=== PATIENT | male | born 1950 | race Caucasian/White ===

== ENCOUNTER → 2018-03-22 | Outpatient (CLI) | payer MEDICARE ==
[2018-03-22 16:16] LABS: HCT 35.4 % (39.0-53.0); HGB 11.6 gm/dL (13.0-17.5); MCH 32.7 pg (25.0-35.0); MCHC 32.7 g/dL (31.0-37.0); Macrocytosis Slight; Platelet Count 175 k/uL (150-450); RBC 3.54 m/uL (4.30-5.90); RDW 15.4 % (11.5-15.5); WBC 3.6 k/uL (3.8-10.6)
[2018-03-22 16:23] LABS: Prothrombin Time 9.9 sec (9.0-12.0); T4, Free (Free Thyroxine) 0.73 ng/dL (0.78-2.19)
[2018-03-22 16:49] LABS: Band Neutrophils % 1 %; Eosinophils # (M) 0.07 k/uL (0-0.7); Monocytes # (M) 0.54 k/uL (0-1.0); Neutrophils % (M) 43 %; Nucleated Red Blood Cells 0 /100 WBC (0-0); Total Cells Counted 100
[2018-03-22 16:50] LABS: Poikilocytosis (M) Present
[2018-03-22 19:38] LABS: Vitamin D 25 Hydroxy 31.6 ng/mL (30.0-100.0)
== END | disposition home or self-care (01) ==
LOC: LABWHC1 14:38
PROVIDERS: ATTEND Psychiatry & Neurology Neurology
DX: R41.3 Other amnesia (principal); I67.9 Cerebrovascular disease, unspecified
CPT/HCPCS: 36415; 82306; 82607; 84207; 84439; 84443; 85025; 85610; 85730; 86618; 86780

== ENCOUNTER → 2018-04-09 | Outpatient (CLI) | payer MEDICARE ==
--- NOTE | 2018-04-09 12:34 | MR ---
EXAMINATION TYPE: MR brain wo con DATE OF EXAM: 04/09/2018 COMPARISON: NONE HISTORY: stroke T1-weighted sagittal, T2, FLAIR, and diffusion axial, and T2 coronal coronal views of the brain are s ubmitted. Exam limited by severe motion artifact. There is no evidence of acute ischemia. The ventricles, basal cisterns, and sulci overlying the conv exities are consistent with the patient's age. There is no mass effect. Craniocervical junction maintained. Sella turcica has a normal appearance. No cerebellopontine angle mass. Changes of chronic sinusitis are noted. There is mild to moderate generalized degenerative change wit h diffuse and focal areas of abnormal signal the white matter which are nonspecific. Remote microvasc ular ischemia favored. IMPRESSION: 1. Limited exam demonstrates no acute intracranial process. 2. Degenerative and nonspecific white matter changes most typical remote microvascular ischemia. 3. Changes of chronic sinusitis.
== END | disposition home or self-care (01) ==
LOC: RADMRIMAIN 11:37
PROVIDERS: ATTEND Psychiatry & Neurology Neurology
DX: R90.89 Other abnormal findings on diagnostic imaging of central nervous system (principal); Z86.73 Personal history of transient ischemic attack (TIA), and cerebral infarction without residual deficits; Z86.69 Personal history of other diseases of the nervous system and sense organs
CPT/HCPCS: 70551

== ENCOUNTER → 2018-06-16 | Outpatient (CLI) | payer MEDICARE ==
--- NOTE | 2018-06-16 14:39 | US ---
EXAMINATION TYPE: US carotid duplex BILAT DATE OF EXAM: 06/16/2018 COMPARISON: NONE CLINICAL HISTORY: Abnormal MRI R93.8. EXAM MEASUREMENTS: RIGHT: Peak Systolic Velocity (PSV) cm/sec ----- Right CCA: 66.7 ----- Right ICA: 82.9 ----- Right ECA: 108.1 ICA/CCA ratio: 1.2 RIGHT: End Diastole cm/sec ----- Right CCA: 20.5 ----- Right ICA: 23.5 ----- Right ECA: 22.2 LEFT: Peak Systolic Velocity (PSV) cm/sec ----- Left CCA: 87.6 ----- Left ICA: 79.8 ----- Left ECA: 113.3 ICA/CCA ratio: 0.9 LEFT: End Diastole cm/sec ----- Left CCA: 26.7 ----- Left ICA: 28.0 ----- Left ECA: 11.4 VERTEBRALS (direction of flow): Right Vertebral: Antegrade Left Vertebral: Antegrade Rhythm: Normal mid left cca plaque, wnl IMPRESSION: Mild degree of grayscale atheromatous plaquing with no sonographically evident hemodynam ically significant stenosis within either visualized carotid arterial system.
== END | disposition home or self-care (01) ==
LOC: RADUSWWP 13:34
PROVIDERS: ATTEND Psychiatry & Neurology Neurology
DX: I65.23 Occlusion and stenosis of bilateral carotid arteries (principal)
CPT/HCPCS: 93880

== ENCOUNTER → 2018-08-16 | Outpatient (CLI) | payer MEDICARE ==
--- NOTE | 2018-08-16 20:43 | MR ---
EXAMINATION TYPE: MR shoulder LT wo con DATE OF EXAM: 08/16/2018 COMPARISON: Plain film 08/02/2018 HISTORY: Left shoulder pain TECHNIQUE: Multiplanar, multisequence imaging of the left shoulder is performed without contrast. FINDINGS: Rotator Cuff: Supraspinatus tendon and infraspinatus tendon are torn and retracted to the level of th e acromion, there is marked attenuation of the rotator cuff tendon. Acromioclavicular Joint: Arthropathy is present. Glenohumeral Joint: Shoulder somewhat high riding. There is remodeling of the glenohumeral joint. Labrum: The labrum appears grossly intact given limitation of non-arthrogram study. Biceps Tendon: The long head of biceps tendon is markedly attenuated centrally but is present within the bicipital groove peripherally, centrally the transverse humeral ligament is not seen to be intact with certainty on the tendon is not well seen Bone marrow signal: Some reactive marrow signal change present at the level of the greater tuberosity , remodeling at this region could be due to Hill-Sachs deformity. There are some tracks of low signal within the humeral head likely due to prior rotator cuff repair. Other: Intermediate signal is present throughout much of the large shoulder joint effusion. There is likely debris present within the joint. IMPRESSION: Suspect a rotator cuff tear which may be recurrent, correlate with patient's history. Additional find ings above.
== END ==
LOC: RADMRIMAIN 14:58
PROVIDERS: ATTEND Orthopaedic Surgery
DX: M19.012 Primary osteoarthritis, left shoulder (principal)

== ENCOUNTER → 2018-08-24 | Outpatient (CLI) | payer MEDICARE ==
[2018-08-24 10:17] LABS: HCT 32.7 % (39.0-53.0); Hypochromasia Moderate; MCH 31.7 pg (25.0-35.0); MCHC 30.6 g/dL (31.0-37.0); MCV 103.7 fL (80.0-100.0); Macrocytosis Slight; Mean Platelet Volume 7.8; Platelet Count 256 k/uL (150-450); RBC 3.15 m/uL (4.30-5.90); RDW 15.2 % (11.5-15.5); WBC 4.9 k/uL (3.8-10.6)
[2018-08-24 10:54] LABS: Lymphocytes # (M) 0.78 k/uL (1.0-4.8); Monocytes # (M) 1.42 k/uL (0-1.0); Neutrophils % (M) 51 %; Nucleated Red Blood Cells 0 /100 WBC (0-0); Poikilocytosis (M) Present; Total Cells Counted 100
[2018-08-24 11:20] LABS: Potassium 4.7 mmol/L (3.5-5.1)
== END | disposition home or self-care (01) ==
LOC: LABPAT 09:06
PROVIDERS: ATTEND Orthopaedic Surgery
DX: Z01.812 Encounter for preprocedural laboratory examination (principal); M75.42 Impingement syndrome of left shoulder
CPT/HCPCS: 36415; 80051; 85025

== ENCOUNTER 2018-09-12 07:57 | Day surgery (SDC) | payer MEDICARE ==
[2018-09-09 11:06] VITALS: BMI 27.4
--- NOTE | 2018-09-11 18:47 | HP ---
HISTORY AND PHYSICAL REASON FOR ADMISSION: Surgery scheduled 09/12/2018 Wyatt Suarez is a 68-year-old patient seen with progressive left shoulder pain. After treatment options were discussed with him, he elected to proceed with arthroscopy. Consent was obtained. Medical clearance provided by Dr. Jani Arambula. PAST MEDICAL HISTORY: Hypertension, hyperlipidemia. PAST SURGICAL HISTORY: Left shoulder arthroscopy, herniorrhaphy. MEDICATIONS: Atenolol, Proscar, simvastatin, Aricept. ALLERGIES: NITROGLYCERIN. SOCIAL HISTORY: Patient denies current tobacco use. PHYSICAL EXAMINATION: Evaluation of the left shoulder flexion 30 degrees, abduction 30 degrees, external rotation is 20 degrees with pain and weakness. Tenderness on the anterolateral acromion rotator cuff insertion site. Impingement sign positive at 50 degrees. Drop- arm sign positive. Distal neurovascular exam intact. RADIOGRAPHS: Left shoulder radiographs revealed a type 2 anterior acromion acromioclavicular joint osteoarthritis and cystic changes of the greater tuberosity. An MRI left shoulder revealed a massive retracted rotator cuff tear along with acromioclavicular joint osteoarthritis. IMPRESSION: 1. Left shoulder impingement with rotator cuff tear. 2. Left shoulder acromioclavicular osteoarthritis. 3. Hypertension. 4. Hyperlipidemia. PLAN: Left shoulder arthroscopy with decompression, possible arthroscopic rotator cuff repair, probable Viktoriya procedure and debridement. Surgery scheduled for 09/12/2018. MMODL / IJN: [id number] /
[~2018-09-12 07:57] MED LIST: DEXAMETHASONE SOD PHOSPHATE 10 MG/ML 1 ML VIAL IV ONE; HYDROmorphone 0.5 MG/0.5 ML SYRINGE IVP PRN; LACTATED RINGERS 1,000 ML IV SCH; LIDOCAINE 1% 20 ML VIAL (10MG/ML) FOR IV START INTRADERMA PRN; ONDANSETRON 4 MG/2 ML VIAL IVP ONE; ceFAZolin 1,000 MG in DEXTROSE/WATER 1 50ML.BAG IV ONE
[2018-09-12] MEDS ORDERED: fentaNYL (PF) 50 MCG/ML 2 ML AMP IVP ONE ×2 (08:44→09:08)
[2018-09-12] MEDS ORDERED: MIDAZOLAM 2 MG/2 ML VIAL IV ONE ×2 (08:44→09:06)
--- NOTE | 2018-09-12 09:04 | P.ONQ ---
Anesthesiology Proc Note - PNB - Peripheral Nerve Block Performed Left Interscalene Single Time Out Performed: Yes Procedure Start Time: 08:45 Indication: Acute Post-Operative Pain, Analgesia Specifically requested for management of pain by DrBenedicto: Jonathan Arevalo Sedation Type: Sedate with meaningful contact maintained Preparation: Sterile Prep Position: Supine Catheter: None Needle Types: Other (see comment) (Pajunk) Needle Size: 50mm (2") Needle Gauge: 21 Technique: Ultrasound Injectate: 0.5% Ropivacaine (see comment for volume) (25 cc) Blood Aspirated: No Pain Paresthesia on Injection Noted: No Resistance on Injection: Normal Events: Uneventful and Well Tolerated
[2018-09-12] MEDS ORDERED: ROPIVACAINE 5 MG/ML 30 ML VIAL ONE (09:33)
[2018-09-12] MEDS ORDERED: fentaNYL (PF) 50 MCG/ML 2 ML AMP ONE (09:33)
[2018-09-12] MEDS ORDERED: LIDOCAINE 1% INJ 10MG/ML (20 ML MDV) ONE (09:33)
[2018-09-12] MEDS ORDERED: SUCCINYLCHOLINE CHLORIDE 100 MG/5 ML SYR IV ONE (09:33)
[2018-09-12] MEDS ORDERED: PROPOFOL 10 MG/ML 20 ML VIAL IV ONE (09:33)
[2018-09-12] MEDS ORDERED: LACTATED RINGERS 1,000 ML IV ONE (11:29)
[2018-09-12 12:00] VITALS: TEMP 96.9
[2018-09-12 12:36] VITALS: RESP 16
[2018-09-12 13:31] VITALS: BP 162/90; PULSE 71
--- NOTE | 2018-09-12 14:29 | P.OP ---
Date of Procedure: 09/12/18 Preoperative Diagnosis: Left shoulder rotator cuff tear Postoperative Diagnosis: 1. Massive retracted rotator cuff tear left shoulder 2. Superior labral tear left shoulder Procedure(s) Performed: 1. Arthroscopic rotator cuff repair left shoulder 2. Arthroscopic debridement labral tear left shoulder Implants: 3Arthrex swivel lock anchors Anesthesia: GETA, regional (Adductor canal together), local Surgeon: Jonathan Arevalo Commercial Roofing Estimator #1: Fransico Coe Estimated Blood Loss (ml): 5 Pathology: none sent Condition: stable Disposition: PACU Indications for Procedure: 68-year-old patient seen with progressive left shoulder pain. After having treatment options discussed, he elected to proceed with arthroscopy. Operative Findings: see description of procedure Description of Procedure: Patient underwent an interscalene block by department of anesthesia for postoperative pain control. The patient was then taken to the operative suite. The patient underwent a general anesthetic by the department of anesthesia. The patient was placed into a lateral position and secured. There was appropriate padding of the bony prominence. Left shoulder was then prepped and draped in normal sterile orthopedic fashion. We placed the extremity in 10 pounds of longitudinal traction. A posterior incision was now made for a posterior working portal site. The trocar and cannula were inserted into the glenohumeral joint. Arthroscopy was initiated. Spinal needle was now inserted anteriorly, to ascertain the anterior working portal site. An incision was now made in that area, a trocar was inserted followed by a probe. There was superficial tearing of the superior labrum present. There was no obvious massive retracted rotator cuff tear present. The biceps tendon was absent. There were grade 1/2 chondromalacia changes of the glenohumeral joint. I debrided the labral tear down to stable tissue. The residual labrum appeared stable. Instruments now removed from glenohumeral joint. Utilizing the posterior working portal site, the trocar and cannula were inserted into the subacromial space. Arthroscopy initiated. I made an incision 2 fingerbreadths lateral to the acromion. I introduced my trocar followed by my ArthroCare ablator. I now began ablating thick subacromial bursal tissue, which exposed the undersurface of the anterior acromion. There appeared to be adequate acromial space present. The before meals joint was visualized and noted to be moderately arthritic. I did not think enough toward a Viktoriya procedure. I turned my attention to the rotator cuff tear. There was a massive 3-4 cm tear retracted all the way to and beyond the glenoid. It was not mobile. I began meticulously freeing up the tendon. At this point it still would not reach the footprint. I began placing interrupted sutures centrally performing a [id number] repair mobilizing some of the anterior portion of the tendon which was somewhat more mobile. This was done with the assistance of Cb MUSE. After placing multiple sutures I was now just barely able to get the tendon over the footprint. The tissue was very weak but I felt stable enough to attempt a repair. We passed 8 horizontal mattress sutures through reasonable bites of tendon at least we had to work with. I passed 2 additional loop stitches. At this point the sutures were pulled and there appeared to be good stable tendon tissue although it did appear to be quite thin. I now introduced 3 anchors passing various sutures through them compressed and atenolol the footprint nicely. I held the anchors in place while Cb MUSE tensioned the sutures. The anchors were introduced into the bone with Cb MUSE's assistance. All residual suture limbs were now clipped. We had a reasonable repair done with a fair amount of tension. I injected 1 mL Renue intra-articular. Instruments now removed from the portal sites. All portal sites were approximated with nylon suture. Sterile dressings were applied followed by a shoulder immobilizer. Fransico MUSE assisted in this complex case. The patient was awakened, transferred to a bed, and taken to recovery in stable condition. Prognosis remains guarded given this complex tear.
== END 2018-09-12 13:46 | disposition home or self-care (01) ==
LOC: OR 07:57
PROVIDERS: ATTEND Orthopaedic Surgery
DX: M75.102 Unspecified rotator cuff tear or rupture of left shoulder, not specified as traumatic (principal); S43.432A Superior glenoid labrum lesion of left shoulder, initial encounter; X58.XXXA Exposure to other specified factors, initial encounter; M94.212 Chondromalacia, left shoulder; I10 Essential (primary) hypertension; E78.5 Hyperlipidemia, unspecified; Z87.891 Personal history of nicotine dependence; F03.90 Unspecified dementia, unspecified severity, without behavioral disturbance, psychotic disturbance, mood disturbance, and anxiety; Z79.82 Long term (current) use of aspirin; Z79.891 Long term (current) use of opiate analgesic; Z79.899 Other long term (current) drug therapy; Z88.8 Allergy status to other drugs, medicaments and biological substances
CPT/HCPCS: 64415; 29826; 29827; C1713 ×2; C1894; C1765; J2250; J1100; J2405; J2001; J3010; J0690; J2795; J0330; J2704

== ENCOUNTER 2019-09-16 14:56 | Observation (INO) | payer MEDICARE ==
[2019-09-16 15:38] LABS: ALT 26 U/L (21-72); AST 41 U/L (17-59); African American GFR (CKD) >90 (>60 ml/min/1.73 sqM); Albumin 4.3 g/dL (3.5-5.0); Alkaline Phosphatase 113 U/L (38-126); Anion Gap 11 mmol/L; Blood Urea Nitrogen 15 mg/dL (9-20); Calcium 9.3 mg/dL (8.4-10.2); Carbon Dioxide 24 mmol/L (22-30); Chloride 101 mmol/L (98-107); Creatine Kinase 81 U/L (55-170); Glucose 133 mg/dL (74-99); Magnesium 2.1 mg/dL (1.6-2.3); Potassium 4.4 mmol/L (3.5-5.1); Sodium 136 mmol/L (137-145); Total Bilirubin 0.4 mg/dL (0.2-1.3); Total Protein 7.6 g/dL (6.3-8.2)
--- NOTE | 2019-09-16 15:47 | XR ---
EXAMINATION TYPE: XR chest 2V DATE OF EXAM: 09/16/2019 COMPARISON: 10/26/2016 HISTORY: Chest pain TECHNIQUE: Frontal and lateral views of the chest are obtained. FINDINGS: Heart is normal. There is some linear density at the right lung base with blunting right c ostophrenic angle. Left lung is clear. There are chest leads. IMPRESSION: There is some pleural reaction and atelectasis lateral right lung base probably not abreu ged compared to old exam. Normal heart.
[2019-09-16 15:49] LABS: Anisocytosis Slight; HCT 33.6 % (39.0-53.0); HGB 10.3 gm/dL (13.0-17.5); Hypochromasia Slight; MCH 28.8 pg (25.0-35.0); MCHC 30.7 g/dL (31.0-37.0); MCV 93.9 fL (80.0-100.0); Platelet Count 160 k/uL (150-450); RBC 3.58 m/uL (4.30-5.90); WBC 4.3 k/uL (3.8-10.6)
[2019-09-16 15:50] LABS: INR 0.9 (<1.2); Partial Thromboplastin Time 25.4 sec (22.0-30.0); Prothrombin Time 10.2 sec (9.0-12.0)
[2019-09-16 16:02] LABS: D-Dimer 5.15 mg/L FEU (<0.60)
[2019-09-16 16:24] LABS: Lymphocytes # (M) 0.73 k/uL (1.0-4.8); Neutrophils % (M) 62 %; Nucleated Red Blood Cells 0 /100 WBC (0-0); Total Cells Counted 100
--- NOTE | 2019-09-16 16:49 | ED ---
Chest Pain HPI - General Chief Complaint: Chest Pain Stated Complaint: Chest pain Time Seen by Provider: 09/16/19 15:15 Source: patient, family, RN notes reviewed Mode of arrival: ambulatory Limitations: no limitations - History of Present Illness Initial Comments: This is a 69-year-old male who presents with complaints of chest pain is been going on over last several days he states it was starting yesterday and last night he states he will at times be sharp dull achy and pressure-like he points to the mid left chest does not seem to radiate. No fevers chills nausea vomiting sweats no cough or phlegm production no other associated probably does have a prior history of left shoulder surgery but a year ago. He states the pain feels somewhat similar MD Complaint: chest pain - Related Data Home Medications Medication Instructions Recorded Confirmed Atenolol 25 mg PO DAILY 11/04/15 09/16/19 Simvastatin [Zocor] 40 mg PO HS 11/04/15 09/16/19 Acetaminophen Tab [Tylenol Tab] 650 mg PO Q6H PRN 10/26/16 09/16/19 Aspirin EC [Ecotrin Low Dose] 81 mg PO HS 10/26/16 09/16/19 Donepezil [Aricept] 10 mg PO HS 09/16/19 09/16/19 Tamsulosin [Flomax] 0.4 mg PO DAILY 09/16/19 09/16/19 Allergies Allergy/AdvReac Type Severity Reaction Status Date / Time nitroglycerin Allergy pts heart Verified 09/16/19 16:16 stopped beating after given nitro Review of Systems ROS Statement: Those systems with pertinent positive or pertinent negative responses have been documented in the HPI. ROS Other: All systems not noted in ROS Statement are negative. EKG Findings - EKG Comments: EKG Findings:: Sinus rhythm of 68 MI interval 150 QRS 76 QT since QTC 408/433 Past Medical History Past Medical History: Dementia, Hyperlipidemia, Osteoarthritis (OA), Prostate Disorder Additional Past Medical History / Comment(s): Anemia., pain left shoulder History of Any Multi-Drug Resistant Organisms: None Reported Past Surgical History: Ear Surgery, Heart Catheterization, Hernia Repair, Orthopedic Surgery Additional Past Surgical History / Comment(s): Left shoulder rotator cuff, knee arthroscopy Additional Past Anesthesia/Blood Transfusion Reaction / Comment(s): PTS BLOOD PRESSURE HAS DROPPED IN THE PAST WHEN RECEIVING ANESTHESIA Past Psychological History: Anxiety Smoking Status: Former smoker Past Alcohol Use History: Daily Past Drug Use History: None Reported - Past Family History Sister(s) Family Medical History: Cancer Mother Family Medical History: No Reported History General Exam - General Exam Comments Initial Comments: Is a well-developed well-nourished awake alert oriented 3 male Limitations: no limitations General appearance: alert, in no apparent distress Head exam: Present: atraumatic, normocephalic, normal inspection Eye exam: Present: normal appearance, PERRL, EOMI. Absent: scleral icterus, conjunctival injection, periorbital swelling ENT exam: Present: normal exam, mucous membranes moist Neck exam: Present: normal inspection, full ROM, other (No stridor JVD or bruits). Absent: tenderness, meningismus, lymphadenopathy Respiratory exam: Present: normal lung sounds bilaterally. Absent: respiratory distress, wheezes, rales, rhonchi, stridor Cardiovascular Exam: Present: regular rate, normal rhythm, normal heart sounds. Absent: systolic murmur, diastolic murmur, rubs, gallop, clicks GI/Abdominal exam: Present: soft, normal bowel sounds. Absent: distended, tenderness, guarding, rebound, rigid Extremities exam: Present: normal inspection, full ROM, normal capillary refill. Absent: tenderness, pedal edema, joint swelling, calf tenderness Back exam: Present: normal inspection Neurological exam: Present: alert, oriented X3, CN II-XII intact Psychiatric exam: Present: normal affect, normal mood Skin exam: Present: warm, dry, intact, normal color. Absent: rash Course Vital Signs 09/16/19 09/16/19 15:01 16:57 Temperature 98.2 F Pulse Rate 77 66 Respiratory 16 18 Rate Blood Pressure 133/78 120/64 O2 Sat by Pulse 98 73 L Oximetry Chest Pain MDM - MDM The CAT scan the test was negative for PE there is some thickening noted. Please see complete report discuss [employer] the patient's the chest pain patient presents with his bothersome for being consistent with unstable angina. I did discuss the findings with the patient family and the patient will be admitted for rule out the case discussed Dr. Garcia. Disposition Clinical Impression: Chest pain Disposition: ADMITTED IP TO THIS HOSP Condition: Stable Referrals: Farnaz Webster MD [Primary Care Provider] - 1-2 days
--- NOTE | 2019-09-16 17:20 | CT ---
EXAMINATION TYPE: CT angio chest DATE OF EXAM: 09/16/2019 4:59 PM COMPARISON: 10/26/2016 HISTORY: Chest pain with elevated d-dimer. CT DLP: 397.5 mGycm Automated exposure control for dose reduction was used. CONTRAST: CTA scan of the thorax is performed with IV Contrast, patient injected with 72ml mL of Isovue 370, pu lmonary embolism protocol. There are 3-D post processed images.. FINDINGS: There is very low density 1 cm infiltrate in the anterior right upper lobe. There is some pleural nod ular density on the lateral chest wall on the right side that measures up to 1 cm. There is no pleura l effusion. There is no pneumothorax. There is no mediastinal adenopathy. There are a few paratrachea l and bronchial lymph nodes that measure up to 1 cm. Thoracic aorta shows no aneurysm or dissection. Heart size is normal. There is no pericardial effusion. There is normal contrast opacification of the pulmonary arteries. There are no filling defects. There is spurring in the thoracic spine. There is no compression fracture. IMPRESSION: NO EVIDENCE OF PULMONARY EMBOLISM. NONSPECIFIC MEDIASTINAL AND BRONCHIAL LYMPH NODES. COMPARED TO OLD EXAM THERE IS NEW MINIMAL NODULAR PLEURAL THICKENING ON THE LOWER RIGHT LATERAL CHEST WALL AND SOME DEGREE OF FOLLOW-UP IS RECOMMENDED TO SHOW STABILITY OR CLEARING.. THERE IS CLEARING OF THE MILD INFILTRATES AND ATELECTASIS AT THE LUNG BASES COMPARED TO OLD EXAM.
[2019-09-16] MEDS ORDERED: HEPARIN SODIUM,PORCINE 5,000 UNIT/ML 1 ML VIAL IV ONE (17:47)
[2019-09-16] MEDS ORDERED: NITROGLYCERIN SL TABS 0.4 MG TAB SUBLINGUAL PRN (17:47)
[2019-09-16] MEDS ORDERED: ACETAMINOPHEN TAB 325 MG TAB PO PRN (17:50)
[2019-09-16] MEDS: HEPARIN SOD,PORK IN 0.45% NACL 25,000 UNIT in 0.45% NACL 1 250ML.BAG IV SCH (19:25)
[2019-09-17 03:20] LABS: Cholesterol 157 mg/dL (<200); HDL Cholesterol 53 mg/dL (40-60); LDL Cholesterol,Calculated 74 mg/dL (0-99); Triglycerides 149 mg/dL (<150)
[2019-09-17] MEDS: ATORVASTATIN 20 MG TAB PO SCH ×2 (04:08→20:11)
[2019-09-17] MEDS: HEPARIN SODIUM,PORCINE 5,000 UNIT/ML 1 ML VIAL SQ STA ×2 (04:08→04:11)
[2019-09-17] MEDS: DONEPEZIL 10 MG TAB PO SCH ×2 (04:08→20:11)
[2019-09-17] MEDS ORDERED: HEPARIN SODIUM,PORCINE 5,000 UNIT/ML 1 ML VIAL IV PRN (04:09)
[2019-09-17] MEDS ORDERED: ASPIRIN 325 MG TAB PO SCH (09:00)
[2019-09-17] MEDS: ATENOLOL 25 MG TAB PO SCH (09:34)
[2019-09-17] MEDS: TAMSULOSIN 0.4 MG CAP.ER.24H PO SCH (09:34)
--- NOTE | 2019-09-17 10:24 | P.HPIM ---
History of Present Illness H&P Date: 09/17/19 Chief Complaint: chest pain This is a 69-year-old male one of with a previous medical history significant for mild CAD post-heart catheterization more than 6 years ago, history of vascular dementia, hyperlipidemia, patient presented to the emergency department at 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 Mojica in more than 3 years ago. Review of Systems Constitutional: Denies anorexia, Denies chronic headaches, Denies weakness, Denies weight gain Eyes: denies blurred vision, denies bulging eye, denies decreased vision, denies diplopia Ears: deny: decreased hearing Ears, nose, mouth and throat: Denies dysphagia, Denies neck lump, Denies swelli ng in throat, Denies sore throat Cardiovascular: Reports chest pain, Denies decreased exercise tolerance, Denies dyspnea on exertion, Denies edema, Denies lightheadedness, Denies rapid heart beat, Denies shortness of breath, Denies syncope Respiratory: Denies congestion, Denies cough with sputum, Denies home oxygen, Denies respiratory infections, Denies sleep apnea, Denies snoring, Denies wheezing Gastrointestinal: Denies abdominal pain, Denies BRBPR, Denies excessive gas, Denies heartburn, Denies melena, Denies nausea, Denies vomiting Genitourinary: Reports nocturia, Denies dysuria Musculoskeletal: Denies myalgias Musculoskeletal: absent: ankle pain, ankle stiffness, ankle swelling, elbow pain, elbow stiffness, elbow swelling, foot pain, foot stiffness, foot swelling, hand pain, hand stiffness, hand swelling, hip pain, hip stiffness, hip swelling, knee pain, knee stiffness, knee swelling, shoulder pain, shoulder stiffness, shoulder swelling, wrist pain, wrist stiffness, wrist swelling Integumentary: Denies pruritus, Denies rash Neurological: Reports memory loss, Denies numbness, Denies weakness Psychiatric: Denies anxiety, Denies depression Endocrine: Denies fatigue, Denies weight change Past Medical History Past Medical History: Coronary Artery Disease (CAD), Dementia, Hyperlipidemia, Osteoarthritis (OA), Prostate Disorder Additional Past Medical History / Comment(s): Anemia., pain left shoulder History of Any Multi-Drug Resistant Organisms: None Reported Past Surgical History: Ear Surgery, Heart Catheterization, Hernia Repair, Orthopedic Surgery Additional Past Surgical History / Comment(s): Left shoulder rotator cuff, knee arthroscopy Additional Past Anesthesia/Blood Transfusion Reaction / Comment(s): PTS BLOOD PRESSURE HAS DROPPED IN THE PAST WHEN RECEIVING ANESTHESIA Past Psychological History: Anxiety Smoking Status: Former smoker (Patient used to smoke about a pack every 3 days for 5 years and quit when he was 25-year-old.) Past Alcohol Use History: Daily (Patient drinks about 3 beers on a daily basis.) Past Drug Use History: None Reported - Past Family History Sister(s) Family Medical History: Cancer (Patient has 3 sisters one of them with breast cancer status post bilateral mastectomy.) Mother Family Medical History: No Reported History, Cancer (Mother at age of 86 from possible lung cancer ) Father Family Medical History: Coronary Artery Disease (CAD) (Father at age of 87 from CVA and he had a history of quadruple bypass surgery.), CVA/TIA Additional Family Medical History / Comment(s): cardiac history stated by the patient. Brother(s) Family Medical History: Blood Disorder (Patient had 4 brothers 2 of them one from alcoholism and the other one from AIDS ) Son(s) Family Medical History: No Reported History (Patient has one son no major medical problems.) Daughter(s) Family Medical History: No Reported History (Patient has 2 daughters no major medical problems.) Medications and Allergies Home Medications Medication Instructions Recorded Confirmed Type Atenolol 25 mg PO DAILY 11/04/15 09/16/19 History Simvastatin [Zocor] 40 mg PO HS 11/04/15 09/16/19 History Acetaminophen Tab [Tylenol Tab] 650 mg PO Q6H PRN 10/26/16 09/16/19 History Aspirin EC [Ecotrin Low Dose] 81 mg PO HS 10/26/16 09/16/19 History Donepezil [Aricept] 10 mg PO HS 09/16/19 09/16/19 History Tamsulosin [Flomax] 0.4 mg PO DAILY 09/16/19 09/16/19 History Allergies Allergy/AdvReac Type Severity Reaction Status Date / Time nitroglycerin Allergy pts heart Verified 09/16/19 16:16 stopped beating after given nitro Physical Exam Vitals: Vital Signs Temp Pulse Resp BP Pulse Ox 09/17/19 04:12 98 F 62 17 109/69 95 09/17/19 00:05 97.7 F 66 15 115/67 98 09/16/19 21:11 73 16 125/70 96 09/16/19 19:44 98.3 F 64 18 131/79 98 09/16/19 16:57 66 18 120/64 73 L 09/16/19 15:01 98.2 F 77 16 133/78 98 Intake and Output 09/16/19 09/17/19 09/17/19 22:59 06:59 14:59 Intake Total 70.763 Balance 70.763 Intake: Intake, IV Titration 70.763 Amount Heparin Sod,Pork in 0.45% 70.763 NaCl 25,000 unit In 0.45 % NaCl 1 250ml.bag @ 12 UNITS/KG/HR 8.165 mls/hr IV .Q24H [facility] Rx#: [id number] Other: Weight 68.039 kg - Constitutional General appearance: no acute distress - EENT Eyes: anicteric sclerae, EOMI, PERRLA, no ptosis, no scleral icterus, normal appearance ENT: hearing grossly normal, NA/AT, normal oropharynx, no thrush Ears: bilateral: normal - Neck Neck: no lymphadenopathy, normal ROM, no rigidity, no stridor, no thyromegaly Carotids: bilateral: upstroke normal Thyroid: bilateral: normal size - Respiratory Respiratory: bilateral: diminished, negative: dullness, rales, rhonchi, wheezing, prolonged expiration, prolonged inspiration - Cardiovascular Rhythm: regular Heart sounds: normal: S1, S2 Abnormal Heart Sounds: no systolic murmur, no rub, no S3 Gallop, no S4 Gallop - Gastrointestinal General gastrointestinal: normal bowel sounds, soft, no splenomegaly, no tenderness, no umbilical hernia, no ventral hernia - Genitourinary Male genitourinary: enlarged prostate - Integumentary Integumentary: normal, normal turgor - Neurologic Neurologic: CNII-XII intact - Musculoskeletal Musculoskeletal: gait normal, strength equal bilaterally - Psychiatric Psychiatric: A&O x's 3, appropriate affect, intact judgment & insight Results CBC & Chem 7: 09/16/19 15:14 09/16/19 15:14 Labs: Abnormal Lab Results - Last 24 Hours (Table) 09/16/19 09/16/19 09/16/19 Range/Units 15:14 15:14 15:14 RBC 3.58 L (4.30-5.90) m/uL Hgb 10.3 L (13.0-17.5) gm/dL Hct 33.6 L (39.0-53.0) % MCHC 30.7 L (31.0-37.0) g/dL RDW 17.0 H (11.5-15.5) % Lymphocytes # (Manual) 0.73 L (1.0-4.8) k/uL APTT (22.0-30.0) sec D-Dimer 5.15 H (<0.60) mg/L FEU Sodium 136 L (137-145) mmol/L Glucose 133 H (74-99) mg/dL 09/17/19 Range/Units 01:57 RBC (4.30-5.90) m/uL Hgb (13.0-17.5) gm/dL Hct (39.0-53.0) % MCHC (31.0-37.0) g/dL RDW (11.5-15.5) % Lymphocytes # (Manual) (1.0-4.8) k/uL APTT 42.9 H (22.0-30.0) sec D-Dimer (<0.60) mg/L FEU Sodium (137-145) mmol/L Glucose (74-99) mg/dL Thrombosis Risk Factor Assmnt - DVT/VTE Prophylaxis DVT/VTE Prophylaxis: Pharmacologic Prophylaxis ordered, Mechanical Prophylaxis ordered Assessment and Plan Assessment: Assessment and plan: 1. Sided chest pain appears to be noncardiac however the patient had a history of mild CAD in the past the last time he was investigated was about 6 years ago with a left heart catheterization, patient will be admitted to the hospital wo uld be started on heparin drip, he would be placed on Lipitor 40 mg orally once every day, continue atenolol 25 mg orally once every day, cardiology consultation for further evaluation may be we'll start with a stress test, if it's positive would pursue left heart catheterization. 2. Mild CAD. Continue treatment as in paragraph #1. 3. Hypertension. Continue atenolol 25 mg orally once every day. 4. Hyperlipidemia. Continue Lipitor 40 mg orally once every day. 5. Vascular dementia. Continue Aricept 5 mg orally once every day. 6. BPH. Continue Flomax 0.4 g orally once every day. 7. Chronic anemia thought to be due to his chronic alcohol use has been seen by hematology, monitor the patient CBC. 8. DVT prophylaxis. Currently on heparin drip. 9. GI prophylaxis. Continue PPI. 10. Full code. 11. Observation.
[2019-09-17] MEDS ORDERED: LORazepam 2 MG/ML INJ IV PRN ×3 (11:14)
--- NOTE | 2019-09-17 13:12 | P.CRDCN ---
<Oliva Simental - Last Filed: 09/17/19 13:04> History of Present Illness Consult date: 09/17/19 Consult reason: chest pain History of present illness: The patient is a 69-year-old male with past medical history of mild coronary artery disease, vascular dementia, and hyperlipidemia, who previously followed with Dr. Mojiac in the office. He presented to the emergency room after experiencing a pressure like sensation in his chest over the past several days. He states he notified his yesterday that he had felt a "ache" in his chest and upon further questioning he admitted that this had been going on for the past several days. He states he cannot quite correlated with activity or exertion, however he does have a history of dementia. EKG shows sinus mechanism without ST or T-wave changes. Computed tomography scan negative for pulmonary emboli. His d-dimer is notably elevated at 5.15. Cardiac enzymes are negative 3. LDL 74. On exam this morning he is sitting comfortably in bed with his at his bedside. He denies any shortness of breath, chest discomfort, or lower extremity pain. PAST MEDICAL HISTORY: Coronary artery disease, hypertension, dyslipidemia, vascular dementia, osteoarthritis, prostate disorder, anemia REVIEW OF SYSTEMS: No fever or chills. No cough or expectoration. No diaphoresis. Patient denies headache, dizziness, blurred vision, double vision. Patient denies any stomach discomfort. No nausea, vomiting. No hematochezia. No hematemesis. Denies any black stools or blood in his stools. Denies dysuria or hematuria. No muscle weakness or numbness. No chest discomfort. No shortness of breath. No dizziness or lightheadedness. No palpitations. PHYSICAL EXAMINATION: This is a 69-year-old male in no apparent distress at the time of my examination. HEENT: Head is atraumatic, normocephalic. Pupils are equal, round. Sclerae anicteric. Conjunctivae are clear. Mucous membranes of the mouth are moist. Neck is supple. There is no jugular venous distention. No carotid bruit is heard. CHEST EXAMINATION: Lungs are clear to auscultation. No chest wall tenderness is noted on palpation or with deep breathing. HEART EXAMINATION: Heart regular rate and rhythm. S1, S2 heard. No murmurs, gallops or rub. ABDOMEN: Soft, nontender. Bowel sounds are heard. No organomegaly noted. EXTREMITIES: 2+ peripheral pulses with no evidence of peripheral edema and no calf tenderness noted. NEUROLOGIC EXAMINATION: Patient is awake, alert and oriented x2. LABORATORY DATA: WBC 4.3, hemoglobin 10.3, hematocrit 33.6, platelet 160, d-dimer 5.15, sodium 136, potassium 4.4, BUN 15, creatinine 0.75, magnesium 2.1, AST 41, ALT 26, troponin negative 3, BNP 155, LDL 74, triglycerides 149. FINAL ASSESSMENT AND PLAN: #1 chest discomfort, ACS workup negative and ruled out for an acute CO #2 elevated d-dimer, chest CT negative for pulmonary emboli #3 history of mild coronary artery disease #4 hypertension, well controlled #5 dyslipidemia, recent LDL 74 #6 vascular dementia PLAN: We will schedule the patient for a 2-D echocardiogram to assess heart structure and function and dobutamine stress test to assess for ischemia. We will continue current medication regimen including heparin at this time. Consideration should be made for further testing regarding abnormal d-dimer. We will continue to monitor. Past Medical History Past Medical History: Coronary Artery Disease (CAD), Dementia, Hyperlipidemia, Osteoarthritis (OA), Prostate Disorder Additional Past Medical History / Comment(s): Anemia., pain left shoulder History of Any Multi-Drug Resistant Organisms: None Reported Past Surgical History: Ear Surgery, Heart Catheterization, Hernia Repair, Orthopedic Surgery Additional Past Surgical History / Comment(s): Left shoulder rotator cuff, knee arthroscopy Additional Past Anesthesia/Blood Transfusion Reaction / Comment(s): PTS BLOOD PRESSURE HAS DROPPED IN THE PAST WHEN RECEIVING ANESTHESIA Past Psychological History: Anxiety Smoking Status: Former smoker (Patient used to smoke about a pack every 3 days for 5 years and quit when he was 25-year-old.) Past Alcohol Use History: Daily (Patient drinks about 3 beers on a daily basis.) Past Drug Use History: None Reported - Past Family History Sister(s) Family Medical History: Cancer (Patient has 3 sisters one of them with breast cancer status post bilateral mastectomy.) Father Family Medical History: Coronary Artery Disease (CAD) (Father at age of 87 from CVA and he had a history of quadruple bypass surgery.), CVA/TIA Additional Family Medical History / Comment(s): cardiac history stated by the patient. Brother(s) Family Medical History: Blood Disorder (Patient had 4 brothers 2 of them one from alcoholism and the other one from AIDS ) Son(s) Family Medical History: No Reported History (Patient has one son no major medical problems.) Daughter(s) Family Medical History: No Reported History (Patient has 2 daughters no major medical problems.) Mother Family Medical History: No Reported History, Cancer (Mother at age of 86 from possible lung cancer ) Additional Family Medical History / Comment(s): , of old age Medications and Allergies Home Medications Medication Instructions Recorded Confirmed Type Atenolol 25 mg PO DAILY 11/04/15 09/16/19 History Simvastatin [Zocor] 40 mg PO HS 11/04/15 09/16/19 History Acetaminophen Tab [Tylenol Tab] 650 mg PO Q6H PRN 10/26/16 09/16/19 History Aspirin EC [Ecotrin Low Dose] 81 mg PO HS 10/26/16 09/16/19 History Donepezil [Aricept] 10 mg PO HS 09/16/19 09/16/19 History Tamsulosin [Flomax] 0.4 mg PO DAILY 09/16/19 09/16/19 History Allergies Allergy/AdvReac Type Severity Reaction Status Date / Time nitroglycerin Allergy pts heart Verified 09/16/19 16:16 stopped beating after given nitro Physical Exam Vitals: Vital Signs Temp Pulse Pulse Resp BP BP Pulse Ox 09/17/19 12:00 98.1 F 61 16 110/70 98 09/17/19 07:38 97.5 F L 60 18 131/74 99 09/17/19 07:23 97.8 F 58 L 18 110/65 96 09/17/19 04:12 98 F 62 17 109/69 95 09/17/19 00:05 97.7 F 66 15 115/67 98 09/16/19 21:11 73 16 125/70 96 09/16/19 19:44 98.3 F 64 18 131/79 98 09/16/19 16:57 66 18 120/64 73 L 09/16/19 15:01 98.2 F 77 16 133/78 98 Intake and Output 09/16/19 09/17/19 09/17/19 22:59 06:59 14:59 Intake Total 70.763 74.507 Balance 70.763 74.507 Intake: Intake, IV Titration 70.763 74.507 Amount Heparin Sod,Pork in 0.45% 70.763 74.507 NaCl 25,000 unit In 0.45 % NaCl 1 250ml.bag @ 12 UNITS/KG/HR 8.165 mls/hr IV .Q24H [facility] Rx#: [id number] Other: Weight 68.039 kg Results 09/16/19 15:14 09/16/19 15:14 Cardiac Enzymes 09/16/19 09/16/19 09/16/19 Range/Units 15:14 15:14 21:14 AST 41 (17-59) U/L Troponin I <0.012 <0.012 (0.000-0.034) ng/mL 09/17/19 Range/Units 01:57 AST (17-59) U/L Troponin I <0.012 (0.000-0.034) ng/mL Coagulation 09/16/19 09/17/19 09/17/19 Range/Units 15:14 01:57 10:36 PT 10.2 (9.0-12.0) sec APTT 25.4 42.9 H 41.2 H (22.0-30.0) sec Lipids 09/17/19 Range/Units 01:57 Triglycerides 149 (<150) mg/dL Cholesterol 157 (<200) mg/dL HDL Cholesterol 53 (40-60) mg/dL CBC 09/16/19 Range/Units 15:14 WBC 4.3 (3.8-10.6) k/uL RBC 3.58 L (4.30-5.90) m/uL Hgb 10.3 L (13.0-17.5) gm/dL Hct 33.6 L (39.0-53.0) % Plt Count 160 (150-450) k/uL Comprehensive Metabolic Panel 09/16/19 Range/Units 15:14 Sodium 136 L (137-145) mmol/L Potassium 4.4 (3.5-5.1) mmol/L Chloride 101 (98-107) mmol/L Carbon Dioxide 24 (22-30) mmol/L BUN 15 (9-20) mg/dL Creatinine 0.75 (0.66-1.25) mg/dL Glucose 133 H (74-99) mg/dL Calcium 9.3 (8.4-10.2) mg/dL AST 41 (17-59) U/L ALT 26 (21-72) U/L Alkaline Phosphatase 113 (38-126) U/L Total Protein 7.6 (6.3-8.2) g/dL Albumin 4.3 (3.5-5.0) g/dL Current Medications Generic Name Dose Route Start Last Admin Trade Name Freq PRN Reason Stop Dose Admin Acetaminophen 650 mg 09/16/19 17:50 Tylenol Tab PO Q6H PRN Fever and/ or Mild Pain Aspirin 325 mg 09/17/19 09:00 09/17/19 09:34 Aspirin PO 325 mg DAILY ANN Administration Atenolol 25 mg 09/17/19 09:00 09/17/19 09:34 Tenormin PO 25 mg DAILY ANN Administration Atorvastatin Calcium 20 mg 09/16/19 21:00 09/17/19 04:08 Lipitor PO Not Given HS ANN Donepezil HCl 10 mg 09/16/19 21:00 09/17/19 04:08 Aricept PO Not Given HS ANN Heparin Sodium (Porcine) 0 unit 09/17/19 04:09 09/17/19 04:12 Heparin IV 1,700 unit Q6HR PRN Administration Low PTT Protocol Heparin Sodium/Sodium Chloride 250 mls @ 8.165 mls/hr 09/16/19 18:00 09/17/19 11:25 25,000 unit/ Sodium Chloride IV 16.93 units/kg/hr .Q24H [facility] 11.519 mls/hr Titration Protocol 12 UNITS/KG/HR Lorazepam 1 mg 09/17/19 11:14 Ativan IV Q2HR PRN CIWA 8 or 9 Lorazepam 1 mg 09/17/19 11:14 Ativan IV Q1HR PRN CIWA 10 to 15 Lorazepam 2 mg 09/17/19 11:14 Ativan IV 09/19/19 11:14 Q10M PRN CIWA 16 or higher Nitroglycerin 0.4 mg 09/16/19 17:47 Nitrostat SUBLINGUAL Q5M PRN Chest Pain Tamsulosin HCl 0.4 mg 09/17/19 09:00 09/17/19 09:34 Flomax PO 0.4 mg DAILY ANN Administration Intake and Output 09/16/19 09/17/19 09/17/19 22:59 06:59 14:59 Intake Total 70.763 74.507 Balance 70.763 74.507 Intake: Intake, IV Titration 70.763 74.507 Amount Heparin Sod,Pork in 0.45% 70.763 74.507 NaCl 25,000 unit In 0.45 % NaCl 1 250ml.bag @ 12 UNITS/KG/HR 8.165 mls/hr IV .Q24H [facility] Rx#: [id number] Other: Weight 68.039 kg 09/16/19 15:14 09/16/19 15:14 <Dago Tafoya - Last Filed: 09/17/19 13:41> History of Present Illness History of present illness: Patient evaluated Procedures 2-D echo and Doppler study and a dobutamine stress echo tomorrow Physical Exam Vitals: Vital Signs Temp Pulse Pulse Resp BP BP Pulse Ox 09/17/19 12:00 98.1 F 61 16 110/70 98 09/17/19 07:38 97.5 F L 60 18 131/74 99 09/17/19 07:23 97.8 F 58 L 18 110/65 96 09/17/19 04:12 98 F 62 17 109/69 95 09/17/19 00:05 97.7 F 66 15 115/67 98 09/16/19 21:11 73 16 125/70 96 09/16/19 19:44 98.3 F 64 18 131/79 98 09/16/19 16:57 66 18 120/64 73 L 09/16/19 15:01 98.2 F 77 16 133/78 98 Intake and Output 09/16/19 09/17/19 09/17/19 22:59 06:59 14:59 Intake Total 70.763 74.507 Balance 70.763 74.507 Intake: Intake, IV Titration 70.763 74.507 Amount Heparin Sod,Pork in 0.45% 70.763 74.507 NaCl 25,000 unit In 0.45 % NaCl 1 250ml.bag @ 12 UNITS/KG/HR 8.165 mls/hr IV .Q24H [facility] Rx#: [id number] Other: Weight 68.039 kg Results 09/16/19 15:14 09/16/19 15:14 Cardiac Enzymes 09/16/19 09/16/19 09/16/19 Range/Units 15:14 15:14 21:14 AST 41 (17-59) U/L Troponin I <0.012 <0.012 (0.000-0.034) ng/mL 09/17/19 Range/Units 01:57 AST (17-59) U/L Troponin I <0.012 (0.000-0.034) ng/mL Coagulation 09/16/19 09/17/19 09/17/19 Range/Units 15:14 01:57 10:36 PT 10.2 (9.0-12.0) sec APTT 25.4 42.9 H 41.2 H (22.0-30.0) sec Lipids 09/17/19 Range/Units 01:57 Triglycerides 149 (<150) mg/dL Cholesterol 157 (<200) mg/dL HDL Cholesterol 53 (40-60) mg/dL CBC 09/16/19 Range/Units 15:14 WBC 4.3 (3.8-10.6) k/uL RBC 3.58 L (4.30-5.90) m/uL Hgb 10.3 L (13.0-17.5) gm/dL Hct 33.6 L (39.0-53.0) % Plt Count 160 (150-450) k/uL Comprehensive Metabolic Panel 09/16/19 Range/Units 15:14 Sodium 136 L (137-145) mmol/L Potassium 4.4 (3.5-5.1) mmol/L Chloride 101 (98-107) mmol/L Carbon Dioxide 24 (22-30) mmol/L BUN 15 (9-20) mg/dL Creatinine 0.75 (0.66-1.25) mg/dL Glucose 133 H (74-99) mg/dL Calcium 9.3 (8.4-10.2) mg/dL AST 41 (17-59) U/L ALT 26 (21-72) U/L Alkaline Phosphatase 113 (38-126) U/L Total Protein 7.6 (6.3-8.2) g/dL Albumin 4.3 (3.5-5.0) g/dL Current Medications Generic Name Dose Route Start Last Admin Trade Name Freq PRN Reason Stop Dose Admin Acetaminophen 650 mg 09/16/19 17:50 Tylenol Tab PO Q6H PRN Fever and/ or Mild Pain Aspirin 325 mg 09/17/19 09:00 09/17/19 09:34 Aspirin PO 325 mg DAILY ANN Administration Atenolol 25 mg 09/17/19 09:00 09/17/19 09:34 Tenormin PO 25 mg DAILY ANN Administration Atorvastatin Calcium 20 mg 09/16/19 21:00 09/17/19 04:08 Lipitor PO Not Given HS ANN Donepezil HCl 10 mg 09/16/19 21:00 09/17/19 04:08 Aricept PO Not Given HS ANN Heparin Sodium (Porcine) 0 unit 09/17/19 04:09 09/17/19 04:12 Heparin IV 1,700 unit Q6HR PRN Administration Low PTT Protocol Heparin Sodium/Sodium Chloride 250 mls @ 8.165 mls/hr 09/16/19 18:00 09/17/19 11:25 25,000 unit/ Sodium Chloride IV 16.93 units/kg/hr .Q24H [facility] 11.519 mls/hr Titration Protocol 12 UNITS/KG/HR Dobutamine HCl/Dextrose 500 mg 250 mls @ 20.412 mls/hr 09/18/19 07:00 / IV Solution IV 09/18/19 19:14 .[id number] ONE Protocol 10 MCG/KG/MIN Lorazepam 1 mg 09/17/19 11:14 Ativan IV Q2HR PRN CIWA 8 or 9 Lorazepam 1 mg 09/17/19 11:14 Ativan IV Q1HR PRN CIWA 10 to 15 Lorazepam 2 mg 09/17/19 11:14 Ativan IV 09/19/19 11:14 Q10M PRN CIWA 16 or higher Nitroglycerin 0.4 mg 09/16/19 17:47 Nitrostat SUBLINGUAL Q5M PRN Chest Pain Tamsulosin HCl 0.4 mg 09/17/19 09:00 09/17/19 09:34 Flomax PO 0.4 mg DAILY ANN Administration Intake and Output 09/16/19 09/17/19 09/17/19 22:59 06:59 14:59 Intake Total 70.763 74.507 Balance 70.763 74.507 Intake: Intake, IV Titration 70.763 74.507 Amount Heparin Sod,Pork in 0.45% 70.763 74.507 NaCl 25,000 unit In 0.45 % NaCl 1 250ml.bag @ 12 UNITS/KG/HR 8.165 mls/hr IV .Q24H [facility] Rx#: [id number] Other: Weight 68.039 kg 09/16/19 15:14 09/16/19 15:14
[2019-09-17] MEDS: HEPARIN SOD,PORK IN 0.45% NACL 25,000 UNIT in 0.45% NACL 1 250ML.BAG IV SCH (18:50)
[2019-09-18] MEDS ORDERED: DOBUTamine DRIP for NUC MED 500 MG in DEXTROSE/WATER 1 250ML.BAG IV ONE (07:00)
[2019-09-18 07:42] VITALS: RESP 18
[2019-09-18 11:18] VITALS: BP 109/66; PULSE 63; TEMP 97.9
--- NOTE | 2019-09-18 11:39 | ECHOF ---
Referral Reason:chest pain MEASUREMENTS -------- HEIGHT: 157.5 cm WEIGHT: 68.0 kg BP: 137/67 RVIDd: 3.1 cm (< 3.3) IVSd: 1.0 cm (0.6 - 1.1) LVIDd: 4.5 cm (3.9 - 5.3) LVPWd: 1.1 cm (0.6 - 1.1) IVSs: 1.5 cm LVIDs: 2.9 cm LVPWs: 1.8 cm LA Diam: 3.4 cm (2.7 - 3.8) LAESV Index (A-L): 25.35 ml/m Ao Diam: 3.2 cm (2.0 - 3.7) AV Cusp: 1.8 cm (1.5 - 2.6) MV EXCURSION: 11.844 mm (> 18.000) MV EF SLOPE: 54 mm/s (70 - 150) EPSS: 0.9 cm MV E Deondre: 0.77 m/s MV DecT: 203 ms MV A Deondre: 0.56 m/s MV E/A Ratio: 1.39 RAP: 5.00 mmHg RVSP: 32.85 mmHg TAPSE: 19.52 mm FINDINGS -------- Sinus rhythm. This was a technically adequate study. The left ventricular size is normal. There is borderline concentric left ventricular hypertrophy. Overall left ventricular systolic function is normal with, an EF between 55 - 60 %. The diastolic filling pattern is normal for the age of the patient 11.79. Basal inferior LV wall motion is hypoki netic. The right ventricle is normal in size. Normal LA size by volume 22+/-6 ml/m2. The right atrium is normal in size. Interatrial and interventricular septum intact. There is mild aortic valve sclerosis. There is trace to mild mitral regurgitation. Mild tricuspid regurgitation present. Right ventricular systolic pressure is normal at < 35 mmHg. Trace/mild (physiologic) pulmonic regurgitation. The aortic root size is normal. Normal inferior vena cava with normal inspiratory collapse consistent with estimated right atrial pre ssure of 5 mmHg. There is no pericardial effusion. CONCLUSIONS -------- 1. Sinus rhythm. 2. This was a technically adequate study. 3. The left ventricular size is normal. 4. There is borderline concentric left ventricular hypertrophy. 5. Overall left ventricular systolic function is normal with, an EF between 55 - 60 %. 6. The diastolic filling pattern is normal for the age of the patient 11.79 7. Basal inferior LV wall motion is hypokinetic. 8. The right ventricle is normal in size. 9. Normal LA size by volume 22+/-6 ml/m2. 10. The right atrium is normal in size. 11. Interatrial and interventricular septum intact. 12. There is mild aortic valve sclerosis. 13. There is trace to mild mitral regurgitation. 14. Mild tricuspid regurgitation present. 15. Right ventricular systolic pressure is normal at < 35 mmHg. 16. Trace/mild (physiologic) pulmonic regurgitation. 17. The aortic root size is normal. 18. Normal inferior vena cava with normal inspiratory collapse consistent with estimated right atrial pressure of 5 mmHg. 19. There is no pericardial effusion. CONCRETER: Vika Hopson RDCS
--- NOTE | 2019-09-18 12:11 | P.PN ---
Subjective This is a pleasant 69-year-old male past medical history significant for coronary artery disease, vascular dementia and dyslipidemia. He is scheduled to undergo dobutamine stress echocardiogram today. He is seen and examined in no acute distress. He denies any further symptoms of chest discomfort. An acute coronary event has been ruled out. Blood pressure 109/66 heart rate 63 afebrile and maintaining oxygen saturation on room air. He denies any further symptoms of chest discomfort. No shortness of breath, dizziness or palpitations. He has been up and walking without discomfort. Echocardiogram reveals preserved LV systolic function with ejection fraction 55-60%, basal inferior wall motion hypokinesia, trace to mild mitral regurgitation and mild tricuspid regurgitation. Currently maintained on aspirin 325 mg daily, atenolol 25 mg daily, atrovastatin 20 mg daily. GENERAL: Well-appearing, well-nourished and in no acute distress. NECK: Supple without JVD or thyromegaly. LUNGS: Breath sounds clear to auscultation bilaterally. Respiration equal and unlabored. No wheezes, rales or rhonchi. HEART: Regular rate and rhythm without murmurs, rubs or gallops. S1 and S2 heard. EXTREMITIES: Normal range of motion, no edema. No clubbing or cyanosis. Peripheral pulses intact. ASSESSMENT Chest pain, atypical. An acute coronary event has been ruled out History of coronary artery disease, moderate disease of ostial small caliber OM, max medical therapy Hypertension Dyslipidemia History of vascular dementia PLAN Decrease aspirin to 81 mg daily. Proceed with dobutamine stress echocardiogram as previously ordered. If normal he may be discharged home. Follow up with Dr. Tafoya in the office. Nurse Practitioner note has been reviewed, I agree with a documented findings and plan of care. Patient was seen and examined. Objective - Vital Signs Vital signs: Vital Signs Temp 97.9 F 09/18/19 11:16 Pulse 63 09/18/19 11:16 Resp 18 09/18/19 11:16 BP 109/66 09/18/19 11:16 Pulse Ox 97 09/18/19 11:16 Intake & Output 09/17/19 09/18/19 09/18/19 18:59 06:59 18:59 Intake Total 159.940 0 Balance 159.940 0 Intake: Intake, IV Titration 159.940 Amount Heparin Sod,Pork in 0.45% 159.940 NaCl 25,000 unit In 0.45 % NaCl 1 250ml.bag @ 12 UNITS/KG/HR 8.165 mls/hr IV .Q24H ANN Rx#: [id number] Oral 0 Other: # Voids 1 - Labs CBC & Chem 7: 09/16/19 15:14 09/16/19 15:14 Labs: Abnormal Lab Results - Last 24 Hours (Table) 09/17/19 09/18/19 Range/Units 18:11 06:10 APTT 50.3 H 85.9 H (22.0-30.0) sec
[2019-09-18] MEDS: TAMSULOSIN 0.4 MG CAP.ER.24H PO SCH (12:26)
[2019-09-18] MEDS: ATENOLOL 25 MG TAB PO SCH (12:27)
--- NOTE | 2019-09-18 12:34 | P.STRESS ---
- Stress Test Note Stress Test Results/Findings: Exam Performed: dobutamine stress echo with con Exam Date: 09/18/19 Reason for Exam: CP Height: 5 ft 2 in Weight: 68.039 kg Protocol: DSE WITH LUMASON Stage: IV Duration of Exercise: 9:45 Resting Heart Rate: 66 Resting Blood Pressure: 133/73 Maximum Achieved Heart Rate: 142 Maximum Achieved Blood Pressure: 178/74 85% PMHR: 95 100% PMHR: 149 METS: Technologist Comment: Stress Test Results/Findings: This is a 69-year-old gentleman with history of hypercholesteremia being evaluated for symptoms of chest pain. Stress data: Blood pressure at rest is 133/73 with pulse rate of 66. Baseline EKG showed sinus rhythm, all when necessary and QRS duration. A standard dose of dobutamine was initiated and was titrated to 40 mics, achieving a maximal heart rate of 142 with blood pressure 170/68. EKGs taken during and after x-ray did not reveal significant changes from baseline. Occasional PVCs were noted. Echo data: Baseline echo images showed suspicious hypokinesis of the inferobasal segment. Images taken at low dose and high dose dobutamine showed augmentation of wall motion and thickening in all the segments. Patient did not express any chest pain. Occasional PVCs are noted. Final impression #1. Questionable previous inferior wall MO with mild hypokinesis of the inferobasal segment. Could be technical. #2. Negative stress echo.
[2019-09-19] MEDS ORDERED: ASPIRIN 81 MG PO SCH (09:00)
--- NOTE | 2019-09-19 11:38 | ECHOS ---
Stress Test Results/Findings: Exam Performed: dobutamine stress echo with con Exam Date: 09/18/19 Reason for Exam: CP Height: 5 ft 2 in Weight: 68.039 kg Protocol: DSE WITH LUMASON Stage: IV Duration of Exercise: 9:45 Resting Heart Rate: 66 Resting Blood Pressure: 133/73 Maximum Achieved Heart Rate: 142 Maximum Achieved Blood Pressure: 178/74 85% PMHR: 95 100% PMHR: 149 METS: Technologist Comment: Stress Test Results/Findings: This is a 69-year-old gentleman with history of hypercholesteremia being evaluated for symptoms of chest pain. Stress data: Blood pressure at rest is 133/73 with pulse rate of 66. Baseline EKG showed sinus rhythm, all when necessary and QRS duration. A standard dose of dobutamine was initiated and was titrated to 40 mics, achieving a maximal heart rate of 142 with blood pressure 170/68. EKGs taken during and after x-ray did not reveal significant changes from baseline. Occasional PVCs were noted. Echo data: Baseline echo images showed suspicious hypokinesis of the inferobasal segment. Images taken at low dose and high dose dobutamine showed augmentation of wall motion and thickening in all the segments. Patient did not express any chest pain. Occasional PVCs are noted. Final impression #1. Questionable previous inferior wall MN with mild hypokinesis of the inferobasal segment. Could be technical. #2. Negative stress echo. [facility]
--- NOTE | 2019-09-20 17:10 | P.DS ---
Providers Date of admission: 09/16/19 17:48 Expected date of discharge: 09/18/19 Attending physician: Sanjay Garcia Consults: 09/16/19 17:48 Consult Physician Urgent Consulting Provider: Dago Tafoya Consult Reason/Comments: Chest pain Do you want consulting provider notified?: Yes Primary care physician: Farnaz Webster MD Hospital Course: This is a 69-year-old male one of with a previous medical history significant for mild CAD post-heart catheterization more than 6 years ago, history of vascular dementia, hyperlipidemia, patient presented to the emergency department at [facility] yesterday with increased left-sided chest pain that was started yesterday and he told his that he did have it again 2-3 times prior to that, the pain was described as a dull ache in the left side of the chest nontender exertion all not associated with any dyspnea not associated with any dizziness or lightheadedness no palpitation no cold sweats, however because of the presentation he ended up coming to the ER for evaluation EKG did not show any acute ST-T wave changes cardiac enzymes are negative, however because of the prior history of CAD and patient has not been following with 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 Mojica in more than 3 years ago. 09/18: Patient states that he is feeling great today. He denies any chest pain, shortness of breath, lightheadedness or dizziness. He underwent dobutamine stress echo which was negative and patient was cleared for discharge by cardiology. Echocardiogram reveals EF 55-60% with borderline concentric left ventricular hypertrophy, mild aortic valve sclerosis, trace to mild mitral regurgitation, mild tricuspid regurgitation. Patient will be discharged home today in stable condition. Discharge diagnoses: 1. Left-Sided chest pain appears to be noncardiac 2. Mild CAD. 3. Hypertension. 4. Hyperlipidemia. 5. Vascular dementia. 6. BPH. 7. Chronic anemia thought to be due to his chronic alcohol use has been seen by hematology, monitor the patient CBC. Discharge plan: Home Impression and plan of care have been directed as dictated by the signing physician. Nohemi Mcdonald nurse practitioner acting as scribe for signing physician. Patient Condition at Discharge: Good Plan - Discharge Summary New Discharge Prescriptions: Continue Simvastatin [Zocor] 40 mg PO HS Atenolol 25 mg PO DAILY Aspirin EC [Ecotrin Low Dose] 81 mg PO HS Acetaminophen Tab [Tylenol] 650 mg PO Q6H PRN PRN Reason: Fever And/ Or Pain Tamsulosin [Flomax] 0.4 mg PO DAILY Donepezil [Aricept] 10 mg PO HS Discharge Medication List Atenolol 25 mg PO DAILY 11/04/15 [History] Simvastatin [Zocor] 40 mg PO HS 11/04/15 [History] Acetaminophen Tab [Tylenol] 650 mg PO Q6H PRN 10/26/16 [History] Aspirin EC [Ecotrin Low Dose] 81 mg PO HS 10/26/16 [History] Donepezil [Aricept] 10 mg PO HS 09/16/19 [History] Tamsulosin [Flomax] 0.4 mg PO DAILY 09/16/19 [History] Follow up Appointment(s)/Referral(s): Farnaz Webster MD [Primary Care Provider] - 1 Week Dago Tafoya MD [STAFF PHYSICIAN] - 10/04/19 2:30 pm (Follow up in the office with Dr. Tafoya as scheduled for you) Patient Instructions/Handouts: Chest Pain (GEN) Discharge Disposition: HOME SELF-CARE
== END 2019-09-18 13:47 | disposition home or self-care (01) ==
LOC: EC 14:56 → 1SOBS 17:48
PROVIDERS: ADMIT Internal Medicine; ATTEND Internal Medicine
DX: R07.89 Other chest pain (principal); R79.89 Other specified abnormal findings of blood chemistry; I25.10 Atherosclerotic heart disease of native coronary artery without angina pectoris; F01.50 Vascular dementia, unspecified severity, without behavioral disturbance, psychotic disturbance, mood disturbance, and anxiety; E78.5 Hyperlipidemia, unspecified; I10 Essential (primary) hypertension; I08.3 Combined rheumatic disorders of mitral, aortic and tricuspid valves; M19.90 Unspecified osteoarthritis, unspecified site; D64.9 Anemia, unspecified; F41.9 Anxiety disorder, unspecified; N40.0 Benign prostatic hyperplasia without lower urinary tract symptoms; Z72.89 Other problems related to lifestyle; Z79.82 Long term (current) use of aspirin; Z79.899 Other long term (current) drug therapy; Z88.8 Allergy status to other drugs, medicaments and biological substances; Z87.891 Personal history of nicotine dependence; Z82.49 Family history of ischemic heart disease and other diseases of the circulatory system; Z82.3 Family history of stroke; Z80.3 Family history of malignant neoplasm of breast; Z83.0 Family history of human immunodeficiency virus [HIV] disease; Z81.1 Family history of alcohol abuse and dependence; Z83.2 Family history of diseases of the blood and blood-forming organs and certain disorders involving the immune mechanism
CPT/HCPCS: 96366 ×4; 96376 ×2; 96365; 99285; 36415; 93005; 93306; 85379; 83880; 80061; 80053; 82550; 83690; 83735; 84484 ×2; 85025; 85610; 85730 ×3; 71046; 71275; G0378 ×3; C8930; J1250; J1644 ×4; Q9950; Q9967; 93351

== ENCOUNTER → 2019-09-22 | Outpatient (CLI) | payer MEDICARE ==
[2019-09-22 10:14] LABS: Anisocytosis Slight; HCT 35.2 % (39.0-53.0); HGB 11.3 gm/dL (13.0-17.5); Hypochromasia Slight; MCH 30.4 pg (25.0-35.0); MCV 95.2 fL (80.0-100.0); Mean Platelet Volume 7.4; Platelet Count 208 k/uL (150-450); Prothrombin Time 10.8 sec (9.0-12.0); RDW 16.4 % (11.5-15.5)
[2019-09-22 11:16] LABS: Band Neutrophils % 1 %; Eosinophils # (M) 0.12 k/uL (0-0.7); Lymphocytes # (M) 0.76 k/uL (1.0-4.8); Metamyelocytes # (M) 0.04 k/uL (0); Metamyelocytes % 1 %; Myelocytes # (M) 0.04 k/uL (0); Myelocytes % 1 %; Neutrophils % (M) 52 %; Nucleated Red Blood Cells 0 /100 WBC (0-0); Total Cells Counted 200
[2019-09-22 11:17] LABS: Poikilocytosis (M) Present
[2019-09-22 11:21] LABS: Mixed Population RBC Present; Polychromasia Present; Spherocytes Present
== END | disposition home or self-care (01) ==
LOC: LABWHC1 09:10
PROVIDERS: ATTEND Internal Medicine
DX: D50.9 Iron deficiency anemia, unspecified (principal); R21 Rash and other nonspecific skin eruption
CPT/HCPCS: 36415; 85025; 85610

== ENCOUNTER → 2021-03-21 | Outpatient (CLI) | payer MEDICARE ==
[2021-03-22 01:33] LABS: Ferritin 236.8 ng/mL (22.0-322.0)
[2021-03-22 01:35] LABS: % Iron Saturation 7.99 (15.00-50.00)
== END | disposition home or self-care (01) ==
LOC: LABWHC1 07:13
PROVIDERS: ATTEND Internal Medicine
DX: R41.3 Other amnesia (principal)
CPT/HCPCS: 36415; 82390; 82525; 82728; 83540; 83550

== ENCOUNTER → 2021-04-03 | Outpatient (CLI) | payer MEDICARE ==
--- NOTE | 2021-04-03 09:55 | CT ---
EXAMINATION TYPE: CT brain wo con DATE OF EXAM: 04/03/2021 HISTORY: Headache, dementia CT DLP: 1121 mGycm. Automated Exposure Control for Dose Reduction was Utilized. TECHNIQUE: CT scan of the head is performed without contrast. COMPARISON: MRI brain April 09, 2018. FINDINGS: There is no acute intracranial hemorrhage or midline shift identified. There is mild to m oderate diffuse ventricular and sulcal prominence consistent with diffuse age-related cerebral atroph y. There is mild low-attenuation in the periventricular white matter consistent with chronic small v essel ischemic change. Right mastoid surgical change. The globes are intact and the visualized sinus es are clear. IMPRESSION: No acute intracranial hemorrhage or midline shift. There is mild to moderate diffuse ag e-related cerebral atrophy and mild chronic small vessel ischemic change noted. No significant nova e from 2018 MRI.
== END | disposition home or self-care (01) ==
LOC: RADCTMAIN 08:21
PROVIDERS: ATTEND Internal Medicine
DX: G31.9 Degenerative disease of nervous system, unspecified (principal); I67.82 Cerebral ischemia
CPT/HCPCS: 70450

== ENCOUNTER 2021-04-08 12:23 | Day surgery (SDC) | payer MEDICARE ==
[2021-04-04 15:26] VITALS: BMI 26.2
[~2021-04-08 12:23] MED LIST changes: -DEXAMETHASONE SOD PHOSPHATE 10 MG/ML 1 ML VIAL IV ONE; -HYDROmorphone 0.5 MG/0.5 ML SYRINGE IVP PRN; -LIDOCAINE 1% 20 ML VIAL (10MG/ML) FOR IV START INTRADERMA PRN; -ONDANSETRON 4 MG/2 ML VIAL IVP ONE; -ceFAZolin 1,000 MG in DEXTROSE/WATER 1 50ML.BAG IV ONE
[2021-04-08 12:49] VITALS: TEMP 97.7
[2021-04-08] MEDS ORDERED: PROPOFOL 10 MG/ML 20 ML VIAL IV ONE (13:15)
[2021-04-08] MEDS ORDERED: ePHEDrine SULFATE/0.9% NACL/PF 50 MG/5 ML SYRINGE IV ONE (13:15)
[2021-04-08 13:59] LABS: HGB 9.8 gm/dL (13.0-17.5); Hypochromasia Slight; MCH 31.2 pg (25.0-35.0); MCHC 32.5 g/dL (31.0-37.0); MCV 95.9 fL (80.0-100.0); Mean Platelet Volume 8.5; Platelet Count 213 k/uL (150-450); Poikilocytosis Slight; RBC 3.13 m/uL (4.30-5.90); RDW 15.1 % (11.5-15.5); Reticulocyte % 2.1 % (0.5-2.0); WBC 5.3 k/uL (3.8-10.6)
[2021-04-08 14:20] VITALS: BP 106/72; PULSE 66; RESP 20
[2021-04-08 14:24] LABS: Eosinophils # (M) 0.11 k/uL (0-0.7); Lymphocytes # (M) 0.37 k/uL (1.0-4.8); Monocytes # (M) 1.22 k/uL (0-1.0); Myelocytes # (M) 0.05 k/uL (0); Myelocytes % 1 %; Neutrophils % (M) 68 %; Nucleated Red Blood Cells 0 /100 WBC (0-0); Total Cells Counted 200
--- NOTE | 2021-04-08 21:34 | PCN ---
PROCEDURE NOTE DATE OF SERVICE: 04/08/2021. PROCEDURE PERFORMED: Bone marrow aspirate and biopsy. INDICATION: DESCRIPTION OF PROCEDURE: After obtaining consent from the patient, the procedure was performed in the endoscopy suite under general anesthesia, performed by the anesthesia team. The patient was put in left lateral decubitus position. The right posterior iliac crest was localized. Skin was cleansed with ChloraPrep. All sterile procedures were followed. 2 mL of 2% Xylocaine was used for local anesthetic. Monoject needle was inserted. 15 mL of aspirate was obtained. A 2 cm core biopsy was obtained without any difficulty. Pressure applied afterwards. There was negligible blood loss. Patient tolerated the procedure very well without any immediate complications. MMODL / IJN: [id number] /
== END 2021-04-08 14:23 | disposition home or self-care (01) ==
LOC: OR 12:23
PROVIDERS: ATTEND Internal Medicine Hematology & Oncology
DX: D64.89 Other specified anemias (principal); D72.810 Lymphocytopenia; D72.821 Monocytosis (symptomatic); E78.5 Hyperlipidemia, unspecified; I51.9 Heart disease, unspecified; N40.0 Benign prostatic hyperplasia without lower urinary tract symptoms; F32.9 Major depressive disorder, single episode, unspecified; F41.9 Anxiety disorder, unspecified; F03.90 Unspecified dementia, unspecified severity, without behavioral disturbance, psychotic disturbance, mood disturbance, and anxiety; Z79.82 Long term (current) use of aspirin; Z79.899 Other long term (current) drug therapy; Z88.8 Allergy status to other drugs, medicaments and biological substances
CPT/HCPCS: 85025; 85045; 38222; J2704

== ENCOUNTER → 2021-08-18 | Outpatient (CLI) | payer MEDICARE | END | disposition home or self-care (01) | LOC: LABPAT 08:18 | PROVIDERS: ATTEND Orthopaedic Surgery | DX: Z01.812 Encounter for preprocedural laboratory examination (principal) | CPT/HCPCS: 87070 ==

== ENCOUNTER 2021-08-31 11:43 | Inpatient (IN) | payer MEDICARE ==
[2021-08-31] MEDS ORDERED: MORPHINE SULFATE 2 MG/ML SYRINGE IVP STA (12:20)
[2021-08-31] MEDS ORDERED: SODIUM CHLORIDE 0.9% 1,000 ML IV STA (12:20)
--- NOTE | 2021-08-31 13:10 | ED ---
Weakness HPI - General Chief complaint: Weakness Stated complaint: weakness Time Seen by Provider: 08/31/21 12:11 Source: patient, RN notes reviewed Mode of arrival: wheelchair Limitations: no limitations - History of Present Illness Initial comments: Patient is a 71-year-old male that presents to emergency department complaining of generalized weakness the past several days. notes that patient has just been acting more lethargic not himself. Patient notes that he is fully vaccinated for Covid and tries to drink water. notes that he does not drink 8 glasses of water per day. Patient denies any significant past medical history except for a missed heart attack many years ago which she was placed on blood pressure medications. Patient denied any other symptoms or complaints at this time. He was a well-appearing 71-year-old male. noted the patient has had CT scans and MRIs and EEGs of the brain which all came back normal. He denied any chest pain shortness of breath headache nausea vomiting diarrhea constipation fever fatigue chills. - Related Data Home Medications Medication Instructions Recorded Confirmed Aspirin EC [Ecotrin Low Dose] 81 mg PO HS 10/26/16 08/31/21 Tamsulosin [Flomax] 0.4 mg PO BID 09/16/19 08/31/21 Atenolol [Tenormin] 25 mg PO DAILY 04/04/21 08/31/21 Atorvastatin [Lipitor] 40 mg PO HS 04/04/21 08/31/21 Cholecalciferol [Vitamin D3 (25 50 mcg PO DAILY 04/04/21 08/31/21 Mcg = 1000 Iu)] Omeprazole [PriLOSEC] 40 mg PO DAILY 04/04/21 08/31/21 Thiamine [Vitamin B-1] 100 mg PO DAILY 04/04/21 08/31/21 Vitamin B Complex 1 cap PO DAILY 04/04/21 08/31/21 Ginkgo Biloba 500 mg PO BID 08/31/21 08/31/21 Sertraline [Zoloft] 100 mg PO HS 08/31/21 08/31/21 Allergies Allergy/AdvReac Type Severity Reaction Status Date / Time nitroglycerin Allergy Severe pts heart Verified 08/31/21 14:59 stopped beating after given nitro Review of Systems ROS Statement: Those systems with pertinent positive or pertinent negative responses have been documented in the HPI. ROS Other: All systems not noted in ROS Statement are negative. Past Medical History Past Medical History: Coronary Artery Disease (CAD), Dementia, Hyperlipidemia, Osteoarthritis (OA), Prostate Disorder Additional Past Medical History / Comment(s): mild cog.impairment Last Myocardial Infarction Date:: unknown History of Any Multi-Drug Resistant Organisms: None Reported Past Surgical History: Ear Surgery, Heart Catheterization, Hernia Repair, Orthopedic Surgery Additional Past Surgical History / Comment(s): Left shoulder rotator cuff, knee arthroscopy Past Anesthesia/Blood Transfusion Reactions: Previous Problems w/ Anesthesia Additional Past Anesthesia/Blood Transfusion Reaction / Comment(s): PTS BLOOD PRESSURE HAS DROPPED IN THE PAST WHEN RECEIVING ANESTHESIA Past Psychological History: Anxiety Smoking Status: Former smoker Past Alcohol Use History: None Reported Past Drug Use History: None Reported - Past Family History Sister(s) Family Medical History: Cancer Father Family Medical History: Coronary Artery Disease (CAD), CVA/TIA Additional Family Medical History / Comment(s): cardiac history stated by the patient. Brother(s) Family Medical History: Blood Disorder Additional Family Medical History / Comment(s): kidney transplant Son(s) Family Medical History: No Reported History Daughter(s) Family Medical History: No Reported History Mother Family Medical History: No Reported History, Cancer Additional Family Medical History / Comment(s): , of old age General Exam Limitations: no limitations General appearance: alert, in no apparent distress Head exam: Present: atraumatic, normocephalic, normal inspection Eye exam: Present: normal appearance, PERRL, EOMI. Absent: scleral icterus, conjunctival injection, periorbital swelling Neck exam: Present: normal inspection. Absent: tenderness, meningismus, lymphadenopathy Respiratory exam: Present: normal lung sounds bilaterally. Absent: respiratory distress, wheezes, rales, rhonchi, stridor Cardiovascular Exam: Present: regular rate, normal rhythm, normal heart sounds. Absent: systolic murmur, diastolic murmur, rubs, gallop, clicks GI/Abdominal exam: Present: soft, normal bowel sounds. Absent: distended, tenderness, guarding, rebound, rigid Extremities exam: Present: normal inspection, full ROM, normal capillary refill. Absent: tenderness, pedal edema, joint swelling, calf tenderness Neurological exam: Present: alert, oriented X3 Psychiatric exam: Present: normal affect, normal mood Skin exam: Present: warm, dry, intact, normal color. Absent: rash Course Vital Signs 08/31/21 08/31/21 12:05 13:08 Temperature 98.5 F Pulse Rate 82 69 Respiratory 20 16 Rate Blood Pressure 96/53 138/65 O2 Sat by Pulse 90 L 98 Oximetry EKG Findings - EKG Comments: EKG Findings:: Ventricular rate 71 bpm, OR interval 138 ms, QRS duration 72 ms, QTC 425 ms, PRT axes 44/-10/33. Normal sinus rhythm, possible left atrial enlargement, inferior infarct age undetermined, abnormal ECG. Medical Decision Making - Medical Decision Making 71-year-old male complaining of generalized weakness for the past several days. EKG, media monitor, chest x-ray, labs, 2 mg of morphine, 1 L normal saline, oxygen via nasal cannula at 2 L/m ordered. Labs: CBC unremarkable CMP sodium 131 BU 123 rest unremarkable, urinalysis unremarkable. Hemoccult test ordered due to decrease in hemoglobin of 1 g since March. Prior to occult test nurse informing the patient's oxygen saturation dropped to mid 70s while getting up to go to the bathroom. 2 L of oxygen via nasal cannula was ordered. Patient did not appear to be dyspneic while in bed with oxygen on. States that he feels fine. Dr. Webster was consult THE admit and wanted to get a d-dimer and possible CT chest. Case discussed with Dr. Santiago, patient will be admitted to hospital. - Lab Data Result diagrams: 08/31/21 13:12 08/31/21 13:12 Lab Results 08/31/21 08/31/21 08/31/21 Range/Units 13:12 13:12 13:12 WBC 7.6 (3.8-10.6) k/uL RBC 2.95 L (4.30-5.90) m/uL Hgb 8.7 L (13.0-17.5) gm/dL Hct 25.9 L (39.0-53.0) % MCV 87.9 (80.0-100.0) fL MCH 29.6 (25.0-35.0) pg MCHC 33.7 (31.0-37.0) g/dL RDW 16.7 H (11.5-15.5) % Plt Count 220 (150-450) k/uL MPV 8.3 Neutrophils % Not Reportable Neutrophils % (Manual) 62 % Band Neuts % (Manual) 1 % Lymphocytes % Not Reportable Lymphocytes % (Manual) 4 % Monocytes % Not Reportable Monocytes % (Manual) 27 % Eosinophils % Not Reportable Eosinophils % (Manual) 7 % Basophils % Not Reportable Metamyelocytes % 1 % Neutrophils # Not Reportable Neutrophils # (Manual) 4.70 (1.3-7.7) k/uL Lymphocytes # Not Reportable Lymphocytes # (Manual) 0.30 L (1.0-4.8) k/uL Monocytes # Not Reportable Monocytes # (Manual) 2.05 H (0-1.0) k/uL Eosinophils # Not Reportable Eosinophils # (Manual) 0.53 (0-0.7) k/uL Basophils # Not Reportable Metamyelocytes # (Man) 0.08 H (0) k/uL Nucleated RBCs 0 (0-0) /100 WBC Manual Slide Review Performed Hypochromasia Slight Poikilocytosis Slight Anisocytosis Slight Tear Drop Cells Present PT 11.4 (9.0-12.0) sec INR 1.1 (<1.2) APTT 24.9 (22.0-30.0) sec Sodium (137-145) mmol/L Potassium (3.5-5.1) mmol/L Chloride (98-107) mmol/L Carbon Dioxide (22-30) mmol/L Anion Gap mmol/L BUN (9-20) mg/dL Creatinine (0.66-1.25) mg/dL Est GFR (CKD-EPI)AfAm (>60 ml/min/1.73 sqM) Est GFR (CKD-EPI)NonAf (>60 ml/min/1.73 sqM) Glucose (74-99) mg/dL Calcium (8.4-10.2) mg/dL Total Bilirubin (0.2-1.3) mg/dL AST (17-59) U/L ALT (4-49) U/L Alkaline Phosphatase (38-126) U/L Troponin I (0.000-0.034) ng/mL Total Protein (6.3-8.2) g/dL Albumin (3.5-5.0) g/dL Urine Color Yellow Urine Appearance Clear (Clear) Urine pH 6.5 (5.0-8.0) Ur Specific [place] 1.017 (1.001-1.035) Urine Protein 1+ H (Negative) Urine Glucose (UA) Negative (Negative) Urine Ketones Negative (Negative) Urine Blood Trace H (Negative) Urine Nitrite Negative (Negative) Urine Bilirubin Negative (Negative) Urine Urobilinogen <2.0 (<2.0) mg/dL Ur Leukocyte Esterase Negative (Negative) Urine RBC <1 (0-5) /hpf Urine WBC 3 (0-5) /hpf Urine Bacteria Occasional H (None) /hpf Hyaline Casts 4 H (0-2) /lpf Granular Casts 36 (0) /lpf Urine Mucus Rare H (None) /hpf Stool Occult Blood (Negative) Coronavirus (PCR) (Not Detectd) 08/31/21 08/31/21 08/31/21 Range/Units 13:12 13:12 13:12 WBC (3.8-10.6) k/uL RBC (4.30-5.90) m/uL Hgb (13.0-17.5) gm/dL Hct (39.0-53.0) % MCV (80.0-100.0) fL MCH (25.0-35.0) pg MCHC (31.0-37.0) g/dL RDW (11.5-15.5) % Plt Count (150-450) k/uL MPV Neutrophils % Neutrophils % (Manual) % Band Neuts % (Manual) % Lymphocytes % Lymphocytes % (Manual) % Monocytes % Monocytes % (Manual) % Eosinophils % Eosinophils % (Manual) % Basophils % Metamyelocytes % % Neutrophils # Neutrophils # (Manual) (1.3-7.7) k/uL Lymphocytes # Lymphocytes # (Manual) (1.0-4.8) k/uL Monocytes # Monocytes # (Manual) (0-1.0) k/uL Eosinophils # Eosinophils # (Manual) (0-0.7) k/uL Basophils # Metamyelocytes # (Man) (0) k/uL Nucleated RBCs (0-0) /100 WBC Manual Slide Review Hypochromasia Poikilocytosis Anisocytosis Tear Drop Cells PT (9.0-12.0) sec INR (<1.2) APTT (22.0-30.0) sec Sodium 131 L (137-145) mmol/L Potassium 4.8 (3.5-5.1) mmol/L Chloride 103 (98-107) mmol/L Carbon Dioxide 21 L (22-30) mmol/L Anion Gap 7 mmol/L BUN 23 H (9-20) mg/dL Creatinine 1.02 (0.66-1.25) mg/dL Est GFR (CKD-EPI)AfAm 84 (>60 ml/min/1.73 sqM) Est GFR (CKD-EPI)NonAf 73 (>60 ml/min/1.73 sqM) Glucose 109 H (74-99) mg/dL Calcium 8.7 (8.4-10.2) mg/dL Total Bilirubin 0.8 (0.2-1.3) mg/dL AST 89 H (17-59) U/L ALT 72 H (4-49) U/L Alkaline Phosphatase 102 (38-126) U/L Troponin I <0.012 (0.000-0.034) ng/mL Total Protein 5.6 L (6.3-8.2) g/dL Albumin 3.1 L (3.5-5.0) g/dL Urine Color Urine Appearance (Clear) Urine pH (5.0-8.0) Ur Specific [place] (1.001-1.035) Urine Protein (Negative) Urine Glucose (UA) (Negative) Urine Ketones (Negative) Urine Blood (Negative) Urine Nitrite (Negative) Urine Bilirubin (Negative) Urine Urobilinogen (<2.0) mg/dL Ur Leukocyte Esterase (Negative) Urine RBC (0-5) /hpf Urine WBC (0-5) /hpf Urine Bacteria (None) /hpf Hyaline Casts (0-2) /lpf Granular Casts (0) /lpf Urine Mucus (None) /hpf Stool Occult Blood (Negative) Coronavirus (PCR) Not Detected (Not Detectd) 08/31/21 Range/Units 15:00 WBC (3.8-10.6) k/uL RBC (4.30-5.90) m/uL Hgb (13.0-17.5) gm/dL Hct (39.0-53.0) % MCV (80.0-100.0) fL MCH (25.0-35.0) pg MCHC (31.0-37.0) g/dL RDW (11.5-15.5) % Plt Count (150-450) k/uL MPV Neutrophils % Neutrophils % (Manual) % Band Neuts % (Manual) % Lymphocytes % Lymphocytes % (Manual) % Monocytes % Monocytes % (Manual) % Eosinophils % Eosinophils % (Manual) % Basophils % Metamyelocytes % % Neutrophils # Neutrophils # (Manual) (1.3-7.7) k/uL Lymphocytes # Lymphocytes # (Manual) (1.0-4.8) k/uL Monocytes # Monocytes # (Manual) (0-1.0) k/uL Eosinophils # Eosinophils # (Manual) (0-0.7) k/uL Basophils # Metamyelocytes # (Man) (0) k/uL Nucleated RBCs (0-0) /100 WBC Manual Slide Review Hypochromasia Poikilocytosis Anisocytosis Tear Drop Cells PT (9.0-12.0) sec INR (<1.2) APTT (22.0-30.0) sec Sodium (137-145) mmol/L Potassium (3.5-5.1) mmol/L Chloride (98-107) mmol/L Carbon Dioxide (22-30) mmol/L Anion Gap mmol/L BUN (9-20) mg/dL Creatinine (0.66-1.25) mg/dL Est GFR (CKD-EPI)AfAm (>60 ml/min/1.73 sqM) Est GFR (CKD-EPI)NonAf (>60 ml/min/1.73 sqM) Glucose (74-99) mg/dL Calcium (8.4-10.2) mg/dL Total Bilirubin (0.2-1.3) mg/dL AST (17-59) U/L ALT (4-49) U/L Alkaline Phosphatase (38-126) U/L Troponin I (0.000-0.034) ng/mL Total Protein (6.3-8.2) g/dL Albumin (3.5-5.0) g/dL Urine Color Urine Appearance (Clear) Urine pH (5.0-8.0) Ur Specific [place] (1.001-1.035) Urine Protein (Negative) Urine Glucose (UA) (Negative) Urine Ketones (Negative) Urine Blood (Negative) Urine Nitrite (Negative) Urine Bilirubin (Negative) Urine Urobilinogen (<2.0) mg/dL Ur Leukocyte Esterase (Negative) Urine RBC (0-5) /hpf Urine WBC (0-5) /hpf Urine Bacteria (None) /hpf Hyaline Casts (0-2) /lpf Granular Casts (0) /lpf Urine Mucus (None) /hpf Stool Occult Blood Negative (Negative) Coronavirus (PCR) (Not Detectd) - EKG Data -: EKG Interpreted by Me EKG shows normal: sinus rhythm Rate: normal EKG Comments: Ventricular rate 71 bpm, OR interval 138 ms, QRS duration 72 ms, QTC 425 ms, PRT axes 44/-10/33. Normal sinus rhythm, possible left atrial enlargement, inferior infarct age undetermined, abnormal ECG. - Radiology Data Radiology results: report reviewed, image reviewed Chest x-ray: Mild cardiomegaly with bilateral confluent reticular and retaken either opacity strongly suggestive COVID-19 infection. Disposition Clinical Impression: Respiratory failure with hypoxia Disposition: ADMITTED IP TO THIS HOSP Condition: Stable Is patient prescribed a controlled substance at d/c from ED?: No Referrals: Farnaz Webster MD [Primary Care Provider] - 1-2 days Time of Disposition: 15:57
--- NOTE | 2021-08-31 13:31 | XR ---
EXAMINATION TYPE: XR chest 2V DATE OF EXAM: 08/31/2021 COMPARISON: Chest x-ray and CTA chest September 16, 2019 HISTORY: Weakness. TECHNIQUE: Frontal and lateral views of the chest are obtained. FINDINGS: There are bilateral confluent reticular and reticulonodular opacities greatest in the lowe r lungs. No pleural effusion or pneumothorax seen bilaterally The cardiac silhouette size is stable a nd mildly enlarged. Degenerative change bilateral glenohumeral joints incidentally redemonstrated. IMPRESSION: Mild cardiomegaly with bilateral confluent reticular and reticulonodular opacities strong ly suggestive of covid-19 infection, correlate clinically.
[2021-08-31 13:41] LABS: Albumin 3.1 g/dL (3.5-5.0); Calcium 8.7 mg/dL (8.4-10.2); Total Bilirubin 0.8 mg/dL (0.2-1.3); Total Protein 5.6 g/dL (6.3-8.2)
[2021-08-31 13:45] LABS: Anisocytosis Slight; HCT 25.9 % (39.0-53.0); HGB 8.7 gm/dL (13.0-17.5); Hypochromasia Slight; MCH 29.6 pg (25.0-35.0); MCHC 33.7 g/dL (31.0-37.0); MCV 87.9 fL (80.0-100.0); Mean Platelet Volume 8.3; Platelet Count 220 k/uL (150-450); Poikilocytosis Slight; RBC 2.95 m/uL (4.30-5.90); RDW 16.7 % (11.5-15.5); WBC 7.6 k/uL (3.8-10.6)
[2021-08-31 13:47] LABS: Appearance,Urine Clear (Clear); Bacteria,Urine Occasional /hpf; Bilirubin,Urine Negative (Negative); Blood,Urine Trace (Negative); Color,Urine Yellow; Glucose,Urine (UA) Negative (Negative); Granular Casts,Urine 36 /lpf (0); Hyaline Casts,Urine 4 /lpf (0-2); Ketones,Urine Negative (Negative); Leukocyte Esterase,Urine Negative (Negative); Mucus,Urine Rare /hpf; Nitrite,Urine Negative (Negative); PH, Urine 6.5 (5.0-8.0); Protein,Urine 1+ (Negative); RBC,Urine <1 /hpf (0-5); Specific Gravity,Urine 1.017 (1.001-1.035); Urobilinogen,Urine <2.0 mg/dL (<2.0); WBC,Urine 3 /hpf (0-5)
[2021-08-31 13:50] LABS: INR 1.1 (<1.2); Partial Thromboplastin Time 24.9 sec (22.0-30.0); Prothrombin Time 11.4 sec (9.0-12.0)
[2021-08-31 13:58] LABS: Potassium 4.8 mmol/L (3.5-5.1)
[2021-08-31] MEDS ORDERED: DEXAMETHASONE SOD PHOSPHATE 10 MG/ML 1 ML VIAL IV STA (15:05)
[2021-08-31 15:12] LABS: Metamyelocytes # (M) 0.08 k/uL (0); Metamyelocytes % 1 %; Nucleated Red Blood Cells 0 /100 WBC (0-0)
[2021-08-31 15:14] LABS: Band Neutrophils % 1 %; Eosinophils # (M) 0.53 k/uL (0-0.7); Monocytes # (M) 2.05 k/uL (0-1.0); Neutrophils % (M) 62 %; Total Cells Counted 200
[2021-08-31 15:15] LABS: Tear Drop Cells Present
[2021-08-31] MEDS ORDERED: NALOXONE 0.4 MG/ML 1 ML VIAL IV PRN (15:58)
--- NOTE | 2021-08-31 17:35 | CT ---
EXAMINATION TYPE: CT chest angio for PE DATE OF EXAM: 08/31/2021 COMPARISON: 09/16/2019 HISTORY: SOB and weakness, elevated d-dimer CT DLP: 281.7 mGycm Automated exposure control for dose reduction was used. CONTRAST: Performed with IV Contrast, patient injected with 80 mL of Isovue 370. Images obtained from the thoracic inlet to the diaphragm with IV contrast. There are 3-D post process ed images. There is extensive interstitial infiltrate throughout the lungs. There are bilateral pleural effusion s. There is fluid in the right major fissure. Heart is enlarged. There are enlarged bronchial lymph n odes measuring up to 1.5 cm. Thoracic aorta is intact. There is no aneurysm or dissection. The ascend ing aorta measures 3.4 cm. There is no evidence of filling defect in the pulmonary arteries. There is some spurring in the lower thoracic spine. There is no compression fracture. Sternum is intact. The ribs appear intact. Upper a bdominal soft tissues are intact. IMPRESSION: No evidence of pulmonary embolism. Extensive pulmonary interstitial pneumonia and edema. Bilateral pleural effusions. Abnormalities appe ar new compared to old exam.
[2021-08-31] MEDS: SODIUM CHLORIDE 0.9% 1,000 ML IV SCH (18:09)
[2021-09-01] MEDS: SODIUM CHLORIDE 0.9% 1,000 ML IV SCH ×4 (11:48→22:59)
[2021-09-01 13:20] LABS: Anisocytosis Slight; HCT 27.4 % (39.0-53.0); HGB 8.5 gm/dL (13.0-17.5); Hypochromasia Moderate; MCH 28.9 pg (25.0-35.0); Mean Platelet Volume 8.6; Platelet Count 209 k/uL (150-450); RBC 2.95 m/uL (4.30-5.90); RDW 16.2 % (11.5-15.5); WBC 6.8 k/uL (3.8-10.6)
[2021-09-01 13:28] LABS: ALT 59 U/L (4-49); AST 58 U/L (17-59); African American GFR (CKD) >90 (>60 ml/min/1.73 sqM); Albumin 2.9 g/dL (3.5-5.0); Albumin/Globulin Ratio 1.3; Alkaline Phosphatase 107 U/L (38-126); Anion Gap 10 mmol/L; Blood Urea Nitrogen 24 mg/dL (9-20); Calcium 8.6 mg/dL (8.4-10.2); Carbon Dioxide 20 mmol/L (22-30); Chloride 104 mmol/L (98-107); Globulin 2.2 g/dL; Glucose 189 mg/dL (74-99); LDH 625 U/L (313-618); Magnesium 2.2 mg/dL (1.6-2.3); Non-African American GFR(CKD) 81 (>60 ml/min/1.73 sqM); Potassium 4.1 mmol/L (3.5-5.1); Sodium 134 mmol/L (137-145); Total Bilirubin 0.4 mg/dL (0.2-1.3); Total Protein 5.1 g/dL (6.3-8.2)
--- NOTE | 2021-09-01 13:44 | P.HPIM ---
History of Present Illness H&P Date: 09/01/21 HISTORY OF PRESENT ILLNESS This is a 69-year-old male one of with a previous medical history significant for mild CAD post-heart catheterization more than 8 years ago, history of vascular dementia, hypertension, hyperlipidemia. Patient's last hospitalization was in 2019 for left-sided chest pain finding echocardiogram of 55-60% with borderline concentric left hypertrophy, mild aortic valve sclerosis, trace to mild mitral regurgitation and mild tricuspid regurgitation. Dobutamine stress test was negative. Patient is undergone bone marrow biopsy with Dr. Valladares 04/08/2021 and follows for myelodysplastic syndrome. Patient presented to the hospital for generalized weakness for s 3 weeks and new onset of shortness of breath started last week. His relates that he has been forgetting stuff patient is concerned. Patient was able to mow the lawn just last week. Patient has history of alcohol abuse and quit drinking 2 years ago. She presented to [facility] emergency center. Patient was found to be afebrile, heart rate 82, blood pressure 96/53 with repeat of 138/65. EKG was a normal sinus rhythm with no acute ST changes. Hemoglobin 8.7, WBC 7.6, platelet count 220. Sodium 131, potassium 3.8, chloride 103, CO2 21, BUN 23 creatinine 1.02. Blood sugar 109. INR 1.1. Urinalysis was clear with nitrate and leukoesterase negative. AST 89, ALT 72. Troponin negative. Stool for occult blood was negative. Rotavirus PCR not detected CAT chest angiogram revealed no evidence of pulmonary embolism. Extensive pulmonary interstitial pneumonia and edema. Bilateral pleural effusions. Abnormalities appear new compared to old exam. Chest x-ray reveals mild cardiomegaly with bilateral confluent reticular and reticular nodule opacities strongly suggestive of COVID 19 infection. Patient has remained afebrile, pulse ox 97% on 3 L nasal cannula. Patient is been placed on the MedSurg floor. Repeat Covid testing ordered and pro- calcitonin, echocardiogram. REVIEW OF SYSTEMS Constitutional: No fever, no chills, no night sweats. No weight change. Reported weakness, Reported fatigue Reported lethargy. No daytime sleepiness. EENT: No headache. No blurred vision or double vision, no loss of vision. No loss of Hearing, no ringing in the ears, no dizziness. No nasal drainage or con gestion. No epistaxis. No sore throat. Lungs: Reported shortness of breath, cough, no sputum production. No wheezing. Cardiovascular: No chest pain, no lower extremity edema. No palpitations. No paroxysmal nocturnal dyspnea. No orthopnea. No lightheadedness or dizziness. No syncopal episodes. Abdominal: No abdominal pain. No nausea, vomiting. No diarrhea. No constipation. No bloody or tarry stools.. No loss of appetite. Genitourinary: No dysuria, increased frequency, urgency. No urinary retention. Musculoskeletal: No myalgias. No muscle weakness, no gait dysfunction, no frequent falls. No back pain. No neck pain. Integumentary: No wounds, no lesions. No rash or pruritus. No unusual bruising. No change in hair or nails. Neurologic: No aphasia. No facial droop. No change in mentation. No head injury. No headache. No paralysis. No paresthesia. Psychiatric: No depression. No anxiety. No mood swings. Endocrine: No abnormal blood sugars. No weight change. No excessive sweating or thirst. No cold intolerance. SOCIAL HISTORY Patient used to smoke about a pack every 3 days for 5 years and quit when he was 25-year-old. Patient has history of alcohol abuse and quit drinking 2 years ago. He lives at home with his . FAMILY HISTORY Father at age of 87 from CVA and he had a history of quadruple bypass s urgery. Mother at age of 86 from possible lung cancer. Patient has 3 sisters one of them with breast cancer status post bilateral mastectomy. Patient had 4 brothers 2 of them one from alcoholism and the other one from AIDS. Patient has 1 son and 2 daughters with no major medical problems. PHYSICAL EXAMINATION Gen: This is a 71-year-old male. He is resting in bed and appears to be comfortable and in no acute distress HEENT: Head is atraumatic, normocephalic. Pupils equal, round. Sclerae is anicteric. NECK: Supple. No JVD. No lymphadenopathy. No thyromegaly. LUNGS: Clear to auscultation. No wheezes or rhonchi. No intercostal retractions. HEART: Regular rate and rhythm. No murmur. ABDOMEN: Soft. Bowel sounds are present. No masses. No tenderness. EXTREMITIES: No pedal edema. No calf tenderness. NEUROLOGICAL: Patient is awake, alert and oriented x3. Cranial nerves 2 through 12 are grossly intact. ASSESSMENT AND PLAN 1. Generalized weakness possibly secondary to hypotension, anemia. Consult with oncology. Repeat Covid testing 2. Anemia of chronic disease with hemoglobin of 8.7. Continue vitamin B com plex and vitamin. Patient had previous bone marrow biopsy with Dr. Valladares. 3. Mild CAD. Continue aspirin 81 mg daily, atenolol 25 mg daily, Lipitor 40 mg daily. 4. Hypertension. Continue atenolol 25 mg orally once every day. 5. Hyperlipidemia. Continue Lipitor 40 mg orally once every day. 6. Vascular dementia. Patient is off Aricept. 7. BPH. Continue Flomax 0.4 g orally twice every day. 8. Mild dysplastic syndrome. Consult with oncology.. 9. DVT prophylaxis. Currently on heparin drip. 10. Gastroesophageal reflux disease and GI prophylaxis. Continue omeprazole 40 mg daily or equivalent. 11. History of alcohol abuse. Patient quit 2 years ago. 12. COVID-19 testing negative. Patient has been hospitalized during a pandemic. Patient will be admitted to the hospital for a minimum of 2 night stay. DISCHARGE PLAN To be determined. PT and OT consults. Impression and plan of care have been directed as dictated by the signing physician. Nohemi Mcdonald nurse practitioner acting as scribe for signing physician. Past Medical History Past Medical History: Coronary Artery Disease (CAD), Dementia, Hyperlipidemia, Osteoarthritis (OA), Prostate Disorder Additional Past Medical History / Comment(s): mild cog.impairment Last Myocardial Infarction Date:: unknown History of Any Multi-Drug Resistant Organisms: None Reported Past Surgical History: Ear Surgery, Heart Catheterization, Hernia Repair, Orthopedic Surgery, Tonsillectomy Additional Past Surgical History / Comment(s): Left shoulder rotator cuff, knee arthroscopy Past Anesthesia/Blood Transfusion Reactions: Previous Problems w/ Anesthesia Additional Past Anesthesia/Blood Transfusion Reaction / Comment(s): PTS BLOOD PRESSURE HAS DROPPED IN THE PAST WHEN RECEIVING ANESTHESIA. Past Psychological History: Anxiety Smoking Status: Former smoker Past Alcohol Use History: None Reported Additional Past Alcohol Use History / Comment(s): smoked 1 pack weekly ,quit at 21 yrs old. used to be an excessive alcohol consumer. totally quit drinking 2 years ago. Past Drug Use History: None Reported - Past Family History Sister(s) Family Medical History: Cancer Father Family Medical History: Coronary Artery Disease (CAD), CVA/TIA Additional Family Medical History / Comment(s): cardiac history stated by the patient. Brother(s) Family Medical History: Blood Disorder Additional Family Medical History / Comment(s): kidney transplant Son(s) Family Medical History: No Reported History Daughter(s) Family Medical History: No Reported History Mother Family Medical History: No Reported History, Cancer Additional Family Medical History / Comment(s): , of old age Medications and Allergies Home Medications Medication Instructions Recorded Confirmed Type Aspirin EC [Ecotrin Low Dose] 81 mg PO HS 10/26/16 08/31/21 History Tamsulosin [Flomax] 0.4 mg PO BID 09/16/19 08/31/21 History Atenolol [Tenormin] 25 mg PO DAILY 04/04/21 08/31/21 History Atorvastatin [Lipitor] 40 mg PO HS 04/04/21 08/31/21 History Cholecalciferol [Vitamin D3 (25 50 mcg PO DAILY 04/04/21 08/31/21 History Mcg = 1000 Iu)] Omeprazole [PriLOSEC] 40 mg PO DAILY 04/04/21 08/31/21 History Thiamine [Vitamin B-1] 100 mg PO DAILY 04/04/21 08/31/21 History Vitamin B Complex 1 cap PO DAILY 04/04/21 08/31/21 History Ginkgo Biloba 500 mg PO BID 08/31/21 08/31/21 History Sertraline [Zoloft] 100 mg PO HS 08/31/21 08/31/21 History Allergies Allergy/AdvReac Type Severity Reaction Status Date / Time nitroglycerin Allergy Severe pts heart Verified 08/31/21 14:59 stopped beating after given nitro Physical Exam Vitals: Vital Signs Temp Pulse Pulse Resp BP BP Pulse Ox 09/01/21 08:00 97.6 F 71 17 128/69 97 09/01/21 06:36 77 17 104/63 94 L 08/31/21 22:06 83 17 117/68 94 L 08/31/21 18:00 83 16 138/79 97 08/31/21 17:00 77 16 99 08/31/21 16:00 77 16 138/80 99 08/31/21 15:00 72 16 99 10/03/21 14:00 69 16 98 08/31/21 13:08 69 16 138/65 98 08/31/21 12:05 98.5 F 82 20 96/53 90 L Intake and Output 08/31/21 09/01/21 09/01/21 22:59 06:59 14:59 Intake Total 118 Balance 118 Intake: Oral 118 Other: Weight 63.503 kg Results CBC & Chem 7: 08/31/21 13:12 09/01/21 10:54 Labs: Abnormal Lab Results - Last 24 Hours (Table) 08/31/21 08/31/21 08/31/21 Range/Units 13:12 13:12 13:12 RBC 2.95 L (4.30-5.90) m/uL Hgb 8.7 L (13.0-17.5) gm/dL Hct 25.9 L (39.0-53.0) % RDW 16.7 H (11.5-15.5) % Lymphocytes # (Manual) 0.30 L (1.0-4.8) k/uL Monocytes # (Manual) 2.05 H (0-1.0) k/uL Metamyelocytes # (Man) 0.08 H (0) k/uL Pathologist Review See comment A D-Dimer (<0.60) mg/L FEU Sodium 131 L (137-145) mmol/L Carbon Dioxide 21 L (22-30) mmol/L BUN 23 H (9-20) mg/dL Glucose 109 H (74-99) mg/dL AST 89 H (17-59) U/L ALT 72 H (4-49) U/L Total Protein 5.6 L (6.3-8.2) g/dL Albumin 3.1 L (3.5-5.0) g/dL Urine Protein 1+ H (Negative) Urine Blood Trace H (Negative) Urine Bacteria Occasional H (None) /hpf Hyaline Casts 4 H (0-2) /lpf Urine Mucus Rare H (None) /hpf 08/31/21 Range/Units 13:12 RBC (4.30-5.90) m/uL Hgb (13.0-17.5) gm/dL Hct (39.0-53.0) % RDW (11.5-15.5) % Lymphocytes # (Manual) (1.0-4.8) k/uL Monocytes # (Manual) (0-1.0) k/uL Metamyelocytes # (Man) (0) k/uL Pathologist Review D-Dimer 1.19 H (<0.60) mg/L FEU Sodium (137-145) mmol/L Carbon Dioxide (22-30) mmol/L BUN (9-20) mg/dL Glucose (74-99) mg/dL AST (17-59) U/L ALT (4-49) U/L Total Protein (6.3-8.2) g/dL Albumin (3.5-5.0) g/dL Urine Protein (Negative) Urine Blood (Negative) Urine Bacteria (None) /hpf Hyaline Casts (0-2) /lpf Urine Mucus (None) /hpf Thrombosis Risk Factor Assmnt - Choose All That Apply Any of the Below Risk Factors Present?: No Other Risk Factors: Yes Each Risk Factor Represents 2 Points: Age 61-74 years Other congenital or acquired thrombophilia - If yes, enter type in comment: No Thrombosis Risk Factor Assessment Total Risk Factor Score: 2 Thrombosis Risk Factor Assessment Level: Low Risk
[2021-09-01 13:48] LABS: MCV 93.2 fL (80.0-100.0)
[2021-09-01 15:34] LABS: Lymphocytes # (M) 0.27 k/uL (1.0-4.8); Metamyelocytes # (M) 0.07 k/uL (0); Metamyelocytes % 1 %; Monocytes # (M) 1.56 k/uL (0-1.0); Myelocytes # (M) 0.07 k/uL (0); Myelocytes % 1 %; Neutrophils # (M) 4.96 k/uL (1.3-7.7); Neutrophils % (M) 73 %; Nucleated Red Blood Cells 0 /100 WBC (0-0); Total Cells Counted 200
[2021-09-01 15:39] LABS: Poikilocytosis (M) Present; Tear Drop Cells Present
--- NOTE | 2021-09-01 15:52 | P.CONS ---
History of Present Illness - Reason for Consult Consult date: 09/01/21 mds Requesting physician: Nohemi Mcdonald - Chief Complaint Shortness of Breath - History of Present Illness Mr. Suarez is a pleasant male who follows with Dr. Valladares for MDS. His baseline CBC Hemoglobin is usually between 10-11. His states he has become more and more winded over the past few weeks and when they tested his oxygen at home and found him to be in the 70% they brought him to hospital. He states he is feeling better. He is still requiring oxygen. CTA reveal extensive pulmonary pneumonia and edema. Pulomonology has been consulted. COVID is negative, however possible prior infection and this being late effect. at bedside and concerned this is his "iron" and/or lack of Hemoglobin and needs blood. I explained that it is normal with infectious and inflammation for this to trend down and we will further evaluate for supplements. Review of Systems All systems: negative Constitutional: Reports as per HPI Past Medical History Past Medical History: Coronary Artery Disease (CAD), Dementia, Hyperlipidemia, Osteoarthritis (OA), Prostate Disorder Additional Past Medical History / Comment(s): mild cog.impairment Last Myocardial Infarction Date:: unknown History of Any Multi-Drug Resistant Organisms: None Reported Past Surgical History: Ear Surgery, Heart Catheterization, Hernia Repair, Orthopedic Surgery, Tonsillectomy Additional Past Surgical History / Comment(s): Left shoulder rotator cuff, knee arthroscopy Past Anesthesia/Blood Transfusion Reactions: Previous Problems w/ Anesthesia Additional Past Anesthesia/Blood Transfusion Reaction / Comm: PTS BLOOD PRESSURE HAS DROPPED IN THE PAST WHEN RECEIVING ANESTHESIA. Past Psychological History: Anxiety Smoking Status: Former smoker Past Alcohol Use History: None Reported Additional Past Alcohol Use History / Comment(s): smoked 1 pack weekly ,quit at 21 yrs old. used to be an excessive alcohol consumer. totally quit drinking 2 years ago. Past Drug Use History: None Reported - Past Family History Sister(s) Family Medical History: Cancer Father Family Medical History: Coronary Artery Disease (CAD), CVA/TIA Additional Family Medical History / Comment(s): cardiac history stated by the patient. Brother(s) Family Medical History: Blood Disorder Additional Family Medical History / Comment(s): kidney transplant Son(s) Family Medical History: No Reported History Daughter(s) Family Medical History: No Reported History Mother Family Medical History: No Reported History, Cancer Additional Family Medical History / Comment(s): , of old age Medications and Allergies Home Medications Medication Instructions Recorded Confirmed Type Aspirin EC [Ecotrin Low Dose] 81 mg PO HS 10/26/16 08/31/21 History Tamsulosin [Flomax] 0.4 mg PO BID 09/16/19 08/31/21 History Atenolol [Tenormin] 25 mg PO DAILY 04/04/21 08/31/21 History Atorvastatin [Lipitor] 40 mg PO HS 04/04/21 08/31/21 History Cholecalciferol [Vitamin D3 (25 50 mcg PO DAILY 04/04/21 08/31/21 History Mcg = 1000 Iu)] Omeprazole [PriLOSEC] 40 mg PO DAILY 04/04/21 08/31/21 History Thiamine [Vitamin B-1] 100 mg PO DAILY 04/04/21 08/31/21 History Vitamin B Complex 1 cap PO DAILY 04/04/21 08/31/21 History Ginkgo Biloba 500 mg PO BID 08/31/21 08/31/21 History Sertraline [Zoloft] 100 mg PO HS 08/31/21 08/31/21 History Allergies Allergy/AdvReac Type Severity Reaction Status Date / Time nitroglycerin Allergy Severe pts heart Verified 08/31/21 14:59 stopped beating after given nitro Physical Exam Vitals: Vital Signs Temp Pulse Pulse Resp BP BP Pulse Ox 09/01/21 08:00 97.6 F 71 17 128/69 97 09/01/21 06:36 77 17 104/63 94 L 08/31/21 22:06 83 17 117/68 94 L 08/31/21 18:00 83 16 138/79 97 08/31/21 17:00 77 16 99 08/31/21 16:00 77 16 138/80 99 08/31/21 15:00 72 16 99 08/31/21 14:00 69 16 98 08/31/21 13:08 69 16 138/65 98 Intake and Output 08/31/21 09/01/21 09/01/21 22:59 06:59 14:59 Intake Total 236 Balance 236 Intake: Oral 236 Other: Weight 63.503 kg Alert and Oriented Pale Oral phar - Dry Neck: Supple Heart tACHY Abdomen: Soft non distended Ext: no lam Lungs: Wheezes and diminished auscu;lation Results CBC & Chem 7: 09/01/21 10:54 09/01/21 10:54 Labs: Abnormal Lab Results - Last 24 Hours (Table) 08/31/21 08/31/21 08/31/21 Range/Units 13:12 13:12 13:12 RBC 2.95 L (4.30-5.90) m/uL Hgb 8.7 L (13.0-17.5) gm/dL Hct 25.9 L (39.0-53.0) % RDW 16.7 H (11.5-15.5) % Lymphocytes # (Manual) 0.30 L (1.0-4.8) k/uL Monocytes # (Manual) 2.05 H (0-1.0) k/uL Metamyelocytes # (Man) 0.08 H (0) k/uL Pathologist Review See comment A D-Dimer (<0.60) mg/L FEU Sodium 131 L (137-145) mmol/L Carbon Dioxide 21 L (22-30) mmol/L BUN 23 H (9-20) mg/dL Glucose 109 H (74-99) mg/dL AST 89 H (17-59) U/L ALT 72 H (4-49) U/L Total Protein 5.6 L (6.3-8.2) g/dL Albumin 3.1 L (3.5-5.0) g/dL Urine Protein 1+ H (Negative) Urine Blood Trace H (Negative) Urine Bacteria Occasional H (None) /hpf Hyaline Casts 4 H (0-2) /lpf Urine Mucus Rare H (None) /hpf 08/31/21 Range/Units 13:12 RBC (4.30-5.90) m/uL Hgb (13.0-17.5) gm/dL Hct (39.0-53.0) % RDW (11.5-15.5) % Lymphocytes # (Manual) (1.0-4.8) k/uL Monocytes # (Manual) (0-1.0) k/uL Metamyelocytes # (Man) (0) k/uL Pathologist Review D-Dimer 1.19 H (<0.60) mg/L FEU Sodium (137-145) mmol/L Carbon Dioxide (22-30) mmol/L BUN (9-20) mg/dL Glucose (74-99) mg/dL AST (17-59) U/L ALT (4-49) U/L Total Protein (6.3-8.2) g/dL Albumin (3.5-5.0) g/dL Urine Protein (Negative) Urine Blood (Negative) Urine Bacteria (None) /hpf Hyaline Casts (0-2) /lpf Urine Mucus (None) /hpf Abdominal x-ray: report reviewed CT scan - chest: report reviewed Assessment and Plan (1) Normocytic anemia Current Visit: Yes Status: Acute Code(s): D64.9 - ANEMIA, UNSPECIFIED SNOMED Code(s): 657720050 (2) Respiratory failure with hypoxia Current Visit: Yes Status: Acute Code(s): J96.91 - RESPIRATORY FAILURE, UNSPECIFIED WITH HYPOXIA SNOMED Code(s): 95225129419805141 Plan: Await pUlmonology to evaluate further Will assess for additional supportive medications/supplements to assist in [place] related to anemia Discussed in detail with patient and .
[2021-09-01 16:10] LABS: Reticulocyte % 2.7 % (0.5-2.0)
--- NOTE | 2021-09-01 16:34 | P.CNPUL ---
History of Present Illness Consult date: 09/01/21 Requesting physician: Anderson Rojas Reason for consult: pneumonia Chief complaint: Exertional shortness of breath History of present illness: This is a 71-year-old white male with history of myelodysplastic syndrome, patient was brought into the hospital with 1 week history of increased shortness of breath upon exertion. Patient had no cough, no wheezing, no fever, no chills, no hemoptysis, no chest pain. Patient never had any symptoms to suggest COVID-19 infection patient received COVID-19 vaccination few months ago. Patient was brought in mostly because of his shortness of breath on exertion, and a CT of the chest came back showing extensive bilateral interstitial pneumonia and edema, no evidence of pulmonary embolism and there was also bilateral pleural effusions. Considering the findings, this consult was initiated. Patient tested negative twice for COVID-19 infection. He had relatively unremarkable CBC hemoglobin is 8.5 which is basically his baseline. Basic metabolic profile is normal renal profile is normal liver profile is normal, urinalysis is normal. Considering the abnormality noted on the CT of the chest, this consult was initiated. 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 Denies any symptoms of GERD denies any symptoms of connective tissue disease denies any specific ALLERGIES or exposures. His BNP level was noted to be elevated at 2920 Procalci tonin level is pending hypersensitivity panel is pending DANA and sed rate is pending. In the meantime I went ahead and recommended a trial of antibiotics empirically diuretics, and steroids. Review of Systems Constitutional: Negative. EENT: Negative. Pulmonary: As noted in HPI, mostly symptoms of dyspnea on exertion Cardiovascular: Negative. Abdominal: Negative. Genitourinary: Negative. Musculoskeletal: No myalgias. Negative Integumentary: Negative Neurologic: Short-term memory loss otherwise negative Psychiatric: Negative Endocrine: Negative Past Medical History Past Medical History: Coronary Artery Disease (CAD), Dementia, Hyperlipidemia, Osteoarthritis (OA), Prostate Disorder Additional Past Medical History / Comment(s): mild cog.impairment Last Myocardial Infarction Date:: unknown History of Any Multi-Drug Resistant Organisms: None Reported Past Surgical History: Ear Surgery, Heart Catheterization, Hernia Repair, Orthopedic Surgery, Tonsillectomy Additional Past Surgical History / Comment(s): Left shoulder rotator cuff, knee arthroscopy Past Anesthesia/Blood Transfusion Reactions: Previous Problems w/ Anesthesia Additional Past Anesthesia/Blood Transfusion Reaction / Comment(s): PTS BLOOD PRESSURE HAS DROPPED IN THE PAST WHEN RECEIVING ANESTHESIA. Past Psychological History: Anxiety Smoking Status: Former smoker Past Alcohol Use History: None Reported Additional Past Alcohol Use History / Comment(s): smoked 1 pack weekly ,quit at 21 yrs old. used to be an excessive alcohol consumer. totally quit drinking 2 years ago. Past Drug Use History: None Reported - Past Family History Sister(s) Family Medical History: Cancer Father Family Medical History: Coronary Artery Disease (CAD), CVA/TIA Additional Family Medical History / Comment(s): cardiac history stated by the patient. Brother(s) Family Medical History: Blood Disorder Additional Family Medical History / Comment(s): kidney transplant Son(s) Family Medical History: No Reported History Daughter(s) Family Medical History: No Reported History Mother Family Medical History: No Reported History, Cancer Additional Family Medical History / Comment(s): , of old age Medications and Allergies Home Medications Medication Instructions Recorded Confirmed Type Aspirin EC [Ecotrin Low Dose] 81 mg PO HS 10/26/16 08/31/21 History Tamsulosin [Flomax] 0.4 mg PO BID 09/16/19 08/31/21 History Atenolol [Tenormin] 25 mg PO DAILY 04/04/21 08/31/21 History Atorvastatin [Lipitor] 40 mg PO HS 04/04/21 08/31/21 History Cholecalciferol [Vitamin D3 (25 50 mcg PO DAILY 04/04/21 08/31/21 History Mcg = 1000 Iu)] Omeprazole [PriLOSEC] 40 mg PO DAILY 04/04/21 08/31/21 History Thiamine [Vitamin B-1] 100 mg PO DAILY 04/04/21 08/31/21 History Vitamin B Complex 1 cap PO DAILY 04/04/21 08/31/21 History Ginkgo Biloba 500 mg PO BID 08/31/21 08/31/21 History Sertraline [Zoloft] 100 mg PO HS 08/31/21 08/31/21 History Allergies Allergy/AdvReac Type Severity Reaction Status Date / Time nitroglycerin Allergy Severe pts heart Verified 08/31/21 14:59 stopped beating after given nitro Physical Exam Vitals: Vital Signs Temp Pulse Pulse Resp BP BP Pulse Ox 09/01/21 16:20 97.8 F 71 16 120/63 96 09/01/21 08:00 97.6 F 71 17 128/69 97 09/01/21 06:36 77 17 104/63 94 L 08/31/21 22:06 83 17 117/68 94 L 08/31/21 18:00 83 16 138/79 97 08/31/21 17:00 77 16 99 Intake and Output 09/01/21 09/01/21 09/01/21 06:59 14:59 22:59 Intake Total 236 Balance 236 Intake: Oral 236 Other: Weight 63.503 kg Physical Exam: Revealed a 71-year-old white male in no distress on 2 L nasal cannula Head: Atraumatic, normocephalic. HEENT:[Neck is supple.] [No neck masses.] [No thyromegaly.] [No JVD.] Chest: [No colds at the bases bilaterally more so on the left base. Cardiac Exam: [Normal S1 and S2, no S3 gallop, no murmur.] Abdomen: [Soft, nontender, no megaly, no rebound, no guarding, normal bowel sounds.] Extremities: [No clubbing, no edema, no cyanosis.] Neurological Exam: [No focal neurologic deficit.] Alert oriented 3. Psychiatric: Normal mood affect and normal mental status examination. Skin: No rashes. Musculoskeletal: No deformities noted limitation in range of motion. Results - Laboratory Findings CBC and BMP: 09/01/21 10:54 09/01/21 10:54 PT/INR, D-dimer PT 11.4 sec (9.0-12.0) 08/31/21 13:12 INR 1.1 (<1.2) 08/31/21 13:12 D-Dimer 1.19 mg/L FEU (<0.60) H 08/31/21 13:12 Abnormal lab findings: Abnormal Labs 08/31/21 08/31/21 08/31/21 13:12 13:12 13:12 RBC 2.95 L Hgb 8.7 L Hct 25.9 L RDW 16.7 H Lymphocytes # (Manual) 0.30 L Monocytes # (Manual) 2.05 H Metamyelocytes # (Man) 0.08 H Myelocytes # (Manual) Pathologist Review See comment A Retic Count D-Dimer Sodium 131 L Carbon Dioxide 21 L BUN 23 H Glucose 109 H AST 89 H ALT 72 H Lactate Dehydrogenase Total Protein 5.6 L Albumin 3.1 L Urine Protein 1+ H Urine Blood Trace H Urine Bacteria Occasional H Hyaline Casts 4 H Urine Mucus Rare H 08/31/21 09/01/21 09/01/21 13:12 10:54 10:54 RBC 2.95 L Hgb 8.5 L Hct 27.4 L RDW 16.2 H Lymphocytes # (Manual) 0.27 L Monocytes # (Manual) 1.56 H Metamyelocytes # (Man) 0.07 H Myelocytes # (Manual) 0.07 H Pathologist Review Retic Count D-Dimer 1.19 H Sodium 134 L Carbon Dioxide 20 L BUN 24 H Glucose 189 H AST ALT 59 H Lactate Dehydrogenase 625 H Total Protein 5.1 L Albumin 2.9 L Urine Protein Urine Blood Urine Bacteria Hyaline Casts Urine Mucus 09/01/21 10:54 RBC Hgb Hct RDW Lymphocytes # (Manual) Monocytes # (Manual) Metamyelocytes # (Man) Myelocytes # (Manual) Pathologist Review Retic Count 2.7 H D-Dimer Sodium Carbon Dioxide BUN Glucose AST ALT Lactate Dehydrogenase Total Protein Albumin Urine Protein Urine Blood Urine Bacteria Hyaline Casts Urine Mucus - Diagnostic Findings CT scan - chest: image reviewed (As noted in HPI.) Assessment and Plan Assessment: Impression: Dyspnea on exertion Acute hypoxic respiratory failure secondary to acute interstitial pneumonitis Acute interstitial pneumonitis, possible interstitial lung disease, possible cardiogenic or noncardiogenic pulmonary edema, possible hypersensitivity pneumonitis history of myelodysplastic syndrome History of hypertension Vascular dementia History of GERD Recommendation: Continue oxygen and titrate accordingly. Trial of diuretics since his BNP level is elevated. And repeat chest x-ray in a.m. Patient will be given a trial of antibiotics, diuretics, steroids, Awaiting the results of his echocardiogram. Ordered hypersensitivity panel and other connective tissue disease workup is ordered and pending. Repeat chest x-ray in a.m. after a good course of diuresis. Resume home meds. May have to eventually consider bronchoscopy and transbronchial biopsy , depending on response to treatment and therapeutic trial of medications above. We will continue to follow., Time with Patient: Greater than 30
[2021-09-01 17:21] LABS: Erythrocyte Sedimentation Rate 58 mm/hr (0-15)
[2021-09-01] MEDS: methylPREDNISolone SOD SUCCI 40 MG/ML 1 ML VIAL IV SCH (17:35)
[2021-09-01] MEDS: AZITHROMYCIN 500 MG TAB PO SCH (17:35)
[2021-09-01] MEDS: HEPARIN SODIUM,PORCINE/PF 5,000 UNIT/0.5 ML SYRINGE SQ SCH (17:36)
[2021-09-01] MEDS: ASPIRIN 81 MG PO SCH (21:31)
[2021-09-01] MEDS: TAMSULOSIN 0.4 MG CAP.ER.24H PO SCH (21:31)
[2021-09-01] MEDS: ATORVASTATIN 40 MG TAB PO SCH (21:31)
[2021-09-01] MEDS: FUROSEMIDE 10 MG/ML 4 ML VIAL IV SCH (21:32)
[2021-09-01] MEDS: SERTRALINE 100 MG TAB PO SCH (21:34)
[2021-09-02] MEDS: HEPARIN SODIUM,PORCINE/PF 5,000 UNIT/0.5 ML SYRINGE SQ SCH ×4 (00:38→23:39)
[2021-09-02] MEDS: methylPREDNISolone SOD SUCCI 40 MG/ML 1 ML VIAL IV SCH ×5 (00:38→23:39)
[2021-09-02 06:33] LABS: ALT 76 U/L (4-49); AST 73 U/L (17-59); African American GFR (CKD) 86 (>60 ml/min/1.73 sqM); Albumin 3.4 g/dL (3.5-5.0); Albumin/Globulin Ratio 1.4; Alkaline Phosphatase 110 U/L (38-126); Anion Gap 10 mmol/L; Blood Urea Nitrogen 26 mg/dL (9-20); Calcium 9.1 mg/dL (8.4-10.2); Carbon Dioxide 24 mmol/L (22-30); Chloride 101 mmol/L (98-107); Globulin 2.5 g/dL; Glucose 141 mg/dL (74-99); LDH 697 U/L (313-618); Magnesium 2.2 mg/dL (1.6-2.3); Non-African American GFR(CKD) 74 (>60 ml/min/1.73 sqM); Sodium 135 mmol/L (137-145); Total Bilirubin 0.4 mg/dL (0.2-1.3); Total Protein 5.9 g/dL (6.3-8.2)
[2021-09-02 06:52] LABS: Potassium 4.8 mmol/L (3.5-5.1)
--- NOTE | 2021-09-02 07:46 | ECHOF ---
Referral Reason:LVF MEASUREMENTS -------- HEIGHT: 157.5 cm WEIGHT: 63.5 kg BP: 128/69 RVIDd: 3.2 cm (< 3.3) IVSd: 1.1 cm (0.6 - 1.1) LVIDd: 4.3 cm (3.9 - 5.3) LVPWd: 1.1 cm (0.6 - 1.1) IVSs: 1.6 cm LVIDs: 2.4 cm LVPWs: 1.3 cm LA Diam: 3.6 cm (2.7 - 3.8) LAESV Index (A-L): 34.29 ml/m Ao Diam: 2.9 cm (2.0 - 3.7) AV Cusp: 1.7 cm (1.5 - 2.6) MV EXCURSION: 21.714 mm (> 18.000) MV EF SLOPE: 71 mm/s (70 - 150) EPSS: 1.1 cm MV E Deondre: 0.97 m/s MV DecT: 169 ms MV A Deondre: 0.81 m/s MV E/A Ratio: 1.20 RAP: 5.00 mmHg RVSP: 38.78 mmHg FINDINGS -------- Sinus rhythm. This was a technically good study. The left ventricular size is normal. There is mild concentric left ventricular hypertrophy. Overa ll left ventricular systolic function is normal with, an EF between 60 - 65 %. The right ventricle is normal in size. LA is moderately dilated 34-39 ml/m2 The right atrium is normal in size. Interatrial and interventricular septum intact. The aortic valve is trileaflet, and appears structurally normal. No aortic stenosis or regurgitation. Mild mitral regurgitation is present. Mild tricuspid regurgitation present. There is mild pulmonary hypertension. The right ventricular systolic pressure, as measured by Doppler, is 38.78mmHg. Trace/mild (physiologic) pulmonic regurgitation. The aortic root size is normal. Normal inferior vena cava with normal inspiratory collapse consistent with estimated right atrial pre ssure of 5 mmHg. There is no pericardial effusion. CONCLUSIONS -------- 1. The left ventricular size is normal. 2. There is mild concentric left ventricular hypertrophy. 3. Overall left ventricular systolic function is normal with, an EF between 60 - 65 %. 4. LA is moderately dilated 34-39 ml/m2 5. The aortic valve is trileaflet, and appears structurally normal. No aortic stenosis or regurgitati on. 6. Mild mitral regurgitation is present. 7. Mild tricuspid regurgitation present. 8. There is mild pulmonary hypertension. 9. The right ventricular systolic pressure, as measured by Doppler, is 38.78mmHg. 10. Trace/mild (physiologic) pulmonic regurgitation. 11. There is no pericardial effusion. [employer]: Vika Hopson RDCS
[2021-09-02] MEDS ORDERED: NON FORMULARY DRUG (Vitamin B Complex [Vitamin B Complex] 1 EACH Capsule) PO SCH (09:00)
[2021-09-02 09:20] LABS: Basophils # (A) 0.01 X 10*3/uL (0.00-0.10); Basophils % (A) 0.1 %; Eosinophils # (A) 0 X 10*3/uL (0.04-0.35); Eosinophils % (A) 0 %; HCT 29.6 % (39.6-50.0); Lymphocytes # (A) 0.29 X 10*3/uL (0.90-5.00); Lymphocytes % (A) 3.6 %; MCH 28.2 pg (27.0-32.0); MCHC 30.4 g/dL (32.0-37.0); MCV 92.8 fL (80.0-97.0); Mean Platelet Volume 10.3 fL (9.5-12.2); Monocytes # (A) 0.27 X 10*3/uL (0.20-1.00); Monocytes % (A) 3.3 %; Neutrophils # (A) 7.23 X 10*3/uL (1.80-7.70); Neutrophils % (A) 88.6 %; Platelet Count 244 X 10*3/uL (140-440); RBC 3.19 X 10*6/uL (4.40-5.60); RDW 16.6 % (11.5-14.5); WBC 8.16 X 10*3/uL (4.50-10.00)
--- NOTE | 2021-09-02 09:51 | XR ---
EXAMINATION TYPE: XR chest 1V portable DATE OF EXAM: 09/02/2021 CLINICAL HISTORY: Difficulty breathing progress study. TECHNIQUE: Single AP portable upright view of the chest is obtained. COMPARISON: Chest x-ray and CTA chest from 2 days earlier FINDINGS: There are bilateral confluent reticular and reticulonodular opacities greatest in the lowe r lungs redemonstrated. No pleural effusion or pneumothorax seen bilaterally. The cardiac silhouette size is stable and mildly enlarged. Degenerative change bilateral glenohumeral joints incidentally re demonstrated. IMPRESSION: Mild cardiomegaly with bilateral confluent reticular and reticulonodular opacities strong ly suggestive of covid-19 infection. No significant change from most recent studies.
[2021-09-02] MEDS: CHOLECALCIFEROL 25 MCG (1000 IU) TABLET PO SCH (10:14)
[2021-09-02] MEDS: THIAMINE 100 MG TAB PO SCH (10:15)
[2021-09-02] MEDS: AZITHROMYCIN 500 MG TAB PO SCH (10:15)
[2021-09-02] MEDS: PANTOPRAZOLE 40 MG TABLET PO SCH (10:15)
[2021-09-02] MEDS: TAMSULOSIN 0.4 MG CAP.ER.24H PO SCH ×2 (10:15→20:55)
[2021-09-02] MEDS: atenoloL 25 MG TAB PO SCH (10:15)
[2021-09-02] MEDS: FUROSEMIDE 10 MG/ML 4 ML VIAL IV SCH ×2 (10:16→20:56)
--- NOTE | 2021-09-02 13:08 | P.PN ---
Subjective Progress Note Date: 09/02/21 Principal diagnosis: Exertional shortness of breath This is a 71-year-old white male with history of myelodysplastic syndrome, patient was brought into the hospital with 1 week history of increased shortness of breath upon exertion. Patient had no cough, no wheezing, no fever, no chills, no hemoptysis, no chest pain. Patient never had any symptoms to suggest COVID-19 infection patient received COVID-19 vaccination few months ago. Patient was brought in mostly because of his shortness of breath on exertion, and a CT of the chest came back showing extensive bilateral interstitial pneumonia and edema, no evidence of pulmonary embolism and there was also bilateral pleural effusions. Considering the findings, this consult was initiated. Patient tested negative twice for COVID-19 infection. He had relatively unremarkable CBC hemoglobin is 8.5 which is basically his baseline. Basic metabolic profile is normal renal profile is normal liver profile is normal, urinalysis is normal. Considering the abnormality noted on the CT of the chest, this consult was initiated. 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 Denies any symptoms of GERD denies any symptoms of connective tissue disease denies any specific ALLERGIES or exposures. His BNP level was noted to be elevated at 2920 Procalcitonin level is pending hypersensitivity panel is pending DANA and sed ra te is pending. In the meantime I went ahead and recommended a trial of antibiotics empirically diuretics, and steroids. On 09/02/2021 patient seen in follow-up on cardiac observation unit, he tested negative for occult blood 2, he is currently on 3 L of oxygen a pulse ox of 99%, his chest x-ray findings are improving on today's exam, showing mild cardiomegaly, with bilateral confluent reticulonodular reticular nodular opacities. Patient has been afebrile, vital signs have been stable. He remains on combination of azithromycin and Rocephin, he is on IV Lasix at 40 mg every 12 hours, he is in -1024 mL. He is currently on IV Solu-Medrol 40 mg every 6 hours. Today's labs have been noted, white blood cell count is 8.16, hemoglobin is 9.0, electrolytes and renal profile are fairly unremarkable, AST has trended up is up to 73 and today's labs, ALT is 76, LDH is 697, his proBNP was elevated on admission at 2920. His Legionella urine antigen was negative. It seems to be resting fairly comfortably in bed, appears to be in no acute distress. His echocardiogram revealed EF of 60-65%, aortic valve was trileaflet and structurally normal, mild MR, mild TR, and mildly elevated PA pressure of 38.7 mmHg. Objective - Vital Signs Vital signs: Vital Signs Temp 97.3 F L 09/02/21 08:00 Pulse 70 09/02/21 08:00 Resp 18 09/02/21 08:00 BP 136/69 09/02/21 08:00 Pulse Ox 99 09/02/21 08:00 Intake & Output 09/01/21 09/02/21 09/02/21 18:59 06:59 18:59 Intake Total 236 118 Output Total 1260 Balance 236 -1260 118 Weight 63.503 kg Intake: Oral 236 118 Output: Urine 1260 Other: Voiding Method Toilet Urinal # Voids 1 # Bowel Movements 1 - Exam GENERAL EXAM: Alert, very pleasant, 71-year-old white male, with a pulse ox of 99% comfortable in no apparent distress. HEAD: Normocephalic/atraumatic. EYES: Normal reaction of pupils, equal size. Conjunctiva pink, sclera white. NOSE: Clear with pink turbinates. THROAT: No erythema or exudates. NECK: No masses, no JVD, no thyroid enlargement, no adenopathy. CHEST: No chest wall deformity. Symmetrical expansion. LUNGS: Equal air entry with diminished breath sounds at bilateral bases CVS: Regular rate and rhythm, normal S1 and S2, no gallops, no murmurs, no rubs ABDOMEN: Soft, nontender. No hepatosplenomegaly, normal bowel sounds, no guarding or rigidity. EXTREMITIES: No clubbing, no edema, no cyanosis, 2+ pulses and upper and lower extremities. MUSCULOSKELETAL: Muscle strength and tone normal. SPINE: No scoliosis or deformity SKIN: No rashes CENTRAL NERVOUS SYSTEM: Alert and oriented -3. No focal deficits, tone is normal in all 4 extremities. PSYCHIATRIC: Alert and oriented -3. Appropriate affect. Intact judgment and insight. - Labs CBC & Chem 7: 09/02/21 05:04 09/02/21 05:04 Labs: Abnormal Lab Results - Last 24 Hours (Table) 09/01/21 09/01/21 09/01/21 Range/Units 10:54 10:54 10:54 RBC 2.95 L (4.30-5.90) m/uL Hgb 8.5 L (13.0-17.5) gm/dL Hct 27.4 L (39.0-53.0) % MCHC (32.0-37.0) g/dL RDW 16.2 H (11.5-15.5) % Immature Gran # (0.00-0.04) X 10*3/uL Lymphocytes # (0.90-5.00) X 10*3/uL Lymphocytes # (Manual) 0.27 L (1.0-4.8) k/uL Monocytes # (Manual) 1.56 H (0-1.0) k/uL Eosinophils # (0.04-0.35) X 10*3/uL Metamyelocytes # (Man) 0.07 H (0) k/uL Myelocytes # (Manual) 0.07 H (0) k/uL ESR 58 H (0-15) mm/hr Retic Count 2.7 H (0.5-2.0) % Sodium 134 L (137-145) mmol/L Carbon Dioxide 20 L (22-30) mmol/L BUN 24 H (9-20) mg/dL Glucose 189 H (74-99) mg/dL AST (17-59) U/L ALT 59 H (4-49) U/L Lactate Dehydrogenase 625 H (313-618) U/L Total Protein 5.1 L (6.3-8.2) g/dL Albumin 2.9 L (3.5-5.0) g/dL 09/02/21 09/02/21 Range/Units 05:04 05:04 RBC 3.19 L (4.30-5.90) m/uL Hgb 9.0 L (13.0-17.5) gm/dL Hct 29.6 L (39.0-53.0) % MCHC 30.4 L (32.0-37.0) g/dL RDW 16.6 H (11.5-15.5) % Immature Gran # 0.36 H (0.00-0.04) X 10*3/uL Lymphocytes # 0.29 L (0.90-5.00) X 10*3/uL Lymphocytes # (Manual) (1.0-4.8) k/uL Monocytes # (Manual) (0-1.0) k/uL Eosinophils # 0 L (0.04-0.35) X 10*3/uL Metamyelocytes # (Man) (0) k/uL Myelocytes # (Manual) (0) k/uL ESR (0-15) mm/hr Retic Count (0.5-2.0) % Sodium 135 L (137-145) mmol/L Carbon Dioxide (22-30) mmol/L BUN 26 H (9-20) mg/dL Glucose 141 H (74-99) mg/dL AST 73 H (17-59) U/L ALT 76 H (4-49) U/L Lactate Dehydrogenase 697 H (313-618) U/L Total Protein 5.9 L (6.3-8.2) g/dL Albumin 3.4 L (3.5-5.0) g/dL Assessment and Plan Plan: Assessment: #1. Exertional dyspnea #2. Acute hypoxic respiratory failure secondary to acute interstitial pneumonitis, COVID-19 PCR was negative 2, Legionella urine antigen was negative, proBNP was elevated at 2920 suggesting mild fluid overload. Mycoplasma IgM is pending, hypersensitivity pneumonia markers are pending, Procan acetone is pending, [place] level and ANCA pending #3. Acute interstitial pneumonitis, possible interstitial lung disease, possible noncardiogenic pulmonary edema. Echocardiogram showed EF of 60-65%, and no significant valvular abnormality, PA systolic was 38.7 mmHg #4. Previous history of coronary artery disease #5. Hypertension #6. Hyperlipidemia #7. History of vascular dementia #8. Former smoker #9. 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 BPH Plan: Today's chest x-ray has been noted, and is felt to be improved compared to previous chest x-ray Vital signs have been stable Repeat COVID 19 was again negative Legionella urine antigen is negative We'll continue the patient on IV steroids, antibiotics and diuretics We will wait for the rest of the workup including hypersensitivity pneumonitis workup, Procan calcitonin level, ANCA level, and [place] level We'll continue to follow his clinical course I performed a history & physical examination of the patient and discussed their management with my nurse practitioner, Thais Rome. I reviewed the nurse ryan estevez's note and agree with the documented findings and plan of care. Lung sounds are positive for diminished breath sounds throughout the lung ortiz. The findings and the impression was discussed with the patient. I attest to the documentation by the nurse practitioner. Time with Patient: Less than 30
[2021-09-02] MEDS ORDERED: LORazepam 2 MG/ML INJ IV PRN (15:04)
--- NOTE | 2021-09-02 15:06 | P.PN ---
Subjective Progress Note Date: 09/02/21 HISTORY OF PRESENT ILLNESS This is a 69-year-old male one of with a previous medical history significant for mild CAD post-heart catheterization more than 8 years ago, history of vascular dementia, hypertension, hyperlipidemia. Patient's last hospitalization was in 2019 for left-sided chest pain finding echocardiogram of 55-60% with borderline concentric left hypertrophy, mild aortic valve sclerosis, trace to mild mitral regurgitation and mild tricuspid regurgitation. Dobutamine stress test was negative. Patient is undergone bone marrow biopsy with Dr. Valladares 04/08/2021 and follows for myelodysplastic syndrome. Patient presented to the hospital for generalized weakness for s 3 weeks and new onset of shortness of breath started last week. His relates that he has been forgetting stuff patient is concerned. Patient was able to mow the lawn just last week. Patient has history of alcohol abuse and quit drinking 2 years ago. Patient presented to [facility] emergency center. Patient was found to be afebrile, heart rate 82, blood pressure 96/53 with repeat of 138/65. EKG was a normal sinus rhythm with no acute ST changes. Hemoglobin 8.7, WBC 7.6, platelet count 220. Sodium 131, potassium 3.8, chloride 103, CO2 21, BUN 23 creatinine 1.02. Blood sugar 109. INR 1.1. Urinalysis was clear with nitrate and leukoesterase negative. AST 89, ALT 72. Troponin negative. Stool for occult blood was negative. Rotavirus PCR not detected CAT chest angiogram revealed no evidence of pulmonary embolism. Extensive pulmonary interstitial pneumonia and edema. Bilateral pleural effusions. Abnormalities appear new compared to old exam. Chest x-ray reveals mild cardiomegaly with bilateral confluent reticular and reticular nodule opacities strongly suggestive of COVID 19 infection. Patient has remained afebrile, pulse ox 97% on 3 L nasal cannula. Patient is been placed on the MedSurg floor. Repeat Covid testing ordered and pro- calcitonin, echocardiogram. 09/02: She has been seen by pulmonary for pneumonia, Covid 19 ruled out. He is on azithromycin, ceftriaxone and IV steroids. Mycoplasma and Legionella testing is pending. Patient has been eating well. His pulse ox has been stable at 99% on 3 L, afebrile. Repeat blood work reveals WBC 8.1, hemoglobin 9, platelet count 244. Sodium 135 otherwise electrolytes are normal, BUN 26 creatinine 1. Blood sugar 141. AST 73, ALT 76, alkaline phosphatase 110. LDH 697. Discharge plan is return home.. REVIEW OF SYSTEMS Constitutional: No fever, no chills, no night sweats. No weight change. Reported weakness, Reported fatigue Reported lethargy. No daytime sleepiness. EENT: No headache. No blurred vision or double vision, no loss of vision. No loss of Hearing, no ringing in the ears, no dizziness. No nasal drainage or congestion. No epistaxis. No sore throat. Lungs: Reported shortness of breath, cough, no sputum production. No wheezing. Cardiovascular: No chest pain, no lower extremity edema. No palpitations. No p aroxysmal nocturnal dyspnea. No orthopnea. No lightheadedness or dizziness. No syncopal episodes. Abdominal: No abdominal pain. No nausea, vomiting. No diarrhea. No constipation. No bloody or tarry stools.. No loss of appetite. Genitourinary: No dysuria, increased frequency, urgency. No urinary retention. Musculoskeletal: No myalgias. No muscle weakness, no gait dysfunction, no frequent falls. No back pain. No neck pain. Integumentary: No wounds, no lesions. No rash or pruritus. No unusual bruising. No change in hair or nails. Neurologic: No aphasia. No facial droop. No change in mentation. No head injury. No headache. No paralysis. No paresthesia. Psychiatric: No depression. No anxiety. No mood swings. Endocrine: No abnormal blood sugars. No weight change. No excessive sweating or thirst. No cold intolerance. PHYSICAL EXAMINATION Gen: This is a 71-year-old male. He is resting in bed and appears to be comfortable and in no acute distress. Patient's is at bedside HEENT: Head is atraumatic, normocephalic. Pupils equal, round. Sclerae is anicteric. NECK: Supple. No JVD. No lymphadenopathy. No thyromegaly. LUNGS: Clear to auscultation. No wheezes or rhonchi. No intercostal retractions. HEART: Regular rate and rhythm. No murmur. ABDOMEN: Soft. Bowel sounds are present. No masses. No tenderness. EXTREMITIES: No pedal edema. No calf tenderness. NEUROLOGICAL: Patient is awake, alert and oriented x3. Cranial nerves 2 through 12 are grossly intact. ASSESSMENT AND PLAN 1. Generalized weakness possibly secondary to hypotension, anemia and pneumonia. Consult with pulmonary medicine appreciated. Patient is on azithromycin, ceftriaxone, IV Solu-Medrol. 2. Anemia of chronic disease with hemoglobin of 8.7. Continue vitamin B complex and vitamin. Patient had previous bone marrow biopsy with Dr. Valladares. 3. Mild CAD. Continue aspirin 81 mg daily, atenolol 25 mg daily, Lipitor 40 mg daily. 4. Hypertension. Continue atenolol 25 mg orally once every day. 5. Hyperlipidemia. Continue Lipitor 40 mg orally once every day. 6. Vascular dementia. Patient is off Aricept. 7. BPH. Continue Flomax 0.4 g orally twice every day. 8. Mild dysplastic syndrome. Consult with oncology.. 9. DVT prophylaxis. Currently on heparin drip. 10. Gastroesophageal reflux disease and GI prophylaxis. Continue omeprazole 40 mg daily or equivalent. 11. History of alcohol abuse. Patient quit 2 years ago. 12. COVID-19 testing negative. Patient has been hospitalized during a pandemic. DISCHARGE PLAN To be determined. PT and OT consults. Impression and plan of care have been directed as dictated by the signing physician. Nohemi Mcdonald nurse practitioner acting as scribe for signing physician. Objective - Vital Signs Vital signs: Vital Signs Temp 97.3 F L 09/02/21 08:00 Pulse 70 09/02/21 08:00 Resp 18 09/02/21 08:00 BP 136/69 09/02/21 08:00 Pulse Ox 99 09/02/21 08:00 Intake & Output 09/01/21 09/02/21 09/02/21 18:59 06:59 18:59 Intake Total 236 118 Output Total 1260 Balance 236 -1260 118 Weight 63.503 kg Intake: Oral 236 118 Output: Urine 1260 Other: Voiding Method Toilet Urinal # Voids 1 # Bowel Movements 1 - Labs CBC & Chem 7: 09/02/21 05:04 09/02/21 05:04 Labs: Abnormal Lab Results - Last 24 Hours (Table) 09/01/21 09/01/21 09/01/21 Range/Units 10:54 10:54 10:54 RBC 2.95 L (4.30-5.90) m/uL Hgb 8.5 L (13.0-17.5) gm/dL Hct 27.4 L (39.0-53.0) % MCHC (32.0-37.0) g/dL RDW 16.2 H (11.5-15.5) % Immature Gran # (0.00-0.04) X 10*3/uL Lymphocytes # (0.90-5.00) X 10*3/uL Lymphocytes # (Manual) 0.27 L (1.0-4.8) k/uL Monocytes # (Manual) 1.56 H (0-1.0) k/uL Eosinophils # (0.04-0.35) X 10*3/uL Metamyelocytes # (Man) 0.07 H (0) k/uL Myelocytes # (Manual) 0.07 H (0) k/uL ESR 58 H (0-15) mm/hr Retic Count 2.7 H (0.5-2.0) % Sodium 134 L (137-145) mmol/L Carbon Dioxide 20 L (22-30) mmol/L BUN 24 H (9-20) mg/dL Glucose 189 H (74-99) mg/dL AST (17-59) U/L ALT 59 H (4-49) U/L Lactate Dehydrogenase 625 H (313-618) U/L Total Protein 5.1 L (6.3-8.2) g/dL Albumin 2.9 L (3.5-5.0) g/dL 09/02/21 09/02/21 Range/Units 05:04 05:04 RBC 3.19 L (4.30-5.90) m/uL Hgb 9.0 L (13.0-17.5) gm/dL Hct 29.6 L (39.0-53.0) % MCHC 30.4 L (32.0-37.0) g/dL RDW 16.6 H (11.5-15.5) % Immature Gran # 0.36 H (0.00-0.04) X 10*3/uL Lymphocytes # 0.29 L (0.90-5.00) X 10*3/uL Lymphocytes # (Manual) (1.0-4.8) k/uL Monocytes # (Manual) (0-1.0) k/uL Eosinophils # 0 L (0.04-0.35) X 10*3/uL Metamyelocytes # (Man) (0) k/uL Myelocytes # (Manual) (0) k/uL ESR (0-15) mm/hr Retic Count (0.5-2.0) % Sodium 135 L (137-145) mmol/L Carbon Dioxide (22-30) mmol/L BUN 26 H (9-20) mg/dL Glucose 141 H (74-99) mg/dL AST 73 H (17-59) U/L ALT 76 H (4-49) U/L Lactate Dehydrogenase 697 H (313-618) U/L Total Protein 5.9 L (6.3-8.2) g/dL Albumin 3.4 L (3.5-5.0) g/dL
[2021-09-02 17:22] LABS: % Iron Saturation 16.82 (15.00-50.00); Iron 56 ug/dL (65-175); Total Iron Binding Capacity 332 ug/dL (228-460)
[2021-09-02] MEDS: ASPIRIN 81 MG PO SCH (20:55)
[2021-09-02] MEDS: ATORVASTATIN 40 MG TAB PO SCH (20:55)
[2021-09-02] MEDS: SODIUM CHLORIDE 0.9% 1,000 ML IV SCH (20:55)
[2021-09-02] MEDS: SERTRALINE 100 MG TAB PO SCH (20:56)
[2021-09-03 02:35] VITALS: PULSE 66
[2021-09-03] MEDS: methylPREDNISolone SOD SUCCI 40 MG/ML 1 ML VIAL IV SCH ×2 (05:32→11:35)
[2021-09-03 08:05] VITALS: BP 131/72; TEMP 97.7
[2021-09-03 08:07] VITALS: RESP 18
[2021-09-03] MEDS: PANTOPRAZOLE 40 MG TABLET PO SCH (08:39)
[2021-09-03] MEDS: TAMSULOSIN 0.4 MG CAP.ER.24H PO SCH (08:39)
[2021-09-03] MEDS: THIAMINE 100 MG TAB PO SCH (08:39)
[2021-09-03] MEDS: CHOLECALCIFEROL 25 MCG (1000 IU) TABLET PO SCH (08:39)
[2021-09-03] MEDS: FUROSEMIDE 10 MG/ML 4 ML VIAL IV SCH (08:39)
[2021-09-03] MEDS: atenoloL 25 MG TAB PO SCH (08:39)
[2021-09-03] MEDS: HEPARIN SODIUM,PORCINE/PF 5,000 UNIT/0.5 ML SYRINGE SQ SCH (08:40)
[2021-09-03] MEDS: AZITHROMYCIN 500 MG TAB PO SCH (08:40)
--- NOTE | 2021-09-03 09:14 | XR ---
EXAMINATION TYPE: XR chest 1V portable DATE OF EXAM: 09/03/2021 COMPARISON: 09/02/2021 INDICATION: Congestive heart failure TECHNIQUE: Single frontal view of the chest is obtained. FINDINGS: The heart size is probably prominent. The pulmonary vasculature is normal. Previous diffuse mild infiltrate has improved. Some residual remains on the left side. Advanced degenerative changes at the left shoulder. Some degenerative changes compatible with chronic rotator cuff tears present on the right. IMPRESSION: 1. Improving congestive heart failure. Residual pulmonary edema remains on the left. Continued follow -up is recommended.
[2021-09-03 10:00] LABS: Anisocytosis Slight; Basophils % (A) 0 %; Eosinophils % (A) 0 %; HCT 32.5 % (39.0-53.0); HGB 9.7 gm/dL (13.0-17.5); Hypochromasia Moderate; Lymphocytes # (A) 0.2 k/uL (1.0-4.8); Lymphocytes % (A) 2 %; MCH 27.7 pg (25.0-35.0); MCHC 29.9 g/dL (31.0-37.0); MCV 92.9 fL (80.0-100.0); Mean Platelet Volume 8.3; Monocytes # (A) 0.3 k/uL (0-1.0); Monocytes % (A) 3 %; Neutrophils # (A) 9.5 k/uL (1.3-7.7); Neutrophils % (A) 94 %; Platelet Count 275 k/uL (150-450); RDW 16.1 % (11.5-15.5); WBC 10.1 k/uL (3.8-10.6)
[2021-09-03 10:24] LABS: Angiotensin-1 Converting Enz. 94 U/L (8-52)
--- NOTE | 2021-09-03 10:24 | P.DS ---
Providers Date of admission: 08/31/21 16:00 Expected date of discharge: 09/03/21 Attending physician: Farnaz Webster MD Consults: 09/01/21 10:29 Consult Physician Routine Consulting Provider: Josué Mclaughlin Consult Reason/Comments: suspect COVID Do you want consulting provider notified?: Yes 09/01/21 10:30 Consult Physician Routine Consulting Provider: Earle Yepez Consult Reason/Comments: myelodysplastic syndrome Do you want consulting provider notified?: Yes Primary care physician: Farnaz Webster MD Hospital Course: HISTORY OF PRESENT ILLNESS This is a 69-year-old male one of with a previous medical history significant for mild CAD post-heart catheterization more than 8 years ago, history of vascular dementia, hypertension, hyperlipidemia. Patient's last hospitalization was in 2019 for left-sided chest pain finding echocardiogram of 55-60% with borderline concentric left hypertrophy, mild aortic valve sclerosis, trace to mild mitral regurgitation and mild tricuspid regurgitation. Dobutamine stress test was negative. Patient is undergone bone marrow biopsy with Dr. Valladares 04/08/2021 and follows for myelodysplastic syndrome. Patient presented to the hospital for generalized weakness for s 3 weeks and new onset of shortness of breath started last week. His relates that he has been forgetting stuff patient is concerned. Patient was able to mow the lawn just last week. Patient has history of alcohol abuse and quit drinking 2 years ago. Patient presented to [facility] emergency center. Patient was found to be afebrile, heart rate 82, blood pressure 96/53 with repeat of 138/65. EKG was a normal sinus rhythm with no acute ST changes. Hemoglobin 8.7, WBC 7.6, platelet count 220. Sodium 131, potassium 3.8, chloride 103, CO2 21, BUN 23 creatinine 1.02. Blood sugar 109. INR 1.1. Urinalysis was clear with nitrate and leukoesterase negative. AST 89, ALT 72. Troponin negative. Stool for occult blood was negative. Rotavirus PCR not detected CAT chest angiogram revealed no evidence of pulmonary embolism. Extensive pulmonary interstitial pneumonia and edema. Bilateral pleural effusions. Abnormalities appear new compared to old exam. Chest x-ray reveals mild cardiomegaly with bilateral confluent reticular and reticular nodule opacities strongly suggestive of COVID 19 infection. Patient has remained afebrile, pulse ox 97% on 3 L nasal cannula. Patient is been placed on the MedSurg floor. Repeat Covid testing ordered and pro- calcitonin, echocardiogram. 09/02: She has been seen by pulmonary for pneumonia, Covid 19 ruled out. He is on azithromycin, ceftriaxone and IV steroids. Mycoplasma and Legionella testing is pending. Patient has been eating well. His pulse ox has been stable at 99% on 3 L, afebrile. Repeat blood work reveals WBC 8.1, hemoglobin 9, platelet count 244. Sodium 135 otherwise electrolytes are normal, BUN 26 creatinine 1. Blood sugar 141. AST 73, ALT 76, alkaline phosphatase 110. LDH 697. Discharge plan is return home.. 09/03: Pulse ox is 95% on 2 L today and at rest he is 90% without oxygen. Patient was assessed for home oxygen and pulse ox 87% with activity. manager information is arranged for home oxygen therapy as patient requires oxygen to manage pneumonia, acute diastolic heart failure. Patient will be discharged home today in stable condition. ASSESSMENT AND PLAN 1. Acute diastolic heart failure, possible hypersensitivity pneumonitis and possible sarcoidosis 2. Anemia of chronic disease with hemoglobin of 8.7. 3. Mild CAD. 4. Hypertension. 5. Hyperlipidemia. 6. Vascular dementia. 7. BPH. 8. Mild dysplastic syndrome. 9. Gastroesophageal reflux disease 10. History of alcohol abuse. 11. COVID-19 testing negative. Patient has been hospitalized during a pandemic. DISCHARGE PLAN To be determined. PT and OT consults. Impression and plan of care have been directed as dictated by the signing physician. Nohemi Mcdonald nurse practitioner acting as scribe for signing physician. Patient Condition at Discharge: Good Plan - Discharge Summary Discharge Rx Participant: Yes New Discharge Prescriptions: New Azithromycin 250 mg PO DAILY 3 Days #3 tab Cephalexin [Keflex] 500 mg PO Q8HR 5 Days #15 cap Furosemide [Lasix] 20 mg PO DAILY #7 tab predniSONE 0 mg PO DIRECTED #30 tab Continue Aspirin EC [Ecotrin Low Dose] 81 mg PO HS Tamsulosin [Flomax] 0.4 mg PO BID Thiamine [Vitamin B-1] 100 mg PO DAILY Atenolol [Tenormin] 25 mg PO DAILY Ginkgo Biloba 500 mg PO BID Cholecalciferol [Vitamin D3 (25 Mcg = 1000 Iu)] 50 mcg PO DAILY Omeprazole [PriLOSEC] 40 mg PO DAILY Atorvastatin [Lipitor] 40 mg PO HS Vitamin B Complex 1 cap PO DAILY Sertraline [Zoloft] 100 mg PO HS Discharge Medication List Aspirin EC [Ecotrin Low Dose] 81 mg PO HS 10/26/16 [History] Tamsulosin [Flomax] 0.4 mg PO BID 09/16/19 [History] Atenolol [Tenormin] 25 mg PO DAILY 04/04/21 [History] Atorvastatin [Lipitor] 40 mg PO HS 04/04/21 [History] Cholecalciferol [Vitamin D3 (25 Mcg = 1000 Iu)] 50 mcg PO DAILY 04/04/21 [History] Omeprazole [PriLOSEC] 40 mg PO DAILY 04/04/21 [History] Thiamine [Vitamin B-1] 100 mg PO DAILY 04/04/21 [History] Vitamin B Complex 1 cap PO DAILY 04/04/21 [History] Ginkgo Biloba 500 mg PO BID 08/31/21 [History] Sertraline [Zoloft] 100 mg PO HS 08/31/21 [History] Azithromycin 250 mg PO DAILY 3 Days #3 tab 09/03/21 [Rx] Cephalexin [Keflex] 500 mg PO Q8HR 5 Days #15 cap 09/03/21 [Rx] Furosemide [Lasix] 20 mg PO DAILY #7 tab 09/03/21 [Rx] predniSONE 0 mg PO DIRECTED #30 tab 09/03/21 [Rx] Follow up Appointment(s)/Referral(s): Farnaz Webster MD [Primary Care Provider] - 1-2 days (Keep appointment for Sep.10 @ 2:45pm) Josué Mclaughlin MD [STAFF PHYSICIAN] - 09/17/21 3:15 pm Robert Cueto [NON-STAFF] - 1 Week Patient Instructions/Handouts: Pneumonitis (DC) Discharge Disposition: HOME SELF-CARE
--- NOTE | 2021-09-03 11:35 | P.PN ---
Subjective Progress Note Date: 09/03/21 Principal diagnosis: Exertional shortness of breath This is a 71-year-old white male with history of myelodysplastic syndrome, patient was brought into the hospital with 1 week history of increased shortness of breath upon exertion. Patient had no cough, no wheezing, no fever, no chills, no hemoptysis, no chest pain. Patient never had any symptoms to suggest COVID-19 infection patient received COVID-19 vaccination few months ago. Patient was brought in mostly because of his shortness of breath on exertion, and a CT of the chest came back showing extensive bilateral interstitial pneumonia and edema, no evidence of pulmonary embolism and there was also bilateral pleural effusions. Considering the findings, this consult was initiated. Patient tested negative twice for COVID-19 infection. He had relatively unremarkable CBC hemoglobin is 8.5 which is basically his baseline. Basic metabolic profile is normal renal profile is normal liver profile is normal, urinalysis is normal. Considering the abnormality noted on the CT of the chest, this consult was initiated. 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 Denies any symptoms of GERD denies any symptoms of connective tissue disease denies any specific ALLERGIES or exposures. His BNP level was noted to be elevated at 2920 Procalcitonin level is pending hypersensitivity panel is pending DANA and sed ra te is pending. In the meantime I went ahead and recommended a trial of antibiotics empirically diuretics, and steroids. On 09/02/2021 patient seen in follow-up on cardiac observation unit, he tested negative for occult blood 2, he is currently on 3 L of oxygen a pulse ox of 99%, his chest x-ray findings are improving on today's exam, showing mild cardiomegaly, with bilateral confluent reticulonodular reticular nodular opacities. Patient has been afebrile, vital signs have been stable. He remains on combination of azithromycin and Rocephin, he is on IV Lasix at 40 mg every 12 hours, he is in -1024 mL. He is currently on IV Solu-Medrol 40 mg every 6 hours. Today's labs have been noted, white blood cell count is 8.16, hemoglobin is 9.0, electrolytes and renal profile are fairly unremarkable, AST has trended up is up to 73 and today's labs, ALT is 76, LDH is 697, his proBNP was elevated on admission at 2920. His Legionella urine antigen was negative. It seems to be resting fairly comfortably in bed, appears to be in no acute distress. His echocardiogram revealed EF of 60-65%, aortic valve was trileaflet and structurally normal, mild MR, mild TR, and mildly elevated PA pressure of 38.7 mmHg. On 09/03/2021 patient seen in follow-up on medical surgical floor. He states he is breathing much easier, he is on room air, pulse ox is 94%, he is afebrile, hemodynamically has been stable, patient has been on a combination of IV steroids, diuretics and antibiotics, has been receiving Lasix 40 mg twice daily, and he is in -747 mL net fluid balance over last 24 hours, and today's chest x- ray showing improving congestive heart failure, with residual pulmonary edema on the left. Denies any cough, wheezing or phlegm production, no hemoptysis no chest pain. Patient continues on azithromycin and Rocephin, he Solu-Medrol 40 mg every 6 hours. His pro calcitonin level came back negative at 0.07 suggesting absence of bacterial infection including pneumonia, his white blood cell count is 10.1, hemoglobin is 9.7, his BMP is pending for today, he tested negative for COVID-19 twice, it is a slow came back at 94 proBNP was 2920 suggesting acute exacerbation of diastolic CHF. IgE level was normal at 14, Legionella urine antigen was negative, mycoplasma IgM was low at 0.16 Objective - Vital Signs Vital signs: Vital Signs Temp 97.7 F 09/03/21 08:00 Pulse 66 09/03/21 08:00 Resp 18 09/03/21 08:00 BP 131/72 09/03/21 08:00 Pulse Ox 87 L 09/03/21 11:16 Intake & Output 09/02/21 09/03/21 09/03/21 18:59 06:59 18:59 Intake Total 778 Output Total 250 1275 Balance 528 -1275 Intake: Oral 778 Output: Urine 250 1275 Other: Voiding Method Toilet Urinal # Voids 1 - Exam GENERAL EXAM: Alert, very pleasant, 71-year-old white male, with a pulse ox of 99% comfortable in no apparent distress. HEAD: Normocephalic/atraumatic. EYES: Normal reaction of pupils, equal size. Conjunctiva pink, sclera white. NOSE: Clear with pink turbinates. THROAT: No erythema or exudates. NECK: No masses, no JVD, no thyroid enlargement, no adenopathy. CHEST: No chest wall deformity. Symmetrical expansion. LUNGS: Equal air entry with diminished breath sounds at bilateral bases CVS: Regular rate and rhythm, normal S1 and S2, no gallops, no murmurs, no rubs ABDOMEN: Soft, nontender. No hepatosplenomegaly, normal bowel sounds, no guarding or rigidity. EXTREMITIES: No clubbing, no edema, no cyanosis, 2+ pulses and upper and lower extremities. MUSCULOSKELETAL: Muscle strength and tone normal. SPINE: No scoliosis or deformity SKIN: No rashes CENTRAL NERVOUS SYSTEM: Alert and oriented -3. No focal deficits, tone is normal in all 4 extremities. PSYCHIATRIC: Alert and oriented -3. Appropriate affect. Intact judgment and insight. - Labs CBC & Chem 7: 09/03/21 09:11 09/02/21 05:04 Labs: Abnormal Lab Results - Last 24 Hours (Table) 09/02/21 09/02/21 09/02/21 Range/Units 05:04 05:04 05:04 RBC (4.30-5.90) m/uL Hgb (13.0-17.5) gm/dL Hct (39.0-53.0) % MCHC (31.0-37.0) g/dL RDW (11.5-15.5) % Neutrophils # (1.3-7.7) k/uL Lymphocytes # (1.0-4.8) k/uL Haptoglobin 330.0 H (31.2-198.0) mg/dL Iron 56 L (65-175) ug/dL Angiotensin Convert Enz 94 H (8-52) U/L Vitamin B12 1140.0 H (200.0-944.0) pg/mL 09/03/21 Range/Units 09:11 RBC 3.50 L (4.30-5.90) m/uL Hgb 9.7 L (13.0-17.5) gm/dL Hct 32.5 L (39.0-53.0) % MCHC 29.9 L (31.0-37.0) g/dL RDW 16.1 H (11.5-15.5) % Neutrophils # 9.5 H (1.3-7.7) k/uL Lymphocytes # 0.2 L (1.0-4.8) k/uL Haptoglobin (31.2-198.0) mg/dL Iron (65-175) ug/dL Angiotensin Convert Enz (8-52) U/L Vitamin B12 (200.0-944.0) pg/mL Assessment and Plan Plan: Assessment: #1. Exertional dyspnea #2. Acute hypoxic respiratory failure secondary to what appears to be acute exacerbation of diastolic CHF. Differential diagnosis included cute interstitial pneumonitis, COVID-19 pneumonia, community acquired pneumonia, hypersensitivity pneumonitis, and sarcoidosis. COVID-19 PCR was negative 2, Legionella urine antigen was negative, proBNP was elevated at 2920 suggesting mild fluid overload. Mycoplasma IgM is negative, hypersensitivity pneumonia markers are negative, Procalcitonin is negative at 0.07, PAT level is 94 and ANC A pending. Sarcoidosis is felt to be less likely related to absence of pulmonary lymphadenopathy #3. Previous history of coronary artery disease #4. Hypertension #5. Hyperlipidemia #6. History of vascular dementia #7. Former smoker #8. Former history of alcohol abuse, in remission for last 2 years #9. BPH Plan: Today's chest x-ray has been noted, showing improving congestive heart failure with residual pulmonary edema on the left Pro-calcitonin level was negative, we can stop the antibiotics Hypersensitivity pneumonitis was felt to be less likely, IgE level was within normal limits Sarcoidosis felt to be less likely in the absence of pulmonary lymphadenopathy Legionella urine antigen was negative COVID-19 PCR was negative 2 ANCA level is still pending However based on rapid improvement in the respiratory symptoms and chest x-ray findings, it is likely that patient responded to the diuretics And this presentation is more consistent with acute exacerbation of diastolic CHF Recommend patient is maintained on 20 mg of Lasix in the daily basis No need for antibiotics Complete short-taper of steroids Follow-up with Dr. Mclaughlin any office in 2 weeks I performed a history & physical examination of the patient and discussed their management with my nurse practitioner, Thais Rome. I reviewed the nurse practitioner's note and agree with the documented findings and plan of care. Lung sounds are positive for diminished breath sounds throughout the lung ortiz. The findings and the impression was discussed with the patient. I attest to the documentation by the nurse practitioner. Time with Patient: Less than 30
[2021-09-03] MEDS: SODIUM CHLORIDE 0.9% 1,000 ML IV SCH (13:27)
[2021-09-03 14:00] LABS: C-ANCA <1:20 Titer (<1:20)
== END 2021-09-03 14:50 | disposition home or self-care (01) | DRG 196 ==
LOC: EC 11:43 → 4SSUR 16:00 → 6NMEDSUR 09-01 05:53
PROVIDERS: ADMIT Internal Medicine; ATTEND Internal Medicine
DX: J67.9 Hypersensitivity pneumonitis due to unspecified organic dust (principal); I50.31 Acute diastolic (congestive) heart failure; J96.01 Acute respiratory failure with hypoxia; Z87.891 Personal history of nicotine dependence; I08.3 Combined rheumatic disorders of mitral, aortic and tricuspid valves; I11.0 Hypertensive heart disease with heart failure; F10.11 Alcohol abuse, in remission; D86.9 Sarcoidosis, unspecified; F01.50 Vascular dementia, unspecified severity, without behavioral disturbance, psychotic disturbance, mood disturbance, and anxiety; E78.5 Hyperlipidemia, unspecified; D63.8 Anemia in other chronic diseases classified elsewhere; D46.9 Myelodysplastic syndrome, unspecified; M19.90 Unspecified osteoarthritis, unspecified site; F41.9 Anxiety disorder, unspecified; I25.10 Atherosclerotic heart disease of native coronary artery without angina pectoris; I25.2 Old myocardial infarction; K21.9 Gastro-esophageal reflux disease without esophagitis; N40.0 Benign prostatic hyperplasia without lower urinary tract symptoms; Z20.822 Contact with and (suspected) exposure to COVID-19; Z79.82 Long term (current) use of aspirin; Z79.899 Other long term (current) drug therapy; Z82.3 Family history of stroke; Z82.49 Family history of ischemic heart disease and other diseases of the circulatory system; Z84.1 Family history of disorders of kidney and ureter; Z90.89 Acquired absence of other organs
CPT/HCPCS: 36415; 71045; 71046; 71275; 80053; 81001; 82164; 82272; 82607; 82728; 82746; 82785; 83010; 83540; 83550; 83615; 83735; 83880; 84145; 84484; 85025; 85045; 85379; 85610; 85652; 85730; 86001; 86255; 86606; 86609; 86738; 87449; 87635; 93005; 93306; 94760; 96361; 96374; 99285

== ENCOUNTER → 2021-09-10 | Outpatient (CLI) | payer MEDICARE ==
--- NOTE | 2021-09-10 19:33 | XR ---
EXAMINATION TYPE: XR chest 2V DATE OF EXAM: 09/10/2021 COMPARISON: Chest x-ray [address] chest 10 days ago. HISTORY: Congestion. TECHNIQUE: Frontal and lateral views of the chest are obtained. FINDINGS: Persistent elevated and eventrated anterior aspect right hemidiaphragm. There are persiste nt bilateral reticulonodular increased markings. The cardiac silhouette size is stable and mildly en larged. The osseous structures are intact. IMPRESSION: Mild cardiomegaly with bilateral reticulonodular increased opacities remaining present. No significant change from most recent studies.
== END | disposition home or self-care (01) ==
LOC: RADXRMAIN 16:16
PROVIDERS: ATTEND Internal Medicine
DX: I51.7 Cardiomegaly (principal); J90 Pleural effusion, not elsewhere classified
CPT/HCPCS: 71046

== ENCOUNTER → 2021-12-04 | Outpatient (CLI) | payer MEDICARE ==
[2021-12-04 14:32] LABS: HCT 30.3 % (39.6-50.0); HGB 9.2 g/dL (13.0-17.0); MCH 29.1 pg (27.0-32.0); MCHC 30.4 g/dL (32.0-37.0); MCV 95.9 fL (80.0-97.0); Mean Platelet Volume 11.1 fL (9.5-12.2); Platelet Count 145 X 10*3/uL (140-440); RBC 3.16 X 10*6/uL (4.40-5.60); RDW 16.1 % (11.5-14.5); WBC 5.51 X 10*3/uL (4.50-10.00)
[2021-12-04 17:27] LABS: Chol/HDL Ratio 2.79 Ratio; LDL Cholesterol,Calculated 68.2 mg/dL (0.0-131.0); VLDL Calculation 17.84 mg/dL (5.00-40.00)
[2021-12-04 17:28] LABS: ALT 20 U/L (10-49); AST 30 U/L (14-35); African American GFR (CKD) 76.8 (60.0-200.0); Albumin 4.4 g/dL (3.8-4.9); Albumin/Globulin Ratio 2.75 (1.60-3.17); Alkaline Phosphatase 117 U/L (41-126); BUN/Creat Ratio 22.55 Ratio (12.00-20.00); Blood Urea Nitrogen 24.8 mg/dL (9.0-27.0); Calcium 9.3 mg/dL (8.7-10.3); Carbon Dioxide 24.7 mmol/L (20.0-27.5); Chloride 105 mmol/L (96-109); Globulin 1.6 g/dL (1.6-3.3); Glucose 93 mg/dL (70-110); Non-African American GFR(CKD) 66.2 (60.0-200.0); Potassium 4.5 mmol/L (3.5-5.5); Sodium 141 mmol/L (135-145)
== END | disposition home or self-care (01) ==
LOC: LABWHC1 08:04
PROVIDERS: ATTEND Internal Medicine
DX: Z00.00 Encounter for general adult medical examination without abnormal findings (principal); D64.9 Anemia, unspecified; I25.119 Atherosclerotic heart disease of native coronary artery with unspecified angina pectoris; E78.2 Mixed hyperlipidemia; N40.1 Benign prostatic hyperplasia with lower urinary tract symptoms; R79.9 Abnormal finding of blood chemistry, unspecified; E55.9 Vitamin D deficiency, unspecified
CPT/HCPCS: 36415; 80053; 80061; 82306; 84153; 84443; 85027

== ENCOUNTER → 2022-05-21 | Outpatient (CLI) | payer MEDICARE ==
[2022-05-21 14:09] LABS: Basophils # (A) 0.01 X 10*3/uL (0.00-0.10); Basophils % (A) 0.2 %; Eosinophils # (A) 0.15 X 10*3/uL (0.04-0.35); Eosinophils % (A) 3.3 %; HCT 34.2 % (39.6-50.0); HGB 10.3 g/dL (13.0-17.0); Immature Grans, Automated 1.3 %; Lymphocytes # (A) 0.62 X 10*3/uL (0.90-5.00); Lymphocytes % (A) 13.6 %; MCH 29.8 pg (27.0-32.0); MCHC 30.1 g/dL (32.0-37.0); MCV 98.8 fL (80.0-97.0); Mean Platelet Volume 11.6 fL (9.5-12.2); Monocytes # (A) 1.49 X 10*3/uL (0.20-1.00); Monocytes % (A) 32.6 %; NRBC Per 100 WBC 0 /100 WBCS (0.0-0.0); Neutrophils # (A) 2.24 X 10*3/uL (1.80-7.70); Platelet Count 140 X 10*3/uL (140-440); RBC 3.46 X 10*6/uL (4.40-5.60); RDW 16.1 % (11.5-14.5); WBC 4.57 X 10*3/uL (4.50-10.00)
[2022-05-21 14:31] LABS: Anion Gap 11.3 mmol/L (10.00-18.00); BUN/Creat Ratio 14.15 Ratio (12.00-20.00); Blood Urea Nitrogen 16.7 mg/dL (9.0-27.0); Calcium 9.3 mg/dL (8.7-10.3); Carbon Dioxide 26.7 mmol/L (20.0-27.5); Non-African American GFR(CKD) 60.4 (60.0-200.0); Potassium 4.4 mmol/L (3.5-5.5)
[2022-05-21 15:27] LABS: INR 0.96 (0.90-1.11); Prothrombin Time 10.9 sec (9.9-11.9)
== END | disposition home or self-care (01) ==
LOC: LABPAT 08:08
PROVIDERS: ATTEND Orthopaedic Surgery
DX: Z01.812 Encounter for preprocedural laboratory examination (principal); M12.812 Other specific arthropathies, not elsewhere classified, left shoulder
CPT/HCPCS: 36415; 80048; 85025; 85610; 87070

== ENCOUNTER 2022-06-02 05:39 | Inpatient (IN) | payer MEDICARE ==
[2022-05-27 13:32] VITALS: BMI 25.0
--- NOTE | 2022-06-01 09:50 | HP ---
HISTORY AND PHYSICAL CHIEF COMPLAINT: Left shoulder pain. HISTORY OF PRESENT ILLNESS: The patient is a 72-year-old [id number] retired gentleman who presents with progressive left shoulder pain for the past several years, worsening recently. He is having a difficult time with any overhead use and at night. He has tried medications in addition to injections, without much relief. He has a history of left shoulder arthroscopy in 2018. PAST MEDICAL HISTORY: Significant for myelodysplasia, hypertension, hyperlipidemia, anemia and prostate disease. PAST SURGICAL HISTORY: Significant for previous for left rotator cuff repair. CURRENT MEDICATIONS: Atenolol, aspirin, Proscar, simvastatin, Aricept and Tylenol. ALLERGIES: He has SENSITIVITY TO NITROGLYCERIN. NO DON DRUG ALLERGIES. FAMILY HISTORY: Significant for cancer. SOCIAL HISTORY: Significant for social alcohol use. REVIEW OF SYSTEMS: Sixteen-point review of systems otherwise reviewed and is noncontributory. PHYSICAL EXAMINATION: On examination, patient is approximately 5 feet 1 inch, 140 pounds of mesomorphic habitus. HEENT exam is nonfocal. Neck is supple. He is tender about the anterior subacromial space. He has moderate subacromial crepitus. Active range of motion: Forward elevation 40 degrees, external rotation with the arm at side 20 degrees, internal rotation to L5. Passively I am able to forward-elevate him to 90 degrees. Motor strength 4/5 for abduction and external rotation. Impingement test, Neer test and Speed test are positive. His distal neurovascular exam appears intact in the right upper extremity. X-rays of the left shoulder obtained in the office show severe glenohumeral joint space narrowing with diminished humeral head to acromial distance. IMPRESSION: Chronic left rotator cuff arthropathy. RECOMMENDATIONS: I /talked to the patient at length regarding his condition along with treatment options. At this point he is quite limited because of pain despite attempted conservative measures. After thorough discussion, he opts to proceed with surgery. We will plan to proceed with left reverse total shoulder arthroplasty. Risks and benefits were discussed at length in layman's terms. MMODL / IJN: [id number] /
[~2022-06-02 05:39] MED LIST changes: -LACTATED RINGERS 1,000 ML IV SCH; +TRANEXAMIC ACID IN NACL,ISO-OS 1,000 MG in SALINE 1 100ML.BAG IVPB PRN
[2022-06-02] MEDS ORDERED: DEXAMETHASONE SOD PHOSPHATE 4 MG/ML 1 ML VIAL IV ONE (05:40)
[2022-06-02] MEDS ORDERED: ONDANSETRON 4 MG/2 ML VIAL IVP ONE (05:40)
[2022-06-02] MEDS ORDERED: HYDROmorphone 0.5 MG/0.5 ML SYRINGE IVP PRN ×2 (05:40→09:11)
[2022-06-02] MEDS ORDERED: LIDOCAINE 1% (10MG/ML) FOR IV START INTRADERMA PRN (05:40)
[2022-06-02] MEDS ORDERED: MIDAZOLAM 2 MG/2 ML VIAL IV PRN (05:40)
[2022-06-02] MEDS: LACTATED RINGERS 1,000 ML IV SCH (06:48)
[2022-06-02] MEDS ORDERED: MIDAZOLAM 2 MG/2 ML VIAL IVP ONE (06:52)
[2022-06-02] MEDS ORDERED: ROPIVACAINE 5 MG/ML 30 ML VIAL ONE (06:57)
[2022-06-02] MEDS ORDERED: SUCCINYLCHOLINE CHLORIDE 100 MG/5 ML SYR IV ONE (06:57)
[2022-06-02] MEDS ORDERED: NEOSTIGMINE 1 MG/ML 10 ML VIAL ONE (06:57)
[2022-06-02] MEDS ORDERED: DEXAMETHASONE SOD PHOSPHATE 4 MG/ML 1 ML VIAL ONE (06:57)
[2022-06-02] MEDS ORDERED: PHENYLEPHRINE-0.9% NACL SYG 1,000 MCG/10 ML SYRINGE ONE (06:57)
[2022-06-02] MEDS ORDERED: WATER FOR INJECTION, STERILE 10 ML VIAL IV ONE (06:57)
[2022-06-02] MEDS ORDERED: ePHEDrine 50 MG/ML 1 ML VIAL ONE (06:57)
[2022-06-02] MEDS ORDERED: PROPOFOL 10 MG/ML 20 ML VIAL IV ONE (06:57)
[2022-06-02] MEDS ORDERED: GLYCOPYRROLATE 0.2 MG/ML 2 ML VIAL ONE (06:57)
[2022-06-02] MEDS ORDERED: TRANEXAMIC ACID IN NACL,ISO-OS 1,000 MG/100 ML BAG ONE (06:57)
[2022-06-02] MEDS ORDERED: LIDOCAINE 2% INJ 20 MG/ML (2 ML VIAL) ONE (06:57)
[2022-06-02] MEDS ORDERED: ROCURONIUM 10 MG/ML (5 ML VIAL) IV ONE (06:57)
[2022-06-02] MEDS ORDERED: ceFAZolin 3,000 MG in SODIUM CHLORIDE 0.9% IRRIGATIO 3,000 ML IRRIGATION ONE (07:43)
[2022-06-02] MEDS ORDERED: LACTATED RINGERS 1,000 ML IV ONE (09:07)
[2022-06-02] MEDS ORDERED: SENNOSIDES-DOCUSATE SODIUM 1 EACH TAB PO PRN (09:11)
--- NOTE | 2022-06-02 09:57 | XR ---
EXAMINATION TYPE: XR shoulder limited LT DATE OF EXAM: 06/02/2022 COMPARISON: NONE HISTORY: 72-year-old male status post reverse left total shoulder arthroplasty TECHNIQUE: Single AP portable view FINDINGS: Image shows placement of reverse left total shoulder arthroplasty. The glenosphere and humeral stem c omponents appear well seated with adequate alignment. Soft tissue air related to recent operation. No periprosthetic fracture seen. IMPRESSION: Uncomplicated postoperative appearance left reverse total shoulder arthroplasty.
[2022-06-02] MEDS: HYDROcodone/APAP 5-325MG 1 EACH TAB PO PRN ×3 (12:57→23:31)
[2022-06-02] MEDS: SERTRALINE 100 MG TAB PO SCH (20:20)
[2022-06-02] MEDS: TAMSULOSIN 0.4 MG CAP.ER.24H PO SCH (20:20)
[2022-06-02] MEDS: busPIRone HCl 5 MG TAB PO SCH (20:20)
[2022-06-02] MEDS: ATORVASTATIN 40 MG TAB PO SCH (20:21)
[2022-06-02] MEDS: ASPIRIN 81 MG PO SCH (21:29)
[2022-06-02] MEDS: HYDROmorphone 0.5 MG/0.5 ML SYRINGE IVP PRN (21:29)
--- NOTE | 2022-06-02 21:47 | P.CONS ---
History of Present Illness - Reason for Consult Consult date: 06/02/22 Medical management Requesting physician: Danny Oliver - Chief Complaint Post left shoulder rotator cuff tear repair - History of Present Illness HISTORY OF PRESENT ILLNESS 72-year-old male one of our office patient who is known to have history of CAD, hypertension, hyperlipidemia, vascular dementia was also known to have history of chronic anemia hyperlipidemia and BPH. Patient has been suffering from severe left shoulder pain and discomfort and restriction to motion was diagnosed torn rotator cuff for the last few years with failure to conservative management he seen orthopedic after failure of conservative management was scheduled for elective reverse shoulder arthroplasty which was done today successfully with no major complication. Patient was admitted to the floor continue pain management continue to watch patient hemodynamic status and hopefully will be discharged home tomorrow. REVIEW OF SYSTEMS Constitutional: No fever, no chills, no night sweats. No weight change. Reported weakness, Reported fatigue Reported lethargy. No daytime sleepiness. EENT: No headache. No blurred vision or double vision, no loss of vision. No loss of Hearing, no ringing in the ears, no dizziness. No nasal drainage or congestion. No epistaxis. No sore throat. Lungs: Reported shortness of breath, cough, no sputum production. No wheezing. Cardiovascular: No chest pain, no lower extremity edema. No palpitations. No paroxysmal nocturnal dyspnea. No orthopnea. No lightheadedness or dizziness. No syncopal episodes. Abdominal: No abdominal pain. No nausea, vomiting. No diarrhea. No constipation. No bloody or tarry stools.. No loss of appetite. Genitourinary: No dysuria, increased frequency, urgency. No urinary retention. Musculoskeletal: No myalgias. No muscle weakness, no gait dysfunction, no frequent falls. No back pain. No neck pain. Integumentary: No wounds, no lesions. No rash or pruritus. No unusual bruising. No change in hair or nails. Neurologic: No aphasia. No facial droop. No change in mentation. No head injury. No headache. No paralysis. No paresthesia. Psychiatric: No depression. No anxiety. No mood swings. Endocrine: No abnormal blood sugars. No weight change. No excessive sweating or thirst. No cold intolerance. SOCIAL HISTORY Patient used to smoke about a pack every 3 days for 5 years and quit when he was 25-year-old. Patient has history of alcohol abuse and quit drinking 2 years ago. He lives at home with his . FAMILY HISTORY Father at age of 87 from CVA and he had a history of quadruple bypass surgery. Mother at age of 86 from possible lung cancer. Patient has 3 sisters one of them with breast cancer status post bilateral mastectomy. Patient had 4 brothers 2 of them one from alcoholism and the other one from AIDS. Patient has 1 son and 2 daughters with no major medical problems. PHYSICAL EXAMINATION Gen: This is a 71-year-old male. He is resting in bed and appears to be comfortable and in no acute distress HEENT: Head is atraumatic, normocephalic. Pupils equal, round. Sclerae is anicteric. NECK: Supple. No JVD. No lymphadenopathy. No thyromegaly. LUNGS: Clear to auscultation. No wheezes or rhonchi. No intercostal retractions. HEART: Regular rate and rhythm. No murmur. ABDOMEN: Soft. Bowel sounds are present. No masses. No tenderness. EXTREMITIES: No pedal edema. No calf tenderness. NEUROLOGICAL: Patient is awake, alert and oriented x3. Cranial nerves 2 through 12 are grossly intact. ASSESSMENT AND PLAN - Post left shoulder reverse arthroplasty: Continue home meds, continue pain management watch patient hemodynamic status carefully. - Mild CAD. Continue aspirin 81 mg daily, atenolol 25 mg daily, Lipitor 40 mg daily. - Hypertension. Continue atenolol 25 mg orally once every day. - Hyperlipidemia. Continue Lipitor 40 mg orally once every day. - Vascular dementia. Patient is off Aricept. - BPH. Continue Flomax 0.4 g orally twice every day. - Chronic anemia: Most likely from myelodysplasia still seen oncology on regular basis. - Mild dysplastic syndrome. Still seen oncology. - Chronic depression: Has been on BuSpar and Zoloft. - Gastroesophageal reflux disease and GI prophylaxis. Continue omeprazole 40 mg daily or equivalent. - DVT prophylaxis, early mobilization and knee-high ANDREA hose. Past Medical History Past Medical History: Coronary Artery Disease (CAD), Dementia, GERD/Reflux, Hyperlipidemia, Osteoarthritis (OA), Prostate Disorder Additional Past Medical History / Comment(s): mild cog.impairment, mild dysplagia Last Myocardial Infarction Date:: unknown History of Any Multi-Drug Resistant Organisms: None Reported Past Surgical History: Ear Surgery, Heart Catheterization, Hernia Repair, Orthopedic Surgery, Tonsillectomy Additional Past Surgical History / Comment(s): Left shoulder rotator cuff, knee arthroscopy Past Anesthesia/Blood Transfusion Reactions: Previous Problems w/ Anesthesia Additional Past Anesthesia/Blood Transfusion Reaction / Comm: PTS BLOOD PRESSURE HAS DROPPED IN THE PAST WHEN RECEIVING ANESTHESIA. Past Psychological History: Anxiety Smoking Status: Former smoker Past Alcohol Use History: None Reported Additional Past Alcohol Use History / Comment(s): smoked 1 pack weekly ,quit at 21 yrs old. used to be an excessive alcohol consumer. totally quit drinking 2 years ago. Past Drug Use History: None Reported - Past Family History Sister(s) Family Medical History: Cancer Father Family Medical History: Coronary Artery Disease (CAD), CVA/TIA Additional Family Medical History / Comment(s): cardiac history stated by the patient. Brother(s) Family Medical History: Blood Disorder Additional Family Medical History / Comment(s): kidney transplant Son(s) Family Medical History: No Reported History Daughter(s) Family Medical History: No Reported History Mother Family Medical History: No Reported History, Cancer Additional Family Medical History / Comment(s): , of old age Medications and Allergies Home Medications Medication Instructions Recorded Confirmed Type Aspirin EC [Ecotrin Low Dose] 81 mg PO HS 10/26/16 05/27/22 History Tamsulosin [Flomax] 0.4 mg PO BID 09/16/19 05/27/22 History Atorvastatin [Lipitor] 40 mg PO HS 04/04/21 05/27/22 History Cholecalciferol [Vitamin D3 (25 50 mcg PO DAILY 04/04/21 05/27/22 History Mcg = 1000 Iu)] Omeprazole [PriLOSEC] 40 mg PO DAILY 04/04/21 05/27/22 History Thiamine [Vitamin B-1] 100 mg PO DAILY 04/04/21 05/27/22 History Vitamin B Complex 1 cap PO DAILY 04/04/21 05/27/22 History atenoloL [Tenormin] 50 mg PO DAILY 04/04/21 05/27/22 History Ginkgo Biloba 500 mg PO BID 08/31/21 05/27/22 History Sertraline [Zoloft] 100 mg PO HS 08/31/21 05/27/22 History Furosemide [Lasix] 20 mg PO DAILY #7 tab 09/03/21 05/27/22 Rx busPIRone HCl [Buspar] 5 mg PO BID 03/06/22 05/27/22 History Naproxen Sodium [Aleve] 220 mg PO DAILY PRN 06/02/22 06/02/22 History Allergies Allergy/AdvReac Type Severity Reaction Status Date / Time nitroglycerin Allergy Severe pts heart Verified 06/02/22 06:01 stopped beating after given nitro Physical Exam Vitals: Vital Signs Temp Pulse Pulse Resp BP Pulse Ox 06/02/22 14:00 97.6 F 73 18 105/64 98 06/02/22 12:05 70 103/66 98 06/02/22 11:45 70 99/58 98 06/02/22 11:30 69 116/67 06/02/22 11:15 67 106/66 96 06/02/22 11:00 97.4 F L 64 18 107/63 95 06/02/22 10:27 61 16 108/58 99 06/02/22 10:12 58 L 16 110/58 99 06/02/22 09:57 59 L 16 110/57 100 06/02/22 09:42 57 L 16 101/56 100 06/02/22 09:27 97.3 F L 64 16 102/54 99 06/02/22 06:59 57 L 16 136/65 99 06/02/22 06:08 97.5 F L 57 L 16 131/60 99 Intake and Output 06/02/22 06/02/22 06/02/22 06:59 14:59 22:59 Intake Total 200 1251 Output Total 300 Balance 200 951 Intake: IV 200 1251 Output: Estimated Blood Loss 300 Other: Voiding Method Toilet # Voids 3 Weight 64.2 kg 64.2 kg
[2022-06-03] MEDS: LACTATED RINGERS 1,000 ML IV SCH ×2 (00:59→19:40)
[2022-06-03] MEDS: HYDROcodone/APAP 5-325MG 1 EACH TAB PO PRN ×3 (04:33→16:58)
--- NOTE | 2022-06-03 07:47 | P.ANPRN ---
Procedure Note - Anesthesia - Nerve Block Performed Left Interscalene Single Time Out Performed: Yes Date of Procedure: 06/02/22 Procedure Start Time: 06:51 Procedure Stop Time: 06:57 Location of Patient: PreOp Indication: Acute Post-Operative Pain, Requested by Surgeon Sedation Type: Sedate with meaningful contact maintained Preparation: Sterile Prep Position: Supine Needle Types: Pajunk Needle Gauge: 21 Ultrasound used to visualize needle placement: Yes Ultrasound used to observe medication spread: Yes Blood Aspirated: No Pain Paresthesia on Injection Noted: No Resistance on Injection: Normal Image Stored and Saved: Yes Events: Uneventful and Well Tolerated (ropi .5% 20cc plus dexamethasone 4mg)
--- NOTE | 2022-06-03 08:08 | P.PN ---
Subjective Progress Note Date: 06/03/22 Principal diagnosis: Status post reverse left total shoulder arthroplasty Patient was evaluated today at bedside, he is resting in his hospital chair, his daughter is present at bedside. Patient states shoulder does have some generalized discomfort. He is utilizing the arm sling at this time. He states that he has been up and ambulating. Per nursing, patient was straight cath due to difficulty with urination. Currently denies any headaches, lightheadedness or chest pain. Objective - Vital Signs Vital signs: Vital Signs Temp 98.9 F 06/03/22 07:36 Pulse 76 06/03/22 07:36 Resp 16 06/03/22 07:36 BP 121/70 06/03/22 07:36 Pulse Ox 99 06/03/22 07:36 FiO2 Intake & Output 06/02/22 06/03/22 06/03/22 18:59 06:59 18:59 Intake Total 1251 Output Total 300 1350 Balance 951 -1350 Weight 64.2 kg Intake: IV 1251 Output: Urine 1350 Straight 1350 Estimated Blood Loss 300 Other: Voiding Method Toilet Toilet # Voids 3 - Exam Left upper extremity: Postop bandage was removed today, clean, dry and intact. Minimal soft tissue swelling present in the arm. Flexion and extension are intact at the elbow and wrist. Patient is able to move all fingers and make a fist with no difficulty. His sensory exam to light touch throughout the extremity is intact. Radial/ulnar pulses are 2+ Assessment and Plan Assessment: Postoperative day #1 status post left reverse total shoulder arthroplasty Plan: Pain control, continue to utilize [place], plan for discharge on the medication DVT prophylaxis, aspirin 325 mg daily at discharge for 2 weeks Wound care instructions were discussed, this including showering Activity over sections were discussed, this including basic range of motion exercises at the elbow and wrist along with use of the arm sling Encourage incentive spirometer Medical recommendations Discharge planning: Pending patient is able to urinate with no difficulty, hopeful discharge today Time with Patient: Less than 30
[2022-06-03] MEDS: ASPIRIN 325 MG TAB PO SCH (08:35)
[2022-06-03] MEDS: CHOLECALCIFEROL 25 MCG (1000 IU) TABLET PO SCH (08:35)
[2022-06-03] MEDS: PANTOPRAZOLE 40 MG TABLET PO SCH (08:35)
[2022-06-03] MEDS: TAMSULOSIN 0.4 MG CAP.ER.24H PO SCH ×2 (08:36→19:37)
[2022-06-03] MEDS: busPIRone HCl 5 MG TAB PO SCH ×2 (08:36→19:37)
[2022-06-03] MEDS: atenoloL 50 MG TAB PO SCH (08:36)
[2022-06-03] MEDS: FUROSEMIDE 20 MG TAB PO SCH (08:36)
--- NOTE | 2022-06-03 10:24 | P.PN ---
Subjective Progress Note Date: 06/03/22 HISTORY OF PRESENT ILLNESS 72-year-old male one of our office patient who is known to have history of CAD, hypertension, hyperlipidemia, vascular dementia was also known to have history of chronic anemia hyperlipidemia and BPH. Patient has been suffering from severe left shoulder pain and discomfort and restriction to motion was diagnosed torn rotator cuff for the last few years with failure to conservative management he seen orthopedic after failure of conservative management was scheduled for elective reverse shoulder arthroplasty which was done today successfully with no major complication. Patient was admitted to the floor continue pain management continue to watch patient hemodynamic status and hopefully will be discharged home tomorrow. 06/03: Patient states pain in the left shoulder is much better today but still there. Patient required straight cath 2 and has been maintained on Flomax or 0.4 mg twice daily. The patient was up to the bathroom at the time of evaluation avoided us small amount only. Patient has been afebrile, heart rate 76, blood pressure 121/70, pulse ox 99% on room air. Patient is cleared for discharge from medicine if he is able to void. If he is not able to void, patient can have a Carnes catheter placed maintained for 2 weeks, follow-up with urology outpatient. REVIEW OF SYSTEMS Constitutional: No fever, no chills, no night sweats. No weight change. Reported weakness, Reported fatigue Reported lethargy. No daytime sleepiness. EENT: No headache. No blurred vision or double vision, no loss of vision. No loss of Hearing, no ringing in the ears, no dizziness. No nasal drainage or congestion. No epistaxis. No sore throat. Lungs: Reported shortness of breath, cough, no sputum production. No wheezing. Cardiovascular: No chest pain, no lower extremity edema. No palpitations. No paroxysmal nocturnal dyspnea. No orthopnea. No lightheadedness or dizziness. No syncopal episodes. Abdominal: No abdominal pain. No nausea, vomiting. No diarrhea. No constipation. No bloody or tarry stools.. No loss of appetite. Genitourinary: No dysuria, increased frequency, urgency. Reports urinary retention. Musculoskeletal: No myalgias. No muscle weakness, no gait dysfunction, no frequent falls. No back pain. No neck pain. Integumentary: No wounds, no lesions. No rash or pruritus. No unusual bruising. No change in hair or nails. Neurologic: No aphasia. No facial droop. No change in mentation. No head injury. No headache. No paralysis. No paresthesia. Psychiatric: No depression. No anxiety. No mood swings. Endocrine: No abnormal blood sugars. No weight change. No excessive sweating or thirst. No cold intolerance. PHYSICAL EXAMINATION Gen: This is a 71-year-old male. He is resting in chair and ambulating in his room, stepdaughter at bedside. HEENT: Head is atraumatic, normocephalic. Pupils equal, round. Sclerae is anicteric. NECK: Supple. No JVD. No lymphadenopathy. No thyromegaly. LUNGS: Clear to auscultation. No wheezes or rhonchi. No intercostal retractions. HEART: Regular rate and rhythm. No murmur. ABDOMEN: Soft. Bowel sounds are present. No masses. No tenderness. EXTREMITIES: No pedal edema. No calf tenderness. Arm sling in place on the left shoulder. NEUROLOGICAL: Patient is awake, alert and oriented x3. Cranial nerves 2 through 12 are grossly intact. ASSESSMENT AND PLAN - Post left shoulder reverse arthroplasty: Continue home meds, continue pain management watch patient hemodynamic status carefully. Continue arm sling. - Mild CAD. Continue aspirin 81 mg daily, atenolol 25 mg daily, Lipitor 40 mg daily. - Hypertension. Continue atenolol 25 mg orally once every day. - Hyperlipidemia. Continue Lipitor 40 mg orally once every day. - Vascular dementia. Patient is off Aricept. - BPH with urinary retention. Continue Flomax 0.4 g orally twice every day. Monitor closely. Patient may require Carnes catheter placement prior to dischar ge. - Chronic anemia: Most likely from myelodysplasia still seen oncology on regular basis. - Mild dysplastic syndrome. Still seen oncology. - Chronic depression: Has been on BuSpar and Zoloft. - Gastroesophageal reflux disease and GI prophylaxis. Continue omeprazole 40 mg daily or equivalent. - DVT prophylaxis, early mobilization and knee-high ANDREA hose. DISCHARGE PLAN Return home Impression and plan of care have been directed as dictated by the signing physician. Nohemi Mcdonald nurse practitioner acting as scribe for signing physic svetlana. Objective - Vital Signs Vital signs: Vital Signs Temp 98.9 F 06/03/22 07:36 Pulse 76 06/03/22 07:36 Resp 16 06/03/22 07:36 BP 121/70 06/03/22 07:36 Pulse Ox 99 06/03/22 07:36 FiO2 Intake & Output 06/02/22 06/03/22 06/03/22 18:59 06:59 18:59 Intake Total 1251 Output Total 300 1350 Balance 951 -1350 Weight 64.2 kg Intake: IV 1251 Output: Urine 1350 Straight 1350 Estimated Blood Loss 300 Other: Voiding Method Toilet Toilet # Voids 3
[2022-06-03 10:31] LABS: HCT 28.2 % (39.6-50.0); HGB 8.8 g/dL (13.0-17.0); MCH 30.2 pg (27.0-32.0); MCHC 31.2 g/dL (32.0-37.0); MCV 96.9 fL (80.0-97.0); Mean Platelet Volume 11.9 fL (9.5-12.2); NRBC Per 100 WBC 0 /100 WBCS (0.0-0.0); Platelet Count 113 X 10*3/uL (140-440); RBC 2.91 X 10*6/uL (4.40-5.60); RDW 15.7 % (11.5-14.5); WBC 15.09 X 10*3/uL (4.50-10.00)
[2022-06-03 11:58] LABS: Basophils # (M) 0 X 10*3/uL (0.00-0.10); Eosinophils # (M) 0 X 10*3/uL (0.04-0.35); Lymphocytes # (M) 0.15 X 10*3/uL (0.90-5.00); Monocytes # (M) 3.17 X 10*3/uL (0.20-1.00); Neutrophils # (M) 11.77 X 10*3/uL (2.00-8.90); Neutrophils % (M) 78 %; RBC Morphology NORMAL
[2022-06-03] MEDS: ATORVASTATIN 40 MG TAB PO SCH (19:37)
[2022-06-03] MEDS: SERTRALINE 100 MG TAB PO SCH (19:37)
[2022-06-03] MEDS: ASPIRIN 81 MG PO SCH (19:37)
[2022-06-03] MEDS: HYDROmorphone 0.5 MG/0.5 ML SYRINGE IVP PRN (19:43)
[2022-06-04] MEDS: HYDROcodone/APAP 5-325MG 1 EACH TAB PO PRN ×2 (00:47→07:15)
[2022-06-04 07:45] VITALS: BP 90/53; PULSE 77; RESP 18; TEMP 98.3
[2022-06-04] MEDS: FUROSEMIDE 20 MG TAB PO SCH (07:54)
[2022-06-04] MEDS: TAMSULOSIN 0.4 MG CAP.ER.24H PO SCH (07:54)
[2022-06-04] MEDS: busPIRone HCl 5 MG TAB PO SCH (07:54)
[2022-06-04] MEDS: ASPIRIN 325 MG TAB PO SCH (07:54)
[2022-06-04] MEDS: CHOLECALCIFEROL 25 MCG (1000 IU) TABLET PO SCH (07:54)
[2022-06-04] MEDS: PANTOPRAZOLE 40 MG TABLET PO SCH (07:54)
[2022-06-04] MEDS: atenoloL 50 MG TAB PO SCH (07:56)
--- NOTE | 2022-06-04 08:13 | P.GSCN ---
History of Present Illness Consult date: 06/04/22 Reason for Consult: Urinary retention History of present illness: This is a 72-year-old male that underwent shoulder replacement by Dr. Oliver on June 02. Postoperatively patient developed urinary retention and required straight cath 1 and subsequently a Carnes catheter was placed for post void residual of 400 mL's. Patient does have history of BPH and is on Flomax 0.8 mg daily. He indicated that he does feel like he voids to completion but does have intermittency and weak stream. No previous history of urinary retention. No history of gross hematuria, recurrent UTIs or kidney stones. No previous urological surgeries. No known family history of prostate cancer. Carnes catheter is currently in place draining clear yellow urine Review of Systems - Constitutional Denies fever, Denies weight loss - Cardiovascular Denies chest pain, Denies shortness of breath - Respiratory Denies cough, Denies 7 - Gastrointestinal Reports as per HPI - Genitourinary Denies dysuria, Denies flank pain, Denies hematuria - Neurological Denies headaches, Denies syncope Past Medical History Past Medical History: Coronary Artery Disease (CAD), Dementia, GERD/Reflux, Hyperlipidemia, Osteoarthritis (OA), Prostate Disorder Additional Past Medical History / Comment(s): mild cog.impairment, mild dysplagi a Last Myocardial Infarction Date:: unknown History of Any Multi-Drug Resistant Organisms: None Reported Past Surgical History: Ear Surgery, Heart Catheterization, Hernia Repair, Orthopedic Surgery, Tonsillectomy Additional Past Surgical History / Comment(s): Left shoulder rotator cuff, knee arthroscopy Past Anesthesia/Blood Transfusion Reactions: Previous Problems w/ Anesthesia Additional Past Anesthesia/Blood Transfusion Reaction / Comm: PTS BLOOD PRESSURE HAS DROPPED IN THE PAST WHEN RECEIVING ANESTHESIA. Past Psychological History: Anxiety Smoking Status: Former smoker Past Alcohol Use History: None Reported Additional Past Alcohol Use History / Comment(s): smoked 1 pack weekly ,quit at 21 yrs old. used to be an excessive alcohol consumer. totally quit drinking 2 years ago. Past Drug Use History: None Reported - Past Family History Sister(s) Family Medical History: Cancer Father Family Medical History: Coronary Artery Disease (CAD), CVA/TIA Additional Family Medical History / Comment(s): cardiac history stated by the patient. Brother(s) Family Medical History: Blood Disorder Additional Family Medical History / Comment(s): kidney transplant Son(s) Family Medical History: No Reported History Daughter(s) Family Medical History: No Reported History Mother Family Medical History: No Reported History, Cancer Additional Family Medical History / Comment(s): , of old age Medications and Allergies Home Medications Medication Instructions Recorded Confirmed Type Tamsulosin [Flomax] 0.4 mg PO BID 09/16/19 05/27/22 History Atorvastatin [Lipitor] 40 mg PO HS 04/04/21 05/27/22 History Cholecalciferol [Vitamin D3 (25 50 mcg PO DAILY 04/04/21 05/27/22 History Mcg = 1000 Iu)] Omeprazole [PriLOSEC] 40 mg PO DAILY 04/04/21 05/27/22 History Thiamine [Vitamin B-1] 100 mg PO DAILY 04/04/21 05/27/22 History Vitamin B Complex 1 cap PO DAILY 04/04/21 05/27/22 History atenoloL [Tenormin] 50 mg PO DAILY 04/04/21 05/27/22 History Ginkgo Biloba 500 mg PO BID 08/31/21 05/27/22 History Sertraline [Zoloft] 100 mg PO HS 08/31/21 05/27/22 History Furosemide [Lasix] 20 mg PO DAILY #7 tab 09/03/21 05/27/22 Rx busPIRone HCl [Buspar] 5 mg PO BID 03/06/22 05/27/22 History Naproxen Sodium [Aleve] 220 mg PO DAILY PRN 06/02/22 06/02/22 History Aspirin 325 mg PO DAILY #15 tab 06/03/22 Rx Docusate [Colace] 100 mg PO DAILY #30 capsule 06/03/22 Rx HYDROcodone/APAP 5-325MG [[place] 1 tab PO Q6HR PRN #28 tab 06/03/22 Rx 5-325] Allergies Allergy/AdvReac Type Severity Reaction Status Date / Time nitroglycerin Allergy Severe pts heart Verified 06/02/22 06:01 stopped beating after given nitro Surgical - Exam Vital Signs Temp Pulse Resp BP Pulse Ox 97.5 F L 57 L 16 131/60 99 06/02/22 06:08 06/02/22 06:08 06/02/22 06:08 06/02/22 06:08 06/02/22 06:08 - General no distress, no pain - Eyes normal ocular movement, no pale - ENT normal nares, normal mucosa - Respiratory normal expansion, normal respiratory effort - Genitourinary Carnes in place draining clear yellow urine Results - Labs 06/03/22 06:47 Abnormal Lab Results - Last 24 Hours (Table) 06/03/22 Range/Units 06:47 WBC 15.09 H (4.50-10.00) X 10*3/uL RBC 2.91 L (4.40-5.60) X 10*6/uL Hgb 8.8 L (13.0-17.0) g/dL Hct 28.2 L (39.6-50.0) % MCHC 31.2 L (32.0-37.0) g/dL RDW 15.7 H (11.5-14.5) % Plt Count 113 L (140-440) X 10*3/uL Plt Count Comment DECREASED A Neutrophils # (Manual) 11.77 H (2.00-8.90) X 10*3/uL Lymphocytes # (Manual) 0.15 L (0.90-5.00) X 10*3/uL Monocytes # (Manual) 3.17 H (0.20-1.00) X 10*3/uL Eosinophils # (Manual) 0 L (0.04-0.35) X 10*3/uL Assessment and Plan Assessment: This is a 72-year-old male status post shoulder replacement developed retention postoperatively. Patient has a long-standing history of BPH on Flomax at baseline. Retention is most likely related to patient's underlying BPH, recent surgery and pain medications. At this time recommending discharging patient home with the Carnes catheter, he will follow up in 5-7 days for PVR in our office. The family will be taught how to remove the catheter prior to his follow-up appointment. -Continue Flomax -Discharge home with the Carnes catheter, will start on low-dose antibiotic given his catheter -Follow up in 5-7 days
--- NOTE | 2022-06-04 08:20 | P.DS ---
Providers Date of admission: 06/02/22 05:39 Expected date of discharge: 06/04/22 Attending physician: Danny Oliver Consults: 06/02/22 09:15 Consult Physician Routine Consulting Provider: Anderson Rojas Reason/Comments: Medical Management s/p reverse left total shoulder arthroplasty Do you want consulting provider notified?: Yes Primary care physician: Anderson Rojas Hospital Course: Date of admission: 06/02/2022 Date of discharge: 06/04/2022 Admission diagnosis: Status post reverse left total shoulder arthroplasty Discharge diagnosis: Same Attending physician: Dr. Oliver Surgical procedures: Reverse left total shoulder arthroplasty Brief history: Patient is a 72-year-old with a history of left shoulder rotator cuff arthropathy. At this point patient has failed conservative treatment measures and has opted to proceed with a elective reverse left total shoulder arthroplasty. Hospital course: Details of patient's surgery can be found in operative report. Patient tolerated the procedure well and was subsequently transported to orthopedic floor. Patient's orthopeidc and medical care was provided daily. Patient had daily laboratory tests performed for evaluation of overall blood counts. Patient had daily physical therapy to include strengthening range of motion as well as education with walker ambulation. Patient was treated with aspirin for their postoperative DVT prophylaxis during their inpatient stay. Patient was noted to have a relatively uneventful postoperative course. Patient did have urinary retention after surgery. Patient was straight cathed twice prior to initiation of urinary catheter, urology was consulted for recommendations. Patient reported satisfactory pain control with oral pain medications by postoperative day 0. Patient showed satisfactory progress with physical therapy. Patient moved steadily through the program and had no difficulty meeting the goals by postoperative day 2. Given patient's otherwise satisfactory course and having met physical therapy goals, plan is to discharge patient [home] on postoperative day 2. Discharge condition/disposition: Patient will be discharged [home] in stable condition. Discharge medications: Instructions are given on resumption of patient's normal daily medications per primary care recommendation, in addition patient will be prescribed [place] 5 mg/325 mg, Colace 100mg, aspirin 81 mg, keflex 250mg Discharge instructions: 1. Wound care and infection precautions, keep incision dry and covered while showering, no lotions, creams, moisturizers. No soaking, tubs, pools, hottubs. Do not scrub over the incision. 2. Utilize arm sling 3. Ice and elevate when necessary. Do not exceed 20 minutes per hour with ice pack. 4. Utilize compression sleeve until seen at first follow up appointment. 5. Visiting nursing care. 7. Pain meds and anticoagulants per prescription. 8. Pain medication has potential to cause constipation. Increase oral fluid and fiber intake. Contact primary care provider if you have not had a bowel movement within 48 hours after discharge 9. No anti-inflammatory medication until discussed at first post operative visit, this including Motrin, Aleve, Mobic, Diclofenac. 10. Follow up in office at 2 weeks postop with Cb Coe PA-C/Rick Peña 11. Follow up with your primary care doctor 7-10 days after discharge. 12. Contact [facility] with any questions, . Procedures: Reverse left total shoulder arthroplasty Patient Condition at Discharge: Good Plan - Discharge Summary Discharge Rx Participant: Yes New Discharge Prescriptions: New Aspirin 325 mg PO DAILY #15 tab Docusate [Colace] 100 mg PO DAILY #30 capsule HYDROcodone/APAP 5-325MG [[place] 5-325] 1 tab PO Q6HR PRN #28 tab PRN Reason: Pain Cephalexin [Keflex] 250 mg PO Q12HR #14 capsule Discontinued Aspirin EC [Ecotrin Low Dose] 81 mg PO HS No Action Tamsulosin [Flomax] 0.4 mg PO BID Thiamine [Vitamin B-1] 100 mg PO DAILY atenoloL [Tenormin] 50 mg PO DAILY Ginkgo Biloba 500 mg PO BID busPIRone HCl [Buspar] 5 mg PO BID Cholecalciferol [Vitamin D3 (25 Mcg = 1000 Iu)] 50 mcg PO DAILY Omeprazole [PriLOSEC] 40 mg PO DAILY Atorvastatin [Lipitor] 40 mg PO HS Vitamin B Complex 1 cap PO DAILY Sertraline [Zoloft] 100 mg PO HS Furosemide [Lasix] 20 mg PO DAILY #7 tab Naproxen Sodium [Aleve] 220 mg PO DAILY PRN PRN Reason: Pain Discharge Medication List Tamsulosin [Flomax] 0.4 mg PO BID 09/16/19 [History] Atorvastatin [Lipitor] 40 mg PO HS 04/04/21 [History] Cholecalciferol [Vitamin D3 (25 Mcg = 1000 Iu)] 50 mcg PO DAILY 04/04/21 [History] Omeprazole [PriLOSEC] 40 mg PO DAILY 04/04/21 [History] Thiamine [Vitamin B-1] 100 mg PO DAILY 04/04/21 [History] Vitamin B Complex 1 cap PO DAILY 04/04/21 [History] atenoloL [Tenormin] 50 mg PO DAILY 04/04/21 [History] Ginkgo Biloba 500 mg PO BID 08/31/21 [History] Sertraline [Zoloft] 100 mg PO HS 08/31/21 [History] Furosemide [Lasix] 20 mg PO DAILY #7 tab 09/03/21 [Rx] busPIRone HCl [Buspar] 5 mg PO BID 03/06/22 [History] Naproxen Sodium [Aleve] 220 mg PO DAILY PRN 06/02/22 [History] Aspirin 325 mg PO DAILY #15 tab 06/03/22 [Rx] Docusate [Colace] 100 mg PO DAILY #30 capsule 06/03/22 [Rx] HYDROcodone/APAP 5-325MG [[place] 5-325] 1 tab PO Q6HR PRN #28 tab 06/03/22 [Rx] Cephalexin [Keflex] 250 mg PO Q12HR #14 capsule 06/04/22 [Rx] Follow up Appointment(s)/Referral(s): Rick Bernstein PAC [PHYSICIAN YARDAGE CONTROL OPERATOR] - 06/18/22 Anderson Rojas MD [Primary Care Provider] - 1 Week Care,Gagan Sheets [NON-STAFF] - 1-2 Days Patient Instructions/Handouts: Shoulder Arthroplasty (DC) Activity/Diet/Wound Care/Special Instructions: Orthopedic discharge instructions: 1. Pain medication as needed 2. Aspirin 325 mg daily for 2 weeks for DVT prophylaxis, and then to resume 81 mg aspirin daily 3. Utilize arm sling 4. Keep incision covered and dry while showering 5. Very limited activity with left upper extremity, this will include basic range of motion exercises of the hand/wrist/elbow 6. Ice the shoulder also 7. Follow-up with primary care doctor within 10 days 8. Follow-up with urology for urinary catheter recommendations 9. Contact [facility] with any questions, Discharge/Stand Alone Forms: Who Do I Call?, Personal Rug Washer Discharge Disposition: HOME WITH HOME HEALTH SERVICES
--- NOTE | 2022-06-04 08:21 | P.PN ---
Subjective Progress Note Date: 06/04/22 Principal diagnosis: Status post reverse left total shoulder arthroplasty Patient was evaluated today at bedside, he is resting in his hospital bed. His is present at bedside. Urology did evaluate the patient today has been recommendations follow-up. Urinary catheter remains in place starting. He is feeling a lot better with the pain control today. Currently denies any headaches, lightheadedness or chest pain. Objective - Vital Signs Vital signs: Vital Signs Temp 98.3 F 06/04/22 07:43 Pulse 77 06/04/22 07:43 Resp 18 06/04/22 07:43 BP 90/53 06/04/22 07:43 Pulse Ox 94 L 06/04/22 07:43 FiO2 Intake & Output 06/03/22 06/04/22 06/04/22 18:59 06:59 18:59 Intake Total 450 Output Total 600 800 Balance -600 -350 Intake: Oral 450 Output: Urine 600 800 Straight 400 Uretheral (Carnes) 800 Other: Voiding Method Indwelling Catheter # Bowel Movements 2 - Exam Left upper extremity: Postop bandage was removed today, clean, dry and intact. Minimal soft tissue swelling present in the arm. Flexion and extension are intact at the elbow and wrist. Patient is able to move all fingers and make a fist with no difficulty. His sensory exam to light touch throughout the extremity is intact. Radial/ulnar pulses are 2+ - Labs CBC & Chem 7: 06/03/22 06:47 Labs: Abnormal Lab Results - Last 24 Hours (Table) 06/03/22 Range/Units 06:47 WBC 15.09 H (4.50-10.00) X 10*3/uL RBC 2.91 L (4.40-5.60) X 10*6/uL Hgb 8.8 L (13.0-17.0) g/dL Hct 28.2 L (39.6-50.0) % MCHC 31.2 L (32.0-37.0) g/dL RDW 15.7 H (11.5-14.5) % Plt Count 113 L (140-440) X 10*3/uL Plt Count Comment DECREASED A Neutrophils # (Manual) 11.77 H (2.00-8.90) X 10*3/uL Lymphocytes # (Manual) 0.15 L (0.90-5.00) X 10*3/uL Monocytes # (Manual) 3.17 H (0.20-1.00) X 10*3/uL Eosinophils # (Manual) 0 L (0.04-0.35) X 10*3/uL Assessment and Plan Assessment: Postoperative day #2 status post left reverse total shoulder arthroplasty Plan: Pain control, continue to utilize [place], plan for discharge on the medication DVT prophylaxis, aspirin 325 mg daily at discharge for 2 weeks Wound care instructions were discussed, this including showering Activity over sections were discussed, this including basic range of motion exercises at the elbow and wrist along with use of the arm sling Encourage incentive spirometer Urology recommendations Medical recommendations Discharge planning: Stable for discharge home today
--- NOTE | 2022-06-04 10:36 | P.PN ---
Subjective Progress Note Date: 06/04/22 HISTORY OF PRESENT ILLNESS 72-year-old male one of our office patient who is known to have history of CAD, hypertension, hyperlipidemia, vascular dementia was also known to have history of chronic anemia hyperlipidemia and BPH. Patient has been suffering from severe left shoulder pain and discomfort and restriction to motion was diagnosed torn rotator cuff for the last few years with failure to conservative management he seen orthopedic after failure of conservative management was scheduled for elective reverse shoulder arthroplasty which was done today successfully with no major complication. Patient was admitted to the floor continue pain management continue to watch patient hemodynamic status and hopefully will be discharged home tomorrow. 06/03: Patient states pain in the left shoulder is much better today but still there. Patient required straight cath 2 and has been maintained on Flomax or 0.4 mg twice daily. The patient was up to the bathroom at the time of evaluation avoided us small amount only. Patient has been afebrile, heart rate 76, blood pressure 121/70, pulse ox 99% on room air. Patient is cleared for discharge from medicine if he is able to void. If he is not able to void, patient can have a Carnes catheter placed maintained for 2 weeks, follow-up with urology outpatient. 06/04: Patient unfortunately suffered from urinary retention a Carnes catheter was placed and consult added for urology. Dr. Katz recommended Carnes catheter for 2 weeks, follow up in the office and have Carnes cath removed 6 hours prior to appointment. Patient is continued on Flomax 0.4 mg twice daily. Patient denies any pain in his right shoulder and has been controlled with [place]. He remains afebrile, heart rate in the 70s, blood pressure 90/53, pulse ox 94% on room air. CBC from yesterday revealed WBC 15, hemoglobin 8.8 and platelet count of 113. Medication reconciliation has been completed in anticipation of discharge today. REVIEW OF SYSTEMS Constitutional: No fever, no chills, no night sweats. No weight change. Reported weakness, Reported fatigue Reported lethargy. No daytime sleepiness. EENT: No headache. No blurred vision or double vision, no loss of vision. No loss of Hearing, no ringing in the ears, no dizziness. No nasal drainage or congestion. No epistaxis. No sore throat. Lungs: Reported shortness of breath, cough, no sputum production. No wheezing. Cardiovascular: No chest pain, no lower extremity edema. No palpitations. No paroxysmal nocturnal dyspnea. No orthopnea. No lightheadedness or dizziness. No syncopal episodes. Abdominal: No abdominal pain. No nausea, vomiting. No diarrhea. No constipation. No bloody or tarry stools.. No loss of appetite. Genitourinary: No dysuria, increased frequency, urgency. Reports urinary retention-Carnes in place. Musculoskeletal: No myalgias. No muscle weakness, no gait dysfunction, no frequent falls. No back pain. No neck pain. Integumentary: No wounds, no lesions. No rash or pruritus. No unusual bruising. No change in hair or nails. Neurologic: No aphasia. No facial droop. No change in mentation. No head injury. No headache. No paralysis. No paresthesia. Psychiatric: No depression. No anxiety. No mood swings. Endocrine: No abnormal blood sugars. No weight change. No excessive sweating or thirst. No cold intolerance. PHYSICAL EXAMINATION Gen: This is a 71-year-old male. He is resting in chair and ambulating in his room, stepdaughter at bedside. HEENT: Head is atraumatic, normocephalic. Pupils equal, round. Sclerae is anicteric. NECK: Supple. No JVD. No lymphadenopathy. No thyromegaly. LUNGS: Clear to auscultation. No wheezes or rhonchi. No intercostal retractions. HEART: Regular rate and rhythm. No murmur. ABDOMEN: Soft. Bowel sounds are present. No masses. No tenderness. EXTREMITIES: No pedal edema. No calf tenderness. Arm sling in place on the left shoulder. NEUROLOGICAL: Patient is awake, alert and oriented x3. Cranial nerves 2 through 12 are grossly intact. ASSESSMENT AND PLAN - Post left shoulder reverse arthroplasty: Continue home meds, continue pain management watch patient hemodynamic status carefully. Continue arm sling. - Mild CAD. Continue aspirin 81 mg daily, atenolol 25 mg daily, Lipitor 40 mg daily. - Hypertension. Continue atenolol 25 mg orally once every day. - Hyperlipidemia. Continue Lipitor 40 mg orally once every day. - Vascular dementia. Patient is off Aricept. - BPH with urinary retention. Continue Flomax 0.4 g orally twice every day. Monitor closely. 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 - Mild dysplastic syndrome. Still seen oncology. - Chronic depression: Has been on BuSpar and Zoloft. - Gastroesophageal reflux disease and GI prophylaxis. Continue omeprazole 40 mg daily or equivalent. - DVT prophylaxis, early mobilization and knee-high ANDREA hose. DISCHARGE PLAN Return home Impression and plan of care have been directed as dictated by the signing physician. Nohmei Mcdonald nurse practitioner acting as scribe for signing physician. Objective - Vital Signs Vital signs: Vital Signs Temp 98.3 F 06/04/22 07:43 Pulse 77 06/04/22 07:43 Resp 18 06/04/22 07:43 BP 90/53 06/04/22 07:43 Pulse Ox 94 L 06/04/22 07:43 FiO2 Intake & Output 06/03/22 06/04/22 06/04/22 18:59 06:59 18:59 Intake Total 450 Output Total 600 800 Balance -600 -350 Intake: Oral 450 Output: Urine 600 800 Straight 400 Uretheral (Carnes) 800 Other: Voiding Method Indwelling Catheter # Bowel Movements 2 - Labs CBC & Chem 7: 06/03/22 06:47 Labs: Abnormal Lab Results - Last 24 Hours (Table) 06/03/22 Range/Units 06:47 WBC 15.09 H (4.50-10.00) X 10*3/uL RBC 2.91 L (4.40-5.60) X 10*6/uL Hgb 8.8 L (13.0-17.0) g/dL Hct 28.2 L (39.6-50.0) % MCHC 31.2 L (32.0-37.0) g/dL RDW 15.7 H (11.5-14.5) % Plt Count 113 L (140-440) X 10*3/uL Plt Count Comment DECREASED A Neutrophils # (Manual) 11.77 H (2.00-8.90) X 10*3/uL Lymphocytes # (Manual) 0.15 L (0.90-5.00) X 10*3/uL Monocytes # (Manual) 3.17 H (0.20-1.00) X 10*3/uL Eosinophils # (Manual) 0 L (0.04-0.35) X 10*3/uL
--- NOTE | 2022-06-04 18:52 | P.OP ---
Date of Procedure: 06/02/22 Preoperative Diagnosis: Left rotator cuff arthropathy/severe glenohumeral joint osteoarthrosis Postoperative Diagnosis: Same Procedure(s) Performed: Left reverse total shoulder arthroplasty Implants: Arthrex size 7 press-fit humeral stem, small metaphyseal component, 36+9 retentive articular surface, 36 mm glenosphere with 28 base plate with a 20 mm post. Anesthesia: [facility], [facility] Surgeon: Danny Oliver Heel Stiffener #1: Rick Bernstein Heel Stiffener #2: Fransico Coe Estimated Blood Loss (ml): 300 Pathology: other (Humeral head) Condition: stable Disposition: PACU Indications for Procedure: The patient is a 72-year-old male presents with progressive left shoulder pain and weakness secondary to rotator cuff arthropathy despite conservative measures. He did undergone 2 previous rotator cuff repairs. A discussion of the risks and benefits of operative intervention versus continued conservative measures was made with patient and his family. He opted to proceed with surgery. Operative risks to include infection, neurovascular injury, development of blood clots, possible fracture, possible component loosening/instability need for subsequent procedures was discussed. Informed consent was obtained. Operative Findings: As below Description of Procedure: The patient was brought to the operating room, and after induction of general anesthesia was placed in a beachchair position. The bony prominences were appropriately padded. I examined the left shoulder. There was moderate lack of passive forward elevation and external rotation. The left upper extremity was prepped and draped in normal fashion. The bony outlines the coracoid process, distal clavicle, and acromion were outlined with a skin marker. A pulse centimeter deltopectoral incision was made lateral to the coracoid process. Skin was incised sharply. Subcutaneous tissues were divided bluntly. Electrocautery was used for hemostasis. The cephalic vein was identified and gently retracted laterally with the deltoid. The deltopectoral was bluntly developed. Subdeltoid adhesions were then released. The self-retaining retractor was placed. The conjoined tendon was retracted medially and the deltoid laterally. The biceps was identified. Its sheath was opened. A biceps tenotomy was performed along the remaining tendon did retract distally. Pseudocapsule was excised. The head was then exposed. The shoulder was dislocated. A starting hole was made in line with the humeral shaft. The canal was reamed by hand up to size 7. There was good distal chatter. The cutting guide was then placed. I planned on 20 of retroversion. The humeral head cut was then made. The bone was removed in one fragment. Residual inferomedial osteophytes were removed flush with the venetie ira cortical bone. Attention was then paid towards preparing the glenoid. An anterior and posterior retractors placed. The labrum was released from the 6-12 o'clock position. Remaining biceps was removed as well. A guidepin was placed in the inferior aspect of the glenoid with the guide slightly tilting inferior. The reamer was used down to a bleeding bony surface. The central peg hole was drilled. The 28 mm baseplate with a 20 mm post was inserted with good purchase. Inferior, superior, and posterior locking screws the appropriate length were placed. Good purchase was obtained. The 36 mm glenosphere was inserted over a guidewire. This was fully seated. Care was taken to avoid any soft tissue interposition. Attention was then paid towards preparing the proximal humerus. The appropriate broach was placed and 20 of retroversion and was fully seated. An eccentric small epiphyseal reamer was utilized. A size 7 stem with a size small epiphysis was placed and 20 of retroversion. Trial reduction was obtained with a 36 mm + 9 articular surface. The shoulder was taken through range of motion. It was felt to be stable in flexion and extension with internal and external rotation. I felt there was adequate advent of soft tissue tension judging off the conjoined tendon. The shoulder was gently dislocated. The trial components were then removed. The final size 7 press-fit stem along with a size small epiphysis was fully seated. There was good rotational stability. The 36 mm + 9 articular surface was impacted. The shoulder again was gently reduced and taken through range of motion. Again it was felt to be stable in all planes. Pulsatile lavage was utilized. The subscapularis was a attached to the lesser tuberosity with #2 Ethibond suture. The deltopectoral interval was closed with interrupted 2-0 Vicryl sutures. The skin was reapproximated with 3-0 subcuticular Prolene suture. Steri-Strips were applied. A sterile dressing was applied. A sling was placed. The patient was awoken from general anesthesia and transferred to recovery room in good condition. Blood loss was estimated at 300 mL. No complications were incurred. Sponge and needle counts were correct at the end the case. Rick MUSE and Cb MUSE assisted during the major components of the case to include exposure, glenoid and humeral preparation, implantation, and closure.
== END 2022-06-04 12:37 | disposition home health service (06) | DRG 483 ==
LOC: 2ORMAIN 05:39 → 4SSUR 09:51
PROVIDERS: ADMIT Orthopaedic Surgery; ATTEND Orthopaedic Surgery
PROC: 0RRK00Z Replacement of Left Shoulder Joint with Reverse Ball and Socket Synthetic Substitute, Open Approach (ICD-10-PCS; principal; 2022-06-02 07:00)
DX: M19.012 Primary osteoarthritis, left shoulder (principal); D46.9 Myelodysplastic syndrome, unspecified; E78.5 Hyperlipidemia, unspecified; I25.10 Atherosclerotic heart disease of native coronary artery without angina pectoris; F01.50 Vascular dementia, unspecified severity, without behavioral disturbance, psychotic disturbance, mood disturbance, and anxiety; N40.1 Benign prostatic hyperplasia with lower urinary tract symptoms; R33.8 Other retention of urine; F32.A Depression, unspecified; M75.102 Unspecified rotator cuff tear or rupture of left shoulder, not specified as traumatic; Z79.899 Other long term (current) drug therapy; Z79.82 Long term (current) use of aspirin; Z87.891 Personal history of nicotine dependence; Z88.8 Allergy status to other drugs, medicaments and biological substances
CPT/HCPCS: 64415; 76942; 85025; 88300

== ENCOUNTER 2022-08-22 09:51 | Emergency (ER) | payer MEDICARE ==
[2022-08-22 10:10] VITALS: BP 114/59; PULSE 70; RESP 16; TEMP 97.8
--- NOTE | 2022-08-22 10:33 | ED ---
General Adult HPI - General Chief complaint: ENT Stated complaint: COVID+,ear ache &sore throat Time Seen by Provider: 08/22/22 10:10 Source: patient, RN notes reviewed, old records reviewed Mode of arrival: ambulatory Limitations: no limitations - History of Present Illness Initial comments: This is a 72-year-old male who was diagnosed COVID A day ago and started symptoms of a sore throat and a little bit of a cough. Patient comes in today because last night he started complaining of ear pain which she has chronically but this morning there was a little blood on a Q-tip and so the wanted him to come in and make sure it wasn't infected. Patient states the pain is typical of some of the pain he has had. Patient has a prescription for Paxlovid from his doctor. Patient denies any shortness of breath or difficulty breathing when he states he has an occasional dry cough and has complained of some sore throat. - Related Data Home Medications Medication Instructions Recorded Confirmed Tamsulosin [Flomax] 0.4 mg PO BID 09/16/19 05/27/22 Atorvastatin [Lipitor] 40 mg PO HS 04/04/21 05/27/22 Cholecalciferol [Vitamin D3 (25 50 mcg PO DAILY 04/04/21 05/27/22 Mcg = 1000 Iu)] Omeprazole [PriLOSEC] 40 mg PO DAILY 04/04/21 05/27/22 Thiamine [Vitamin B-1] 100 mg PO DAILY 04/04/21 05/27/22 Vitamin B Complex 1 cap PO DAILY 04/04/21 05/27/22 atenoloL [Tenormin] 50 mg PO DAILY 04/04/21 05/27/22 Ginkgo Biloba 500 mg PO BID 08/31/21 05/27/22 Sertraline [Zoloft] 100 mg PO HS 08/31/21 05/27/22 busPIRone HCl [Buspar] 5 mg PO BID 03/06/22 05/27/22 Naproxen Sodium [Aleve] 220 mg PO DAILY PRN 06/02/22 06/02/22 Previous Rx's Medication Instructions Recorded Furosemide [Lasix] 20 mg PO DAILY #7 tab 09/03/21 Aspirin 325 mg PO DAILY #15 tab 06/03/22 Docusate [Colace] 100 mg PO DAILY #30 capsule 06/03/22 HYDROcodone/APAP 5-325MG [[place] 1 tab PO Q6HR PRN #28 tab 06/03/22 5-325] Cephalexin [Keflex] 250 mg PO Q12HR #14 capsule 06/04/22 Allergies Allergy/AdvReac Type Severity Reaction Status Date / Time nitroglycerin Allergy Severe pts heart Verified 08/22/22 10:10 stopped beating after given nitro Review of Systems ROS Statement: Those systems with pertinent positive or pertinent negative responses have been documented in the HPI. ROS Other: All systems not noted in ROS Statement are negative. Past Medical History Past Medical History: Coronary Artery Disease (CAD), Dementia, GERD/Reflux, Hyperlipidemia, Osteoarthritis (OA), Prostate Disorder Additional Past Medical History / Comment(s): mild cog.impairment, mild dysplagia Last Myocardial Infarction Date:: unknown History of Any Multi-Drug Resistant Organisms: None Reported Past Surgical History: Ear Surgery, Heart Catheterization, Hernia Repair, Orthopedic Surgery, Tonsillectomy Additional Past Surgical History / Comment(s): Left shoulder rotator cuff, knee arthroscopy Past Anesthesia/Blood Transfusion Reactions: Previous Problems w/ Anesthesia Additional Past Anesthesia/Blood Transfusion Reaction / Comment(s): PTS BLOOD PRESSURE HAS DROPPED IN THE PAST WHEN RECEIVING ANESTHESIA. Past Psychological History: Anxiety Smoking Status: Former smoker Past Alcohol Use History: None Reported Past Drug Use History: None Reported - Past Family History Sister(s) Family Medical History: Cancer Father Family Medical History: Coronary Artery Disease (CAD), CVA/TIA Additional Family Medical History / Comment(s): cardiac history stated by the patient. Brother(s) Family Medical History: Blood Disorder Additional Family Medical History / Comment(s): kidney transplant Son(s) Family Medical History: No Reported History Daughter(s) Family Medical History: No Reported History Mother Family Medical History: No Reported History, Cancer Additional Family Medical History / Comment(s): , of old age General Exam - General Exam Comments Initial Comments: GENERAL Patient is well-developed and well-nourished. Patient is in mild distress. EYES Patient's pupils are equal and round. Extraocular motion is intact ENT Looking in the right ear does look as though the ear had some surgery on it and the patient confirms this. There is some bleeding from an area of abrasion though difficult to make out because there is blood covering the whole area and patient can't tolerate it being cleaned up with a Q-tip because of the pain. But there does not appear to be any signs of infection at the tympanic membrane or the ear canal SKIN Unremarkable NEURO The patient is alert and oriented 3 PYSCH Patient has normal interpersonal interactions. MUSCULOSKELETAL All 4 fomites and full range of motion. Limitations: no limitations Course Vital Signs 08/22/22 10:07 Temperature 97.8 F Pulse Rate 70 Respiratory 16 Rate Blood Pressure 114/59 O2 Sat by Pulse 99 Oximetry Disposition Clinical Impression: Abrasion of ear canal Disposition: HOME SELF-CARE Instructions (If sedation given, give patient instructions): Earache (ED) Is patient prescribed a controlled substance at d/c from ED?: No Referrals: Shaquille Taylor DO [Doctor of Osteopathic Medicine] - 1-2 days Time of Disposition: 10:33
== END 2022-08-22 10:55 | disposition home or self-care (01) ==
LOC: EC 09:51
DX: S00.411A Abrasion of right ear, initial encounter (principal); I25.10 Atherosclerotic heart disease of native coronary artery without angina pectoris; K21.9 Gastro-esophageal reflux disease without esophagitis; E78.5 Hyperlipidemia, unspecified; Z79.899 Other long term (current) drug therapy; Z88.8 Allergy status to other drugs, medicaments and biological substances; Z87.891 Personal history of nicotine dependence; X58.XXXA Exposure to other specified factors, initial encounter
CPT/HCPCS: 99282

== ENCOUNTER 2023-03-01 17:08 | Observation (INO) | payer MEDICARE ==
[2023-03-01 17:53] LABS: Anisocytosis Slight; Hypochromasia Moderate; MCHC 31.3 g/dL (31.0-37.0); MCV 95.6 fL (80.0-100.0); Macrocytosis Slight; Mean Platelet Volume 10.1; Platelet Count 150 k/uL (150-450); Poikilocytosis Slight; RBC 2.02 m/uL (4.30-5.90); RDW 19.2 % (11.5-15.5); WBC 7.3 k/uL (3.8-10.6)
[2023-03-01 17:56] LABS: HCT 19.3 % (39.0-53.0)
[2023-03-01 18:02] LABS: INR 1.1 (<1.2); Prothrombin Time 11.7 sec (9.0-12.0)
[2023-03-01 18:11] LABS: Albumin 3.4 g/dL (3.5-5.0); Calcium 8.4 mg/dL (8.4-10.2); Potassium 3.5 mmol/L (3.5-5.1); Total Bilirubin 0.7 mg/dL (0.2-1.3); Total Protein 5.7 g/dL (6.3-8.2)
[2023-03-01 19:03] LABS: Eosinophils # (M) 0.07 k/uL (0-0.7); Lymphocytes # (M) 0.15 k/uL (1.0-4.8); Monocytes # (M) 1.02 k/uL (0-1.0); Neutrophils # (M) 6.06 k/uL (1.3-7.7); Neutrophils % (M) 83 %; Nucleated Red Blood Cells 0 /100 WBC (0-0); Total Cells Counted 100
--- NOTE | 2023-03-01 19:22 | XR ---
EXAMINATION TYPE: XR chest 2V DATE OF EXAM: 03/01/2023 COMPARISON: 09/10/2021 HISTORY: Shortness of breath TECHNIQUE: Frontal and lateral views of the chest are obtained. FINDINGS: Scattered senescent parenchymal changes noted. Hyperinflation compatible with COPD. Prominent reticulonodular markings increased density right lower lobe which in part appears to be chr onic in nature however superimposed atypical pneumonia difficult to exclude. Correlate clinically. Heart size is stable. Mediastinal structures are stable and grossly unremarkable. No evidence for hilar prominence. Degenerative changes dorsal spine. IMPRESSION: 1. Prominent reticulonodular markings increased density right lower lobe which in part appears to be chronic in nature however superimposed atypical pneumonia difficult to exclude. Correlate clinically.
[2023-03-01] MEDS ORDERED: NALOXONE 0.4 MG/ML 1 ML VIAL IV PRN (19:43)
--- NOTE | 2023-03-01 19:44 | ED ---
General Adult HPI - General Chief complaint: Shortness of Breath Stated complaint: SOB Time Seen by Provider: 03/01/23 18:31 Source: patient, family, RN notes reviewed, old records reviewed Mode of arrival: ambulatory Limitations: no limitations - History of Present Illness Initial comments: Patient is a 73-year-old male with past medical history remarkable for myelodysplastic syndrome, dementia, chronic anemia, last known hemoglobin early December of 7.2 per patient's presents emergency Department complaining of shortness of breath, generalized weakness and fatigue for the last few weeks. Seems to have become progressively worse. Has never required transfusions in the past. Denies any chest pain, shortness breath, abdominal pain, nausea, vomiting. No obvious source of bleeding including denying hematochezia, melena, hematuria, hematemesis. Is not on blood thinners. Presents for further evaluation of this time over concern for fatigue. - Related Data Home Medications Medication Instructions Recorded Confirmed Tamsulosin [Flomax] 0.4 mg PO BID 09/16/19 03/01/23 Cholecalciferol [Vitamin D3 (25 50 mcg PO DAILY 04/04/21 03/01/23 Mcg = 1000 Iu)] Omeprazole [PriLOSEC] 40 mg PO DAILY 04/04/21 03/01/23 Vitamin B Complex 1 cap PO DAILY 04/04/21 03/01/23 atenoloL [Tenormin] 50 mg PO DAILY 04/04/21 03/01/23 Sertraline [Zoloft] 100 mg PO HS 08/31/21 03/01/23 busPIRone HCl [Buspar] 5 mg PO BID 03/06/22 03/01/23 Atorvastatin [Lipitor] 20 mg PO HS 03/01/23 03/01/23 Donepezil [Aricept] 10 mg PO HS 03/01/23 03/01/23 Multivitamins, Thera [Multivitamin 1 tab PO DAILY 03/01/23 03/01/23 (formulary)] Zinc Gluconate [Zinc] 50 mg PO DAILY 03/01/23 03/01/23 Allergies Allergy/AdvReac Type Severity Reaction Status Date / Time nitroglycerin Allergy Severe pts heart Verified 03/01/23 19:29 stopped beating after given nitro Review of Systems ROS Statement: Those systems with pertinent positive or pertinent negative responses have been documented in the HPI. Review of Systems: CONST: Denies fever EYES: Denies blurry vision ENT: Denies nasal congestion C/V: Denies Chest pain RESP: Endorses shortness of breath GI: Denies abdominal pain : Denies dysuria SKIN: Denies rash. MSK: Denies joint pain. NEURO: Endorses fatigue ROS Other: All systems not noted in ROS Statement are negative. Past Medical History Past Medical History: Coronary Artery Disease (CAD), Dementia, GERD/Reflux, Hyperlipidemia, Osteoarthritis (OA), Prostate Disorder Additional Past Medical History / Comment(s): mild cog.impairment, mild dysplagia Last Myocardial Infarction Date:: unknown History of Any Multi-Drug Resistant Organisms: None Reported Past Surgical History: Ear Surgery, Heart Catheterization, Hernia Repair, Orthopedic Surgery, Tonsillectomy Additional Past Surgical History / Comment(s): Left shoulder rotator cuff, knee arthroscopy Past Anesthesia/Blood Transfusion Reactions: Previous Problems w/ Anesthesia Additional Past Anesthesia/Blood Transfusion Reaction / Comment(s): PTS BLOOD PRESSURE HAS DROPPED IN THE PAST WHEN RECEIVING ANESTHESIA. Past Psychological History: Anxiety Smoking Status: Former smoker Past Alcohol Use History: None Reported Past Drug Use History: None Reported - Past Family History Sister(s) Family Medical History: Cancer Father Family Medical History: Coronary Artery Disease (CAD), CVA/TIA Additional Family Medical History / Comment(s): cardiac history stated by the patient. Brother(s) Family Medical History: Blood Disorder Additional Family Medical History / Comment(s): kidney transplant Son(s) Family Medical History: No Reported History Daughter(s) Family Medical History: No Reported History Mother Family Medical History: No Reported History, Cancer Additional Family Medical History / Comment(s): , of old age General Exam - General Exam Comments Initial Comments: General: Appears in no acute distress. HEAD: Normal with no signs of head trauma. EYES: PERRLA, EOMI, conjunctiva normal, no discharge. ENT: Hearing grossly intact, normal oropharynx. RESPIRATORY: Clear breath sounds bilaterally. No wheezes, rales, or rhonchi. C/V: Regular rate and rhythm. S1 and S2 auscultated, no edema, peripheral pulses 2+ and intact throughout ABD: Abd is soft, nontender, nondistended. Rectal exam is within acceptable limits. No gross bleeding. EXT: Normal range of motion, no obvious deformity SKIN: No rashes or lesions observed on exposed skin. NEURO: Alert and oriented 2-3 which appears to be at baseline. No focal deficits. Limitations: no limitations Course Vital Signs 03/01/23 03/01/23 03/01/23 17:10 19:09 19:10 Temperature 97.7 F Pulse Rate 79 74 74 Respiratory 20 23 24 Rate Blood Pressure 130/77 O2 Sat by Pulse 97 Oximetry 03/01/23 03/01/23 03/01/23 19:20 19:30 19:40 Temperature Pulse Rate 70 73 76 Respiratory 24 23 20 Rate Blood Pressure O2 Sat by Pulse Oximetry 03/01/23 03/01/23 03/01/23 19:50 20:00 20:30 Temperature Pulse Rate 72 80 73 Respiratory 18 30 H 27 H Rate Blood Pressure 97/54 95/55 O2 Sat by Pulse Oximetry 03/01/23 03/01/23 03/01/23 21:00 21:19 21:30 Temperature Pulse Rate 73 76 79 Respiratory 28 H 28 H 24 Rate Blood Pressure 99/59 96/47 96/47 O2 Sat by Pulse Oximetry 03/01/23 03/01/23 03/01/23 21:34 21:47 22:00 Temperature 98.3 F 97.5 F L Pulse Rate 75 75 74 Respiratory 16 16 21 Rate Blood Pressure 90/46 89/51 89/51 O2 Sat by Pulse 95 95 Oximetry 03/01/23 03/01/23 03/01/23 22:07 22:30 23:00 Temperature 98.4 F 97.9 F Pulse Rate 73 75 73 Respiratory 16 20 15 Rate Blood Pressure 104/54 104/54 92/56 O2 Sat by Pulse 96 Oximetry 03/01/23 03/02/23 23:30 00:00 Temperature 98.0 F Pulse Rate 73 75 Respiratory 26 H 26 H Rate Blood Pressure 99/67 107/71 O2 Sat by Pulse Oximetry Medical Decision Making - Medical Decision Making Was pt. sent in by a medical professional or institution (, PA, GLASS CUTTER HELPER, urgent care, hospital, or correction...) When possible be specific @ -No Did you speak to anyone other than the patient for history (EMS, parent, family, police, friend...)? What history was obtained from this source @ -Patient's is the primary historian. Did you review nursing and triage notes (agree or disagree)? Why? @ -I reviewed and agree with nursing and triage notes Were old charts reviewed (outside hosp., previous admission, EMS record, old EKG, old radiological studies, urgent care reports/EKG's, correction records)? Report findings @ -Old charts reviewed from July 2022. Differential Diagnosis (chest pain, altered mental status, abdominal pain women, abdominal pain men, vaginal bleeding, weakness, fever, dyspnea, syncope, headache, dizziness, GI bleed, back pain, seizure, CVA, palpatations, mental health, musculoskeletal)? @ -Differential Weakness: Hypoglycemia, shock, sepsis, hyponatremia, anemia, infection, WA, ETOH, adverse medicine reaction, overdose, stroke, this is not meant to be an all-inclusive list. EKG interpreted by me (3pts min.). @ -As above X-rays interpreted by me (1pt min.). @ -Chest x-ray shows no obvious acute cardiopulmonary process. There are chronic markings. Patient has no cough to suggest acute infectious process. CT interpreted by me (1pt min.). @ -None done U/S interpreted by me (1pt. min.). @ -None done What testing was considered but not performed or refused? (CT, X-rays, U/S, labs)? Why? @ -None What meds were considered but not given or refused? Why? @ -None Did you discuss the management of the patient with other professionals (professionals i.e. , PA, GLASS CUTTER HELPER, lab, RT, psych nurse, social worker clinical, net lead architect, teacher, executive vice president and chief operating officer, case resource manager)? Give summary @ -No Was smoking cessation discussed for >3mins.? @ -No Was critical care preformed (if so, how long)? @ -No Were there social determinants of health that impacted care today? How? (Homelessness, low income, unemployed, alcoholism, drug addiction, transportation, low edu. Level, literacy, decrease access to med. care, m[facility], rehab)? @ -No Was there de-escalation of care discussed even if they declined (Discuss DNR or withdrawal of care, Hospice)? DNR status @ -No What co-morbidities impacted this encounter? (DM, HTN, Smoking, COPD, CAD, Ca ncer, CVA, ARF, Chemo, Hep., AIDS, mental health diagnosis, sleep apnea, morbid obesity)? @ -myelodysplastic syndrome, anemia Was patient admitted / discharged? Hospital course, mention meds given and route, prescriptions, significant lab abnormalities, going to OR and other pertinent info. @ -Based on patient's presentation and physical exam, I'm concerned for suspected anemia. Workup was started in triage and already returned showing the patient is anemic. Exam otherwise is unremarkable. Patient's last known hemoglobin was 7 approximately and it is currently 6. Patient has mild increased creatinine likely an [place] eye from the anemia. Remainder of labs within acceptable limits. Occult blood negative. EKG within normal limits. I updated the patient as well as the . I believe it is best to admit him to the hospital for monitoring and we will transfuse him 1 unit packed red blood cells. They were in agreement with this plan. I spoke with the admitting team, BRYAN Cunha of [facility] who accepted the admission. Undiagnosed new problem with uncertain prognosis? @ -No Drug Therapy requiring intensive monitoring for toxicity (Heparin, Nitro, Insulin, Cardizem)? @ -No Were any procedures done? @ -No Diagnosis/symptom? @ -Acute on chronic anemia Acute, or Chronic, or Acute on Chronic? @ -Acute on chronic Uncomplicated (without systemic symptoms) or Complicated (systemic symptoms)? @ -Complicated Side effects of treatment? @ -No Exacerbation, Progression, or Severe Exacerbation? @ -No Poses a threat to life or bodily function? How? (Chest pain, [place], WA, pneumonia, PE, COPD, DKA, ARF, appy, cholecystitis, CVA, Diverticulitis, Homicidal, Suicidal, threat to staff... and all critical care pts) @ -If worsens can result in significant morbidity and mortality. - Lab Data Result diagrams: 03/01/23 17:38 03/01/23 17:38 Lab Results 03/01/23 03/01/23 03/01/23 Range/Units 17:38 17:38 17:38 WBC 7.3 (3.8-10.6) k/uL RBC 2.02 L (4.30-5.90) m/uL Hgb 6.0 L* (13.0-17.5) gm/dL Hct 19.3 L* (39.0-53.0) % MCV 95.6 (80.0-100.0) fL MCH 30.0 (25.0-35.0) pg MCHC 31.3 (31.0-37.0) g/dL RDW 19.2 H (11.5-15.5) % Plt Count 150 (150-450) k/uL MPV 10.1 Neutrophils % (Manual) 83 % Lymphocytes % (Manual) 2 % Monocytes % (Manual) 14 % Eosinophils % (Manual) 1 % Neutrophils # (Manual) 6.06 (1.3-7.7) k/uL Lymphocytes # (Manual) 0.15 L (1.0-4.8) k/uL Monocytes # (Manual) 1.02 H (0-1.0) k/uL Eosinophils # (Manual) 0.07 (0-0.7) k/uL Nucleated RBCs 0 (0-0) /100 WBC Manual Slide Review Performed Hypochromasia Moderate Poikilocytosis Slight Anisocytosis Slight Macrocytosis Slight PT 11.7 (9.0-12.0) sec INR 1.1 (<1.2) APTT 25.0 (22.0-30.0) sec Sodium 133 L (137-145) mmol/L Potassium 3.5 (3.5-5.1) mmol/L Chloride 99 (98-107) mmol/L Carbon Dioxide 22 (22-30) mmol/L Anion Gap 12 mmol/L BUN 33 H (9-20) mg/dL Creatinine 1.58 H (0.66-1.25) mg/dL Est GFR (CKD-EPI)AfAm 49 (>60 ml/min/1.73 sqM) Est GFR (CKD-EPI)NonAf 42 (>60 ml/min/1.73 sqM) Glucose 125 H (74-99) mg/dL Calcium 8.4 (8.4-10.2) mg/dL Total Bilirubin 0.7 (0.2-1.3) mg/dL AST 50 (17-59) U/L ALT 50 H (4-49) U/L Alkaline Phosphatase 84 (38-126) U/L Troponin I (0.000-0.034) ng/mL NT-Pro-B Natriuret Pep pg/mL Total Protein 5.7 L (6.3-8.2) g/dL Albumin 3.4 L (3.5-5.0) g/dL Stool Occult Blood (Negative) Influenza Type A (PCR) (Not Detectd) Influenza Type B (PCR) (Not Detectd) RSV (PCR) (Not Detectd) SARS-CoV-2 (PCR) (Not Detectd) Blood Type Blood Type Confirm Blood Type Recheck Bld Type Recheck Status Antibody Screen Crossmatch Spec Expiration Date 03/01/23 03/01/23 03/01/23 Range/Units 17:38 17:38 18:50 WBC (3.8-10.6) k/uL RBC (4.30-5.90) m/uL Hgb (13.0-17.5) gm/dL Hct (39.0-53.0) % MCV (80.0-100.0) fL MCH (25.0-35.0) pg MCHC (31.0-37.0) g/dL RDW (11.5-15.5) % Plt Count (150-450) k/uL MPV Neutrophils % (Manual) % Lymphocytes % (Manual) % Monocytes % (Manual) % Eosinophils % (Manual) % Neutrophils # (Manual) (1.3-7.7) k/uL Lymphocytes # (Manual) (1.0-4.8) k/uL Monocytes # (Manual) (0-1.0) k/uL Eosinophils # (Manual) (0-0.7) k/uL Nucleated RBCs (0-0) /100 WBC Manual Slide Review Hypochromasia Poikilocytosis Anisocytosis Macrocytosis PT (9.0-12.0) sec INR (<1.2) APTT (22.0-30.0) sec Sodium (137-145) mmol/L Potassium (3.5-5.1) mmol/L Chloride (98-107) mmol/L Carbon Dioxide (22-30) mmol/L Anion Gap mmol/L BUN (9-20) mg/dL Creatinine (0.66-1.25) mg/dL Est GFR (CKD-EPI)AfAm (>60 ml/min/1.73 sqM) Est GFR (CKD-EPI)NonAf (>60 ml/min/1.73 sqM) Glucose (74-99) mg/dL Calcium (8.4-10.2) mg/dL Total Bilirubin (0.2-1.3) mg/dL AST (17-59) U/L ALT (4-49) U/L Alkaline Phosphatase (38-126) U/L Troponin I <0.012 (0.000-0.034) ng/mL NT-Pro-B Natriuret Pep 5960 pg/mL Total Protein (6.3-8.2) g/dL Albumin (3.5-5.0) g/dL Stool Occult Blood (Negative) Influenza Type A (PCR) (Not Detectd) Influenza Type B (PCR) (Not Detectd) RSV (PCR) (Not Detectd) SARS-CoV-2 (PCR) (Not Detectd) Blood Type Blood Type Confirm O Positive Blood Type Recheck Bld Type Recheck Status Antibody Screen Crossmatch Spec Expiration Date 03/01/23 03/01/23 03/01/23 Range/Units 19:00 19:00 19:00 WBC (3.8-10.6) k/uL RBC (4.30-5.90) m/uL Hgb (13.0-17.5) gm/dL Hct (39.0-53.0) % MCV (80.0-100.0) fL MCH (25.0-35.0) pg MCHC (31.0-37.0) g/dL RDW (11.5-15.5) % Plt Count (150-450) k/uL MPV Neutrophils % (Manual) % Lymphocytes % (Manual) % Monocytes % (Manual) % Eosinophils % (Manual) % Neutrophils # (Manual) (1.3-7.7) k/uL Lymphocytes # (Manual) (1.0-4.8) k/uL Monocytes # (Manual) (0-1.0) k/uL Eosinophils # (Manual) (0-0.7) k/uL Nucleated RBCs (0-0) /100 WBC Manual Slide Review Hypochromasia Poikilocytosis Anisocytosis Macrocytosis PT (9.0-12.0) sec INR (<1.2) APTT (22.0-30.0) sec Sodium (137-145) mmol/L Potassium (3.5-5.1) mmol/L Chloride (98-107) mmol/L Carbon Dioxide (22-30) mmol/L Anion Gap mmol/L BUN (9-20) mg/dL Creatinine (0.66-1.25) mg/dL Est GFR (CKD-EPI)AfAm (>60 ml/min/1.73 sqM) Est GFR (CKD-EPI)NonAf (>60 ml/min/1.73 sqM) Glucose (74-99) mg/dL Calcium (8.4-10.2) mg/dL Total Bilirubin (0.2-1.3) mg/dL AST (17-59) U/L ALT (4-49) U/L Alkaline Phosphatase (38-126) U/L Troponin I (0.000-0.034) ng/mL NT-Pro-B Natriuret Pep pg/mL Total Protein (6.3-8.2) g/dL Albumin (3.5-5.0) g/dL Stool Occult Blood Negative (Negative) Influenza Type A (PCR) Not Detected (Not Detectd) Influenza Type B (PCR) Not Detected (Not Detectd) RSV (PCR) Not Detected (Not Detectd) SARS-CoV-2 (PCR) Not Detected (Not Detectd) Blood Type O Positive Blood Type Confirm Blood Type Recheck No Previous Record Bld Type Recheck Status CABO Indicated Antibody Screen NEGATIVE Crossmatch See Detail Spec Expiration Date 03/04/20232299 - EKG Data -: EKG Interpreted by Me EKG Comments: 12-lead Electrocardiogram Interpretation Note EKG was reviewed and interpreted by myself. 12-lead ECG performed at 1726 is interpreted by me as revealing normal sinus rhythm at a rate of 70 beats per minute. [place] is normal. SC interval is 148 ms, QRS duration 74 ms, QTc is 407 ms.. There were no ST or T wave abnormalities to suggest myocardial ischemia or injury. R wave progression across the precordium was satisfactory. By my interpretation this EKG is non-diagnostic for acute ischemia. Disposition Clinical Impression: Anemia, Weakness Disposition: ADMITTED IP TO THIS HOSP Condition: Stable Time of Disposition: 19:25
[2023-03-02 08:21] LABS: Anisocytosis Slight; HGB 7.2 gm/dL (13.0-17.5); Hypochromasia Slight; MCH 30.1 pg (25.0-35.0); MCHC 32.9 g/dL (31.0-37.0); MCV 91.3 fL (80.0-100.0); Macrocytosis Slight; Mean Platelet Volume 9.6; Platelet Count 143 k/uL (150-450); Poikilocytosis Slight; RBC 2.41 m/uL (4.30-5.90); RDW 19.5 % (11.5-15.5); WBC 6.4 k/uL (3.8-10.6)
[2023-03-02 08:32] LABS: Calcium 8.2 mg/dL (8.4-10.2); Potassium 3.5 mmol/L (3.5-5.1)
[2023-03-02] MEDS ORDERED: atenoloL 50 MG TAB PO SCH (09:00)
[2023-03-02] MEDS: TAMSULOSIN 0.4 MG CAP.ER.24H PO SCH ×2 (09:28→20:26)
[2023-03-02] MEDS: busPIRone HCl 5 MG TAB PO SCH ×2 (09:28→20:26)
[2023-03-02] MEDS: PANTOPRAZOLE 40 MG TABLET PO SCH (09:28)
[2023-03-02 12:54] LABS: Band Neutrophils % 2 %; Eosinophils # (M) 0.06 k/uL (0-0.7); Lymphocytes # (M) 0.19 k/uL (1.0-4.8); Monocytes # (M) 1.22 k/uL (0-1.0); Myelocytes # (M) 0.06 k/uL (0); Myelocytes % 1 %; Neutrophils % (M) 74 %; Nucleated Red Blood Cells 0 /100 WBC (0-0); Total Cells Counted 100
[2023-03-02 13:37] VITALS: BMI 25.9
--- NOTE | 2023-03-02 15:34 | P.HPIM ---
History of Present Illness H&P Date: 03/02/23 This is a 73 year old male who follows with Dr. Rojas in the primary care office, medical history of coronary artery disease, gerd, dementia, former smoker. Patient also has history of myelodysplastic disorder and chronic anemia. Patient follows with Dr Valladares outpatient and was last seen in September of last year and cleared to see in the office in 6 months. His hemoglobin than was around 10. He was recommended to undergo colonoscopy and ended up at [facility] to undergo robotic assisted colonoscopy which was done in December. There was concern for possible stricture and there was been discussion with his surgeon about pursuing exploratory laporatomy. His hemoglobin in December was around 7. He presents with complaints of shortness of breath and fatigue states this has been ongoing and progressive over the last few months. Denies any source of bleeding, no bloody stool, hematemesis. Denies chest pain, no fever or chills. He was unable to ambulate from the kitchen to the doorway and his brought him to the for further evaluation. He has no prior history of heart failure, states he sees a manager civil and was seen in the office 1 year ago. He also reports issues with urinary frequency, hesitancy and nocturia. Chest xray on admission shows prominent reticulonodular markings increased density right lower lobe possibly chronic vs. atypical pneumonia. EKG showing sinus rhythm/sinus arrhythmia. Patient does have elevated proBNP of 5960, sodium of 133. BUN of 33 and creatinine of 1.58. Patient has negative troponin. Hemoglobin 6.0 on admission patient received 1 unit of PRBC and repeat hemoglobin of 7.2. Occult negative. COVID, RSV and Influenza negative by PCR. REVIEW OF SYSTEMS: CONSTITUTIONAL: No fever, no malaise, Reports fatigue. HEENT: No recent visual problems or hearing problems. Denied any sore throat. CARDIOVASCULAR: No chest pain, orthopnea, PND, no palpitations, no syncope. PULMONARY: Reports shortness of breath, no cough, no hemoptysis. GASTROINTESTINAL: No diarrhea, no nausea, no vomiting, no abdominal pain. NEUROLOGICAL: No headaches, no weakness, no numbness. HEMATOLOGICAL: Denies any bleeding or petechiae. GENITOURINARY: Denies any burning micturition, frequency, or urgency. MUSCULOSKELETAL/RHEUMATOLOGICAL: Denies any joint pain, swelling, or any muscle pain. ENDOCRINE: Denies any polyuria or polydipsia. The rest of the 14-point review of systems is negative. PHYSICAL EXAMINATION: GENERAL: The patient is alert and oriented x3, not in any acute distress. Well developed, well nourished. HEENT: Pupils are round and equally reacting to light. EOMI. No scleral icterus. No conjunctival pallor. Normocephalic, atraumatic. No pharyngeal erythema. No thyromegaly. CARDIOVASCULAR: S1 and S2 present. No murmurs, rubs, or gallops. PULMONARY: Chest is clear to auscultation, no wheezing or crackles. ABDOMEN: Soft, nontender, nondistended, normoactive bowel sounds. No palpable organomegaly. MUSCULOSKELETAL: No joint swelling or deformity. EXTREMITIES: No cyanosis, clubbing, or pedal edema. NEUROLOGICAL: Gross neurological examination did not reveal any focal deficits. SKIN: No rashes. Assessment and plan Assessment Exertional dyspnea Acute on chronic anemia with hemoglobin 6.0 on admission s/p 1 unit PRBC and h emoglobin now 7.2 Chronic anemia from myelodysplastic disorder Acute kidney injury Elevated proBNP History of coronary artery disease History of hypertension History of hyperlipidemia Vascular dementia History of BPH maintained on flomax Gastroesophageal reflux disease History of depression GI prophylaxis DVT prophylaxis Mechanical Full Code Plan Hematology consultation Resume appropriate home medications Repeat CBC stable Echocardiogram ordered IV fluids normal saline at 75 mls per hour PT/OT consultation AM labs The impression and plan of care has been dictated by Jennifer Edouard Nurse Practitioner as directed. Dr. Bobbi MD I have performed a history and physical examination and medical decision making of this patient, discussed the same with the dictator, and agree with the dictators assessment and plan as written, documented as a scribe. Based on total visit time, I have performed more than 50% of this visit. Past Medical History Past Medical History: Coronary Artery Disease (CAD), Dementia, GERD/Reflux, Hyperlipidemia, Osteoarthritis (OA), Prostate Disorder Additional Past Medical History / Comment(s): mild cog.impairment, mild dysplagia Last Myocardial Infarction Date:: unknown History of Any Multi-Drug Resistant Organisms: None Reported Past Surgical History: Ear Surgery, Heart Catheterization, Hernia Repair, Orthopedic Surgery, Tonsillectomy Additional Past Surgical History / Comment(s): Left shoulder rotator cuff, knee arthroscopy Past Anesthesia/Blood Transfusion Reactions: Previous Problems w/ Anesthesia Additional Past Anesthesia/Blood Transfusion Reaction / Comment(s): PTS BLOOD PRESSURE HAS DROPPED IN THE PAST WHEN RECEIVING ANESTHESIA. Past Psychological History: Anxiety Smoking Status: Former smoker Past Alcohol Use History: None Reported Past Drug Use History: None Reported - Past Family History Sister(s) Family Medical History: Cancer Father Family Medical History: Coronary Artery Disease (CAD), CVA/TIA Additional Family Medical History / Comment(s): cardiac history stated by the patient. Brother(s) Family Medical History: Blood Disorder Additional Family Medical History / Comment(s): kidney transplant Son(s) Family Medical History: No Reported History Daughter(s) Family Medical History: No Reported History Mother Family Medical History: No Reported History, Cancer Additional Family Medical History / Comment(s): , of old age Medications and Allergies Home Medications Medication Instructions Recorded Confirmed Type Tamsulosin [Flomax] 0.4 mg PO BID 09/16/19 03/01/23 History Cholecalciferol [Vitamin D3 (25 50 mcg PO DAILY 04/04/21 03/01/23 History Mcg = 1000 Iu)] Omeprazole [PriLOSEC] 40 mg PO DAILY 04/04/21 03/01/23 History Vitamin B Complex 1 cap PO DAILY 04/04/21 03/01/23 History atenoloL [Tenormin] 50 mg PO DAILY 04/04/21 03/01/23 History Sertraline [Zoloft] 100 mg PO HS 08/31/21 03/01/23 History busPIRone HCl [Buspar] 5 mg PO BID 03/06/22 03/01/23 History Atorvastatin [Lipitor] 20 mg PO HS 03/01/23 03/01/23 History Donepezil [Aricept] 10 mg PO HS 03/01/23 03/01/23 History Multivitamins, Thera [Multivitamin 1 tab PO DAILY 03/01/23 03/01/23 History (formulary)] Zinc Gluconate [Zinc] 50 mg PO DAILY 03/01/23 03/01/23 History Allergies Allergy/AdvReac Type Severity Reaction Status Date / Time nitroglycerin Allergy Severe pts heart Verified 03/01/23 19:29 stopped beating after given nitro Physical Exam Vitals: Vital Signs Temp Pulse Pulse Resp BP BP Pulse Ox 03/02/23 09:01 97.8 F 71 16 103/53 96 03/02/23 06:00 72 20 96/57 03/02/23 05:30 72 20 101/47 03/02/23 05:00 77 22 93/53 03/02/23 04:30 79 21 96/48 03/02/23 04:00 77 32 H 92/48 03/02/23 03:30 80 29 H 93/53 03/02/23 03:00 76 33 H 106/56 03/02/23 02:30 74 20 03/02/23 02:00 79 22 113/66 03/02/23 01:30 73 11 L 110/65 03/02/23 01:00 75 21 107/79 03/02/23 00:30 73 26 H 102/56 03/02/23 00:03 73 29 H 104/55 03/02/23 00:02 98.7 F 55 L 16 104/55 95 03/02/23 00:00 98.0 F 75 26 H 107/71 03/01/23 23:30 73 26 H 99/67 03/01/23 23:00 97.9 F 73 15 92/56 03/01/23 22:30 75 20 104/54 03/01/23 22:07 98.4 F 73 16 104/54 96 03/01/23 22:00 74 21 89/51 03/01/23 21:47 97.5 F L 75 16 89/51 95 03/01/23 21:34 98.3 F 75 16 90/46 95 03/01/23 21:30 79 24 96/47 03/01/23 21:19 76 28 H 96/47 03/01/23 21:00 73 28 H 99/59 03/01/23 20:30 73 27 H 95/55 03/01/23 20:00 80 30 H 97/54 03/01/23 19:50 72 18 03/01/23 19:40 76 20 03/01/23 19:30 73 23 03/01/23 19:20 70 24 03/01/23 19:10 74 24 03/01/23 19:09 74 23 03/01/23 17:10 97.7 F 79 20 130/77 97 Intake and Output 04/03/23 04/04/23 04/04/23 22:59 06:59 14:59 Intake Total 0 0 Balance 0 0 Intake: Blood Product 0 0 Rc As-1 Unit 0 0 [id number] Other: Weight 64.41 kg Results CBC & Chem 7: 03/02/23 06:32 03/02/23 06:32 Labs: Abnormal Lab Results - Last 24 Hours (Table) 03/01/23 03/01/23 03/01/23 Range/Units 17:38 17:38 19:00 RBC 2.02 L (4.30-5.90) m/uL Hgb 6.0 L* (13.0-17.5) gm/dL Hct 19.3 L* (39.0-53.0) % RDW 19.2 H (11.5-15.5) % Plt Count (150-450) k/uL Lymphocytes # (Manual) 0.15 L (1.0-4.8) k/uL Monocytes # (Manual) 1.02 H (0-1.0) k/uL Sodium 133 L (137-145) mmol/L BUN 33 H (9-20) mg/dL Creatinine 1.58 H (0.66-1.25) mg/dL Glucose 125 H (74-99) mg/dL Calcium (8.4-10.2) mg/dL ALT 50 H (4-49) U/L Total Protein 5.7 L (6.3-8.2) g/dL Albumin 3.4 L (3.5-5.0) g/dL Crossmatch See Detail 03/02/23 03/02/23 Range/Units 06:32 06:32 RBC 2.41 L (4.30-5.90) m/uL Hgb 7.2 L (13.0-17.5) gm/dL Hct 22.0 L (39.0-53.0) % RDW 19.5 H (11.5-15.5) % Plt Count 143 L (150-450) k/uL Lymphocytes # (Manual) (1.0-4.8) k/uL Monocytes # (Manual) (0-1.0) k/uL Sodium 133 L (137-145) mmol/L BUN 30 H (9-20) mg/dL Creatinine 1.36 H (0.66-1.25) mg/dL Glucose (74-99) mg/dL Calcium 8.2 L (8.4-10.2) mg/dL ALT (4-49) U/L Total Protein (6.3-8.2) g/dL Albumin (3.5-5.0) g/dL Crossmatch Assessment and Plan Time with Patient: Greater than 30
[2023-03-02] MEDS: SODIUM CHLORIDE 0.9% 1,000 ML IV SCH (17:42)
[2023-03-02] MEDS ORDERED: DONEPEZIL 10 MG TAB PO SCH (21:00)
[2023-03-02] MEDS ORDERED: ATORVASTATIN 20 MG TAB PO SCH (21:00)
[2023-03-02] MEDS ORDERED: SERTRALINE 100 MG TAB PO SCH (21:00)
[2023-03-03] MEDS: PANTOPRAZOLE 40 MG TABLET PO SCH (06:15)
[2023-03-03] MEDS: SODIUM CHLORIDE 0.9% 1,000 ML IV SCH (06:15)
[2023-03-03] MEDS: busPIRone HCl 5 MG TAB PO SCH (08:26)
[2023-03-03] MEDS: TAMSULOSIN 0.4 MG CAP.ER.24H PO SCH (08:26)
--- NOTE | 2023-03-03 09:46 | CA ---
Transthoracic Echo Report Name: Wyatt Suarez Age: 73 Gender: M : 1950 Exam Date: 03/02/2023 13:46 Exam Location: [place] Echo Ht (in): 62 Wt (lb): 142 Ordering Physician: Jennifer Edouard Attending/Referring Phys: Javan EMANUEL [employer] Disposal Attendant Suzy Hopkins RDCS Procedure CPT: Indications: chf Cardiac Hx: Technical Quality: Fair Contrast 1: Total Dose (mL): Contrast 2: Total Dose (mL): MEASUREMENTS (Male / Female) Normal Values 2D ECHO LV Diastolic Diameter PLAX 4.6 cm 4.2 - 5.9 / 3.9 - 5.3 cm LV Systolic Diameter PLAX 3.3 cm IVS Diastolic Thickness 1.1 cm 0.6 - 1.0 / 0.6 - 0.9 cm LVPW Diastolic Thickness 1.1 cm 0.6 - 1.0 / 0.6 - 0.9 cm LV Relative Wall Thickness 0.5 RV Internal Dim ED PLAX 3.7 cm LA Volume 73.7 cm??? 18 - 58 / 22 - 52 cm??? M-MODE Aortic Root Diameter MM 2.9 cm LA Systolic Diameter MM 4.2 cm LA Ao Ratio MM 1.4 AV Cusp Separation MM 1.7 cm DOPPLER AV Peak Velocity 159.2 cm/s AV Peak Gradient 10.1 mmHg AV Mean Velocity 123.4 cm/s AV Mean Gradient 6.4 mmHg AV Velocity Time Integral 35.7 cm LVOT Peak Velocity 103.5 cm/s LVOT Peak Gradient 4.3 mmHg LVOT Velocity Time Integral 23.2 cm MV Area PHT 4.1 cm??? Mitral E Point Velocity 108.5 cm/s Mitral A Point Velocity 56.7 cm/s Mitral E to A Ratio 1.9 MV Deceleration Time 186.2 ms MV E' Velocity 11.3 cm/s Mitral E to MV E' Ratio 9.6 TR Peak Velocity 336.8 cm/s TR Peak Gradient 45.4 mmHg Right Ventricular Systolic Press 49.3 mmHg FINDINGS Left Ventricle Normal Left ventricular size, wall thickness, systolic function with no obvious regional wall motion abnormalities. Normal Left ventricular diastolic filling pattern. Left ventricular ejection fraction is estimated at 55-60 %. Right Ventricle Mild right ventricular dilatation. Mild pulmonary hypertension. Right ventricular systolic pressure estimated at 49 mm hg. Right Atrium Normal right atrial size. Left Atrium Moderately increased left atrial volume. Mildly increased left atrial area. Mildly increased left atrial area. Mitral Valve Structurally normal mitral valve. Mild mitral regurgitation. Aortic Valve Trileaflet aortic valve. No aortic valve stenosis or regurgitation. Tricuspid Valve Structurally normal tricuspid valve. Mild tricuspid regurgitation. Pulmonic Valve Structurally normal pulmonic valve. Pericardium No pericardial effusion. Aorta Normal size aortic root and proximal ascending aorta. CONCLUSIONS Normal LV size and systolic function. Mild to moderate pulmonary hypertension mild mitral and mild to moderate tricuspid regurgitation. No pericardial effusion Previewed by: Dr. Humble Bhatt MD (Electronically Signed) Final Date: 03 March 2023 09:45
[2023-03-03 09:59] LABS: African American GFR (CKD) 65 (>60 ml/min/1.73 sqM); Anion Gap 9 mmol/L; Blood Urea Nitrogen 23 mg/dL (9-20); Calcium 8.2 mg/dL (8.4-10.2); Carbon Dioxide 24 mmol/L (22-30); Chloride 100 mmol/L (98-107); Glucose 131 mg/dL (74-99); Non-African American GFR(CKD) 56 (>60 ml/min/1.73 sqM); Potassium 3.3 mmol/L (3.5-5.1); Sodium 133 mmol/L (137-145)
[2023-03-03 10:06] LABS: Anisocytosis Slight; HCT 23.9 % (39.0-53.0); HGB 7.6 gm/dL (13.0-17.5); Hypochromasia Slight; MCH 29.4 pg (25.0-35.0); MCHC 31.7 g/dL (31.0-37.0); MCV 92.6 fL (80.0-100.0); Macrocytosis Slight; Mean Platelet Volume 9.7; Platelet Count 141 k/uL (150-450); Poikilocytosis Slight; RBC 2.58 m/uL (4.30-5.90); RDW 19.4 % (11.5-15.5); WBC 6.3 k/uL (3.8-10.6)
[2023-03-03] MEDS ORDERED: POTASSIUM CHLORIDE ER 20 MEQ TAB.ER PO STA (10:22)
[2023-03-03] MEDS ORDERED: FUROSEMIDE 10 MG/ML 2 ML VIAL IV ONE (11:30)
--- NOTE | 2023-03-03 11:33 | XR ---
EXAMINATION TYPE: XR chest 2V DATE OF EXAM: 03/03/2023 COMPARISON: Chest x-ray 2 days ago and older studies HISTORY: Dyspnea. TECHNIQUE: Frontal and lateral views of the chest are obtained. FINDINGS: Metallic hardware from left shoulder surgery is redemonstrated. High positioned right tim ral head suggests chronic rotator cuff tear. Cardiac silhouette size is upper limits of normal. Retic ular increased markings bilaterally remain present greatest in the lower lungs. There is new small to tiny right pleural effusion. IMPRESSION: There is new small to tiny right pleural effusion. Stable reticular increased opacities bilaterally could reflect edema and/or atypical infiltrates greatest in the lower lungs.
[2023-03-03 11:52] VITALS: BP 101/51; PULSE 66; RESP 20; TEMP 98.1
[2023-03-03 12:43] LABS: Reticulocyte % 1.6 % (0.5-2.0)
--- NOTE | 2023-03-03 14:25 | P.DS ---
Providers Date of admission: 03/01/23 19:43 Attending physician: Aldo Beckham Consults: 03/02/23 11:10 Consult Physician Stat Consulting Provider: Frankie Valladares Consult Reason/Comments: acute on chronic anemia Do you want consulting provider notified?: Yes Primary care physician: Anderson Rojas [facility] Hospital Course: Final Diagnosis Exertional dyspnea improved likely from low hemoglobin and mild CHF Acute on chronic anemia with hemoglobin 6.0 on admission s/p 1 unit PRBC and hemoglobin now 7.6 Chronic anemia from myelodysplastic disorder Acute kidney injury improved with fluids Acute heart failure diastolic dysfunction, mild exacerbation and treated with IV lasix x 1. History of coronary artery disease History of hypertension History of hyperlipidemia Vascular dementia History of BPH maintained on flomax Gastroesophageal reflux disease History of depression GI prophylaxis DVT prophylaxis Mechanical Full Code Discharge Disposition Patient is cleared for discharge. Recommend close follow up with his PCP Dr. Rojas. Patient has been taken off the atenolol and started on low dose metoprolol. Patients blood pressure is low/normal recommend close monitoring of BP on discharge. Repeat CBC and BMP in 2 to 3 days. Hospital Course This is a 73 year old male who follows with Dr. Rojas in the primary care office, medical history of coronary artery disease, gerd, dementia, former smoker. Patient also has history of myelodysplastic disorder and chronic anemia. Patient follows with Dr Valladares outpatient. He has had issues recently with low hemoglobin. He is pursuing exploratory laboratory at [facility]. He presents with complaints of shortness of breath and fatigue states this has been ongoing and progressive over the last few months. Denies any source of bleeding, no bloody stool, hematemesis. Denies chest pain, no fever or chills. He was unable to ambulate from the kitchen to the doorway and his brought him to the for further evaluation. He has no prior history of heart failure. Patient was found to have hemoglobin of 6.0 on admission and was given 1 unit of blood and hemoglobin has improved now stable at 7.6. He does have an appointment Wednesday at [place] for initial consultation for the exploratory laporatomy. He was evaluated by hematology. He was hydrated and blood pressure improved. However he had evidence of mild vascular congestion on chest xray. Noted that on admission his BNP was found to be 5960. Echocardiogram done showing normal LV size and systolic function with mild to moderate pulmonary hypertension. Mild mitral and mild to moderate tricuspid regurgitation. No pericardial effusion. He was given a small dose of IV lasix and fluids stopped. He has maintained saturation on room air. Overall feeling better. Patient recommended to see his PCP in the office closely on discharge. 03/02/2023 Patient is evaluated today sitting up in bed with at bedside. No acute events overnight. He reports feeling better, more energy. His color looks better. He denies chest pain, denies shortness of breath. He was able to ambulate with PT and safe for DC home. He has some faint basilar crackles on exam earlier in the day, and IV fluids stopped. He has an appointment at [facility] on wednesday. He will be discharged home with above recommendations. Hemoglobin 7.6 today. Creatinine has improved to 1.25. Afebrile, heart rate 66, blood pressure 101/51, 95% on room air. Please see medication reconciliation for a list of current medication. Thank you for allowing us to participate in the care of this patient. The impression and plan of care has been dictated by Jennifer Edouard, Nurse Practitioner as directed. Dr. Bobbi MD I have performed a history and physical examination and medical decision making of this patient, discussed the same with the dictator, and agree with the dictators assessment and plan as written, documented as a scribe. Based on total visit time, I have performed more than 50% of this visit. Patient Condition at Discharge: Stable Plan - Discharge Summary New Discharge Prescriptions: New Metoprolol Tartrate [Lopressor] 12.5 mg PO DAILY #30 tab Continue Tamsulosin [Flomax] 0.4 mg PO BID busPIRone HCl [Buspar] 5 mg PO BID Multivitamins, Thera [Multivitamin (formulary)] 1 tab PO DAILY Cholecalciferol [Vitamin D3 (25 Mcg = 1000 Iu)] 50 mcg PO DAILY Omeprazole [PriLOSEC] 40 mg PO DAILY Vitamin B Complex 1 cap PO DAILY Sertraline [Zoloft] 100 mg PO HS Atorvastatin [Lipitor] 20 mg PO HS Donepezil [Aricept] 10 mg PO HS Zinc Gluconate [Zinc] 50 mg PO DAILY Discontinued atenoloL [Tenormin] 50 mg PO DAILY Discharge Medication List Tamsulosin [Flomax] 0.4 mg PO BID 10/19/19 [History] Cholecalciferol [Vitamin D3 (25 Mcg = 1000 Iu)] 50 mcg PO DAILY 04/04/21 [History] Omeprazole [PriLOSEC] 40 mg PO DAILY 04/04/21 [History] Vitamin B Complex 1 cap PO DAILY 04/04/21 [History] Sertraline [Zoloft] 100 mg PO HS 08/31/21 [History] busPIRone HCl [Buspar] 5 mg PO BID 03/06/22 [History] Atorvastatin [Lipitor] 20 mg PO HS 03/01/23 [History] Donepezil [Aricept] 10 mg PO HS 03/01/23 [History] Multivitamins, Thera [Multivitamin (formulary)] 1 tab PO DAILY 03/01/23 [History] Zinc Gluconate [Zinc] 50 mg PO DAILY 03/01/23 [History] Metoprolol Tartrate [Lopressor] 12.5 mg PO DAILY #30 tab 03/03/23 [Rx] Follow up Appointment(s)/Referral(s): Anderson Rojas MD [Primary Care Provider] - 1-2 days Frankie Valladares MD [Family Provider] - 1 Week Activity/Diet/Wound Care/Special Instructions: Make follow up with Dr. Rojas Recommend to follow up closely with Dr. Valladares Repeat labs in 2 to 3 days Discharge Disposition: HOME SELF-CARE
[2023-03-03 14:30] LABS: Band Neutrophils % 1 %; Eosinophils # (M) 0.38 k/uL (0-0.7); Lymphocytes # (M) 0.44 k/uL (1.0-4.8); Monocytes # (M) 0.69 k/uL (0-1.0); Myelocytes # (M) 0.13 k/uL (0); Myelocytes % 2 %; Neutrophils % (M) 74 %; Nucleated Red Blood Cells 0 /100 WBC (0-0); Total Cells Counted 200
[2023-03-03 17:03] LABS: % Iron Saturation 7.83 (15.00-50.00); Iron 22 ug/dL (65-175); Total Iron Binding Capacity 277 ug/dL (228-460)
--- NOTE | 2023-03-03 18:32 | P.CONS ---
History of Present Illness - Reason for Consult Consult date: 03/03/23 anemia Requesting physician: Jennifer Edouard - Chief Complaint fatigue - History of Present Illness Mister Suarez is a very pleasant 73-year-old male patient of Dr. Valladares who was initially seen for mild leukopenia and thrombocytopenia, persistent for several year. Initial workup on the patient was nondiagnostic, the findings were very mild and felt to be related to long history of EtOH use. In August 2018 he was referred back for anemia prior to surgery. His hemoglobin at that time was 10, MCV of 103 otherwise normal CBC. He had a colonoscopy revealed diverticulosis. He had no evidence of deficiency on workup. He tolerated his surgery fine. Patient continued to drink. Patient declined bone marrow biopsy and opted for observation. Documented that he stopped drinking about July 2020. 04/08/21 he had a bone marrow biopsy, this revealed trilineage dyspoiesis, 5% blasts, normal MDS FISH study. Patient was asymptomatic. He has continued on observa tion. Last seen in office September 2022, hemoglobin was 9.8 at that time, his hemoglobin typically ranges between 9.5-10.5. Anemia has more recently progressed. Had a colonoscopy in December, scope unable to be passed, biopsies were negative. Patient was unable to do barium due to rectal pain, virtual colonoscopy was negative. He had a CT CAP which his reports was negative. CEA was 2. Occult is negative. Patient has a small amount of stool every couple of hours so, he is still able to pass stool. He is due for an exploratory laparotomy this Wednesday. Patient is presenting to the hospital, c/o generalized fatigue, progressive over last few weeks, s/p 1 unit PRBCs on admit 03/01 with appropriate response. Review of Systems 10 point ROS is neg except as stated in HPI Past Medical History Past Medical History: Coronary Artery Disease (CAD), Cancer, Dementia, GERD/Reflux, Hyperlipidemia, Osteoarthritis (OA), Prostate Disorder Additional Past Medical History / Comment(s): mild cog.impairment, mild dysplagia Last Myocardial Infarction Date:: unknown History of Any Multi-Drug Resistant Organisms: None Reported Past Surgical History: Ear Surgery, Heart Catheterization, Hernia Repair, Orthopedic Surgery, Tonsillectomy Additional Past Surgical History / Comment(s): Left shoulder rotator cuff, knee arthroscopy Past Anesthesia/Blood Transfusion Reactions: Previous Problems w/ Anesthesia Additional Past Anesthesia/Blood Transfusion Reaction / Comm: PTS BLOOD PRESSURE HAS DROPPED IN THE PAST WHEN RECEIVING ANESTHESIA. Past Psychological History: Anxiety Smoking Status: Former smoker Past Alcohol Use History: None Reported Past Drug Use History: None Reported - Past Family History Sister(s) Family Medical History: Cancer Father Family Medical History: Coronary Artery Disease (CAD), CVA/TIA Additional Family Medical History / Comment(s): cardiac history stated by the patient. Brother(s) Family Medical History: Blood Disorder Additional Family Medical History / Comment(s): kidney transplant Son(s) Family Medical History: No Reported History Daughter(s) Family Medical History: No Reported History Mother Family Medical History: No Reported History, Cancer Additional Family Medical History / Comment(s): , of old age Medications and Allergies Home Medications Medication Instructions Recorded Confirmed Type Tamsulosin [Flomax] 0.4 mg PO BID 09/16/19 03/01/23 History Cholecalciferol [Vitamin D3 (25 50 mcg PO DAILY 04/04/21 03/01/23 History Mcg = 1000 Iu)] Omeprazole [PriLOSEC] 40 mg PO DAILY 04/04/21 03/01/23 History Vitamin B Complex 1 cap PO DAILY 04/04/21 03/01/23 History Sertraline [Zoloft] 100 mg PO HS 08/31/21 03/01/23 History busPIRone HCl [Buspar] 5 mg PO BID 03/06/22 03/01/23 History Atorvastatin [Lipitor] 20 mg PO HS 03/01/23 03/01/23 History Donepezil [Aricept] 10 mg PO HS 03/01/23 03/01/23 History Multivitamins, Thera [Multivitamin 1 tab PO DAILY 03/01/23 03/01/23 History (formulary)] Zinc Gluconate [Zinc] 50 mg PO DAILY 03/01/23 03/01/23 History Metoprolol Tartrate [Lopressor] 12.5 mg PO DAILY #30 tab 03/03/23 Rx Allergies Allergy/AdvReac Type Severity Reaction Status Date / Time nitroglycerin Allergy Severe pts heart Verified 03/01/23 19:29 stopped beating after given nitro Physical Exam Vitals: Vital Signs Temp Pulse Pulse Resp BP BP BP 03/03/23 08:00 97.6 F 63 18 109/64 03/03/23 04:00 98 F 72 16 03/03/23 01:25 74 16 03/03/23 00:00 74 16 102/78 03/02/23 20:00 98.4 F 71 70 16 124/70 03/02/23 15:55 98.2 F 78 19 120/58 03/02/23 13:02 21 03/02/23 11:58 98.1 F 71 24 100/50 03/02/23 11:35 24 03/02/23 10:08 92/51 103/53 03/02/23 09:02 97.8 F 71 16 103/53 03/02/23 09:01 97.8 F 71 16 103/53 Pulse Ox 03/03/23 08:00 94 L 03/03/23 04:00 95 03/03/23 01:25 03/03/23 00:00 94 L 03/02/23 20:00 95 03/02/23 15:55 93 L 03/02/23 13:02 03/02/23 11:58 93 L 03/02/23 11:35 03/02/23 10:08 03/02/23 09:02 96 03/02/23 09:01 96 Intake and Output 03/02/23 03/03/23 03/03/23 22:59 06:59 14:59 Intake Total 420 Output Total 40 Balance -40 420 Intake: Intake, IV Titration 300 Amount Sodium Chloride 0.9% 1, 300 000 ml @ 75 mls/hr IV . [id number] [facility] Rx#:[id number] Oral 120 Output: Urine 40 Other: Voiding Method Bedside Commode Bedside Commode Bedside Commode Urinal Urinal Urinal # Voids 1 3 # Bowel Movements 2 - Constitutional General appearance: average body habitus, cooperative, no acute distress - EENT Eyes: anicteric sclerae, EOMI ENT: hearing grossly normal, normal oropharynx - Neck Neck: no lymphadenopathy - Respiratory Respiratory: bilateral: CTA - Cardiovascular Rhythm: regular Heart sounds: normal: S1, S2 Abnormal Heart Sounds: no systolic murmur, no diastolic murmur, no rub, no S3 Gallop, no S4 Gallop, no click, no other leg Peripheral Edema: bilateral: None - Gastrointestinal General gastrointestinal: no absent bowel sounds, no decreased bowel sounds, no distended, no hepatomegaly, no hyperactive bowel sounds, normal bowel sounds, no organomegaly, no rigid, no scaphoid, soft, no splenomegaly, no tenderness, no umbilical hernia, no ventral hernia - Integumentary Integumentary: pale - Neurologic Neurologic: CNII-XII intact (grossly) - Musculoskeletal Musculoskeletal: strength equal bilaterally - Psychiatric Psychiatric: A&O x's 3, appropriate affect Results CBC & Chem 7: 03/03/23 08:37 03/03/23 08:37 Labs: Abnormal Lab Results - Last 24 Hours (Table) 03/02/23 03/02/23 Range/Units 06:32 06:32 Lymphocytes # (Manual) 0.19 L (1.0-4.8) k/uL Monocytes # (Manual) 1.22 H (0-1.0) k/uL Myelocytes # (Manual) 0.06 H (0) k/uL Procalcitonin 0.18 H (0.02-0.09) ng/mL Chest x-ray: report reviewed Assessment and Plan (1) Anemia Status: Chronic Priority: High Code(s): D64.9 - ANEMIA, UNSPECIFIED SNOMED Code(s): 831313395 Plan: Hx of MDS -no treatment has been required so far as patient is been mostly asymptomatic with only mild cytopenias (mostly anemia, occasionally has platelets will drop below normal level) Anemia -Anemia workup ordered. If iron deficient, we'll schedule patient for some parenteral iron in the office. We will contact him about this -He is sched for an exploratory laparotomy this Wednesday to further assess the colon mass. -From a Hem standpoint pt history of MDS does not supersede him having exp lap to get diagnosis from colon mass. -Surgeon performing exp laparotomy should transfuse patient to a hemoglobin that is satisfactory for them to do procedure. -Follow-up with Dr. Valladares is already scheduled. Patient may have to be referred back to Dr. Valladares sooner based on the findings of the exploratory laparotomy.
[2023-03-05 07:41] LABS: Methylmalonic Acid 0.34 umol/L (<0.40)
== END 2023-03-03 14:38 | disposition home or self-care (01) ==
LOC: EC 17:08 → 3SCARD 19:43
PROVIDERS: ADMIT Hospitalist; ATTEND Hospitalist
DX: D46.9 Myelodysplastic syndrome, unspecified (principal); N17.9 Acute kidney failure, unspecified; N40.0 Benign prostatic hyperplasia without lower urinary tract symptoms; F32.A Depression, unspecified; F01.50 Vascular dementia, unspecified severity, without behavioral disturbance, psychotic disturbance, mood disturbance, and anxiety; I11.0 Hypertensive heart disease with heart failure; I50.31 Acute diastolic (congestive) heart failure; I25.10 Atherosclerotic heart disease of native coronary artery without angina pectoris; K21.9 Gastro-esophageal reflux disease without esophagitis; E78.5 Hyperlipidemia, unspecified; F41.9 Anxiety disorder, unspecified; Z20.822 Contact with and (suspected) exposure to COVID-19; Z87.891 Personal history of nicotine dependence; Z79.899 Other long term (current) drug therapy
CPT/HCPCS: 96361; 96374; 99285; 36415; 94760; 93005; 93306; 97166; 86900; 86901; 83921; 82747; 83880; 80053; 80048 ×2; 84443; 82607; 82728; 82525; 83540; 83550; 84484; 85025 ×3; 85610; 85045; 85730; 86850; 86920; 82272; 82668; 84145; 87636; 71046 ×2; 36430; G0378 ×3; P9016; J1940

== ENCOUNTER 2023-03-08 12:12 | Inpatient (IN) | payer MEDICARE ==
[2023-03-08] MEDS ORDERED: ACETAMINOPHEN TAB 325 MG TAB PO STA (13:41)
[2023-03-08] MEDS ORDERED: SODIUM CHLORIDE 0.9% 1,000 ML IV STA (13:41)
[2023-03-08 14:12] LABS: Appearance,Urine Clear (Clear); Bilirubin,Urine Negative (Negative); Blood,Urine Negative (Negative); Color,Urine Yellow; Glucose,Urine (UA) Negative (Negative); Granular Casts,Urine 4 /lpf (0); Hyaline Casts,Urine 12 /lpf (0-2); Ketones,Urine Negative (Negative); Leukocyte Esterase,Urine Negative (Negative); Mucus,Urine Rare /hpf; Nitrite,Urine Negative (Negative); Protein,Urine 2+ (Negative); RBC,Urine 1 /hpf (0-5); Specific Gravity,Urine 1.017 (1.001-1.035); Squamous Epithelial Cell,Urine <1 /hpf (0-4); WBC,Urine 3 /hpf (0-5)
[2023-03-08 14:17] LABS: Anisocytosis Slight; Hypochromasia Slight; MCH 30.1 pg (25.0-35.0); MCHC 32.4 g/dL (31.0-37.0); MCV 92.8 fL (80.0-100.0); Macrocytosis Slight; Mean Platelet Volume 8.9; Platelet Count 133 k/uL (150-450); Poikilocytosis Slight; RBC 2.07 m/uL (4.30-5.90); RDW 18.9 % (11.5-15.5); WBC 6.2 k/uL (3.8-10.6)
[2023-03-08 14:19] LABS: HCT 19.2 % (39.0-53.0); HGB 6.2 gm/dL (13.0-17.5)
[2023-03-08 14:29] LABS: Albumin 2.9 g/dL (3.5-5.0); Calcium 7.8 mg/dL (8.4-10.2); Magnesium 1.9 mg/dL (1.6-2.3); Potassium 3.9 mmol/L (3.5-5.1); Total Bilirubin 0.5 mg/dL (0.2-1.3); Total Protein 5.1 g/dL (6.3-8.2)
[2023-03-08 14:30] LABS: INR 1.1 (<1.2); Partial Thromboplastin Time 27.4 sec (22.0-30.0); Prothrombin Time 11.8 sec (9.0-12.0)
--- NOTE | 2023-03-08 14:54 | XR ---
EXAMINATION TYPE: XR chest 2V DATE OF EXAM: 03/08/2023 COMPARISON: 03/03/2023 HISTORY: Shortness of breath TECHNIQUE: Frontal and lateral views of the chest are obtained. FINDINGS: Scattered senescent parenchymal changes noted. Hyperinflation compatible with COPD. Reticulonodular infiltrates persist particularly at the lung bases. Mild improvement noted at the rig ht midlung zone. There is also pulmonary venous congestion and interstitial prominence. Correlate cli nically Heart size is stable. Mediastinal structures are stable and grossly unremarkable. No evidence for hilar prominence. Degenerative changes dorsal spine. IMPRESSION: 1. Reticulonodular infiltrates persist particularly at the lung bases. Mild improvement noted at the right midlung zone. There is also pulmonary venous congestion and interstitial prominence. Correlate clinically
[2023-03-08 15:22] LABS: Band Neutrophils % 2 %; Eosinophils # (M) 0.06 k/uL (0-0.7); Monocytes # (M) 1.12 k/uL (0-1.0); Neutrophils % (M) 79 %; Nucleated Red Blood Cells 0 /100 WBC (0-0); Total Cells Counted 100
--- NOTE | 2023-03-08 16:19 | CT ---
EXAMINATION TYPE: CT angio abdomen pelvis DATE OF EXAM: 03/08/2023 COMPARISON: None INDICATION: rectal bleeding, GI bleed protocol DLP: 1507.1 mGycm, Automated exposure control for dose reduction was used. CONTRAST: 100 mL of Isovue 370. Study performed without Oral Contrast TECHNIQUE: Axial images were obtained from above the diaphragm to the pubic rami in the axial plane a t 5 mm thick sections. Reconstructed images are reviewed on the computer in the coronal plane. FINDINGS: Limited CT sections are obtained the lung bases. There is a 1.2 cm nodule along the periphery of the right lung. Series 501 image 16. Follow-up is recommended. Neoplasm is not excluded. Increased lung markings are diffusely present through the lung bases can be on the basis of pulmonar y fibrosis CT ABDOMEN: Liver: Normal Spleen: Enlarged. Measures 16.6 cm craniocaudal dimension. Normal less than 12.5 cm. Pancreas: Normal Adrenal glands: The adrenal glands are normal. Gallbladder: Normal Kidneys: No masses are evident. No hydronephrosis is present. No cysts are present. No renal stone s are evident. Aorta: Vascular calcification is within the aorta. Inferior vena cava: Normal. CT PELVIS: There is diffuse thickening through the sigmoid colon. Underlying neoplasm should be considered. Diff use thickening is within the rectum. Correlate for colitis. The study is lateral contrast limiting william wel evaluation. No suspicious dilated small bowel loops are evident. Appendix: Normal as visualized. Urinary bladder: Partially decompressed. Urinary bladder have mild wall thickening is related to the degree of distention. Genitourinary structures: Prostate is normal Osseous structures: No suspicious lytic or sclerotic lesions. IMPRESSIONS: 1. Diffusely thickened sigmoid colon. Underlying neoplasm should be considered. Additional workup is recommended. 2. Milder rectal wall thickening may be present. Correlate for colitis. 3. Pulmonary fibrosis at the lung bases. 4. Suspicious nodule right lung base. Neoplasm should be considered. Additional workup is recommended . 5. Splenomegaly
[2023-03-08] MEDS ORDERED: PANTOPRAZOLE 40 MG/10 ML VIAL IVP STA (16:26)
[2023-03-08] MEDS ORDERED: NALOXONE 0.4 MG/ML 1 ML VIAL IV PRN (16:26)
--- NOTE | 2023-03-08 17:46 | ED ---
General Adult HPI - General Chief complaint: Recheck/Abnormal Lab/Rx Stated complaint: Abn Labs, Sent by Time Seen by Provider: 03/08/23 13:31 Source: patient, family, RN notes reviewed, old records reviewed Mode of arrival: EMS Limitations: no limitations - History of Present Illness Initial comments: Patient is a 73-year-old male who presents emergency Department over concern for weakness. I evaluated the patient last week. Has a history of myelodysplastic syndrome, known mass in the sigmoid colon, dementia, as well as chronic anemia presents emergency Department with continued weakness. After receiving a 1 unit of blood transfer vision last week he was improving but over the last few days his worsening weakness. No obvious dark stools or bright red blood per rectum. No hematemesis. Denies chest pain or shortness of breath. Endorses low-grade fevers in the 99.5-100F range. Endorses suprapubic abdominal discomfort as well. No other acute complaints at this time. Presents for further evaluation at this time. Denies any nausea, vomiting, diarrhea. Is at his current baseline. Patient's is at bedside who assist with the history. - Related Data Home Medications Medication Instructions Recorded Confirmed Tamsulosin [Flomax] 0.4 mg PO BID 09/16/19 03/08/23 Cholecalciferol [Vitamin D3 (25 50 mcg PO DAILY 04/04/21 03/08/23 Mcg = 1000 Iu)] Omeprazole [PriLOSEC] 40 mg PO DAILY 04/04/21 03/08/23 Vitamin B Complex 1 cap PO DAILY 04/04/21 03/08/23 Sertraline [Zoloft] 100 mg PO HS 08/31/21 03/08/23 busPIRone HCl [Buspar] 5 mg PO BID 03/06/22 03/08/23 Atorvastatin [Lipitor] 20 mg PO HS 03/01/23 03/08/23 Donepezil [Aricept] 10 mg PO HS 03/01/23 03/08/23 Multivitamins, Thera [Multivitamin 1 tab PO DAILY 03/01/23 03/08/23 (formulary)] Zinc Gluconate [Zinc] 50 mg PO DAILY 03/01/23 03/08/23 Metoprolol Tartrate [Lopressor] 12.5 mg PO DAILY 03/08/23 03/08/23 Allergies Allergy/AdvReac Type Severity Reaction Status Date / Time nitroglycerin Allergy Severe pts heart Verified 03/08/23 14:04 stopped beating after given nitro Review of Systems ROS Statement: Those systems with pertinent positive or pertinent negative responses have been documented in the HPI. Review of Systems: CONST: Denies fever EYES: Denies blurry vision ENT: Denies nasal congestion C/V: Denies Chest pain RESP: Denies shortness of breath GI: Endorses abdominal pain : Denies dysuria SKIN: Denies rash. MSK: Denies joint pain. NEURO: Endorses weakness ROS Other: All systems not noted in ROS Statement are negative. Past Medical History Past Medical History: Coronary Artery Disease (CAD), Cancer, Dementia, GERD/Reflux, Hyperlipidemia, Osteoarthritis (OA), Prostate Disorder Additional Past Medical History / Comment(s): mild cog.impairment, mild dysplagia Last Myocardial Infarction Date:: unknown History of Any Multi-Drug Resistant Organisms: None Reported Past Surgical History: Ear Surgery, Heart Catheterization, Hernia Repair, Orthopedic Surgery, Tonsillectomy Additional Past Surgical History / Comment(s): Left shoulder rotator cuff, knee arthroscopy Past Anesthesia/Blood Transfusion Reactions: Previous Problems w/ Anesthesia Additional Past Anesthesia/Blood Transfusion Reaction / Comment(s): PTS BLOOD PRESSURE HAS DROPPED IN THE PAST WHEN RECEIVING ANESTHESIA. Past Psychological History: Anxiety Smoking Status: Former smoker Past Alcohol Use History: None Reported Past Drug Use History: None Reported - Past Family History Sister(s) Family Medical History: Cancer Father Family Medical History: Coronary Artery Disease (CAD), CVA/TIA Additional Family Medical History / Comment(s): cardiac history stated by the patient. Brother(s) Family Medical History: Blood Disorder Additional Family Medical History / Comment(s): kidney transplant Son(s) Family Medical History: No Reported History Daughter(s) Family Medical History: No Reported History Mother Family Medical History: No Reported History, Cancer Additional Family Medical History / Comment(s): , of old age General Exam - General Exam Comments Initial Comments: General: Appears in no acute distress. HEAD: Normal with no signs of head trauma. EYES: PERRLA, EOMI, conjunctiva normal, no discharge.. Conjunctiva pale bilaterally ENT: Hearing grossly intact, normal oropharynx. RESPIRATORY: Clear breath sounds bilaterally. No wheezes, rales, or rhonchi. C/V: Regular rate and rhythm. S1 and S2 auscultated, no edema, peripheral pulses 2+ and intact throughout ABD: Abdomen is soft, nondistended. Mild tenderness to palpation in the suprapubic region. No guarding. No peritoneal signs. No rebound tenderness. Rectal exam negative for any gross blood. Good rectal tone. Occult sent. EXT: Normal range of motion, no obvious deformity SKIN: No rashes or lesions observed on exposed skin. NEURO: Alert and oriented x 2-3 which is his baseline. No focal deficits. Limitations: no limitations Course Vital Signs 03/08/23 03/08/23 03/08/23 12:49 13:15 15:14 Temperature 99.6 F 98.7 F Pulse Rate 88 84 85 Respiratory 18 18 17 Rate Blood Pressure 104/65 108/60 O2 Sat by Pulse 98 95 95 Oximetry 03/08/23 03/08/23 03/08/23 16:23 16:35 16:55 Temperature 98.3 F 98 F 97.8 F Pulse Rate 90 91 86 Respiratory 18 17 17 Rate Blood Pressure 95/60 99/61 109/67 O2 Sat by Pulse 94 L 94 L Oximetry Medical Decision Making - Medical Decision Making Was pt. sent in by a medical professional or institution (, PA, CARDIO CLINICIAN, urgent care, hospital, or [place] health care facility...) When possible be specific @ -No Did you speak to anyone other than the patient for history (EMS, parent, family, police, friend...)? What history was obtained from this source @ -Patient's was at bedside and assists in the history. Did you review nursing and triage notes (agree or disagree)? Why? @ -I reviewed and agree with nursing and triage notes Were old charts reviewed (outside hosp., previous admission, EMS record, old EKG, old radiological studies, urgent care reports/EKG's, [place] health care facility records)? Report findings @ -Charts reviewed from February 2023 Differential Diagnosis (chest pain, altered mental status, abdominal pain women, abdominal pain men, vaginal bleeding, weakness, fever, dyspnea, syncope, headache, dizziness, GI bleed, back pain, seizure, CVA, palpatations, mental health, musculoskeletal)? @ -Symptomatic anemia, UTI, intra-abdominal process, metastatic disease, infection, this list is not all-inclusive. EKG interpreted by me (3pts min.). @ -As above X-rays interpreted by me (1pt min.). @ -Chest x-ray reveals no obvious acute cardiopulmonary process. CT interpreted by me (1pt min.). @ -CT abdomen and pelvis reveals no evidence of GI bleed. Patient does have the thickened sigmoid colon with concerning for neoplasm which is known. There is also fibrosis of the lung bases as well as nodules in the right lung which could be neoplasm as well. U/S interpreted by me (1pt. min.). @ -None done What testing was considered but not performed or refused? (CT, X-rays, U/S, labs)? Why? @ -None What meds were considered but not given or refused? Why? @ -None Did you discuss the management of the patient with other professionals (professionals i.e. , PA, CARDIO CLINICIAN, lab, RT, psych nurse, social media campaign manager, women's lacrosse coach, teacher, consular officer, case monitor)? Give summary @ -Discussed with the admitting physician Dr. Anna who accepted the patient Was smoking cessation discussed for >3mins.? @ -No Was critical care preformed (if so, how long)? @ -No Were there social determinants of health that impacted care today? How? (Homelessness, low income, unemployed, alcoholism, drug addiction, transportation, low edu. Level, literacy, decrease access to med. care, shelter, rehab)? @ -No Was there de-escalation of care discussed even if they declined (Discuss DNR or withdrawal of care, Hospice)? DNR status @ -No What co-morbidities impacted this encounter? (DM, HTN, Smoking, COPD, CAD, Cancer, CVA, ARF, Chemo, Hep., AIDS, mental health diagnosis, sleep apnea, morbid obesity)? @ -mDS, malignancy, chronic anemia Was patient admitted / discharged? Hospital course, mention meds given and route, prescriptions, significant lab abnormalities, going to OR and other pertinent info. @ -Based on the patient's presentation and physical exam, there is concern for was likely acute on chronic symptomatic anemia in the setting of malignancy and myelodysplastic syndrome. We will obtain CT imaging of the abdomen and pelvis as well as chest x-ray and basic labs. Family was in agreement with this plan. Patient is anemic once again at 6.2. Occult blood is negative. Rectal exam otherwise unremarkable. His chronic thrombocytopenia with attempted with 133. Remainder of the labs are within acceptable limits. Imaging unremarkable for acute processes. CT does show signs concerning for malignancy in the sigmoid colon as well as lung. EKG showed no signs of acute ischemia. Patient has the known mass in the sigmoid colon and is following up for it on an outpatient setting. Reevaluation come patient is transfused a 1 unit of packed red blood cells. He is feeling improved. However we did discuss his results and I would like to admit him once again for observation. He was in agreement this plan. We will repeat CBC tomorrow. Vital signs remained within acceptable limits. Patient's oncologist will be consulted, Dr. Valladares. I spoke with the admitting physician, Dr. nAna who accepted the patient. He was in agreement with the above plan. Undiagnosed new problem with uncertain prognosis? @ -No Drug Therapy requiring intensive monitoring for toxicity (Heparin, Nitro, Insulin, Cardizem)? @ -No Were any procedures done? @ -No Diagnosis/symptom? @ -Symptomatic anemia setting of myelodysplastic syndrome and suspected malignancy Acute, or Chronic, or Acute on Chronic? @ -Acute on chronic Uncomplicated (without systemic symptoms) or Complicated (systemic symptoms)? @ -Complicated Side effects of treatment? @ -No Exacerbation, Progression, or Severe Exacerbation? @ -No Poses a threat to life or bodily function? How? (Chest pain, [place], [place], pneumonia, PE, COPD, DKA, ARF, appy, cholecystitis, CVA, Diverticulitis, Homicidal, Suicidal, threat to staff... and all critical care pts) @ -Yes - Lab Data Result diagrams: 03/08/23 14:09 03/08/23 14:09 Lab Results 03/08/23 03/08/23 03/08/23 Range/Units 13:53 14:09 14:09 WBC 6.2 (3.8-10.6) k/uL RBC 2.07 L (4.30-5.90) m/uL Hgb 6.2 L* (13.0-17.5) gm/dL Hct 19.2 L* (39.0-53.0) % MCV 92.8 (80.0-100.0) fL MCH 30.1 (25.0-35.0) pg MCHC 32.4 (31.0-37.0) g/dL RDW 18.9 H (11.5-15.5) % Plt Count 133 L (150-450) k/uL MPV 8.9 Neutrophils % CARDIO CLINICIAN Neutrophils % (Manual) 79 % Band Neuts % (Manual) 2 % Lymphocytes % CARDIO CLINICIAN Monocytes % CARDIO CLINICIAN Monocytes % (Manual) 18 % Eosinophils % CARDIO CLINICIAN Eosinophils % (Manual) 1 % Basophils % CARDIO CLINICIAN Neutrophils # CARDIO CLINICIAN Neutrophils # (Manual) 5.00 (1.3-7.7) k/uL Lymphocytes # CARDIO CLINICIAN Monocytes # CARDIO CLINICIAN Monocytes # (Manual) 1.12 H (0-1.0) k/uL Eosinophils # CARDIO CLINICIAN Eosinophils # (Manual) 0.06 (0-0.7) k/uL Basophils # CARDIO CLINICIAN Nucleated RBCs 0 (0-0) /100 WBC Manual Slide Review Performed Hypochromasia Slight Poikilocytosis Slight Anisocytosis Slight Macrocytosis Slight PT 11.8 (9.0-12.0) sec INR 1.1 (<1.2) APTT 27.4 (22.0-30.0) sec Sodium (137-145) mmol/L Potassium (3.5-5.1) mmol/L Chloride (98-107) mmol/L Carbon Dioxide (22-30) mmol/L Anion Gap mmol/L BUN (9-20) mg/dL Creatinine (0.66-1.25) mg/dL Est GFR (CKD-EPI)AfAm (>60 ml/min/1.73 sqM) Est GFR (CKD-EPI)NonAf (>60 ml/min/1.73 sqM) Glucose (74-99) mg/dL Plasma Lactic Acid Yuri (0.7-2.0) mmol/L Calcium (8.4-10.2) mg/dL Magnesium (1.6-2.3) mg/dL Total Bilirubin (0.2-1.3) mg/dL AST (17-59) U/L ALT (4-49) U/L Alkaline Phosphatase (38-126) U/L Troponin I (0.000-0.034) ng/mL Total Protein (6.3-8.2) g/dL Albumin (3.5-5.0) g/dL Urine Color Yellow Urine Appearance Clear (Clear) Urine pH 7.0 (5.0-8.0) Ur Specific [place] 1.017 (1.001-1.035) Urine Protein 2+ H (Negative) Urine Glucose (UA) Negative (Negative) Urine Ketones Negative (Negative) Urine Blood Negative (Negative) Urine Nitrite Negative (Negative) Urine Bilirubin Negative (Negative) Urine Urobilinogen 2.0 (<2.0) mg/dL Ur Leukocyte Esterase Negative (Negative) Urine RBC 1 (0-5) /hpf Urine WBC 3 (0-5) /hpf Ur Squamous Epith Cells <1 (0-4) /hpf Hyaline Casts 12 H (0-2) /lpf Granular Casts 4 (0) /lpf Urine Mucus Rare H (None) /hpf Stool Occult Blood (Negative) Influenza Type A (PCR) (Not Detectd) Influenza Type B (PCR) (Not Detectd) RSV (PCR) (Not Detectd) SARS-CoV-2 (PCR) (Not Detectd) Blood Type Blood Type Recheck Bld Type Recheck Status Antibody Screen Crossmatch Spec Expiration Date 03/08/23 03/08/23 03/08/23 Range/Units 14:09 14:09 14:09 WBC (3.8-10.6) k/uL RBC (4.30-5.90) m/uL Hgb (13.0-17.5) gm/dL Hct (39.0-53.0) % MCV (80.0-100.0) fL MCH (25.0-35.0) pg MCHC (31.0-37.0) g/dL RDW (11.5-15.5) % Plt Count (150-450) k/uL MPV Neutrophils % Neutrophils % (Manual) % Band Neuts % (Manual) % Lymphocytes % Monocytes % Monocytes % (Manual) % Eosinophils % Eosinophils % (Manual) % Basophils % Neutrophils # Neutrophils # (Manual) (1.3-7.7) k/uL Lymphocytes # Monocytes # Monocytes # (Manual) (0-1.0) k/uL Eosinophils # Eosinophils # (Manual) (0-0.7) k/uL Basophils # Nucleated RBCs (0-0) /100 WBC Manual Slide Review Hypochromasia Poikilocytosis Anisocytosis Macrocytosis PT (9.0-12.0) sec INR (<1.2) APTT (22.0-30.0) sec Sodium 131 L (137-145) mmol/L Potassium 3.9 (3.5-5.1) mmol/L Chloride 100 (98-107) mmol/L Carbon Dioxide 25 (22-30) mmol/L Anion Gap 6 mmol/L BUN 21 H (9-20) mg/dL Creatinine 1.06 (0.66-1.25) mg/dL Est GFR (CKD-EPI)AfAm 80 (>60 ml/min/1.73 sqM) Est GFR (CKD-EPI)NonAf 69 (>60 ml/min/1.73 sqM) Glucose 93 (74-99) mg/dL Plasma Lactic Acid Yuri 1.0 (0.7-2.0) mmol/L Calcium 7.8 L (8.4-10.2) mg/dL Magnesium 1.9 (1.6-2.3) mg/dL Total Bilirubin 0.5 (0.2-1.3) mg/dL AST 44 (17-59) U/L ALT 69 H (4-49) U/L Alkaline Phosphatase 90 (38-126) U/L Troponin I <0.012 (0.000-0.034) ng/mL Total Protein 5.1 L (6.3-8.2) g/dL Albumin 2.9 L (3.5-5.0) g/dL Urine Color Urine Appearance (Clear) Urine pH (5.0-8.0) Ur Specific [place] (1.001-1.035) Urine Protein (Negative) Urine Glucose (UA) (Negative) Urine Ketones (Negative) Urine Blood (Negative) Urine Nitrite (Negative) Urine Bilirubin (Negative) Urine Urobilinogen (<2.0) mg/dL Ur Leukocyte Esterase (Negative) Urine RBC (0-5) /hpf Urine WBC (0-5) /hpf Ur Squamous Epith Cells (0-4) /hpf Hyaline Casts (0-2) /lpf Granular Casts (0) /lpf Urine Mucus (None) /hpf Stool Occult Blood (Negative) Influenza Type A (PCR) (Not Detectd) Influenza Type B (PCR) (Not Detectd) RSV (PCR) (Not Detectd) SARS-CoV-2 (PCR) (Not Detectd) Blood Type Blood Type Recheck Bld Type Recheck Status Antibody Screen Crossmatch Spec Expiration Date 03/08/23 03/08/23 03/08/23 Range/Units 14:09 14:13 14:15 WBC (3.8-10.6) k/uL RBC (4.30-5.90) m/uL Hgb (13.0-17.5) gm/dL Hct (39.0-53.0) % MCV (80.0-100.0) fL MCH (25.0-35.0) pg MCHC (31.0-37.0) g/dL RDW (11.5-15.5) % Plt Count (150-450) k/uL MPV Neutrophils % Neutrophils % (Manual) % Band Neuts % (Manual) % Lymphocytes % Monocytes % Monocytes % (Manual) % Eosinophils % Eosinophils % (Manual) % Basophils % Neutrophils # Neutrophils # (Manual) (1.3-7.7) k/uL Lymphocytes # Monocytes # Monocytes # (Manual) (0-1.0) k/uL Eosinophils # Eosinophils # (Manual) (0-0.7) k/uL Basophils # Nucleated RBCs (0-0) /100 WBC Manual Slide Review Hypochromasia Poikilocytosis Anisocytosis Macrocytosis PT (9.0-12.0) sec INR (<1.2) APTT (22.0-30.0) sec Sodium (137-145) mmol/L Potassium (3.5-5.1) mmol/L Chloride (98-107) mmol/L Carbon Dioxide (22-30) mmol/L Anion Gap mmol/L BUN (9-20) mg/dL Creatinine (0.66-1.25) mg/dL Est GFR (CKD-EPI)AfAm (>60 ml/min/1.73 sqM) Est GFR (CKD-EPI)NonAf (>60 ml/min/1.73 sqM) Glucose (74-99) mg/dL Plasma Lactic Acid Yuri (0.7-2.0) mmol/L Calcium (8.4-10.2) mg/dL Magnesium (1.6-2.3) mg/dL Total Bilirubin (0.2-1.3) mg/dL AST (17-59) U/L ALT (4-49) U/L Alkaline Phosphatase (38-126) U/L Troponin I (0.000-0.034) ng/mL Total Protein (6.3-8.2) g/dL Albumin (3.5-5.0) g/dL Urine Color Urine Appearance (Clear) Urine pH (5.0-8.0) Ur Specific [place] (1.001-1.035) Urine Protein (Negative) Urine Glucose (UA) (Negative) Urine Ketones (Negative) Urine Blood (Negative) Urine Nitrite (Negative) Urine Bilirubin (Negative) Urine Urobilinogen (<2.0) mg/dL Ur Leukocyte Esterase (Negative) Urine RBC (0-5) /hpf Urine WBC (0-5) /hpf Ur Squamous Epith Cells (0-4) /hpf Hyaline Casts (0-2) /lpf Granular Casts (0) /lpf Urine Mucus (None) /hpf Stool Occult Blood Negative (Negative) Influenza Type A (PCR) Not Detected (Not Detectd) Influenza Type B (PCR) Not Detected (Not Detectd) RSV (PCR) Not Detected (Not Detectd) SARS-CoV-2 (PCR) Not Detected (Not Detectd) Blood Type O Positive Blood Type Recheck O Pos Bld Type Recheck Status No Antibody Screen NEGATIVE Crossmatch See Detail Spec Expiration Date 03/11/20232308 - EKG Data -: EKG Interpreted by Me EKG Comments: 12-lead Electrocardiogram Interpretation Note EKG was reviewed and interpreted by myself. 12-lead ECG performed at 1424 is interpreted by me as revealing normal sinus rhythm at a rate of 90 beats per minute. [place] is normal. ID interval is 141 ms, QRS duration 74 ms, QTc is 419 ms.. There were no ST or T wave abnormalities to suggest myocardial ischemia or injury. R wave progression across the precordium was satisfactory. By my interpretation this EKG is non-diagnostic for acute ischemia. Disposition Clinical Impression: Symptomatic anemia, Myelodysplastic disease, Malignancy, Dementia, Chronic anemia Disposition: ADMITTED IP TO THIS [facility] Condition: Serious Referrals: Anderson Rojas MD [Primary Care Provider] - 1-2 days Time of Disposition: 16:15
[2023-03-08] MEDS: busPIRone HCl 5 MG TAB PO SCH (20:17)
[2023-03-08] MEDS: TAMSULOSIN 0.4 MG CAP.ER.24H PO SCH (20:17)
[2023-03-08] MEDS ORDERED: ATORVASTATIN 20 MG TAB PO SCH (21:00)
[2023-03-08] MEDS ORDERED: SERTRALINE 100 MG TAB PO SCH (21:00)
[2023-03-08] MEDS ORDERED: DONEPEZIL 10 MG TAB PO SCH (21:00)
[2023-03-09] MEDS ORDERED: PANTOPRAZOLE 40 MG TABLET PO SCH (07:30)
[2023-03-09] MEDS ORDERED: METOPROLOL TARTRATE 12.5 MG TAB PO SCH (09:00)
[2023-03-09] MEDS: busPIRone HCl 5 MG TAB PO SCH (09:03)
[2023-03-09] MEDS: TAMSULOSIN 0.4 MG CAP.ER.24H PO SCH (09:03)
[2023-03-09] MEDS ORDERED: DARBEPOETIN ALFA 40 MCG/0.4 ML SYRINGE SQ SCH (11:00)
[2023-03-09] MEDS ORDERED: SODIUM FERRIC GLUCONAT-SUCROSE 125 MG in SODIUM CHLORIDE 0.9% 100 ML IVPB SCH (11:00)
--- NOTE | 2023-03-09 11:04 | P.CONS ---
History of Present Illness - Reason for Consult Consult date: 03/09/23 MDS Requesting physician: Yoni Haile - Chief Complaint weak - History of Present Illness Mr Suarez is a very pleasant 73-year-old male patient of Dr. Valladares with a past medical history of dementia, MDS, colon mass, chronic, progressive anemia, BPH, GERD, hypertension, hyperlipidemia. Was initially seen for mild leukopenia and thrombocytopenia, persistent for several years. Initial workup on the patient was nondiagnostic, the findings were very mild and felt to be related to long history of EtOH use. In August 2018 he was referred back for anemia prior to surgery. His hemoglobin at that time was 10, MCV of 103 otherwise normal CBC. He had a colonoscopy revealed diverticulosis. He had no evidence of deficiency on workup. Patient continued to drink. Patient declined bone marrow biopsy and opted for observation. Documented that he stopped drinking about July 2020. 04/08/21 he had a bone marrow biopsy, this revealed trilineage dyspoiesis, 5% blasts, normal MDS FISH study. Patient was asymptomatic. He has continued on observation. Last seen in office September 2022, hemoglobin was 9.8 at that time, his hemoglobin typically ranges between 9.5-10.5. Anemia has more recently progressed. Had a colonoscopy in December, scope unable to be passed, biopsies were negative. Patient was unable to do barium due to rectal pain, virtual colonoscopy was negative. He had a CT CAP which his reports was negative. CEA was 2. Occult was negative. Patient has a small amount of stool every couple of hours so, he was still able to pass stool. He had exploratory laparotomy, and is now scheduled for surgery at [facility] at the end of the month. He was admitted about 2 weeks ago for fatigue and progressive weakness, he received a unit of blood with an appropriate response was discharged. Patient is again admitted for progressive weakness, hemoglobin 6.2 on admit, status post 1 unit of PRBCs, pending CBC today. Patient's reports that he couldn't even walk. When asked, patient states is feeling pretty good. Stool is negative for occult, flu and coated were negative. Patient is having some suprapubic abdominal discomfort, no nausea, vomiting, chest pain, difficulty breathing, he is still passing small amounts of stool, no black or bloody stool. Review of Systems 10 point review of systems is negative except as stated in HPI. his appetite bedside assisting with the history. Past Medical History Past Medical History: Coronary Artery Disease (CAD), Cancer, Dementia, GERD/Reflux, Hyperlipidemia, Osteoarthritis (OA), Prostate Disorder Additional Past Medical History / Comment(s): mild cog.impairment-short term memory loss, mild dysphagia, anemia, MDS Last Myocardial Infarction Date:: unknown History of Any Multi-Drug Resistant Organisms: None Reported Past Surgical History: Ear Surgery, Heart Catheterization, Hernia Repair, Orthopedic Surgery, Tonsillectomy Additional Past Surgical History / Comment(s): Left shoulder rotator cuff, knee arthroscopy Past Anesthesia/Blood Transfusion Reactions: Previous Problems w/ Anesthesia Additional Past Anesthesia/Blood Transfusion Reaction / Comm: PTS BLOOD PRESSURE HAS DROPPED IN THE PAST WHEN RECEIVING ANESTHESIA. Past Psychological History: Anxiety Smoking Status: Former smoker Past Alcohol Use History: None Reported Additional Past Alcohol Use History / Comment(s): smoked 1 pack weekly ,quit at 21 yrs old. used to be an excessive alcohol consumer. totally quit drinking 2 years ago. Past Drug Use History: None Reported - Past Family History Sister(s) Family Medical History: Cancer Father Family Medical History: Coronary Artery Disease (CAD), CVA/TIA Additional Family Medical History / Comment(s): cardiac history stated by the patient. Brother(s) Family Medical History: Blood Disorder Additional Family Medical History / Comment(s): kidney transplant Son(s) Family Medical History: No Reported History Daughter(s) Family Medical History: No Reported History Mother Family Medical History: No Reported History, Cancer Additional Family Medical History / Comment(s): , of old age Medications and Allergies Home Medications Medication Instructions Recorded Confirmed Type Tamsulosin [Flomax] 0.4 mg PO BID 09/16/19 03/08/23 History Cholecalciferol [Vitamin D3 (25 50 mcg PO DAILY 04/04/21 03/08/23 History Mcg = 1000 Iu)] Omeprazole [PriLOSEC] 40 mg PO DAILY 04/04/21 03/08/23 History Vitamin B Complex 1 cap PO DAILY 04/04/21 03/08/23 History Sertraline [Zoloft] 100 mg PO HS 08/31/21 03/08/23 History busPIRone HCl [Buspar] 5 mg PO BID 03/06/22 03/08/23 History Atorvastatin [Lipitor] 20 mg PO HS 03/01/23 03/08/23 History Donepezil [Aricept] 10 mg PO HS 03/01/23 03/08/23 History Multivitamins, Thera [Multivitamin 1 tab PO DAILY 03/01/23 03/08/23 History (formulary)] Zinc Gluconate [Zinc] 50 mg PO DAILY 03/01/23 03/08/23 History Metoprolol Tartrate [Lopressor] 12.5 mg PO DAILY 03/08/23 03/08/23 History Allergies Allergy/AdvReac Type Severity Reaction Status Date / Time nitroglycerin Allergy Severe pts heart Verified 03/08/23 14:04 stopped beating after given nitro Physical Exam Vitals: Vital Signs Temp Pulse Pulse Resp BP BP Pulse Ox 03/09/23 08:00 97.6 F 79 16 114/66 98 03/09/23 02:00 97.8 F 71 16 126/71 97 03/08/23 20:07 98.7 F 82 16 110/88 96 03/08/23 20:00 98.9 F 75 16 122/68 97 03/08/23 18:02 97.9 F 84 17 110/56 96 03/08/23 16:55 97.8 F 86 17 109/67 94 L 03/08/23 16:35 98 F 91 17 99/61 94 L 03/08/23 16:23 98.3 F 90 18 95/60 03/08/23 15:14 98.7 F 85 17 95 03/08/23 13:15 84 18 108/60 95 03/08/23 12:49 99.6 F 88 18 104/65 98 Intake and Output 03/08/23 03/09/23 03/09/23 22:59 06:59 14:59 Intake Total 1140 590 Balance 1140 590 Intake: Oral 830 590 Blood Product 310 Rc As-1 Unit 310 [id number] Other: # Voids 2 Weight 55.792 kg - Constitutional General appearance: average body habitus, cooperative, no acute distress - EENT Eyes: anicteric sclerae, EOMI ENT: hearing grossly normal - Respiratory Respiratory: bilateral: CTA - Cardiovascular Rhythm: regular Heart sounds: normal: S1, S2 Abnormal Heart Sounds: no systolic murmur, no diastolic murmur, no rub, no S3 Gallop, no S4 Gallop, no click, no other leg Peripheral Edema: bilateral: None - Gastrointestinal General gastrointestinal: no absent bowel sounds, no decreased bowel sounds, no distended, no hepatomegaly, no hyperactive bowel sounds, normal bowel sounds, no organomegaly, no rigid, no scaphoid, soft, no splenomegaly, no tenderness, no umbilical hernia, no ventral hernia - Integumentary Integumentary: pale - Neurologic Neurologic: CNII-XII intact - Musculoskeletal Musculoskeletal: strength equal bilaterally - Psychiatric Psychiatric: A&O x's 3, appropriate affect Results CBC & Chem 7: 03/08/23 14:09 03/08/23 14:09 Labs: Abnormal Lab Results - Last 24 Hours (Table) 03/08/23 03/08/23 03/08/23 Range/Units 13:53 14:09 14:09 RBC 2.07 L (4.30-5.90) m/uL Hgb 6.2 L* (13.0-17.5) gm/dL Hct 19.2 L* (39.0-53.0) % RDW 18.9 H (11.5-15.5) % Plt Count 133 L (150-450) k/uL Monocytes # (Manual) 1.12 H (0-1.0) k/uL Sodium 131 L (137-145) mmol/L BUN 21 H (9-20) mg/dL Calcium 7.8 L (8.4-10.2) mg/dL ALT 69 H (4-49) U/L Total Protein 5.1 L (6.3-8.2) g/dL Albumin 2.9 L (3.5-5.0) g/dL Urine Protein 2+ H (Negative) Hyaline Casts 12 H (0-2) /lpf Urine Mucus Rare H (None) /hpf Crossmatch 03/08/23 Range/Units 14:09 RBC (4.30-5.90) m/uL Hgb (13.0-17.5) gm/dL Hct (39.0-53.0) % RDW (11.5-15.5) % Plt Count (150-450) k/uL Monocytes # (Manual) (0-1.0) k/uL Sodium (137-145) mmol/L BUN (9-20) mg/dL Calcium (8.4-10.2) mg/dL ALT (4-49) U/L Total Protein (6.3-8.2) g/dL Albumin (3.5-5.0) g/dL Urine Protein (Negative) Hyaline Casts (0-2) /lpf Urine Mucus (None) /hpf Crossmatch See Detail Chest x-ray: report reviewed CT scan - abdomen: report reviewed CT scan - pelvis: report reviewed Assessment and Plan (1) Symptomatic anemia Current Visit: Yes Status: Acute Priority: High Code(s): D64.9 - ANEMIA, UNSPECIFIED SNOMED Code(s): 558604550 (2) Myelodysplastic disease Current Visit: Yes Status: Chronic Priority: Medium Code(s): C94.6 - MYELODYSPLASTIC DISEASE, NOT ELSEWHERE CLASSIFIED SNOMED Code(s): 074948495 (3) Colonic mass Current Visit: Yes Status: Acute Priority: High Code(s): K63.89 - OTHER SPECIFIED DISEASES OF INTESTINE SNOMED Code(s): 594593974 Plan: Symptomatic anemia -Dr. Yepez discussed with the patient and his that his anemia at baseline from MDS-hemoglobin running 9-10 range-likely exacerbated by blood loss is from colon mass. With chronic, small amounts of blood loss and MDS, bone marrow is not able to make up for the additional loss of blood. -Iron studies reviewed. Parenteral iron ordered. -Aranesp ordered for MDS anemia. Will check with insurance to see if patient can receive EPO in the outpatient setting weekly until surgery and after his scheduled colon surgery at the end of the month. Hope to prevent need for transfusions. MDS -Cannot be absolutely certain if patient's additional drop in hemoglobin is from progression of MDS or from colon mass. More likely, additional drop in hemoglobin is due to blood loss from the colon mass as patient's other blood counts have remained at their baseline. Will treat patient with parenteral iron and epo. Patient will follow-up after surgery and see if hemoglobin is remaining stable. If not, we'll consider bone marrow biopsy and aspirate at that time. Colon mass -Known. Scheduled for surgery at the end of the month. Patient is still able to pass stool. No gross bleeding per the . Nothing additional at this time. Doctor attests: I performed a history and physical examination of this patient, developed impression and plan of care. Discussed with dictator. I agree with dictators note, documented as a scribe.
[2023-03-09 11:17] LABS: HGB 7.7 g/dL (13.0-17.0); MCH 28.8 pg (27.0-32.0); MCHC 30.8 g/dL (32.0-37.0); MCV 93.6 fL (80.0-97.0); Mean Platelet Volume 10.5 fL (9.5-12.2); NRBC Per 100 WBC 0 /100 WBCS (0.0-0.0); Platelet Count 126 X 10*3/uL (140-440); RBC 2.67 X 10*6/uL (4.40-5.60); RDW 20.2 % (11.5-14.5); WBC 7.23 X 10*3/uL (4.50-10.00)
[2023-03-09 11:25] LABS: African American GFR (CKD) 68.1 (60.0-200.0); Anion Gap 10.3 mmol/L (10.00-18.00); BUN/Creat Ratio 14.42 Ratio (12.00-20.00); Blood Urea Nitrogen 17.3 mg/dL (9.0-27.0); Calcium 8.5 mg/dL (8.7-10.3); Carbon Dioxide 22.7 mmol/L (20.0-27.5); Non-African American GFR(CKD) 58.8 (60.0-200.0); Potassium 4.1 mmol/L (3.5-5.5)
[2023-03-09 12:44] LABS: Anisocytosis (M) 2+; Basophils # (A) 0.01 X 10*3/uL (0.00-0.10); Basophils % (A) 0.1 %; Eosinophils # (A) 0.07 X 10*3/uL (0.04-0.35); Immature Grans, Automated 4.4 %; Lymphocytes # (A) 0.28 X 10*3/uL (0.90-5.00); Lymphocytes % (A) 3.9 %; Monocytes # (A) 1.76 X 10*3/uL (0.20-1.00); Monocytes % (A) 24.3 %; Neutrophils # (A) 4.79 X 10*3/uL (1.80-7.70); Neutrophils % (A) 66.3 %
[2023-03-09 13:07] VITALS: RESP 18
[2023-03-09 13:26] VITALS: BP 96/54; PULSE 58; TEMP 96.4
== END 2023-03-09 18:45 | disposition home or self-care (01) | DRG 379 ==
LOC: EC 12:12 → 5NMEDONC 16:26
PROVIDERS: ADMIT Internal Medicine; ATTEND Internal Medicine
PROC: 30233N1 Transfusion of Nonautologous Red Blood Cells into Peripheral Vein, Percutaneous Approach (ICD-10-PCS; principal; 2023-03-08)
DX: K57.31 Diverticulosis of large intestine without perforation or abscess with bleeding (principal); D46.9 Myelodysplastic syndrome, unspecified; K57.30 Diverticulosis of large intestine without perforation or abscess without bleeding; D69.6 Thrombocytopenia, unspecified; N40.0 Benign prostatic hyperplasia without lower urinary tract symptoms; I25.10 Atherosclerotic heart disease of native coronary artery without angina pectoris; J84.10 Pulmonary fibrosis, unspecified; F03.90 Unspecified dementia, unspecified severity, without behavioral disturbance, psychotic disturbance, mood disturbance, and anxiety; M19.90 Unspecified osteoarthritis, unspecified site; K21.9 Gastro-esophageal reflux disease without esophagitis; I10 Essential (primary) hypertension; R16.1 Splenomegaly, not elsewhere classified; D50.0 Iron deficiency anemia secondary to blood loss (chronic); E78.5 Hyperlipidemia, unspecified; D72.819 Decreased white blood cell count, unspecified; Z79.899 Other long term (current) drug therapy; Z20.822 Contact with and (suspected) exposure to COVID-19; Z87.19 Personal history of other diseases of the digestive system
CPT/HCPCS: 36415; 36430; 71046; 74174; 80048; 80053; 81001; 82272; 83605; 83735; 84484; 85025; 85610; 85730; 86850; 86900; 86901; 86920; 87636; 93005; 96361; 96374; 99285

== ENCOUNTER 2023-06-09 05:59 | Day surgery (SDC) | payer MEDICARE ==
[~2023-06-09 05:59] MED LIST changes: +LIDOCAINE 1% (10MG/ML) FOR IV START INTRADERMA PRN; -TRANEXAMIC ACID IN NACL,ISO-OS 1,000 MG in SALINE 1 100ML.BAG IVPB PRN
[2023-06-09] MEDS: LACTATED RINGERS 1,000 ML IV SCH ×2 (06:56→07:13)
[2023-06-09 07:08] VITALS: TEMP 97.2
[2023-06-09] MEDS ORDERED: LIDOCAINE 2% INJ 20 MG/ML (2 ML VIAL) ONE (07:15)
[2023-06-09] MEDS ORDERED: PROPOFOL 10 MG/ML 20 ML VIAL IV ONE (07:15)
[2023-06-09] MEDS ORDERED: IV FLUID CONTINUATION 1,000 ML IV ONE (07:34)
[2023-06-09 07:54] LABS: Anisocytosis Moderate; HCT 29.6 % (39.0-53.0); HGB 10.3 gm/dL (13.0-17.5); MCH 35.5 pg (25.0-35.0); MCHC 34.8 g/dL (31.0-37.0); Macrocytosis Marked; Mean Platelet Volume 10.9; Poikilocytosis Slight; RDW 21.1 % (11.5-15.5); Reticulocyte % 1.2 % (0.5-2.0); WBC 3.4 k/uL (3.8-10.6)
--- NOTE | 2023-06-09 07:57 | OP ---
OPERATIVE REPORT DATE OF SERVICE : 06/09/2023 PROCEDURE: Bone marrow aspirate and biopsy. INDICATION: Known MDS, possible progression due to worsening anemia. DESCRIPTION OF PROCEDURE: Procedure was performed in the endoscopy suite under general anesthesia performed by the anesthesia team and general sedation performed by anesthesia team. The patient was placed on the left lateral decubitus position. The right posterior superior iliac crest was localized, skin was cleansed with ChloraPrep, all sterile procedures were followed, 2 mL of 2% lidocaine was used for local anesthetic. Monoject needle was inserted, 15 mL of aspirate and 1 cm core biopsy was obtained without any difficulties. Pressure applied afterwards. There was negligible blood loss. Patient tolerated the procedure very well without any immediate complications. MMODL / IJN: [id number] /
[2023-06-09 08:21] VITALS: BP 117/64; PULSE 67; RESP 16
[2023-06-09 08:22] LABS: Platelet Count 97 k/uL (150-450)
[2023-06-09 08:28] LABS: Band Neutrophils % 1 %; Basophils # (M) 0.03 k/uL (0-0.2); Lymphocytes # (M) 0.44 k/uL (1.0-4.8); Monocytes # (M) 0.85 k/uL (0-1.0); Myelocytes # (M) 0.03 k/uL (0); Myelocytes % 1 %; Neutrophils % (M) 59 %; Nucleated Red Blood Cells 0 /100 WBC (0-0); Total Cells Counted 200
== END 2023-06-09 08:56 | disposition home or self-care (01) ==
LOC: OR 05:59
PROVIDERS: ATTEND Internal Medicine Hematology & Oncology
DX: D64.9 Anemia, unspecified (principal); I25.10 Atherosclerotic heart disease of native coronary artery without angina pectoris; F32.A Depression, unspecified; K21.9 Gastro-esophageal reflux disease without esophagitis; Z79.899 Other long term (current) drug therapy; Z88.8 Allergy status to other drugs, medicaments and biological substances; Z86.59 Personal history of other mental and behavioral disorders; Z98.890 Other specified postprocedural states
CPT/HCPCS: 85025; 85045; 81455; 88237; 88264; 88184; 88185; 88271; 88275; 38222; J2704; J2001

== ENCOUNTER 2024-03-01 16:08 | Emergency (ER) | payer MEDICARE ==
--- NOTE | 2024-03-01 16:39 | ED ---
Extremity Problem HPI - General Chief complaint: Extremity Problem,Nontraumatic Stated complaint: back of R leg swelling Time Seen by Provider: 03/01/24 16:22 Source: patient, family, RN notes reviewed Mode of arrival: ambulatory Limitations: no limitations - History of Present Illness Initial comments: This 74-year-old male presents emergency department with chief complaint of right calf pain. Patient states that it is swollen, tender with palpation. Patient states he recently drove back from [place]. Denies chest pain or shortness of breath no trauma. Patient states there is a small red maude on his calf. No history of clots. - Related Data Home Medications Medication Instructions Recorded Confirmed Tamsulosin [Flomax] 0.4 mg PO BID 09/16/19 02/15/24 Cholecalciferol [Vitamin D3 (25 50 mcg PO DAILY 04/04/21 02/15/24 Mcg = 1000 Iu)] Omeprazole [PriLOSEC] 40 mg PO DAILY 04/04/21 02/15/24 Vitamin B Complex 1 cap PO DAILY 04/04/21 02/15/24 Sertraline [Zoloft] 100 mg PO HS 08/31/21 02/15/24 Atorvastatin [Lipitor] 40 mg PO HS 03/01/23 02/15/24 Multivitamins, Thera [Multivitamin 1 tab PO DAILY 03/01/23 02/15/24 (formulary)] Zinc Gluconate [Zinc] 50 mg PO DAILY 03/01/23 02/15/24 Aspirin [Adult Low Dose Aspirin EC] 81 mg PO DAILY 05/31/23 02/15/24 busPIRone HCl [Buspar] 10 mg PO BID 09/16/23 02/15/24 Rivastigmine Tartrate [Exelon] 3 mg PO BID 02/15/24 02/15/24 Previous Rx's Medication Instructions Recorded Cephalexin [Keflex] 500 mg PO Q6HR #28 cap 03/01/24 Allergies Allergy/AdvReac Type Severity Reaction Status Date / Time nitroglycerin Allergy Severe pts heart Verified 02/15/24 11:25 stopped beating after given nitro Review of Systems ROS Statement: Those systems with pertinent positive or pertinent negative responses have been documented in the HPI. ROS Other: All systems not noted in ROS Statement are negative. Past Medical History Past Medical History: Coronary Artery Disease (CAD), Cancer, Chest Pain / Angina, Dementia, GERD/Reflux, Hyperlipidemia, Osteoarthritis (OA), Prostate Disorder Additional Past Medical History / Comment(s): mild cog.impairment-short term memory loss,, anemia, MDS, Last Myocardial Infarction Date:: unknown History of Any Multi-Drug Resistant Organisms: None Reported Past Surgical History: Bowel Resection, Ear Surgery, Heart Catheterization, Hernia Repair, Joint Replacement, Orthopedic Surgery, Tonsillectomy Additional Past Surgical History / Comment(s): Left shoulder rotator cuff, total revers lft shoulder, knee arthroscopy, Past Anesthesia/Blood Transfusion Reactions: Previous Problems w/ Anesthesia Additional Past Anesthesia/Blood Transfusion Reaction / Comment(s): PTS BLOOD PRESSURE HAS DROPPED IN THE PAST WHEN RECEIVING ANESTHESIA. Past Psychological History: Anxiety Smoking Status: Former smoker - Past Family History Sister(s) Family Medical History: Cancer Father Family Medical History: Coronary Artery Disease (CAD), CVA/TIA Additional Family Medical History / Comment(s): cardiac history stated by the patient. Brother(s) Family Medical History: Blood Disorder Additional Family Medical History / Comment(s): kidney transplant Son(s) Family Medical History: No Reported History Daughter(s) Family Medical History: No Reported History Mother Family Medical History: No Reported History, Cancer Additional Family Medical History / Comment(s): , of old age General Exam Limitations: no limitations General appearance: alert, in no apparent distress Head exam: Present: atraumatic, normocephalic, normal inspection Eye exam: Present: normal appearance, PERRL, EOMI. Absent: scleral icterus, conjunctival injection, periorbital swelling ENT exam: Present: normal exam, mucous membranes moist Neck exam: Present: normal inspection, full ROM. Absent: tenderness, meningismus, lymphadenopathy Respiratory exam: Present: normal lung sounds bilaterally. Absent: respiratory distress, wheezes, rales, rhonchi, stridor Cardiovascular Exam: Present: regular rate, normal rhythm, normal heart sounds. Absent: systolic murmur, diastolic murmur, rubs, gallop, clicks Extremities exam: Present: other (Right calf tenderness, swelling there is 1 cm circular erythematous spot with the greatest tenderness neurovascular intact with pulses equal bilaterally) Course Vital Signs 03/01/24 03/01/24 16:13 17:46 Temperature 97.6 F 98.1 F Pulse Rate 92 86 Respiratory 16 18 Rate Blood Pressure 100/63 110/76 O2 Sat by Pulse 99 99 Oximetry Medical Decision Making - Medical Decision Making Was pt. sent in by a medical professional or institution (ALMAZ Astorga, COLLECTION ADMINISTRATOR, urgent care, hospital, or [facility]...) When possible be specific @ -No Did you speak to anyone other than the patient for history (EMS, parent, family, police, friend...)? What history was obtained from this source @ -No Did you review nursing and triage notes (agree or disagree)? Why? @ -I reviewed and agree with nursing and triage notes Were old charts reviewed (outside hosp., previous admission, EMS record, old EKG, old radiological studies, urgent care reports/EKG's, [facility] records)? Report findings @ -No old charts were reviewed Differential Diagnosis (chest pain, altered mental status, abdominal pain women, abdominal pain men, vaginal bleeding, weakness, fever, dyspnea, syncope, headache, dizziness, GI bleed, back pain, seizure, CVA, palpatations, mental health, musculoskeletal)? @ -DVT, superficial thrombophlebitis, cellulitis EKG interpreted by me (3pts min.). @ -None X-rays interpreted by me (1pt min.). @ -None done CT interpreted by me (1pt min.). @ -None done U/S interpreted by me (1pt. min.). @ -Ultrasound right leg venous Doppler negative for acute DVT What testing was considered but not performed or refused? (CT, X-rays, U/S, labs)? Why? @ -None What meds were considered but not given or refused? Why? @ -None Did you discuss the management of the patient with other professionals (professionals i.e. ALMAZ Astorga, COLLECTION ADMINISTRATOR, lab, RT, psych nurse, social scientist, morning show producer, teacher, logistics supply officer, caser up)? Give summary @ -No Was smoking cessation discussed for >3mins.? @ -No Was critical care preformed (if so, how long)? @ -No Were there social determinants of health that impacted care today? How? (Homelessness, low income, unemployed, alcoholism, drug addiction, transportation, low edu. Level, literacy, decrease access to med. care, care home, rehab)? @ -No Was there de-escalation of care discussed even if they declined (Discuss DNR or withdrawal of care, Hospice)? DNR status @ -No What co-morbidities impacted this encounter? (DM, HTN, Smoking, COPD, CAD, Cancer, CVA, ARF, Chemo, Hep., AIDS, mental health diagnosis, sleep apnea, m orbid obesity)? @ -None Was patient admitted / discharged? Hospital course, mention meds given and route, prescriptions, significant lab abnormalities, going to OR and other pertinent info. @ -Discharge patient has superficial thrombophlebitis possible cellulitis so started on Keflex prophylactically will take anti-inflammatories and warm compresses. Undiagnosed new problem with uncertain prognosis? @ -No Drug Therapy requiring intensive monitoring for toxicity (Heparin, Nitro, Insulin, Cardizem)? @ -No Were any procedures done? @ -No Diagnosis/symptom? @ -Superficial thrombophlebitis, cellulitis Acute, or Chronic, or Acute on Chronic? @ -Acute Uncomplicated (without systemic symptoms) or Complicated (systemic symptoms)? @ -Uncomplicated Side effects of treatment? @ -No Exacerbation, Progression, or Severe Exacerbation? @ -No Poses a threat to life or bodily function? How? (Chest pain, [place], CA, pneumonia, PE, COPD, DKA, ARF, appy, cholecystitis, CVA, Diverticulitis, Homicidal, Suicidal, threat to staff... and all critical care pts) @ -No Disposition Clinical Impression: Superficial thrombophlebitis, Cellulitis Disposition: HOME SELF-CARE Condition: Stable Instructions (If sedation given, give patient instructions): Superficial Thrombophlebitis (ED) Additional Instructions: Please return to the Emergency Department if symptoms worsen or any other concerns. Prescriptions: Cephalexin [Keflex] 500 mg PO Q6HR #28 cap Is patient prescribed a controlled substance at d/c from ED?: No Referrals: Anderson Rojas MD [Primary Care Provider] - 1-2 days Time of Disposition: 17:32
--- NOTE | 2024-03-01 16:55 | US ---
EXAMINATION TYPE: US venous doppler duplex LE RT DATE OF EXAM: 03/01/2024 4:39 PM COMPARISON: NONE CLINICAL INDICATION: Male, 74 years old with history of pain; pain SIDE PERFORMED: Right TECHNIQUE: The lower extremity deep venous system is examined utilizing real time linear array sonog channing with graded compression, doppler sonography and color-flow sonography. VESSELS IMAGED: Common Femoral Vein Deep Femoral Vein Greater Saphenous Vein * Femoral Vein Popliteal Vein Small Saphenous Vein * Proximal Calf Veins (* superficial vessels) Right Leg: Negative for DVT IMPRESSION: Grayscale, color doppler, spectral doppler imaging performed of the deep veins of the lo wer extremities. There is normal flow, compressibility, vascular waveforms.
[2024-03-01 18:18] VITALS: BP 110/76; PULSE 86; RESP 18; TEMP 98.1
== END 2024-03-01 17:58 | disposition home or self-care (01) ==
LOC: EC 16:08
DX: I80.01 Phlebitis and thrombophlebitis of superficial vessels of right lower extremity (principal); L03.115 Cellulitis of right lower limb; Z88.8 Allergy status to other drugs, medicaments and biological substances; Z87.891 Personal history of nicotine dependence
CPT/HCPCS: 99283

== ENCOUNTER 2024-04-06 14:05 | Emergency (ER) | payer MEDICARE ==
--- NOTE | 2024-04-06 14:27 | ED ---
General Adult HPI - General Source: patient Mode of arrival: ambulatory Limitations: no limitations <Jeffrey Santiago - Last Filed: 04/06/24 15:03> <Yoni Haile - Last Filed: 04/06/24 23:05> - General Chief complaint: Neuro Symptoms/Deficit Stated complaint: Facial droop - History of Present Illness Initial comments: Dictation was produced using [employer] dictation software. please excuse any grammatical, word or spelling errors. Chief Complaint: 74-year-old male presents to the emergency department for facial droop History of Present Illness: Patient is a 74-year-old male he has past medical history of myelodysplastic syndrome. He has very low hemoglobin. He was at physical therapy today at around 1130 when he was last seen normal. After his physical therapy physical therapist noted that his right lower face seemed a lit tle droopy. This was around 2 to 3 hours prior to arrival. Patient denies any symptoms. Patient has no complaints in his face arms legs. states that he does not appear to be confused. They were told to come to the emergency department. states that baby's face does look a little droopy on the right side. Patient does not have any complaints whatsoever. states that patient has been behaving normally otherwise. The ROS documented in this emergency department record has been reviewed and confirmed by me. Those systems with pertinent positive or negative responses have been documented in the HPI. All other systems are other negative and/or noncontributory. (Jeffrey Santiago) - Related Data Home Medications Medication Instructions Recorded Confirmed Tamsulosin [Flomax] 0.4 mg PO BID 09/16/19 04/06/24 Cholecalciferol [Vitamin D3 (25 50 mcg PO DAILY 04/04/21 04/06/24 Mcg = 1000 Iu)] Omeprazole [PriLOSEC] 40 mg PO DAILY 04/04/21 04/06/24 Vitamin B Complex 1 cap PO DAILY 04/04/21 04/06/24 Sertraline [Zoloft] 100 mg PO HS 08/31/21 04/06/24 Multivitamins, Thera [Multivitamin 1 tab PO DAILY 03/01/23 04/06/24 (formulary)] Zinc Gluconate [Zinc] 50 mg PO DAILY 03/01/23 04/06/24 Aspirin [Adult Low Dose Aspirin EC] 81 mg PO DAILY 05/31/23 04/06/24 Rivastigmine Tartrate [Exelon] 3 mg PO BID 02/15/24 04/06/24 Acetaminophen Tab [Tylenol Tab] 1,000 mg PO Q6HR PRN 04/06/24 04/06/24 Atorvastatin [Lipitor] 40 mg PO HS 04/06/24 04/06/24 Naproxen Sodium [Aleve] 220 mg PO Q8H PRN 04/06/24 04/06/24 Reblozyl 75mg 60 mg SQ Q21D 04/06/24 04/06/24 busPIRone HCL 15 mg PO BID 04/06/24 04/06/24 Allergies Allergy/AdvReac Type Severity Reaction Status Date / Time nitroglycerin Allergy Severe heart Verified 04/06/24 18:38 stopped beating after given nitro/Respitory Distress Review of Systems ROS Other: All systems not noted in ROS Statement are negative. <Jeffrey Santiago - Last Filed: 04/06/24 15:03> ROS Other: All systems not noted in ROS Statement are negative. <Yoni Haile - Last Filed: 04/06/24 23:05> ROS Statement: Those systems with pertinent positive or pertinent negative responses have been documented in the HPI. Past Medical History Past Medical History: Coronary Artery Disease (CAD), Cancer, Chest Pain / Angina, Dementia, GERD/Reflux, Hyperlipidemia, Osteoarthritis (OA), Prostate Disorder Additional Past Medical History / Comment(s): mild cog.impairment-short term memory loss,, anemia, MDS, Last Myocardial Infarction Date:: unknown History of Any Multi-Drug Resistant Organisms: None Reported Past Surgical History: Bowel Resection, Ear Surgery, Heart Catheterization, Hernia Repair, Joint Replacement, Orthopedic Surgery, Tonsillectomy Additional Past Surgical History / Comment(s): Left shoulder rotator cuff, total revers lft shoulder, knee arthroscopy, Past Anesthesia/Blood Transfusion Reactions: Previous Problems w/ Anesthesia Additional Past Anesthesia/Blood Transfusion Reaction / Comment(s): PTS BLOOD PRESSURE HAS DROPPED IN THE PAST WHEN RECEIVING ANESTHESIA. Past Psychological History: Anxiety Smoking Status: Former smoker Past Alcohol Use History: None Reported Past Drug Use History: None Reported - Past Family History Sister(s) Family Medical History: Cancer Father Family Medical History: Coronary Artery Disease (CAD), CVA/TIA Additional Family Medical History / Comment(s): cardiac history stated by the patient. Brother(s) Family Medical History: Blood Disorder Additional Family Medical History / Comment(s): kidney transplant Son(s) Family Medical History: No Reported History Daughter(s) Family Medical History: No Reported History Mother Family Medical History: No Reported History, Cancer Additional Family Medical History / Comment(s): , of old age <Jeffrey Santiago - Last Filed: 04/06/24 15:03> General Exam Limitations: no limitations <Jeffrey Santiago - Last Filed: 04/06/24 15:03> - General Exam Comments Initial Comments: PHYSICAL EXAM: General Impression: Alert and oriented x3, not in acute distress HEENT: Normocephalic atraumatic, extra-ocular movements intact, pupils equal and reactive to light bilaterally, mucous membranes moist. Cardiovascular: Heart regular rate and rhythm Chest: Able to complete full sentences, no retractions, no tachypnea Abdomen: abdomen soft, non-tender, non-distended, no organomegaly Musculoskeletal: Pulses present and equal in all extremities, no peripheral edema Motor: no focal deficits noted Neurological: Slight flattening of the right nasolabial fold however with smile his face appears to be functioning normally and symmetrical, CN II-XII grossly intact, no focal motor or sensory deficits noted Skin: Intact with no visualized rashes Psych: Normal affect and mood (Jeffrey Santiago) Course <Jeffrey Santiago - Last Filed: 04/06/24 15:03> Vital Signs 04/06/24 04/06/24 04/06/24 14:11 20:05 20:27 Temperature 98.1 F 97.0 F L Pulse Rate 86 82 70 Respiratory 16 18 18 Rate Blood Pressure 120/74 120/78 133/67 O2 Sat by Pulse 100 97 98 Oximetry - Reevaluation(s) Reevaluation #1: 04/06/24 14:26 Patient seen and evaluated in triage tolentino. Patient does have some n barely not iceable facial nasolabial flattening. He does however have a symmetrical smile. Patient not a candidate for alteplase or thrombectomy given that he has low NIH score. He would have an NIH score of 1 at maximum. Rest of physical exam and neurologic exam is unremarkable. Risk outweigh the benefits for alteplase or thrombectomy. (Jeffrey Santiago) EKG Findings - EKG Comments: EKG Findings:: My EKG interpretation: Ventricular rate 67, sinus rhythm,. 140, cures 70, QTc 394. No MD prolongation, no QTC prolongation, no ST or T-wave changes noted. Overall, this EKG is unremarkable <Jeffrey Santiago - Last Filed: 04/06/24 15:03> Medical Decision Making - Lab Data Result diagrams: 04/06/24 15:06 04/06/24 15:06 <Yoni Haile - Last Filed: 04/06/24 23:05> - Medical Decision Making Was pt. sent in by a medical professional or institution (Dr. PA, ASSEMBLER, urgent care, hospital, or group home...) When possible be specific @ -Presents for stroke evaluation. Did you speak to anyone other than the patient for history (EMS, parent, family, police, friend...)? What history was obtained from this source @ -Patient's is primary historian for the patient. Did you review nursing and triage notes (agree or disagree)? Why? @ -I reviewed and agree with nursing and triage notes Were old charts reviewed (outside hosp., previous admission, EMS record, old EKG, old radiological studies, urgent care reports/EKG's, group home records)? Report findings @ -No old charts were reviewed Differential Diagnosis (chest pain, altered mental status, abdominal pain women, abdominal pain men, vaginal bleeding, weakness, fever, dyspnea, syncope, headache, dizziness, GI bleed, back pain, seizure, CVA, palpatations, mental health, musculoskeletal)? @ -Differential CVA Ischemic stroke, hemorrhagic stroke, brain tumor, atypical migraine, Wernicke's encephalopathy, seizure, multiple sclerosis, meningitis, encephalitis, hypoglycemia, Guillain-Santacruz, electrolytes disturbance, myasthenia gravis.... This is not meant to be an all-inclusive list EKG interpreted by me (3pts min.). @ -Interpreted by previous provider X-rays interpreted by me (1pt min.). @ -None done CT interpreted by me (1pt min.). @ -Brain CT shows small lacunar infarct in the posterior limb of the right internal capsule of indeterminate age but otherwise no obvious acute process. CT angiogram shows possible left vertebral artery occlusion versus anomaly on the left. U/S interpreted by me (1pt. min.). @ -None done What testing was considered but not performed or refused? (CT, X-rays, U/S, labs)? Why? @ -None What meds were considered but not given or refused? Why? @ -None Did you discuss the management of the patient with other professionals (professionals i.e. DrBenedicto, PA, ASSEMBLER, lab, RT, psych nurse, social work specialist, gas load dispatcher, teacher, senior credit officer, special education case manager)? Give summary @ -Discussed the case at length with Dr. Ga of neurocritical care. He reviewed the imaging as well. After discussion with Dr. Ga as well as patient's , as the patient is a DNR if he were to have a significant stroke and they do not want any any extraneous procedures performed, family was wondering if they could go home. Dr. Ga recommended CT angiogram if this is the case. If the patient would like to stay, then he recommends MRI and echo. However understands that the patient would like to go home. He is in agreement that patient is not a tenecteplase candidate as risks for outweigh the benefits. As patient as well as his who is the power of tank car inspector for the patient states that they would not like a thrombectomy if it were offered, he believes admission offers minimal benefit for the patient with his minimal symptoms. I believe this is reasonable. We both agreed with this plan. I discussed the findings of the CTA with Dr. Ga who reviewed them as well. He is not concerned regarding the left vertebral artery findings/anomaly and states as long as patient is given aspirin as well as Lipitor patient can follow-up with PCP this week closely and obtain an echo. Was smoking cessation discussed for >3mins.? @ -No Was critical care preformed (if so, how long)? @ -Yes, 42 minutes. Were there social determinants of health that impacted care today? How? (Homelessness, low income, unemployed, alcoholism, drug addiction, transportation, low edu. Level, literacy, decrease access to med. care, long-term, rehab)? @ -No Was there de-escalation of care discussed even if they declined (Discuss DNR or withdrawal of care, Hospice)? DNR status @ -Yes, see below for details. What co-morbidities impacted this encounter? (DM, HTN, Smoking, COPD, CAD, C ancer, CVA, ARF, Chemo, Hep., AIDS, mental health diagnosis, sleep apnea, morbid obesity)? @ -Dementia, myelodysplastic syndrome Was patient admitted / discharged? Hospital course, mention meds given and route, prescriptions, significant lab abnormalities, going to OR and other pertinent info. @ -Patient originally seen by previous provider. Is a 74-year-old male who is being evaluated for possible strokelike symptoms. Has what is believed to be new right nasolabial fold flattening. It is only present at rest. Extinguished with smiling. No other acute complaints at this time. Has a history of myelodysplastic syndrome, dementia and is currently otherwise acting his baseline. Presents with for further evaluation. Last known complete well is unknown. Physical therapy saw the patient today and noticed the findings, and they last saw him on Wednesday. It is currently . Patient's is uncertain when this may have started as she did not notice until physical therapy pointed out but is not confident that it was not there before as she did not really look at him this morning. Patient is uncertain and is unaware of any finding. Patient was not activated as a code stroke. Patient signed out to me from previous provider for further evaluation. Pending entire workup. I do agree that risks for outweigh benefits for tenecteplase, and we are uncertain what the last known well is for the patient either way. At worst, NIH is 1. Very mild symptoms. Was not activated as a code stroke by previous provider. CT brain shows a remote infarct of the right internal capsule which would not explain his current symptoms. Labs remarkable for CBC within acceptable limits for patient's chronic myelodysplastic syndrome. Remainder of labs unremarkable. CT results discussed with patient as well as . I also discussed them with on-call neurocritical care physician Dr. Ga.Discussed the case at length with Dr. Ga of neurocritical care. He reviewed the imaging as well. After discussion with Dr. Ga as well as patient's , as the patient is a DNR if he were to have a significant stroke and they do not want any any extraneous procedures performed, family was wondering if they could go home. Dr. Ga recommended CT angiogram if this is the case. If the patient would like to stay, then he recommends MRI and echo. However understands that the patient would like to go home. He is in agreement that patient is not a tenecteplase candidate as risks for outweigh the benefits. As patient as well as his who is the power of tank car inspector for the patient states that they would not like a thrombectomy if it were offered, he believes admission offers minimal benefit for the patient with his minimal symptoms. I believe this is reasonable. We b [facility] agreed with this plan. Discussed both of these options with patient's who is the power of tank car inspector. Discussed CODE STATUS for the patient as well. She states that patient would not like any invasive procedures performed and if thrombectomy were recommended they would turn it down. They would make him DNR at that point. Patient is currently full code but depending on the circumstances CODE STATUS would be changed. I did discuss with the patient's that we cannot guarantee that patient will have a more devastating stroke at home but ultimately she would like to take the patient home as he does require 24/7 monitoring and he would be uncomfortable here and not listen to staff. She would prefer if he goes home. Therefore we will obtain CT angiogram and move on from there. She was in agreement this plan. CT angiogram shows possible left vertebral artery occlusion versus anomaly. I discussed the findings of the CTA with Dr. Ga who reviewed them as well. He is not concerned regarding the left vertebral artery findings/anomaly and states as long as patient is given aspirin as well as Lipitor patient can follow-up with PCP this week closely and obtain an echo. I discussed results with the patient's and patient. They would still like to go home at this time and not be admitted. Per discussion with Dr. Ga, I believe this is reasonable. Patient given 324 mg of aspirin as well as Lipitor which she is already on. Recommended increasing dose of aspirin for at least a week. Recommended close follow-up with PCP and obtaining an echo this week. They were in agreement this plan. Symptoms are unchanged. Possibly improved nasolabial fold flattening at this time. Ultimately indeterminate if the patient had a stroke or not due to the very mild symptoms. I instructed the patient to follow up with their PCP in the next 1-3 days. I explained that the patient should return to the emergency department if they experience any worsening symptoms. Strict return precautions were discussed with the patient. The patient expressed understanding of these instructions. I answered all questions that the patient had. The patient was discharged home in good condition with their prescriptions and follow up information. Undiagnosed new problem with uncertain prognosis? @ -No Drug Therapy requiring intensive monitoring for toxicity (Heparin, Nitro, Insu radha, Cardizem)? @ -No Were any procedures done? @ -No Diagnosis/symptom? @ -Facial droop Acute, or Chronic, or Acute on Chronic? @ -Acute Uncomplicated (without systemic symptoms) or Complicated (systemic symptoms)? @ -Uncomplicated Side effects of treatment? @ -No Exacerbation, Progression, or Severe Exacerbation? @ -No Poses a threat to life or bodily function? How? (Chest pain, [place], CO, pneumonia, PE, COPD, DKA, ARF, appy, cholecystitis, CVA, Diverticulitis, Homicidal, Suicidal, threat to staff... and all critical care pts) @ -Unlikely (Yoni Haile) - Lab Data Lab Results 04/06/24 04/06/24 04/06/24 Range/Units 15:06 15:06 15:06 WBC 3.7 L (3.8-10.6) k/uL RBC 2.49 L (4.30-5.90) m/uL Hgb 9.4 L (13.0-17.5) gm/dL Hct 29.4 L (39.0-53.0) % MCV 117.9 H (80.0-100.0) fL MCH 37.9 H (25.0-35.0) pg MCHC 32.1 (31.0-37.0) g/dL RDW 21.6 H (11.5-15.5) % Plt Count 133 L (150-450) k/uL MPV 10.8 Neutrophils % (Manual) 51 % Band Neuts % (Manual) 2 % Lymphocytes % (Manual) 29 % Monocytes % (Manual) 18 % Neutrophils # ASSEMBLER Neutrophils # (Manual) 1.90 (1.3-7.7) k/uL Lymphocytes # (Manual) 1.07 (1.0-4.8) k/uL Monocytes # (Manual) 0.67 (0-1.0) k/uL Nucleated RBCs 0 (0-0) /100 WBC Manual Slide Review Performed Large Platelets Present Polychromasia Present Hypochromasia Moderate Poikilocytosis Moderate Anisocytosis Moderate Macrocytosis Marked A Stomatocytes Present PT 10.7 (10.0-12.5) sec INR 1.0 (<1.2) APTT 25.0 (22.0-30.0) sec Sodium 136 L (137-145) mmol/L Potassium 5.1 (3.5-5.1) mmol/L Chloride 105 (98-107) mmol/L Carbon Dioxide 22 (22-30) mmol/L Anion Gap 9 mmol/L BUN 24 H (9-20) mg/dL Creatinine 1.14 (0.66-1.25) mg/dL Est GFR (CKD-EPI)AfAm 72 (>60 ml/min/1.73 sqM) Est GFR (CKD-EPI)NonAf 63 (>60 ml/min/1.73 sqM) Glucose 90 (74-99) mg/dL POC Glucose (mg/dL) (70-110) mg/dL POC Glu Mechanical Technician ID Calcium 9.2 (8.4-10.2) mg/dL 04/06/24 Range/Units 16:11 WBC (3.8-10.6) k/uL RBC (4.30-5.90) m/uL Hgb (13.0-17.5) gm/dL Hct (39.0-53.0) % MCV (80.0-100.0) fL MCH (25.0-35.0) pg MCHC (31.0-37.0) g/dL RDW (11.5-15.5) % Plt Count (150-450) k/uL MPV Neutrophils % (Manual) % Band Neuts % (Manual) % Lymphocytes % (Manual) % Monocytes % (Manual) % Neutrophils # Neutrophils # (Manual) (1.3-7.7) k/uL Lymphocytes # (Manual) (1.0-4.8) k/uL Monocytes # (Manual) (0-1.0) k/uL Nucleated RBCs (0-0) /100 WBC Manual Slide Review Large Platelets Polychromasia Hypochromasia Poikilocytosis Anisocytosis Macrocytosis Stomatocytes PT (10.0-12.5) sec INR (<1.2) APTT (22.0-30.0) sec Sodium (137-145) mmol/L Potassium (3.5-5.1) mmol/L Chloride (98-107) mmol/L Carbon Dioxide (22-30) mmol/L Anion Gap mmol/L BUN (9-20) mg/dL Creatinine (0.66-1.25) mg/dL Est GFR (CKD-EPI)AfAm (>60 ml/min/1.73 sqM) Est GFR (CKD-EPI)NonAf (>60 ml/min/1.73 sqM) Glucose (74-99) mg/dL POC Glucose (mg/dL) 91 (70-110) mg/dL POC Glu Mechanical Technician ID February Calcium (8.4-10.2) mg/dL Critical Care Time Critical Care Time: Yes Total Critical Care Time: 42 <Yoni Haile - Last Filed: 04/06/24 23:05> Disposition <Jeffrey Santiago - Last Filed: 04/06/24 15:03> Is patient prescribed a controlled substance at d/c from ED?: No Time of Disposition: 20:00 <Yoni Haile - Last Filed: 04/06/24 23:05> Clinical Impression: Facial droop Disposition: HOME SELF-CARE Condition: Good Additional Instructions: obtain outpatient echocardiogram as soon as possible per Dr. Arias our neuro critical care physician. Referrals: Anderson Rojas MD [Primary Care Provider] - 1-2 days
[2024-04-06 15:31] LABS: Anisocytosis Moderate; HCT 29.4 % (39.0-53.0); HGB 9.4 gm/dL (13.0-17.5); Hypochromasia Moderate; MCH 37.9 pg (25.0-35.0); MCHC 32.1 g/dL (31.0-37.0); MCV 117.9 fL (80.0-100.0); Macrocytosis Marked; Mean Platelet Volume 10.8; Platelet Count 133 k/uL (150-450); Poikilocytosis Moderate; RBC 2.49 m/uL (4.30-5.90); RDW 21.6 % (11.5-15.5); WBC 3.7 k/uL (3.8-10.6)
[2024-04-06 15:47] LABS: Prothrombin Time 10.7 sec (10.0-12.5)
--- NOTE | 2024-04-06 15:55 | CT ---
EXAMINATION TYPE: CT brain wo con DATE OF EXAM: 04/06/2024 COMPARISON: 04/03/2021 HISTORY: Facial droop CT DLP: 1154.4 mGycm Automated exposure control for dose reduction was used. Findings: The ventricles, basal cisterns and sulci over convexities are moderately enlarged. There is mild diffuse decreased density in the periventricular white matter consistent with mild title department manager daron ischemic white matter demyelination. There is a small lacunar infarct in the posterior limb of the right internal capsule of indeterminate age.. It was not present on the prior study dated 04/03/2021 There is no mass effect or shift of midline structures. There is no acute intra or extra-axial hemorrhage. The posterior fossa including the brainstem, fourth ventricle and cerebellar pontine angles appear no rmal. Intraorbital contents appear normal and symmetric. Visualized paranasal sinuses and mastoid air cells are well aerated. The calvarium is intact. IMPRESSION: 1. No acute bleed or mass effect. 2. Moderate generalized atrophy. 3. Small lacunar infarct in the posterior limb of the right internal capsule of indeterminate age.
[2024-04-06 16:08] LABS: African American GFR (CKD) 72 (>60 ml/min/1.73 sqM); Anion Gap 9 mmol/L; Blood Urea Nitrogen 24 mg/dL (9-20); Calcium 9.2 mg/dL (8.4-10.2); Carbon Dioxide 22 mmol/L (22-30); Chloride 105 mmol/L (98-107); Glucose 90 mg/dL (74-99); Non-African American GFR(CKD) 63 (>60 ml/min/1.73 sqM); Sodium 136 mmol/L (137-145)
[2024-04-06 16:11] LABS: Potassium 5.1 mmol/L (3.5-5.1)
[2024-04-06 16:12] LABS: Glucose,Whole Blood 91 mg/dL (70-110)
[2024-04-06 16:47] LABS: Band Neutrophils % 2 %; Large Platelets Present; Lymphocytes # (M) 1.07 k/uL (1.0-4.8); Monocytes # (M) 0.67 k/uL (0-1.0); Neutrophils % (M) 51 %; Nucleated Red Blood Cells 0 /100 WBC (0-0); Polychromasia Present; Total Cells Counted 100
[2024-04-06 16:48] LABS: Stomatocytes Present
--- NOTE | 2024-04-06 19:14 | CT ---
EXAMINATION TYPE: CT angio head neck CT DLP: 391.5 mGycm, Automated exposure control for dose reduction was used. DATE OF EXAM: 04/06/2024 5:53 PM COMPARISON: CT brain same day.. CLINICAL INDICATION:Male, 74 years old with history of neuro deficit, neuro deficit. TECHNIQUE: Axially acquired helical CT angiogram of the head and neck was obtained with contrast. Axi al images are supplemented with 3D reconstructions and MIP images which were post-processed at an in dependent workstation. NASCET criteria used. Contrast used:65ml mL of Isovue 370 with IV Contrast, Oral contrast used: None. FINDINGS: CTA HEAD: No evidence of acute intracranial hemorrhage, mass effect, or midline shift. The ventricles, sulci, a nd cisterns are unremarkable. The visualized portions of the internal carotid arteries, middle cerebral arteries, anterior cerebral arteries, and posterior cerebral arteries are patent. The basilar and vertebral right vertebral artery are patent.. The left vertebral artery appears to te rminate as a posterior inferior cerebellar artery. There is a blind-ending structure series 411 image 118 that connects to the basilar artery confluence that represent the intracranial portion left vert ebral artery which appears occluded. CTA NECK: Right Carotid System: The common carotid and external carotid arteries are patent. There is less than 25-50 % stenosis at t he carotid bifurcation secondary to calcified plaque. The rest of the internal carotid artery is piedra nt. Left Carotid System: The common carotid and external carotid arteries are patent. There is less than 25% stenosis at the c arotid bifurcation secondary to calcified plaque. The rest of the internal carotid artery is patent. Vertebral arteries are patent without evidence hemodynamically significant stenosis. There is a three-vessel aortic arch. The origins of the great vessels are patent. No evidence of hemo dynamically significant stenosis. IMPRESSION: 1. No evidence of dissection of the cervical internal carotid arteries or vertebral arteries. 2. No evidence of intracranial high-grade stenosis or intracranial aneurysm. 3. 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 4. Calcified atherosclerosis of the carotid bifurcations with 25% stenosis on the left and 25-50% lawrence nosis on the right.
[2024-04-06 20:07] VITALS: RESP 18; TEMP 97
[2024-04-06] MEDS: ATORVASTATIN 40 MG TAB PO STA (20:16)
[2024-04-06] MEDS: ASPIRIN 325 MG TAB PO STA (20:16)
[2024-04-06 20:45] VITALS: BP 133/67; PULSE 70
== END 2024-04-06 20:27 | disposition home or self-care (01) ==
LOC: EC 14:05
DX: R29.810 Facial weakness (principal); F03.90 Unspecified dementia, unspecified severity, without behavioral disturbance, psychotic disturbance, mood disturbance, and anxiety; D46.9 Myelodysplastic syndrome, unspecified; Z87.891 Personal history of nicotine dependence; Z88.8 Allergy status to other drugs, medicaments and biological substances
CPT/HCPCS: 36415; 93005; 80048; 85025; 85610; 85730; 70496; 70450; 70498; 99291; Q9967

== ENCOUNTER 2024-05-25 16:58 | Emergency (ER) | payer MEDICARE ==
[2024-05-25 18:59] LABS: ALT 20 U/L (4-49); AST 33 U/L (17-59); African American GFR (CKD) 58 (>60 ml/min/1.73 sqM); Albumin 4.1 g/dL (3.5-5.0); Alkaline Phosphatase 114 U/L (38-126); Anion Gap 7 mmol/L; Blood Urea Nitrogen 22 mg/dL (9-20); Calcium 9.1 mg/dL (8.4-10.2); Carbon Dioxide 26 mmol/L (22-30); Chloride 104 mmol/L (98-107); Glucose 95 mg/dL (74-99); Magnesium 2.2 mg/dL (1.6-2.3); Non-African American GFR(CKD) 50 (>60 ml/min/1.73 sqM); Phosphorus 3.2 mg/dL (2.5-4.5); Potassium 4.7 mmol/L (3.5-5.1); Sodium 137 mmol/L (137-145); Total Protein 6.5 g/dL (6.3-8.2)
[2024-05-25 19:00] LABS: Anisocytosis Moderate; HCT 22.4 % (39.0-53.0); HGB 7.3 gm/dL (13.0-17.5); Hypochromasia Marked; INR 1.1 (<1.2); MCHC 32.5 g/dL (31.0-37.0); MCV 120.3 fL (80.0-100.0); Macrocytosis Marked; Mean Platelet Volume 11.1; Partial Thromboplastin Time 27.8 sec (22.0-30.0); Platelet Count 161 k/uL (150-450); Poikilocytosis Marked; Prothrombin Time 11.5 sec (10.0-12.5); RBC 1.86 m/uL (4.30-5.90); RDW 20.2 % (11.5-15.5); WBC 4.4 k/uL (3.8-10.6)
[2024-05-25 19:21] LABS: Band Neutrophils % 1 %; Eosinophils # (M) 0.09 k/uL (0-0.7); Lymphocytes # (M) 1.01 k/uL (1.0-4.8); Monocytes # (M) 1.14 k/uL (0-1.0); Neutrophils % (M) 48 %; Nucleated Red Blood Cells 0 /100 WBC (0-0); Total Cells Counted 100
[2024-05-25 19:22] LABS: Large Platelets Present; Polychromasia Present; Stomatocytes Present
--- NOTE | 2024-05-25 19:43 | ED ---
Recheck HPI - General Time Seen by Provider: 05/25/24 19:33 - History of Present Illness Initial Comments: This patient is 74-year-old man with history of myelodysplastic syndrome. The patient had gone for routine visit to the [employer] [employer] office today. He had been given erythropoietin shot and they checked his blood counts. They received a call informing them that the hemoglobin was 6.5 and that they should have transfusion. The earliest date for outpatient transfusion was in a week and hematology felt he should be transfused sooner than that so he presents here. Patient currently denying any complaints. MD Complaint: abnormal lab Onset/Timin -: days(s) Returns Today for: Called Because of Abnormal Lab/Test Symptoms Since Prior Visit: no new symptoms Context: planned re-check, called for abnormal lab result Associated Symptoms: none - Related Data Home Medications Medication Instructions Recorded Confirmed Tamsulosin [Flomax] 0.4 mg PO BID 09/16/19 04/06/24 Cholecalciferol [Vitamin D3 (25 50 mcg PO DAILY 04/04/21 04/06/24 Mcg = 1000 Iu)] Omeprazole [PriLOSEC] 40 mg PO DAILY 04/04/21 04/06/24 Vitamin B Complex 1 cap PO DAILY 04/04/21 04/06/24 Sertraline [Zoloft] 100 mg PO HS 08/31/21 04/06/24 Multivitamins, Thera [Multivitamin 1 tab PO DAILY 03/01/23 04/06/24 (formulary)] Zinc Gluconate [Zinc] 50 mg PO DAILY 03/01/23 04/06/24 Aspirin [Adult Low Dose Aspirin EC] 81 mg PO DAILY 05/31/23 04/06/24 Rivastigmine Tartrate [Exelon] 3 mg PO BID 02/15/24 04/06/24 Acetaminophen Tab [Tylenol Tab] 1,000 mg PO Q6HR PRN 04/06/24 04/06/24 Atorvastatin [Lipitor] 40 mg PO HS 04/06/24 04/06/24 Naproxen Sodium [Aleve] 220 mg PO Q8H PRN 04/06/24 04/06/24 Reblozyl 75mg 60 mg SQ Q21D 04/06/24 04/06/24 busPIRone HCL 15 mg PO BID 04/06/24 04/06/24 Allergies Allergy/AdvReac Type Severity Reaction Status Date / Time nitroglycerin Allergy Severe heart Verified 04/06/24 18:38 stopped beating after given nitro/Respitory Distress Review of Systems ROS Statement: Those systems with pertinent positive or pertinent negative responses have been documented in the HPI. ROS Other: All systems not noted in ROS Statement are negative. Constitutional: Denies: fever, chills, weakness ENT: Denies: epistaxis Respiratory: Denies: cough, dyspnea, hemoptysis Cardiovascular: Denies: chest pain, syncope Gastrointestinal: Denies: abdominal pain, vomiting, diarrhea Genitourinary: Denies: hematuria Musculoskeletal: Denies: back pain Neurological: Denies: headache Past Medical History Past Medical History: Coronary Artery Disease (CAD), Cancer, Chest Pain / Angina, Dementia, GERD/Reflux, Hyperlipidemia, Osteoarthritis (OA), Prostate Disorder Additional Past Medical History / Comment(s): mild cog.impairment-short term memory loss,, anemia, MDS, Last Myocardial Infarction Date:: unknown History of Any Multi-Drug Resistant Organisms: None Reported Past Surgical History: Bowel Resection, Ear Surgery, Heart Catheterization, Hernia Repair, Joint Replacement, Orthopedic Surgery, Tonsillectomy Additional Past Surgical History / Comment(s): Left shoulder rotator cuff, total revers lft shoulder, knee arthroscopy, Past Anesthesia/Blood Transfusion Reactions: Previous Problems w/ Anesthesia Additional Past Anesthesia/Blood Transfusion Reaction / Comment(s): PTS BLOOD PRESSURE HAS DROPPED IN THE PAST WHEN RECEIVING ANESTHESIA. Past Psychological History: Anxiety Smoking Status: Former smoker Past Alcohol Use History: None Reported Past Drug Use History: None Reported - Past Family History Sister(s) Family Medical History: Cancer Father Family Medical History: Coronary Artery Disease (CAD), CVA/TIA Additional Family Medical History / Comment(s): cardiac history stated by the patient. Brother(s) Family Medical History: Blood Disorder Additional Family Medical History / Comment(s): kidney transplant Son(s) Family Medical History: No Reported History Daughter(s) Family Medical History: No Reported History Mother Family Medical History: No Reported History, Cancer Additional Family Medical History / Comment(s): , of old age General Exam General appearance: alert, in no apparent distress Head exam: Present: atraumatic, normocephalic Eye exam: Present: normal appearance. Absent: scleral icterus, conjunctival injection Neck exam: Present: normal inspection Respiratory exam: Present: normal lung sounds bilaterally. Absent: respiratory distress, wheezes, rales, rhonchi, stridor, accessory muscle use Cardiovascular Exam: Present: regular rate, normal rhythm, normal heart sounds. Absent: systolic murmur, diastolic murmur, rubs, gallop GI/Abdominal exam: Present: soft. Absent: distended, tenderness, guarding, rebound, rigid, mass Extremities exam: Present: normal inspection, normal capillary refill. Absent: pedal edema, calf tenderness Back exam: Present: normal inspection. Absent: CVA tenderness (R), CVA tendern ess (L) Neurological exam: Present: alert Skin exam: Present: warm, dry, intact, normal color. Absent: rash Course Vital Signs 05/25/24 05/25/24 05/25/24 20:40 20:53 21:13 Temperature 98.2 F 98.1 F 98.6 F Pulse Rate 92 97 93 Respiratory 16 16 16 Rate Blood Pressure 129/64 131/59 127/66 O2 Sat by Pulse 95 Oximetry 05/25/24 23:15 Temperature 98.0 F Pulse Rate 85 Respiratory 18 Rate Blood Pressure 133/72 O2 Sat by Pulse 97 Oximetry Medical Decision Making - Medical Decision Making Was pt. sent in by a medical professional or institution ([facility], SQL SSRS SSIS DEVELOPER, urgent care, hospital, or snf...) When possible be specific @ -[No] Did you speak to anyone other than the patient for history (EMS, parent, family, police, friend...)? What history was obtained from this source @ -[No] Did you review nursing and triage notes (agree or disagree)? Why? @ -[I reviewed and agree with nursing and triage notes] Were old charts reviewed (outside hosp., previous admission, EMS record, old EKG, old radiological studies, urgent care reports/EKG's, snf records)? Report findings @ -[No old charts were reviewed] Differential Diagnosis (chest pain, altered mental status, abdominal pain women, abdominal pain men, vaginal bleeding, weakness, fever, dyspnea, syncope, headache, dizziness, GI bleed, back pain, seizure, CVA, palpatations, mental health, musculoskeletal)? @ -[Differential Weakness: Hypoglycemia, shock, sepsis, hyponatremia, anemia, infection, [place], ETOH, adverse medicine reaction, overdose, stroke, this is not meant to be an all-inclusive list. EKG interpreted by me (3pts min.). @ -[As above] X-rays interpreted by me (1pt min.). @ -[None done] CT interpreted by me (1pt min.). @ -[None done] U/S interpreted by me (1pt. min.). @ -[None done] What testing was considered but not performed or refused? (CT, X-rays, U/S, labs)? Why? @ -[None] What meds were considered but not given or refused? Why? @ -[None] Did you discuss the management of the patient with other professionals (professionals i.e. , PA, SQL SSRS SSIS DEVELOPER, lab, RT, psych nurse, director of social services, coal hauler operator, teacher, medical officer psychiatry, shoe caser)? Give summary @ -[Case discussed with hematology and they do recommend transfusion for the patient Was smoking cessation discussed for >3mins.? @ -[No] Was critical care preformed (if so, how long)? @ -[No] Were there social determinants of health that impacted care today? How? (Homelessness, low income, unemployed, alcoholism, drug addiction, transportation, low edu. Level, literacy, decrease access to med. care, long term, rehab)? @ -[No] Was there de-escalation of care discussed even if they declined (Discuss DNR or withdrawal of care, Hospice)? DNR status @ -[No] What co-morbidities impacted this encounter? (DM, HTN, Smoking, COPD, CAD, Cancer, CVA, ARF, Chemo, Hep., AIDS, mental health diagnosis, sleep apnea, morbid obesity)? @ -[None] Was patient admitted / discharged? Hospital course, mention meds given and route, prescriptions, significant lab abnormalities, going to OR and other pertinent info. @ -[hospital course] Undiagnosed new problem with uncertain prognosis? @ -[No] Drug Therapy requiring intensive monitoring for toxicity (Heparin, Nitro, Insulin, Cardizem)? @ -[Transfusion Were any procedures done? @ -[No] Diagnosis/symptom? @ -[Myelodysplastic syndrome, chronic Anemia, acute Acute, or Chronic, or Acute on Chronic? @ -[default] Uncomplicated (without systemic symptoms) or Complicated (systemic symptoms)? @ -[Uncomplicated Side effects of treatment? @ -[No] Exacerbation, Progression, or Severe Exacerbation? @ -[No] Poses a threat to life or bodily function? How? (Chest pain, [place], [place], pneumonia, PE, COPD, DKA, ARF, appy, cholecystitis, CVA, Diverticulitis, Homicidal, Suicidal, threat to staff... and all critical care pts) @ -[No] - Lab Data Result diagrams: 05/25/24 17:19 05/25/24 17:19 Lab Results 05/25/24 05/25/24 05/25/24 Range/Units 17:19 17:19 17:19 WBC 4.4 (3.8-10.6) k/uL RBC 1.86 L (4.30-5.90) m/uL Hgb 7.3 L D (13.0-17.5) gm/dL Hct 22.4 L (39.0-53.0) % MCV 120.3 H (80.0-100.0) fL MCH 39.0 H (25.0-35.0) pg MCHC 32.5 (31.0-37.0) g/dL RDW 20.2 H (11.5-15.5) % Plt Count 161 (150-450) k/uL MPV 11.1 Neutrophils % (Manual) 48 % Band Neuts % (Manual) 1 % Lymphocytes % (Manual) 23 % Monocytes % (Manual) 26 % Eosinophils % (Manual) 2 % Neutrophils # (Manual) 2.10 (1.3-7.7) k/uL Lymphocytes # (Manual) 1.01 (1.0-4.8) k/uL Monocytes # (Manual) 1.14 H (0-1.0) k/uL Eosinophils # (Manual) 0.09 (0-0.7) k/uL Nucleated RBCs 0 (0-0) /100 WBC Manual Slide Review Performed Large Platelets Present Polychromasia Present Hypochromasia Marked Poikilocytosis Marked Anisocytosis Moderate Macrocytosis Marked A Stomatocytes Present PT 11.5 (10.0-12.5) sec INR 1.1 (<1.2) APTT 27.8 (22.0-30.0) sec Sodium 137 (137-145) mmol/L Potassium 4.7 (3.5-5.1) mmol/L Chloride 104 (98-107) mmol/L Carbon Dioxide 26 (22-30) mmol/L Anion Gap 7 mmol/L BUN 22 H (9-20) mg/dL Creatinine 1.37 H (0.66-1.25) mg/dL Est GFR (CKD-EPI)AfAm 58 (>60 ml/min/1.73 sqM) Est GFR (CKD-EPI)NonAf 50 (>60 ml/min/1.73 sqM) Glucose 95 (74-99) mg/dL Calcium 9.1 (8.4-10.2) mg/dL Phosphorus 3.2 (2.5-4.5) mg/dL Magnesium 2.2 (1.6-2.3) mg/dL Total Bilirubin 1.0 (0.2-1.3) mg/dL AST 33 (17-59) U/L ALT 20 (4-49) U/L Alkaline Phosphatase 114 (38-126) U/L Total Protein 6.5 (6.3-8.2) g/dL Albumin 4.1 (3.5-5.0) g/dL Blood Type Blood Type Recheck Bld Type Recheck Status Antibody Screen Crossmatch Spec Expiration Date 05/25/24 Range/Units 17:19 WBC (3.8-10.6) k/uL RBC (4.30-5.90) m/uL Hgb (13.0-17.5) gm/dL Hct (39.0-53.0) % MCV (80.0-100.0) fL MCH (25.0-35.0) pg MCHC (31.0-37.0) g/dL RDW (11.5-15.5) % Plt Count (150-450) k/uL MPV Neutrophils % (Manual) % Band Neuts % (Manual) % Lymphocytes % (Manual) % Monocytes % (Manual) % Eosinophils % (Manual) % Neutrophils # (Manual) (1.3-7.7) k/uL Lymphocytes # (Manual) (1.0-4.8) k/uL Monocytes # (Manual) (0-1.0) k/uL Eosinophils # (Manual) (0-0.7) k/uL Nucleated RBCs (0-0) /100 WBC Manual Slide Review Large Platelets Polychromasia Hypochromasia Poikilocytosis Anisocytosis Macrocytosis Stomatocytes PT (10.0-12.5) sec INR (<1.2) APTT (22.0-30.0) sec Sodium (137-145) mmol/L Potassium (3.5-5.1) mmol/L Chloride (98-107) mmol/L Carbon Dioxide (22-30) mmol/L Anion Gap mmol/L BUN (9-20) mg/dL Creatinine (0.66-1.25) mg/dL Est GFR (CKD-EPI)AfAm (>60 ml/min/1.73 sqM) Est GFR (CKD-EPI)NonAf (>60 ml/min/1.73 sqM) Glucose (74-99) mg/dL Calcium (8.4-10.2) mg/dL Phosphorus (2.5-4.5) mg/dL Magnesium (1.6-2.3) mg/dL Total Bilirubin (0.2-1.3) mg/dL AST (17-59) U/L ALT (4-49) U/L Alkaline Phosphatase (38-126) U/L Total Protein (6.3-8.2) g/dL Albumin (3.5-5.0) g/dL Blood Type O Positive Blood Type Recheck O Pos Bld Type Recheck Status No Antibody Screen NEGATIVE Crossmatch See Detail Spec Expiration Date 05/28/20242318 Disposition Clinical Impression: Myelodysplastic disease, Anemia Disposition: HOME SELF-CARE Condition: Good Is patient prescribed a controlled substance at d/c from ED?: No Referrals: None,Stated [Primary Care Provider] - 1-2 days
[2024-05-25 23:35] VITALS: BP 133/72; PULSE 85; RESP 18; TEMP 98
== END 2024-05-25 23:46 | disposition home or self-care (01) ==
LOC: EC 16:58
DX: C94.6 Myelodysplastic disease, not elsewhere classified (principal); D64.9 Anemia, unspecified; Z88.8 Allergy status to other drugs, medicaments and biological substances; Z87.891 Personal history of nicotine dependence
CPT/HCPCS: 36430; 99283; 36415; 86900; 86901; 80053; 83735; 84100; 85025; 85610; 85730; 86850; 86920; P9016

== ENCOUNTER 2024-09-05 10:16 | Emergency (ER) | payer MEDICARE ==
--- NOTE | 2024-09-05 11:06 | ED ---
ENT HPI - General Chief complaint: ENT Stated complaint: R ear/nose bleeding,Headache Time Seen by Provider: 09/05/24 10:26 Source: patient, family, RN notes reviewed Mode of arrival: wheelchair Limitations: no limitations - History of Present Illness Initial comments: 74-year-old male with history of Alzheimer's presenting to the ER for right ear bleeding x 1 day. Patient presents with his who gives history. She reports she noticed some bloody drainage on patient's pillowcase last night and noticed some dried blood in the right ear canal. This morning around 7 AM, patient's right nostril bled minimally. Patient does have a history of frequent nosebleeds. Patient takes a daily baby aspirin, denies blood thinners. States he had a surgery at 5 years old where he had his right eardrum removed. Patient's is also requesting CBC today as he has a history of myelodysplastic syndrome and frequently gets blood transfusions for low he moglobin. Denies headache, chest pain, shortness of breath, fever, chills. Patient denies any symptoms currently. - Related Data Home Medications Medication Instructions Recorded Confirmed Tamsulosin [Flomax] 0.4 mg PO BID 09/16/19 07/28/24 Cholecalciferol [Vitamin D3 (25 50 mcg PO DAILY 04/04/21 07/28/24 Mcg = 1000 Iu)] Omeprazole [PriLOSEC] 40 mg PO DAILY 04/04/21 07/28/24 Vitamin B Complex 1 cap PO DAILY 04/04/21 07/28/24 Sertraline [Zoloft] 100 mg PO HS 08/31/21 07/28/24 Multivitamins, Thera [Multivitamin 1 tab PO DAILY 03/01/23 07/28/24 (formulary)] Zinc Gluconate [Zinc] 50 mg PO DAILY 03/01/23 07/28/24 Aspirin [Adult Low Dose Aspirin EC] 81 mg PO DAILY 05/31/23 07/28/24 Rivastigmine Tartrate [Exelon] 3 mg PO BID 02/15/24 07/28/24 Acetaminophen Tab [Tylenol Tab] 1,000 mg PO Q6HR PRN 04/06/24 07/28/24 Atorvastatin [Lipitor] 40 mg PO HS 04/06/24 07/28/24 Naproxen Sodium [Aleve] 220 mg PO Q8H PRN 04/06/24 07/28/24 Reblozyl 75mg 60 mg SQ Q21D 04/06/24 07/28/24 busPIRone HCL 15 mg PO BID 04/06/24 07/28/24 Allergies Allergy/AdvReac Type Severity Reaction Status Date / Time nitroglycerin Allergy Severe heart Verified 09/05/24 10:24 stopped beating after given nitro/Respitory Distress Review of Systems ROS Statement: Those systems with pertinent positive or pertinent negative responses have been documented in the HPI. ROS Other: All systems not noted in ROS Statement are negative. Past Medical History Past Medical History: Coronary Artery Disease (CAD), Cancer, Chest Pain / Angina, Dementia, GERD/Reflux, Hyperlipidemia, Osteoarthritis (OA), Prostate Disorder Additional Past Medical History / Comment(s): mild cog.impairment-short term memory loss,, anemia, MDS, Last Myocardial Infarction Date:: unknown History of Any Multi-Drug Resistant Organisms: None Reported Past Surgical History: Bowel Resection, Ear Surgery, Heart Catheterization, Hernia Repair, Joint Replacement, Orthopedic Surgery, Tonsillectomy Additional Past Surgical History / Comment(s): Left shoulder rotator cuff, total revers lft shoulder, knee arthroscopy, Past Anesthesia/Blood Transfusion Reactions: Previous Problems w/ Anesthesia Additional Past Anesthesia/Blood Transfusion Reaction / Comment(s): PTS BLOOD PRESSURE HAS DROPPED IN THE PAST WHEN RECEIVING ANESTHESIA. Past Psychological History: Anxiety Smoking Status: Former smoker Past Alcohol Use History: None Reported Past Drug Use History: None Reported - Past Family History Sister(s) Family Medical History: Cancer Father Family Medical History: Coronary Artery Disease (CAD), CVA/TIA Additional Family Medical History / Comment(s): cardiac history stated by the patient. Brother(s) Family Medical History: Blood Disorder Additional Family Medical History / Comment(s): kidney transplant Son(s) Family Medical History: No Reported History Daughter(s) Family Medical History: No Reported History Mother Family Medical History: No Reported History, Cancer Additional Family Medical History / Comment(s): , of old age General Exam Limitations: no limitations General appearance: alert, in no apparent distress Head exam: Present: atraumatic, normocephalic, normal inspection Eye exam: Present: normal appearance, PERRL, EOMI. Absent: scleral icterus, conjunctival injection, periorbital swelling ENT exam: Present: normal exam, normal oropharynx (No active bleeding), mucous m embranes moist. Absent: TM's normal bilaterally (Left TM normal. There is no right TM present, however no active bleeding, lesions, or abrasions noted in ear canal) Respiratory exam: Present: normal lung sounds bilaterally. Absent: respiratory distress, wheezes, rales, rhonchi, stridor Cardiovascular Exam: Present: regular rate, normal rhythm, normal heart sounds. Absent: systolic murmur, diastolic murmur, rubs, gallop, clicks Neurological exam: Present: alert, oriented X3 Psychiatric exam: Present: normal affect, normal mood Skin exam: Present: warm, dry, intact, normal color. Absent: rash Course Vital Signs 09/05/24 09/05/24 09/05/24 10:20 12:59 13:42 Temperature 98.0 F 98.1 F 97.7 F Pulse Rate 85 90 86 Respiratory 18 16 18 Rate Blood Pressure 119/66 135/75 124/75 O2 Sat by Pulse 99 97 99 Oximetry 09/05/24 09/05/24 09/05/24 16:59 17:09 17:19 Temperature 97.9 F 98.3 F 97.7 F Pulse Rate 86 81 79 Respiratory 16 16 16 Rate Blood Pressure 105/62 119/57 110/73 O2 Sat by Pulse 96 100 99 Oximetry 09/05/24 09/05/24 17:29 18:23 Temperature 97.5 F L 97.6 F Pulse Rate 87 86 Respiratory 16 16 Rate Blood Pressure 103/66 119/57 O2 Sat by Pulse 100 98 Oximetry Medical Decision Making - Medical Decision Making Was pt. sent in by a medical professional or institution (, PA, TIRE WORKER, urgent c are, hospital, or [facility]...) When possible be specific @ -No Did you speak to anyone other than the patient for history (EMS, parent, family, police, friend...)? What history was obtained from this source @ - gave history Did you review nursing and triage notes (agree or disagree)? Why? @ -I reviewed and agree with nursing and triage notes Were old charts reviewed (outside hosp., previous admission, EMS record, old EKG, old radiological studies, urgent care reports/EKG's, [facility] records)? Report findings @ -No old charts were reviewed Differential Diagnosis (chest pain, altered mental status, abdominal pain women, abdominal pain men, vaginal bleeding, weakness, fever, dyspnea, syncope, headache, dizziness, GI bleed, back pain, seizure, CVA, palpatations, mental health, musculoskeletal)? @ -Epistaxis, otitis media, otorrhagia, intracranial bleed, anemia EKG interpreted by me (3pts min.). @ -None X-rays interpreted by me (1pt min.). @ -None done CT interpreted by me (1pt min.). @ -CT head revealed no acute intracranial process, remote lacunar injuries along with nonspecific white matter changes likely secondary to microangiopathic, right mastoid surgical changes U/S interpreted by me (1pt. min.). @ -None done What testing was considered but not performed or refused? (CT, X-rays, U/S, labs)? Why? @ -None What meds were considered but not given or refused? Why? @ -None Did you discuss the management of the patient with other professionals (professionals i.e. , PA, TIRE WORKER, lab, RT, psych nurse, psych social worker, hospital pharmacist, teacher, customer service officer, case management social worker)? Give summary @ -No Was smoking cessation discussed for >3mins.? @ -No Was critical care preformed (if so, how long)? @ -No Were there social determinants of health that impacted care today? How? (Homeles sness, low income, unemployed, alcoholism, drug addiction, transportation, low edu. Level, literacy, decrease access to med. care, halfway, rehab)? @ -No Was there de-escalation of care discussed even if they declined (Discuss DNR or withdrawal of care, Hospice)? DNR status @ -No What co-morbidities impacted this encounter? (DM, HTN, Smoking, COPD, CAD, Cancer, CVA, ARF, Chemo, Hep., AIDS, mental health diagnosis, sleep apnea, morbid obesity)? @ -None Was patient admitted / discharged? Hospital course, mention meds given and route, prescriptions, significant lab abnormalities, going to OR and other pertinent info. @ -Discharge. This is a 74-year-old male presenting for otorrhagia and epistaxis x 1 day. Denies blood thinners. Denies active bleeding. He does have a history of myelodysplastic syndrome and is requesting CBC today as he frequently needs transfusions for low hemoglobin. Patient denies any current symptoms. CT head revealed no acute process. CBC remarkable for hemoglobin 6.9. Patient was given 1 unit of packed red blood cells. Offered admission, however patient and reports they will follow-up closely with PCP and return with any new or worsening symptoms. I believe this is reasonable at this time. Case was discussed with my ED attending Dr. Haile. Undiagnosed new problem with uncertain prognosis? @ -No Drug Therapy requiring intensive monitoring for toxicity (Heparin, Nitro, Insulin, Cardizem)? @ -No Were any procedures done? @ -No Diagnosis/symptom? @ -Anemia, otorrhagia Acute, or Chronic, or Acute on Chronic? @ -Acute Uncomplicated (without systemic symptoms) or Complicated (systemic symptoms)? @ -Uncomplicated Side effects of treatment? @ -No Exacerbation, Progression, or Severe Exacerbation? @ -No Poses a threat to life or bodily function? How? (Chest pain, [place], [place], pneumonia, PE, COPD, DKA, ARF, appy, cholecystitis, CVA, Diverticulitis, Homicidal, Suicidal, threat to staff... and all critical care pts) @ -Unlikely - Lab Data Result diagrams: 09/05/24 12:00 Lab Results 09/05/24 09/05/24 Range/Units 12:00 15:22 WBC 3.1 L (3.8-10.6) k/uL RBC 1.88 L (4.30-5.90) m/uL Hgb 6.9 L* (13.0-17.5) gm/dL Hct 20.6 L (39.0-53.0) % MCV 109.2 H (80.0-100.0) fL MCH 36.6 H (25.0-35.0) pg MCHC 33.5 (31.0-37.0) g/dL RDW 30.6 H (11.5-15.5) % Plt Count 80 L (150-450) k/uL MPV 12.7 Neutrophils % (Manual) 38 % Lymphocytes % (Manual) 47 % Monocytes % (Manual) 10 % Eosinophils % (Manual) 1 % Metamyelocytes % 4 % Myelocytes % 2 % Neutrophils # (Manual) 1.18 L (1.3-7.7) k/uL Lymphocytes # (Manual) 1.46 (1.0-4.8) k/uL Monocytes # (Manual) 0.31 (0-1.0) k/uL Eosinophils # (Manual) 0.03 (0-0.7) k/uL Metamyelocytes # (Man) 0.12 H (0) k/uL Myelocytes # (Manual) 0.06 H (0) k/uL Nucleated RBCs 0 (0-0) /100 WBC Manual Slide Review Performed Pathologist Review See comment A Large Platelets Present Hypochromasia Moderate Poikilocytosis Marked Anisocytosis Marked Macrocytosis Marked A Stomatocytes Present Blood Type O Positive Blood Type Recheck O Pos Bld Type Recheck Status No Antibody Screen NEGATIVE Crossmatch See Detail Spec Expiration Date 09/08/20242321 Disposition Clinical Impression: Anemia, Otorrhagia of right ear Disposition: HOME SELF-CARE Condition: Stable Instructions (If sedation given, give patient instructions): Myelodysplastic Syndromes (ED) Additional Instructions: Follow-up with PCP in 1 to 3 days for reevaluation. Please return to the Emergency Department if symptoms worsen or any other concerns. Is patient prescribed a controlled substance at d/c from ED?: No Referrals: Anderson Rojas MD [Primary Care Provider] - 1-2 days Time of Disposition: 18:55
--- NOTE | 2024-09-05 12:14 | CT ---
EXAMINATION TYPE: CT brain wo con CT DLP: 1103.7 mGycm, Automated exposure control for dose reduction was used. DATE OF EXAM: 09/05/2024 12:01 PM COMPARISON: Prior CT Brain from 04/06/2024, 04/03/2021, MRI brain 04/09/2018. CLINICAL INDICATION:Male, 74 years old with history of otorrhagia/epistaxis, rt ear pain TECHNIQUE: Brain: Multiple axial CT images of the brain were obtained without IV contrast. . Coronal and sagitta l reformats reviewed. FINDINGS: Brain: Extra-axial spaces: No abnormal extra-axial fluid collections. Ventricular system: Within normal limits Cerebral parenchyma: Cerebral atrophy. No acute intraparenchymal hemorrhage or mass effect. The murguia -white junction is well differentiated. Scattered hypoattenuating areas are seen within the periventr icular white matter. 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 Cerebellum: Unremarkable. Mass effect: No evidence of midline shift. Intracranial vasculature: Atherosclerotic calcifications of the intracranial vessels. Soft tissues: Normal. Calvarium/osseous structures: No depressed skull fracture. Post surgical changes from right mastoidec tl redemonstrated. Paranasal sinuses and mastoid air cells: Clear Visualized orbits: Orbital contents are intact. IMPRESSION: 1. No acute intracranial process. 2. Remote lacunar injuries along with nonspecific white matter changes likely secondary to chronic mi croangiopathy. 3. Right mastoid surgical change redemonstrated. [facility], , 09/05/2024 12:12 PM
[2024-09-05 12:29] LABS: Anisocytosis Marked; HCT 20.6 % (39.0-53.0); Hypochromasia Moderate; MCH 36.6 pg (25.0-35.0); MCHC 33.5 g/dL (31.0-37.0); MCV 109.2 fL (80.0-100.0); Macrocytosis Marked; Mean Platelet Volume 12.7; Poikilocytosis Marked; RBC 1.88 m/uL (4.30-5.90); WBC 3.1 k/uL (3.8-10.6)
[2024-09-05 12:58] LABS: RDW 30.6 % (11.5-15.5)
[2024-09-05 13:00] LABS: HGB 6.9 gm/dL (13.0-17.5); Platelet Count 80 k/uL (150-450)
[2024-09-05 15:14] LABS: Eosinophils # (M) 0.03 k/uL (0-0.7); Lymphocytes # (M) 1.46 k/uL (1.0-4.8); Metamyelocytes # (M) 0.12 k/uL (0); Metamyelocytes % 4 %; Monocytes # (M) 0.31 k/uL (0-1.0); Myelocytes # (M) 0.06 k/uL (0); Myelocytes % 2 %; Neutrophils # (M) 1.18 k/uL (1.3-7.7); Neutrophils % (M) 38 %; Nucleated Red Blood Cells 0 /100 WBC (0-0); Total Cells Counted 200
[2024-09-05 15:19] LABS: Large Platelets Present; Stomatocytes Present
[2024-09-05 19:21] VITALS: BP 117/73; PULSE 87; RESP 18; TEMP 97.8
== END 2024-09-05 19:47 | disposition home or self-care (01) ==
LOC: EC 10:16
CPT/HCPCS: 36415; 36430; 70450; 85025; 86850; 86900; 86901; 86920; 99284